=== PATIENT | female | born 1960 | race African-American/Black ===

== ENCOUNTER 2016-04-20 20:12 | Emergency (ER) | payer BC ==
[2016-04-20 20:31] VITALS: RESP 18; TEMP 98
[2016-04-20] MEDS ORDERED: SODIUM CHLORIDE 0.9% 500 ML IV STA (21:41)
[2016-04-20] MEDS ORDERED: ONDANSETRON 4 MG/2 ML VIAL IVP STA (21:41)
[2016-04-20] MEDS ORDERED: SODIUM CHLORIDE 0.9% 1,000 ML IV STA (21:41)
--- NOTE | 2016-04-20 21:48 | ED ---
General Adult HPI - General Source: patient, family, RN notes reviewed, old records reviewed Mode of arrival: ambulatory Limitations: no limitations <Jose J Escoto - Last Filed: 04/20/16 23:47> <Netta Francisco - Last Filed: 04/21/16 02:32> - General Chief complaint: Abdominal Pain Stated complaint: Female Time Seen by Provider: 04/20/16 21:23 - History of Present Illness Initial comments: Chief complaint and history of present illness this is a 55-year-old female was coming to the emergency room from the office. The patient was having right flank pain radiates down toward the right lower quadrant and groin area. She was her doctor's office or blood in the urine. Patient's never had a kidney stone before. She was mildly sweaty mildly nauseated no vomiting. Ongoing for 3 days (Jose J Escoto) - Related Data Home Medications Medication Instructions Recorded Confirmed Albuterol Sulfate [Proair Hfa] 1 - 2 puff INHALATION RT-Q6H PRN 08/21/14 Atorvastatin [Lipitor] 20 mg PO HS 08/21/14 04/20/16 Budesonide/Formoterol Fumarate 2 puff INHALATION RT-BID 08/21/14 04/20/16 [Symbicort 160-4.5 Mcg Inhaler] Esomeprazole Magnesium [NexIUM] 40 mg PO DAILY 08/21/14 04/20/16 Montelukast [Singulair] 10 mg PO HS 08/21/14 04/20/16 Nebivolol [Bystolic] 5 mg PO DAILY 08/21/14 04/20/16 Cetirizine HCl [Zyrtec] 10 mg PO HS 09/09/14 04/20/16 Hydrochlorothiazide [Hydrodiuril] 12.5 mg PO DAILY 09/09/14 04/20/16 Cyclobenzaprine [Flexeril] 10 mg PO TID PRN 04/20/16 04/20/16 Eszopiclone [Lunesta] 3 mg PO HS 04/20/16 04/20/16 PARoxetine [Paxil] 20 mg PO HS 04/20/16 04/20/16 Potassium Chloride [Klor-Con 10] 10 meq PO HS 04/20/16 04/20/16 Previous Rx's Medication Instructions Recorded Ibuprofen [Motrin] 800 mg PO Q6HR PRN #20 tab 05/16/14 HYDROcodone/APAP 5-325MG [[place] 1 tab PO Q4HR PRN #20 tab 04/21/16 5-325] Allergies Allergy/AdvReac Type Severity Reaction Status Date / Time DESTINY Inhibitors Allergy Rash/Hives Verified 04/20/16 20:31 hydromorphone HCl Allergy Anaphylaxis Verified 04/20/16 20:31 [From Dilaudid] latex Allergy Rash/Hives Verified 04/20/16 20:31 propoxyphene napsylate Allergy Swelling Verified 04/20/16 20:31 [From Darvocet-N] Review of Systems ROS Other: All systems not noted in ROS Statement are negative. <Jose J Escoto - Last Filed: 04/20/16 23:47> ROS Other: All systems not noted in ROS Statement are negative. <Netta Francisco - Last Filed: 04/21/16 02:32> ROS Statement: Those systems with pertinent positive or pertinent negative responses have been documented in the HPI. Review of systems. Patient denies any headache no chest pain no shortness of breath she has right flank pain that goes around towards the right lower quadrant area. Mild nausea. Patient denies any difficulty walking. All systems are reviewed. Past medical problems significant for asthma, diet-controlled diabetes, hyperlipidemia hypertension. The patient has a history of heart. Surgeries include fusion of L5 S4, cholecystectomy, one heart catheterization but no stent placed. The patient had glaucoma surgery both eyes. Family history diabetes hypertension and glaucoma. Patient has ALLERGY to DESTINY inhibitor as this causes angioneurotic edema. Also hydro-more phone ALLERGY, latex and propoxyphene. Patient denies smoking denies drinking (Jose J Escoto) Past Medical History Past Medical History: Diabetes Mellitus, Hyperlipidemia, Hypertension Additional Past Medical History / Comment(s): heart murmur, glaucoma History of Any Multi-Drug Resistant Organisms: None Reported Past Surgical History: Back Surgery, Cholecystectomy, Heart Catheterization Additional Past Surgical History / Comment(s): eye Past Anesthesia/Blood Transfusion Reactions: No Reported Reaction Past Psychological History: No Psychological Hx Reported Smoking Status: Never smoker Past Alcohol Use History: None Reported Past Drug Use History: None Reported <Jose J Escoto - Last Filed: 04/20/16 23:47> General Exam Limitations: no limitations <Jose J Escoto - Last Filed: 04/20/16 23:47> <Netta Francisco - Last Filed: 04/21/16 02:32> - General Exam Comments Initial Comments: General: The patient is awake and alert, in no distress, and does not appear acutely ill. Playing a discomfort to the right flank raiding down the right lower quadrant for 3 days. Vital signs show temperature 98.0 pulse 60 report rate 18 pulse ox 90% room air blood pressure 142/75. Elevated systolic noted. The patient is an discomfort. She does have a history of hypertension. Eye: Pupils are equal, round and reactive to light, extra-ocular movements are intact ; there is normal conjunctiva bilaterally. No signs of icterus. No complaint of visual acuity changes. Patient does have glaucoma uses eyedrops. Neck: The neck is supple, there is no tenderness Cardiovascular: There is a regular rate and rhythm. Faint murmur appreciated. Respiratory: Lungs are clear to auscultation, respirations are non-labored, breath sounds are equal. No wheezes, stridor, rales, or rhonchi. Gastrointestinal: Soft, non-distended, tender with deep palpation to the right lower quadrant. Discomfort starts in the right flank radiates around toward the right lower quadrant. No rebound or referred pain no guarding. There is no rebound or guarding present. No CVA tenderness. Bowel sounds are unremarkable. Back: Right flank discomfort for 3 days radiating to the right lower quadrant Musculoskeletal: Normal ROM, no tenderness, Neurological: No neuro deficit Skin: Skin is warm and dry and no rashes or lesions are noted. (Jose J Escoto) Course <Jevon,Jose J - Last Filed: 04/20/16 23:47> <Netta Francisco - Last Filed: 04/21/16 02:32> Vital Signs 04/20/16 04/20/16 20:28 23:31 Temperature 98 F Pulse Rate 60 64 Respiratory 18 18 Rate Blood Pressure 142/75 136/67 O2 Sat by Pulse 98 99 Oximetry She is reassessed at 2:15 AM, CBC, comprehensive metabolic panel, UA and CT abdomen are normal pain has resolved pretty much, she is comfortable going home on some Lowell's and she will follow-up with her family doctor to be gone home under Lowell 1 pill every 6 when necessary #15 (Netta Francisco) Medical Decision Making - Lab Data Result diagrams: 04/20/16 21:55 04/20/16 21:55 <Jose J Escoto - Last Filed: 04/20/16 23:47> - Lab Data Result diagrams: 04/20/16 21:55 04/20/16 21:55 <Netta Francisco - Last Filed: 04/21/16 02:32> - Medical Decision Making Medical decision making; patient's white count 8.7 hemoglobin 11 hematocrit of 37 urine clean no signs of infection or blood. Potassium is 4.5 with BUN 16 creatinine 0.6 and GFR greater than 60. Glucose 87. Plasma lactic acid less than 0.5. X-ray of the abdomen was done and reviewed by radiologist his impression is the bowel gas pattern is normal. There is no sign of intestinal obstruction or pneumoperitoneum. There are clips from cholecystectomy. Fecal pattern is normal. There is no sign of a mass. There is lower lumbar spine posterior fusion surgery. Impressions hemicolon nonacute abdomen. No change. As read by Dr. Gomez (Jose J Escoto) - Lab Data Lab Results 04/20/16 04/20/16 04/20/16 Range/Units 21:55 21:55 21:55 WBC 8.7 (3.8-10.6) k/uL RBC 4.46 (3.80-5.40) m/uL Hgb 11.4 (11.4-16.0) gm/dL Hct 37.4 (34.0-46.0) % MCV 83.9 (80.0-100.0) fL MCH 25.7 (25.0-35.0) pg MCHC 30.6 L (31.0-37.0) g/dL RDW 14.0 (11.5-15.5) % Plt Count 364 (150-450) k/uL Neutrophils % 55 % Lymphocytes % 36 % Monocytes % 5 % Eosinophils % 3 % Basophils % 0 % Neutrophils # 4.8 (1.3-7.7) k/uL Lymphocytes # 3.2 (1.0-4.8) k/uL Monocytes # 0.4 (0-1.0) k/uL Eosinophils # 0.2 (0-0.7) k/uL Basophils # 0.0 (0-0.2) k/uL Sodium 141 (137-145) mmol/L Potassium 4.5 (3.5-5.1) mmol/L Chloride 98 (98-107) mmol/L Carbon Dioxide 31 H (22-30) mmol/L Anion Gap 12 mmol/L BUN 16 (7-17) mg/dL Creatinine 0.68 (0.52-1.04) mg/dL Est GFR (MDRD) Af Amer >60 (>60 ml/min/1.73 sqM) Est GFR (MDRD) Non-Af >60 (>60 ml/min/1.73 sqM) Glucose 87 (74-99) mg/dL Plasma Lactic Acid Juan Jose (0.7-2.0) mmol/L Calcium 9.6 (8.4-10.2) mg/dL Total Bilirubin 0.5 (0.2-1.3) mg/dL AST 30 (14-36) U/L ALT 46 (9-52) U/L Alkaline Phosphatase 91 (38-126) U/L Total Protein 7.3 (6.3-8.2) g/dL Albumin 4.4 (3.5-5.0) g/dL Amylase 73 (30-110) U/L Lipase 47 (23-300) U/L Urine Color Yellow Urine Appearance Clear (Clear) Urine pH 7.0 (5.0-8.0) Ur Specific [place] 1.017 (1.001-1.035) Urine Protein Negative (Negative) Urine Glucose (UA) Negative (Negative) Urine Ketones Negative (Negative) Urine Blood Negative (Negative) Urine Nitrate Negative (Negative) Urine Bilirubin Negative (Negative) Urine Urobilinogen 2.0 (<2.0) mg/dL Ur Leukocyte Esterase Negative (Negative) 04/20/16 Range/Units 22:00 WBC (3.8-10.6) k/uL RBC (3.80-5.40) m/uL Hgb (11.4-16.0) gm/dL Hct (34.0-46.0) % MCV (80.0-100.0) fL MCH (25.0-35.0) pg MCHC (31.0-37.0) g/dL RDW (11.5-15.5) % Plt Count (150-450) k/uL Neutrophils % % Lymphocytes % % Monocytes % % Eosinophils % % Basophils % % Neutrophils # (1.3-7.7) k/uL Lymphocytes # (1.0-4.8) k/uL Monocytes # (0-1.0) k/uL Eosinophils # (0-0.7) k/uL Basophils # (0-0.2) k/uL Sodium (137-145) mmol/L Potassium (3.5-5.1) mmol/L Chloride (98-107) mmol/L Carbon Dioxide (22-30) mmol/L Anion Gap mmol/L BUN (7-17) mg/dL Creatinine (0.52-1.04) mg/dL Est GFR (MDRD) Af Amer (>60 ml/min/1.73 sqM) Est GFR (MDRD) Non-Af (>60 ml/min/1.73 sqM) Glucose (74-99) mg/dL Plasma Lactic Acid Juan Jose <0.5 L (0.7-2.0) mmol/L Calcium (8.4-10.2) mg/dL Total Bilirubin (0.2-1.3) mg/dL AST (14-36) U/L ALT (9-52) U/L Alkaline Phosphatase (38-126) U/L Total Protein (6.3-8.2) g/dL Albumin (3.5-5.0) g/dL Amylase (30-110) U/L Lipase (23-300) U/L Urine Color Urine Appearance (Clear) Urine pH (5.0-8.0) Ur Specific [place] (1.001-1.035) Urine Protein (Negative) Urine Glucose (UA) (Negative) Urine Ketones (Negative) Urine Blood (Negative) Urine Nitrate (Negative) Urine Bilirubin (Negative) Urine Urobilinogen (<2.0) mg/dL Ur Leukocyte Esterase (Negative) Disposition <Jose J Escoto - Last Filed: 04/20/16 23:47> <Netta Francisco - Last Filed: 04/21/16 02:32> Clinical Impression: Flank pain Disposition: HOME SELF-CARE Condition: Good Instructions: Abdominal Pain (ED) Prescriptions: HYDROcodone/APAP 5-325MG [[place] 5-325] 1 tab PO Q4HR PRN #20 tab PRN Reason: Pain
[2016-04-20 22:03] LABS: Basophils % (A) 0 %; CH 26.6; CHCM 31.9; Eosinophils # (A) 0.2 k/uL (0-0.7); Eosinophils % (A) 3 %; HCT 37.4 % (34.0-46.0); HDW 2.46; HGB 11.4 gm/dL (11.4-16.0); Luc # (Auto) 0.11; Luc % (Auto) 1; Lymphocytes # (A) 3.2 k/uL (1.0-4.8); Lymphocytes % (A) 36 %; MCH 25.7 pg (25.0-35.0); MCHC 30.6 g/dL (31.0-37.0); MCV 83.9 fL (80.0-100.0); Mean Platelet Volume 7.4; Monocytes # (A) 0.4 k/uL (0-1.0); Monocytes % (A) 5 %; Neutrophils # (A) 4.8 k/uL (1.3-7.7); Neutrophils % (A) 55 %; RBC 4.46 m/uL (3.80-5.40); WBC 8.7 k/uL (3.8-10.6); WBC (Perox) 9.03
[2016-04-20 22:04] LABS: Appearance,Urine Clear (Clear); Bilirubin,Urine Negative (Negative); Glucose,Urine (UA) Negative (Negative); Ketones,Urine Negative (Negative); Leukocyte Esterase,Urine Negative (Negative); Nitrite,Urine Negative (Negative); Protein,Urine Negative (Negative); Specific Gravity,Urine 1.017 (1.001-1.035); UA Billing (MACRO vs. MICRO) CHEM
--- NOTE | 2016-04-20 22:07 | XR ---
EXAMINATION TYPE: XR abdomen 2V DATE OF EXAM: 04/20/2016 10:02 PM COMPARISON: 07/21/2010 HISTORY: Right flank pain TECHNIQUE: 3 views FINDINGS: The bowel gas pattern is normal. There is no sign of intestinal obstruction or pneumoperito neum. There are clips from cholecystectomy. Fecal pattern is normal. There is no sign of a mass. Ther e is lower lumbar spine posterior fusion surgery. IMPRESSION: Nonacute abdomen. No change.
[2016-04-20 22:13] LABS: ALT 46 U/L (9-52); AST 30 U/L (14-36); Alkaline Phosphatase 91 U/L (38-126); Amylase 73 U/L (30-110); Anion Gap 12 mmol/L; Blood Urea Nitrogen 16 mg/dL (7-17); Calcium 9.6 mg/dL (8.4-10.2); Carbon Dioxide 31 mmol/L (22-30); Chloride 98 mmol/L (98-107); Glucose 87 mg/dL (74-99); Non-African American GFR(MDRD) >60 (>60 ml/min/1.73 sqM); Potassium 4.5 mmol/L (3.5-5.1); Sodium 141 mmol/L (137-145); Total Bilirubin 0.5 mg/dL (0.2-1.3); Total Protein 7.3 g/dL (6.3-8.2)
[2016-04-20] MEDS ORDERED: RX INFO: IV CONTRAST WAS GIVEN 1 EACH MISC MISCELLANE PRN (23:50)
[2016-04-20] MEDS ORDERED: IOHEXOL 350 MG/ML 25 ML BOTTLE (ORAL USE) PO PRN (23:50)
[2016-04-21] MEDS ORDERED: ACETAMINOPHEN IV (For NPO) 1,000 MG in EMPTY BAG 1 BAG IVPB STA (00:01)
--- NOTE | 2016-04-21 02:07 | CT ---
EXAMINATION TYPE: CT abdomen pelvis w con DATE OF EXAM: 04/21/2016 1:47 AM COMPARISON: NONE HISTORY: Rt flank pain that radiates to RLQ with hematuria. CT DLP: 644.70 mGycm Automated exposure control for dose reduction was used. TECHNIQUE: Helical acquisition of images was performed from the lung bases through the pelvis. CONTRAST: Performed with Oral Contrast and with IV Contrast, patient injected with 100 mL of Omnipaque 300. FINDINGS: There is mild subsegmental atelectasis at the lung bases. There is no pleural effusion. Heart size is normal. There is a small hiatal hernia. There is no pericardial effusion. Liver spleen pancreas appear normal. There are clips from cholecystectomy. There is no adrenal mass. Kidneys show satisfactory contrast opacification. There is no hydronephrosis. There is no retroperito hebert adenopathy. There is metal artifact from lower lumbar spine posterior fusion surgery. There is n o ascites. I see no intestinal wall thickening. There are no dilated loops. Bladder distends smoothly . There is no sign of a pelvic mass. Appendix is not seen. There is no sign of appendicitis. I see no bony destructive process. IMPRESSION: NO SIGN OF ACUTE ABDOMEN AND PELVIS. NO ADVERSE CHANGE COMPARED TO OLD EXAM. I DO NOT SEE A CAUSE FOR THE HEMATURIA.
[2016-04-21 02:51] VITALS: BP 128/76; PULSE 59
== END 2016-04-21 02:51 | disposition home or self-care (01) ==
LOC: EC 20:12
DX: R10.9 Unspecified abdominal pain (principal); I10 Essential (primary) hypertension; E78.5 Hyperlipidemia, unspecified; K21.9 Gastro-esophageal reflux disease without esophagitis; J98.11 Atelectasis; K44.9 Diaphragmatic hernia without obstruction or gangrene; H40.9 Unspecified glaucoma; Z79.899 Other long term (current) drug therapy; Z88.5 Allergy status to narcotic agent; Z88.8 Allergy status to other drugs, medicaments and biological substances; Z91.040 Latex allergy status
CPT/HCPCS: 99284; 96365; 96366 ×2; 96375; 96361 ×2; 36415; 80053; 82150; 83605; 83690; 85025; 81003; 87086; 74020; 74177; J2405; Q9967; J0131

== ENCOUNTER 2016-05-13 08:34 | Day surgery (SDC) | payer BC ==
[2016-05-07 11:12] VITALS: BMI 32.1
[~2016-05-13 08:34] MED LIST: LACTATED RINGERS 1,000 ML IV SCH; LIDOCAINE 1% 20 ML VIAL (10MG/ML) FOR IV START INTRADERMA PRN
[2016-05-13 09:03] VITALS: RESP 16; TEMP 97.3
[2016-05-13 09:32] LABS: Glucose,Whole Blood 101 mg/dL (75-99)
[2016-05-13] MEDS ORDERED: PROPOFOL 10 MG/ML 20 ML VIAL IV ONE (09:39)
--- NOTE | 2016-05-13 10:00 | P.PCN ---
Date of Procedure: 05/13/16 Procedure(s) Performed: Brief history: Patient is a pleasant 56-year-old white female, scheduled for an elective upper endoscopy as well as colonoscopy as a part of evaluation of abdominal pain, change in bowel habits for the last 3 days' duration. Pain is mostly in the right flank area radiating to the right lower quadrant area almost a daily basis and at times can be very severe. She went to the emergency room and had a CT of the abdomen and pelvis done and according to the patient was within normal limits. Because of the persistent symptoms she is scheduled for an upper endoscopy as well as colonoscopy today. Procedure performed: Esophagogastroduodenoscopy with biopsy Colonoscopy Preoperative diagnosis: Abdominal pain and change in bowel habits Anesthesia: MAC Procedure: After informed consent was obtained from the patient was brought into the endoscopy unit and IV conscious sedation was administered by anesthesia under continuous monitoring. Initially upper endoscopy was done. The Olympus GF 160 video endoscope was inserted inserted into the mouth and esophagus intubated without any difficulty and was gradually advanced into the stomach and duodenum and carefully examined. The bulb and second part of the duodenum appeared normal. The scope was then withdrawn into the stomach adequately insufflated with air and upon careful examination the antrum had mild gastritis and biopsies were done from this area. There were small polyps in the proximal body of the stomach and these were biopsied. The rest of the body, cardia and fundus appeared normal. The scope was then withdrawn into the esophagus. The GE junction was located at 40 cm to the incisors. It appeared regular with no erythema erosions or ulcerations. Rest of the esophagus appeared normal. Patient tolerated the procedure well. At this time the patient continued to remain sedation. Initial digital rectal examination was normal. Olympus CF 160 video colonoscope was then inserted into the rectum and gradually advanced to the cecum without any difficulty. Careful examination was performed as the scope was gradually being withdrawn. The prep was excellent. The cecum, ascending colon, transverse colon, descending colon, sigmoid colon and rectum appeared normal. Retroflexion was performed in the rectum and no lesions were noted. Patient tolerated the procedure well. Impression: 1. Upper endoscopy revealed small gastric polyps and mild antral gastritis. 2. Colonoscopy was essentially within normal limits with no evidence of colitis or colorectal neoplasia Recommendations: Findings of this examination were discussed with the patient as well as her family. She was advised to follow with the biopsy results. She'll be seen in the office in 2 weeks. She can have a repeat colonoscopy in 10 years
[2016-05-13 10:31] VITALS: BP 151/84; PULSE 60
== END 2016-05-13 10:59 | disposition home or self-care (01) ==
LOC: ORWHC2ENDO 08:34
PROVIDERS: ATTEND Internal Medicine Gastroenterology
DX: K29.50 Unspecified chronic gastritis without bleeding (principal); K31.7 Polyp of stomach and duodenum; I10 Essential (primary) hypertension; J45.909 Unspecified asthma, uncomplicated; K21.9 Gastro-esophageal reflux disease without esophagitis; Z79.899 Other long term (current) drug therapy; Z88.8 Allergy status to other drugs, medicaments and biological substances; Z91.040 Latex allergy status
CPT/HCPCS: 88305; 88342; 45378; 43239; J2704; 99153

== ENCOUNTER → 2016-06-29 | Outpatient (CLI) | payer BC | END | disposition home or self-care (01) | LOC: LABWHC1 17:03 | PROVIDERS: ATTEND Internal Medicine Critical Care Medicine | DX: T78.40XA Allergy, unspecified, initial encounter (principal); R05 Cough | CPT/HCPCS: 36415; 82785 ==

== ENCOUNTER → 2016-08-11 | Outpatient (CLI) | payer OTHER ==
--- NOTE | 2016-08-11 15:26 | XR ---
Right foot HISTORY: Trauma and pain 3 views of the right foot Comparison to right ankle same date Bone mineralization, joint spaces and alignment are maintained. There is soft tissue swelling. IMPRESSION: No fracture or dislocation of the right foot is evident, follow-up as indicated
--- NOTE | 2016-08-11 15:27 | XR ---
Right ankle HISTORY: Trauma and pain 3 views of the right ankle correlated to right foot same date There is soft tissue swelling especially laterally. Bone mineralization, joint spaces and alignment a re maintained IMPRESSION: No fracture or dislocation is evident, follow-up as indicated.
--- NOTE | 2016-08-11 15:28 | XR ---
Right leg HISTORY: Trauma and pain 2 views of the right leg correlated to right ankle same date There is soft tissue swelling. Bone mineralization, joint spaces and alignment are maintained. IMPRESSION: No fracture or dislocation is evident.
== END | disposition home or self-care (01) ==
LOC: RADXRMAIN 14:47
PROVIDERS: ATTEND Emergency Medicine
DX: S80.01XA Contusion of right knee, initial encounter (principal); S80.11XA Contusion of right lower leg, initial encounter; S93.401A Sprain of unspecified ligament of right ankle, initial encounter; S93.601A Unspecified sprain of right foot, initial encounter; W19.XXXA Unspecified fall, initial encounter

== ENCOUNTER → 2016-08-15 | Outpatient (CLI) | payer BC | END | disposition home or self-care (01) | LOC: LABWHC1 12:41 | PROVIDERS: ATTEND Internal Medicine | DX: E03.9 Hypothyroidism, unspecified (principal) | CPT/HCPCS: 36415; 84439; 84443 ==

== ENCOUNTER → 2016-08-28 | Outpatient (CLI) | payer OTHER ==
--- NOTE | 2016-08-28 10:16 | XR ---
EXAMINATION TYPE: XR ankle complete 3 views RT, XR foot complete 3 views RT DATE OF EXAM: 08/28/2016 9:26 AM COMPARISON: 08/11/2016 HISTORY: 56-year-old female for ankle pain after fall at work 1 month ago FINDINGS: Ankle: Ankle mortise appears congruent. Preservation of the distal tibiofibular overlap. Talar dome is intac t. Residual bimalleolar soft tissue swelling is noted. No acute fracture or dislocation. Subtalar atilio nt is aligned. Foot: No acute fracture, subluxation, or dislocation is identified. Mild degenerative change at the first M TP joint. IMPRESSION: Ankle and foot without acute osseous abnormality seen.
== END | disposition home or self-care (01) ==
LOC: RADXRMAIN 08:50
PROVIDERS: ATTEND Emergency Medicine
DX: S93.401D Sprain of unspecified ligament of right ankle, subsequent encounter (principal); S93.601D Unspecified sprain of right foot, subsequent encounter

== ENCOUNTER → 2016-08-28 | Outpatient (CLI) | payer BC ==
--- NOTE | 2016-08-28 09:33 | XR ---
EXAM TYPE: LUMBAR SPINE X RAY SERIES COMPARISON: NONE HISTORY: Pain TECHNIQUE: 4 views are submitted. FINDINGS: Alignment is anatomic. There is postsurgical change at L4-5. Minimal anterolisthesis of L3 relative t o L4. No compression deformities. IMPRESSION: 1. Postsurgical change
== END | disposition home or self-care (01) ==
LOC: RADXRMAIN 08:57
PROVIDERS: ATTEND Internal Medicine
DX: S39.92XA Unspecified injury of lower back, initial encounter (principal); Z98.890 Other specified postprocedural states
CPT/HCPCS: 72110

== ENCOUNTER → 2016-09-02 | Outpatient (CLI) | payer BC ==
[2016-09-02 18:01] LABS: Basophils % (A) 1 %; CH 26.2; CHCM 30.4; Eosinophils # (A) 0.2 k/uL (0-0.7); Eosinophils % (A) 2 %; HCT 33.9 % (34.0-46.0); HDW 2.45; Hypochromasia Moderate; Luc # (Auto) 0.16; Luc % (Auto) 2; Lymphocytes # (A) 3.3 k/uL (1.0-4.8); Lymphocytes % (A) 45 %; MCH 28.1 pg (25.0-35.0); MCHC 32.4 g/dL (31.0-37.0); MCV 86.9 fL (80.0-100.0); Mean Platelet Volume 6.3; Monocytes # (A) 0.4 k/uL (0-1.0); Monocytes % (A) 5 %; Neutrophils # (A) 3.4 k/uL (1.3-7.7); Neutrophils % (A) 45 %; RDW 14.7 % (11.5-15.5); WBC 7.4 k/uL (3.8-10.6)
== END ==
LOC: LABWHC1 17:28
PROVIDERS: ATTEND Internal Medicine Critical Care Medicine
DX: J45.50 Severe persistent asthma, uncomplicated (principal)
CPT/HCPCS: 36415; 82784; 82785; 85025; 87070; 87205

== ENCOUNTER → 2016-09-10 | Outpatient (CLI) | payer BC ==
--- NOTE | 2016-09-10 14:21 | MM ---
Reason for exam: clinical finding. Last mammogram was performed 1 year and 4 months ago. History: Family history of breast cancer in maternal aunt at age 50. Reductions of both breasts, November 2008. Took hormonal contraceptives for 12 years 8 months beginning at age 37. Indicated problem(s): palpable abnormality in the right breast. Physical Findings: Nurse Summary: A 0.5cm nodule in the right breast at 6 o'clock (nurse dw). MG Diagnostic Mammo w CAD JEANETH Bilateral CC and MLO view(s) were taken. ML view(s) were taken of the right breast. Prior study comparison: May 06, 2015, bilateral MG screening mammo w CAD. May 02, 2014, bilateral MG screening mammo w CAD. There are scattered fibroglandular densities. Benign calcifications. New nodular density at palpable site in the right breast, ultrasound recommended. These results were verbally communicated with the patient and result sheet given to the patient on 09/10/16. ASSESSMENT: Incomplete: need additional imaging evaluation, BI-RAD 0 RECOMMENDATION: Ultrasound of the right breast. Manage patient on a clinical basis.
--- NOTE | 2016-09-10 14:24 | USB ---
Reason for exam: additional evaluation requested from abnormal screening. History: Family history of breast cancer in maternal aunt at age 50. Reductions of both breasts, November 2008. Took hormonal contraceptives for 12 years 8 months beginning at age 37. US Breast Limited RT Right breast ultrasound demonstrates a 0.9 x 1.0 x 0.5cm oval, hypoechoic lesion at 6 o'clock for which a biopsy is recommended, and a 0.5 x 0.6 x 0.5cm oval lesion, questionable fat necrosis at 7 o'clock These results were verbally communicated with the patient and result sheet given to the patient on 09/10/16. ASSESSMENT: Suspicious, BI-RAD 4 RECOMMENDATION: Ultrasound core biopsy of the right breast. Called Dr. Mahmood with mammographic findings and has scheduled an appointment for the patient for 09/17/16 at 12 :[address] Cintron. Biopsy scheduled for 09/21/16 at 8:00. PRELIMINARY REPORT CALLED AND FAXED TO DR. CINTRON ON 09/10/16 AT 300/TMP.
== END | disposition home or self-care (01) ==
LOC: RADMAMWWP 06:50
PROVIDERS: ATTEND Internal Medicine
DX: R92.8 Other abnormal and inconclusive findings on diagnostic imaging of breast (principal); R92.2 Inconclusive mammogram; N63 Unspecified lump in breast; Z98.890 Other specified postprocedural states; Z80.3 Family history of malignant neoplasm of breast
CPT/HCPCS: 76642; G0204

== ENCOUNTER 2016-09-15 21:28 | Emergency (ER) | payer BC ==
[2016-09-15] MEDS ORDERED: SODIUM CHLORIDE 0.9% 1,000 ML IV STA (22:39)
[2016-09-15] MEDS ORDERED: FAMOTIDINE 20 MG/2 ML VIAL IV STA (22:39)
[2016-09-15] MEDS ORDERED: DICYCLOMINE 10 MG/ML 2 ML AMP IM STA (22:39)
--- NOTE | 2016-09-15 22:43 | ED ---
General Adult HPI - General Chief complaint: GI Bleed Stated complaint: bloody stool Time Seen by Provider: 09/15/16 22:32 Source: patient, RN notes reviewed Mode of arrival: ambulatory Limitations: no limitations - History of Present Illness Initial comments: 56 yo female presents to the ER with cc of bright red blood per stool. Patient states she had crampy and then had a sharp pain and have blood per rectum. patient states bloodsoaked toilet. Patient states she's having cramping now. Patient denies any nausea vomiting fever or chills with this. Patient denies any cough cold or runny nose with this. Patient states that she's never a feeling before. Patient states her last colonoscopy was about a year ago and states that there is nothing abnormal. Patient states she was concerned when she saw blood so she thought that she should be evaluated. Patient denies any recent fever, chills, shortness of breath, chest pain, back pain, nausea vomiting, numbness or tingling, dysuria or hematuria, constipation or diarrhea, headaches or visual changes, or any other current symptoms. - Related Data Home Medications Medication Instructions Recorded Confirmed Albuterol Sulfate [Proair Hfa] 1 - 2 puff INHALATION RT-Q6H PRN 08/21/14 Atorvastatin [Lipitor] 20 mg PO HS 08/21/14 09/15/16 Budesonide/Formoterol Fumarate 2 puff INHALATION RT-BID 08/21/14 09/15/16 [Symbicort 160-4.5 Mcg Inhaler] Esomeprazole Magnesium [NexIUM] 40 mg PO DAILY 08/21/14 09/15/16 Montelukast [Singulair] 10 mg PO HS 08/21/14 09/15/16 Nebivolol [Bystolic] 5 mg PO DAILY 08/21/14 09/15/16 Cetirizine HCl [Zyrtec] 10 mg PO HS 09/09/14 09/15/16 Hydrochlorothiazide [Hydrodiuril] 12.5 mg PO DAILY 09/09/14 09/15/16 Cyclobenzaprine [Flexeril] 10 mg PO TID PRN 04/20/16 09/15/16 Eszopiclone [Lunesta] 3 mg PO HS 04/20/16 09/15/16 PARoxetine [Paxil] 20 mg PO HS 04/20/16 09/15/16 Potassium Chloride [Klor-Con 10] 10 meq PO HS 04/20/16 09/15/16 Previous Rx's Medication Instructions Recorded Ibuprofen [Motrin] 800 mg PO Q6HR PRN #20 tab 05/16/14 HYDROcodone/APAP 5-325MG [[place] 1 tab PO Q4HR PRN #20 tab 04/21/16 5-325] Allergies Allergy/AdvReac Type Severity Reaction Status Date / Time DESTINY Inhibitors Allergy Rash/Hives Verified 09/15/16 22:47 hydromorphone HCl Allergy Anaphylaxis Verified 09/15/16 22:47 [From Dilaudid] latex Allergy Rash/Hives Verified 09/15/16 22:47 propoxyphene napsylate Allergy Swelling Verified 09/15/16 22:47 [From Darvocet-N] Review of Systems ROS Statement: Those systems with pertinent positive or pertinent negative responses have been documented in the HPI. ROS Other: All systems not noted in ROS Statement are negative. Past Medical History Past Medical History: Diabetes Mellitus, Eye Disorder, Hyperlipidemia, Hypertension Additional Past Medical History / Comment(s): DIET CONTROL DIABETES, heart murmur, glaucoma. RECENT EPISODES OF RT FLANK PAIN FOLLOWED BY NAUSEA AND DIARRHEA History of Any Multi-Drug Resistant Organisms: None Reported Past Surgical History: Back Surgery, Cholecystectomy, Heart Catheterization Additional Past Surgical History / Comment(s): eye. COLONOSCOPY Past Anesthesia/Blood Transfusion Reactions: No Reported Reaction Past Psychological History: No Psychological Hx Reported Smoking Status: Never smoker Past Alcohol Use History: None Reported Past Drug Use History: None Reported - Past Family History Father Family Medical History: Cancer Mother Family Medical History: No Reported History General Exam - General Exam Comments Initial Comments: General: The patient is awake and alert, in no distress, and does not appear acutely ill. Eye: Pupils are equal, round and reactive to light, extra-ocular movements are intact; there is normal conjunctiva bilaterally. No signs of icterus. Ears, nose, mouth and throat: There are moist mucous membranes and no oral lesions. Neck: The neck is supple, there is no tenderness. Cardiovascular: There is a regular rate and rhythm. No murmur, rub or gallop is appreciated. Respiratory: Lungs are clear to auscultation, respirations are non-labored, breath sounds are equal. No wheezes, stridor, rales, or rhonchi. Gastrointestinal: Soft, non-distended, non-tender abdomen without masses or organomegaly noted. There is no rebound or guarding present. No CVA tenderness. Bowel sounds are unremarkable. Back: There is no tenderness to palpation in the midline. There is no obvious deformity. No rashes noted. Musculoskeletal: Normal ROM, no tenderness, There is no pedal edema. There is no calf tenderness or swelling. Sensation intact. Pulses equal bilaterally 2+. Neurological: CN II-XII intact, There are no obvious motor or sensory deficits. Coordination appears grossly intact. Speech is normal. Skin: Skin is warm and dry and no rashes or lesions are noted. Psychiatric: Cooperative, appropriate mood & affect, normal judgment. Limitations: no limitations Course Vital Signs 09/15/16 09/15/16 09/16/16 21:38 : 00:07 Temperature 99.3 F 98.3 F Pulse Rate 68 62 60 Respiratory 148 H 16 16 Rate Blood Pressure 129/74 136/70 O2 Sat by Pulse 98 99 Oximetry Medical Decision Making - Medical Decision Making 56-year-old female presents with bright red blood per rectum. It is 10 lab work is reviewed. At this time patient's hemoglobin does appear to be stable. At 10.8 with stable vital signs. This time there has been no bloody bowel movements. So close negative. This and will give her follow-up to GI to further evaluate the bleeding. We did discuss return parameters all patient's questions. She stated that she understood and she is agreeable to the plan. She will be discharged.\ - Lab Data Result diagrams: 09/15/16 23:00 09/15/16 23:00 Lab Results 09/15/16 09/15/16 09/15/16 Range/Units 23:00 23:00 23:00 WBC 8.8 (3.8-10.6) k/uL RBC 4.06 (3.80-5.40) m/uL Hgb 10.8 L (11.4-16.0) gm/dL Hct 34.6 (34.0-46.0) % MCV 85.3 (80.0-100.0) fL MCH 26.7 (25.0-35.0) pg MCHC 31.3 (31.0-37.0) g/dL RDW 14.6 (11.5-15.5) % Plt Count 368 (150-450) k/uL Neutrophils % 52 % Lymphocytes % 36 % Monocytes % 5 % Eosinophils % 4 % Basophils % 1 % Neutrophils # 4.6 (1.3-7.7) k/uL Lymphocytes # 3.2 (1.0-4.8) k/uL Monocytes # 0.5 (0-1.0) k/uL Eosinophils # 0.3 (0-0.7) k/uL Basophils # 0.0 (0-0.2) k/uL Hypochromasia Slight PT (9.0-12.0) sec INR (<1.1) APTT (22.0-30.0) sec Sodium 145 (137-145) mmol/L Potassium 3.4 L (3.5-5.1) mmol/L Chloride 105 (98-107) mmol/L Carbon Dioxide 29 (22-30) mmol/L Anion Gap 11 mmol/L BUN 15 (7-17) mg/dL Creatinine 0.70 (0.52-1.04) mg/dL Est GFR (MDRD) Af Amer >60 (>60 ml/min/1.73 sqM) Est GFR (MDRD) Non-Af >60 (>60 ml/min/1.73 sqM) Glucose 91 (74-99) mg/dL Calcium 9.5 (8.4-10.2) mg/dL Total Bilirubin 0.3 (0.2-1.3) mg/dL AST 24 (14-36) U/L ALT 33 (9-52) U/L Alkaline Phosphatase 76 (38-126) U/L Total Protein 6.3 (6.3-8.2) g/dL Albumin 3.9 (3.5-5.0) g/dL Urine Color Urine Appearance (Clear) Urine pH (5.0-8.0) Ur Specific [place] (1.001-1.035) Urine Protein (Negative) Urine Glucose (UA) (Negative) Urine Ketones (Negative) Urine Blood (Negative) Urine Nitrite (Negative) Urine Bilirubin (Negative) Urine Urobilinogen (<2.0) mg/dL Ur Leukocyte Esterase (Negative) Urine RBC (0-5) /hpf Urine WBC (0-5) /hpf Ur Squamous Epith Cells (0-4) /hpf Urine Bacteria (None) /hpf Urine Mucus (None) /hpf Stool Occult Blood Negative (Negative) 09/15/16 09/15/16 Range/Units 23:00 23:12 WBC (3.8-10.6) k/uL RBC (3.80-5.40) m/uL Hgb (11.4-16.0) gm/dL Hct (34.0-46.0) % MCV (80.0-100.0) fL MCH (25.0-35.0) pg MCHC (31.0-37.0) g/dL RDW (11.5-15.5) % Plt Count (150-450) k/uL Neutrophils % % Lymphocytes % % Monocytes % % Eosinophils % % Basophils % % Neutrophils # (1.3-7.7) k/uL Lymphocytes # (1.0-4.8) k/uL Monocytes # (0-1.0) k/uL Eosinophils # (0-0.7) k/uL Basophils # (0-0.2) k/uL Hypochromasia PT 9.9 (9.0-12.0) sec INR 1.0 (<1.1) APTT 23.9 (22.0-30.0) sec Sodium (137-145) mmol/L Potassium (3.5-5.1) mmol/L Chloride (98-107) mmol/L Carbon Dioxide (22-30) mmol/L Anion Gap mmol/L BUN (7-17) mg/dL Creatinine (0.52-1.04) mg/dL Est GFR (MDRD) Af Amer (>60 ml/min/1.73 sqM) Est GFR (MDRD) Non-Af (>60 ml/min/1.73 sqM) Glucose (74-99) mg/dL Calcium (8.4-10.2) mg/dL Total Bilirubin (0.2-1.3) mg/dL AST (14-36) U/L ALT (9-52) U/L Alkaline Phosphatase (38-126) U/L Total Protein (6.3-8.2) g/dL Albumin (3.5-5.0) g/dL Urine Color Yellow Urine Appearance Cloudy H (Clear) Urine pH 6.0 (5.0-8.0) Ur Specific [place] 1.016 (1.001-1.035) Urine Protein Negative (Negative) Urine Glucose (UA) Negative (Negative) Urine Ketones Negative (Negative) Urine Blood Negative (Negative) Urine Nitrite Negative (Negative) Urine Bilirubin Negative (Negative) Urine Urobilinogen <2.0 (<2.0) mg/dL Ur Leukocyte Esterase Moderate H (Negative) Urine RBC 1 (0-5) /hpf Urine WBC 6 H (0-5) /hpf Ur Squamous Epith Cells 3 (0-4) /hpf Urine Bacteria Rare H (None) /hpf Urine Mucus Occasional H (None) /hpf Stool Occult Blood (Negative) Disposition Clinical Impression: GI bleed Disposition: HOME SELF-CARE Condition: Stable Instructions: Gastrointestinal Bleeding (ED) Additional Instructions: Please use medication as discussed. Please follow up with family doctor if symptoms have not improved over the next two days. Please return to the emergency room if your symptoms increase or worsen or for any other concerns. Referrals: Keila Mahmood MD [Primary Care Provider] - 1-2 days Andrew Taylor MD [STAFF PHYSICIAN] - 1-2 days Time of Disposition: 00:36
[2016-09-15 23:19] VITALS: RESP 16
[2016-09-15 23:24] LABS: Basophils % (A) 1 %; CH 26.5; CHCM 31.2; Eosinophils # (A) 0.3 k/uL (0-0.7); Eosinophils % (A) 4 %; HCT 34.6 % (34.0-46.0); HDW 2.54; HGB 10.8 gm/dL (11.4-16.0); Hypochromasia Slight; Luc # (Auto) 0.23; Luc % (Auto) 3; Lymphocytes # (A) 3.2 k/uL (1.0-4.8); Lymphocytes % (A) 36 %; MCH 26.7 pg (25.0-35.0); MCHC 31.3 g/dL (31.0-37.0); MCV 85.3 fL (80.0-100.0); Mean Platelet Volume 6.8; Monocytes # (A) 0.5 k/uL (0-1.0); Monocytes % (A) 5 %; Neutrophils # (A) 4.6 k/uL (1.3-7.7); Neutrophils % (A) 52 %; RBC 4.06 m/uL (3.80-5.40); RDW 14.6 % (11.5-15.5); WBC 8.8 k/uL (3.8-10.6); WBC (Perox) 9.71
[2016-09-15 23:30] LABS: Partial Thromboplastin Time 23.9 sec (22.0-30.0); Prothrombin Time 9.9 sec (9.0-12.0)
[2016-09-15 23:31] LABS: ALT 33 U/L (9-52); AST 24 U/L (14-36); Alkaline Phosphatase 76 U/L (38-126); Anion Gap 11 mmol/L; Blood Urea Nitrogen 15 mg/dL (7-17); Calcium 9.5 mg/dL (8.4-10.2); Carbon Dioxide 29 mmol/L (22-30); Chloride 105 mmol/L (98-107); Glucose 91 mg/dL (74-99); Non-African American GFR(MDRD) >60 (>60 ml/min/1.73 sqM); Potassium 3.4 mmol/L (3.5-5.1); Sodium 145 mmol/L (137-145); Total Bilirubin 0.3 mg/dL (0.2-1.3); Total Protein 6.3 g/dL (6.3-8.2)
[2016-09-16 00:08] VITALS: BP 136/70; PULSE 60; TEMP 98.3
[2016-09-16 00:11] LABS: Appearance,Urine Cloudy (Clear); Bacteria,Urine Rare /hpf; Bilirubin,Urine Negative (Negative); Glucose,Urine (UA) Negative (Negative); Ketones,Urine Negative (Negative); Leukocyte Esterase,Urine Moderate (Negative); Mucus,Urine Occasional /hpf; Nitrite,Urine Negative (Negative); Particle Count 8191; Protein,Urine Negative (Negative); RBC,Urine 1 /hpf (0-5); Specific Gravity,Urine 1.016 (1.001-1.035); Squamous Epithelial Cell,Urine 3 /hpf (0-4); UA Billing (MACRO vs. MICRO) MICRO; Urobilinogen,Urine <2.0 mg/dL (<2.0); WBC,Urine 6 /hpf (0-5)
--- NOTE | 2016-09-16 00:28 | XR ---
EXAM: XR Abdomen Complete, 2 or More Views CLINICAL HISTORY: Reason: Pain TECHNIQUE: Frontal view of the abdomen/pelvis with upright view of the abdomen. COMPARISON: CT Abdomen and Pelvis dated 07/21/10. FINDINGS: Intraperitoneal space: No free air. Gastrointestinal tract: Unremarkable. No dilation. Organs: Cholecystectomy clips seen. Bones/joints: Unremarkable. Other findings: Laminectomy and posterior fusion of L4/L5. IMPRESSION: No acute findings.
== END 2016-09-16 00:52 | disposition home or self-care (01) ==
LOC: EC 21:28
DX: K92.2 Gastrointestinal hemorrhage, unspecified (principal); E78.5 Hyperlipidemia, unspecified; I10 Essential (primary) hypertension; Z79.51 Long term (current) use of inhaled steroids; Z79.899 Other long term (current) drug therapy; Z91.040 Latex allergy status; Z88.5 Allergy status to narcotic agent; Z88.8 Allergy status to other drugs, medicaments and biological substances; Z90.49 Acquired absence of other specified parts of digestive tract
CPT/HCPCS: 36415; 86900; 86901; 80053; 85025; 85610; 85730; 86850; 82272; 81001; 74020; 99285; 96374; 96361; 96372; J0500

== ENCOUNTER → 2016-09-21 | Day surgery (SDC) | payer BC ==
[2016-09-21 07:44] VITALS: RESP 16; TEMP 98.2; BMI 31.9
[2016-09-21 08:54] VITALS: BP 114/79; PULSE 52
--- NOTE | 2016-09-21 09:06 | USB ---
Ultrasound-guided right breast core biopsy DATE OF EXAM: 09/21/2016 CLINICAL HISTORY: Abnormal right breast ultrasound 6:00 nodule The procedure was discussed with the patient. The risks, complications, benefits , and alternatives were discussed and any questions were answered. Informed consent was obtained. The patient was placed supine on the ultrasound table and prepped and draped in the usual sterile fashion. All elements of maximal barrier and sterile technique were utilized. Under ultrasound guidance, access into the 6:00 nodule was performed utilizing a 14- gauge core biopsy needle. 5 samples were obtained. Surgical clip placed post procedure. Postprocedural mammogram demonstrated the area of concern to correlate with the mammographic clip. The patient was stable throughout the procedure and remained stable upon discharge from Department of Radiology. IMPRESSION: Successful ultrasound-guided core biopsy right breast lesion. Pathology pending. Pathology Results: Benign BREAST, RIGHT, ULTRASOUND GUIDED CORE BIOPSY: FAT NECROSIS WITH FIBROSIS, FIBROPLASIA, ACUTE AND CHRONIC INFLAMMATION, HISTOCYTIC INFLAMMATION INCLUDING GRANULOMATOUS FEATURES, AND CALCIFICATIONS. PENDING SPECIAL STAINS. Recommendation Follow up ultrasound of the right breast in 6 months. AYLIN
--- NOTE | 2016-09-21 09:13 | MM ---
Reason for exam: additional evaluation requested from abnormal screening. Last mammogram was performed less than 1 month ago. History: Family history of breast cancer in maternal aunt at age 50. Reductions of both breasts, November 2008. Took hormonal contraceptives for 12 years 8 months beginning at age 37. MG Diagnostic Mammo RT Wo CAD CC and LM view(s) were taken of the right breast. Prior study comparison: September 10, 2016, bilateral MG diagnostic mammo w CAD JEANETH. May 06, 2015, bilateral MG screening mammo w CAD. ASSESSMENT: Post procedure mammogram for marker placement RECOMMENDATION: Ultrasound of the right breast in 6 months. PENDING PATHOLOGY RESULTS.
== END ==
LOC: RADUSWWP 07:09
PROVIDERS: ATTEND Surgery
DX: R92.8 Other abnormal and inconclusive findings on diagnostic imaging of breast (principal); N60.31 Fibrosclerosis of right breast; Z80.3 Family history of malignant neoplasm of breast; R92.1 Mammographic calcification found on diagnostic imaging of breast
CPT/HCPCS: 88305; 88312; 88342; 88341; 19083; G0206; A4648; J2001

== ENCOUNTER → 2016-10-05 | Outpatient (CLI) | payer BC | END | disposition home or self-care (01) | LOC: LABWHC1 13:56 | PROVIDERS: ATTEND Internal Medicine | DX: R94.6 Abnormal results of thyroid function studies (principal) | CPT/HCPCS: 36415; 84439; 84443 ==

== ENCOUNTER 2016-11-10 08:38 | Day surgery (SDC) | payer BC ==
[2016-11-04 16:13] VITALS: BMI 34.0
[~2016-11-10 08:38] MED LIST changes: +DEXAMETHASONE SOD PHOSPHATE 10 MG/ML 1 ML VIAL IV ONE; +HEPARIN SODIUM,PORCINE 5,000 UNIT/ML 1 ML VIAL SQ ONE; -LIDOCAINE 1% 20 ML VIAL (10MG/ML) FOR IV START INTRADERMA PRN; +MIDAZOLAM 2 MG/2 ML VIAL IV PRN; +ONDANSETRON 4 MG/2 ML VIAL IVP ONE; +SCOPOLAMINE 1.5MG/72HR PATCH TRANSDERM ONE; +ceFAZolin 2 GM in SODIUM CHLORIDE 0.9% 100 ML IVPB ONE; +fentaNYL (PF) 50 MCG/ML 2 ML AMP IV PRN
[2016-11-10] MEDS ORDERED: LIDOCAINE 1% 20 ML VIAL (10MG/ML) FOR IV START INTRADERMA ONE (09:25)
[2016-11-10] MEDS ORDERED: HEPARIN SODIUM,PORCINE 5,000 UNIT/ML 1 ML VIAL SQ ONE (09:31)
[2016-11-10 09:34] LABS: Glucose,Whole Blood 115 mg/dL (75-99)
[2016-11-10] MEDS ORDERED: MIDAZOLAM 2 MG/2 ML VIAL ONE (09:55)
[2016-11-10] MEDS ORDERED: SUCCINYLCHOLINE CHLORIDE 100 MG/5 ML SYR IV ONE (09:55)
[2016-11-10] MEDS ORDERED: LIDOCAINE 1% INJ 10MG/ML (20 ML MDV) ONE (09:55)
[2016-11-10] MEDS ORDERED: fentaNYL (PF) 50 MCG/ML 2 ML AMP ONE (09:55)
[2016-11-10] MEDS ORDERED: PROPOFOL 10 MG/ML 20 ML VIAL IV ONE (09:55)
--- NOTE | 2016-11-10 10:37 | P.OP ---
Date of Procedure: 11/10/16 Preoperative Diagnosis: Breast mass 2 right Postoperative Diagnosis: Same Procedure(s) Performed: Excision of right breast mass times sterile, 1. Bilateral breast 2. 6:00 infra-areolar area Implants: Anesthesia: IRENAA Surgeon: Shayna Cintron Estimated Blood Loss (ml): 5 IV fluids (ml): 500 Pathology: other (Breast mass 2) Condition: stable Disposition: PACU Indications for Procedure: Palpable breast masses, biopsies were benign however these are palpable and worrisome to the patient Operative Findings: Breast mass 2 to lateral and 6:00 inferior areolar Description of Procedure: Patient was taken to the operating room and following induction of general anesthesia the right breast was prepped and draped in a sterile fashion. The lesion in the right lateral breast was initially approached. An incision was made over the palpable abnormality and wide excision was performed. This is approximately 1 cm in size and appeared to be fatty necrotic tissue. After we were assured that hemostasis was attained a 4-0 Monocryl was used to close the skin. This was followed by a 4-0 nylon. The 6:00 inferior periareolar area was approached. Palpable abnormality was noted. Incision was made over this and this appeared to be a fatty necrotic calcified area. This was widely excised. Following this after we were assured that hemostatis was obtained 4-0 Monocryl was used to close the skin. Specimens were sent to pathology. Patient tolerated procedure in stable condition. All instrument and sponge counts were correct at the end of the case.
--- NOTE | 2016-11-10 10:42 | P.DS ---
Providers Attending physician: Shayna Cintron Primary care physician: Keila Mahmood Plan - Discharge Summary New Discharge Prescriptions: New Acetaminophen with Codeine [Tylenol w/codeine #3] 1 tab PO Q4H #20 tab No Action Ibuprofen [Motrin] 800 mg PO Q6HR PRN #20 tab PRN Reason: Pain Nebivolol [Bystolic] 10 mg PO DAILY Montelukast [Singulair] 10 mg PO HS Atorvastatin [Lipitor] 20 mg PO HS Esomeprazole Magnesium [NexIUM] 40 mg PO DAILY Budesonide/Formoterol Fumarate [Symbicort 160-4.5 Mcg Inhaler] 2 puff INHALATION BID Albuterol Sulfate [Proair Hfa] 1 - 2 puff INHALATION Q6H PRN PRN Reason: Shortness Of Breath Cetirizine HCl [Zyrtec] 10 mg PO HS Hydrochlorothiazide [Hydrodiuril] 12.5 mg PO DAILY PARoxetine [Paxil] 20 mg PO HS Cyclobenzaprine [Flexeril] 10 mg PO DIRECTED PRN PRN Reason: Pain Eszopiclone [Lunesta] 3 mg PO HS Potassium Chloride [Klor-Con 10] 10 meq PO HS ALPRAZolam [Xanax] 0.5 mg PO DAILY PRN PRN Reason: Anxiety Acetaminophen with Codeine [Tylenol w/codeine #3] 2 tab PO DAILY PRN PRN Reason: Pain Synthroid(Dose Unknown) 1 tab PO QAM Discharge Medication List Ibuprofen [Motrin] 800 mg PO Q6HR PRN #20 tab 05/16/14 [Rx] Albuterol Sulfate [Proair Hfa] 1 - 2 puff INHALATION Q6H PRN 08/21/14 [History] Atorvastatin [Lipitor] 20 mg PO HS 08/21/14 [History] Budesonide/Formoterol Fumarate [Symbicort 160-4.5 Mcg Inhaler] 2 puff INHALATION BID 08/21/14 [History] Esomeprazole Magnesium [NexIUM] 40 mg PO DAILY 08/21/14 [History] Montelukast [Singulair] 10 mg PO HS 08/21/14 [History] Nebivolol [Bystolic] 10 mg PO DAILY 08/21/14 [History] Cetirizine HCl [Zyrtec] 10 mg PO HS 09/09/14 [History] Hydrochlorothiazide [Hydrodiuril] 12.5 mg PO DAILY 09/09/14 [History] Cyclobenzaprine [Flexeril] 10 mg PO DIRECTED PRN 04/20/16 [History] Eszopiclone [Lunesta] 3 mg PO HS 04/20/16 [History] PARoxetine [Paxil] 20 mg PO HS 04/20/16 [History] Potassium Chloride [Klor-Con 10] 10 meq PO HS 04/20/16 [History] ALPRAZolam [Xanax] 0.5 mg PO DAILY PRN 09/21/16 [History] Acetaminophen with Codeine [Tylenol w/codeine #3] 2 tab PO DAILY PRN 11/04/16 [ History] Synthroid(Dose Unknown) 1 tab PO QAM 11/04/16 [History] Acetaminophen with Codeine [Tylenol w/codeine #3] 1 tab PO Q4H #20 tab 11/10/16 [Rx] Follow up Appointment(s)/Referral(s): Shayna Cintron MD [STAFF PHYSICIAN] - 1 Week Activity/Diet/Wound Care/Special Instructions: do not drive today or if taking narcotics Discharge Disposition: HOME SELF-CARE
[2016-11-10 10:50] VITALS: TEMP 98
[2016-11-10 10:51] LABS: Glucose,Whole Blood 126 mg/dL (75-99)
[2016-11-10] MEDS: MORPHINE SULFATE 4 MG/ML SYRINGE IV ONE ×3 (10:59→11:28)
[2016-11-10 12:15] VITALS: BP 124/63; PULSE 65; RESP 16
== END 2016-11-10 12:38 | disposition home or self-care (01) ==
LOC: OR 08:38
PROVIDERS: ATTEND Surgery
DX: N60.31 Fibrosclerosis of right breast (principal); N64.1 Fat necrosis of breast; N63 Unspecified lump in breast; J45.50 Severe persistent asthma, uncomplicated; E11.9 Type 2 diabetes mellitus without complications; E66.9 Obesity, unspecified; Z68.32 Body mass index [BMI] 32.0-32.9, adult; I10 Essential (primary) hypertension; M19.90 Unspecified osteoarthritis, unspecified site; H40.9 Unspecified glaucoma; F39 Unspecified mood [affective] disorder; K21.9 Gastro-esophageal reflux disease without esophagitis; E07.9 Disorder of thyroid, unspecified; Z79.1 Long term (current) use of non-steroidal anti-inflammatories (NSAID); Z79.51 Long term (current) use of inhaled steroids; Z79.891 Long term (current) use of opiate analgesic; Z79.899 Other long term (current) drug therapy; Z88.5 Allergy status to narcotic agent; Z88.8 Allergy status to other drugs, medicaments and biological substances; Z91.040 Latex allergy status
CPT/HCPCS: 88305; 19120; J2250; J2270; J1644; J1100; J0690; J2405; J2001; J3010; J0330; J2704; 88312

== ENCOUNTER → 2017-05-28 | Outpatient (CLI) | payer BC ==
--- NOTE | 2017-05-28 12:55 | US ---
EXAMINATION TYPE: US thyroid st tissue head/neck DATE OF EXAM: 05/28/2017 COMPARISON: NONE CLINICAL HISTORY: 57-year-old female E04.9 Goiter. Technique: Multiple sonographic images of the thyroid gland are obtained. FINDINGS: Right Lobe: 4.3 x 1.8 x 1.6 cm Overall Parenchyma: homogenous Left Lobe: 3.8 x 1.2 x 1.0 cm Overall Parenchyma: homogeneous Isthmus Thickness: 0.6 cm NODULES RIGHT: # of nodules measured on right: 1 1. 0.4 X 0.3 x 0.2 cm tiny hypoechoic nodule with some internal vascularity at the midpole. Prior size: no prior US LEFT: # of nodules measured on left: 1 1. 0.4 X 0.3 x 0.2 cm tiny hypoechoic nodule with some internal vascularity at the anterior midpole . ISTHMUS: # of nodules measured in the isthmus: 0 Bilateral neck scanned, no evidence of lymphadenopathy. IMPRESSION: A tiny 4 mm nodule on each side. Thyroid gland measurements as above are within normal limits.
== END | disposition home or self-care (01) ==
LOC: RADUSWWP 10:31
PROVIDERS: ATTEND Internal Medicine Endocrinology, Diabetes & Metabolism
DX: E04.2 Nontoxic multinodular goiter (principal)
CPT/HCPCS: 76536

== ENCOUNTER 2017-06-02 18:31 | Observation (INO) | payer BC ==
[2017-06-02] MEDS ORDERED: ASPIRIN 81 MG PO STA (18:50)
[2017-06-02] MEDS ORDERED: NITROGLYCERIN OINT 1 INCH/GM PACKET TOPICAL STA (18:50)
--- NOTE | 2017-06-02 18:54 | ED ---
General Adult HPI - General Chief complaint: Chest Pain Stated complaint: ABDOMINAL PAIN, FLANK PAIN Time Seen by Provider: 06/02/17 18:35 Source: patient, RN notes reviewed Mode of arrival: ambulatory Limitations: no limitations - History of Present Illness Initial comments: This a 57-year-old female who presents emergency Department with left-sided chest pain that radiates down her arm and into her back. Patient states it started this morning and his been ongoing all day getting progressively worse. Patient states he is also somewhat short of breath and states taking a deep breath increases the pain. Patient denies any palpitations. Patient denies any recent fever chills or cough. Patient denies any swelling to her legs patient denies any Pain. Patient states she supposed to see the differential repairer tomorrow. Patient denies any headache patient denies numbness weakness. Patient denies any lightheadedness dizziness or near-syncopal episode. Patient denies abdominal pain patient denies any vomiting or diarrhea but has had some nausea. - Related Data Home Medications Medication Instructions Recorded Confirmed Albuterol Sulfate [Proair Hfa] 1 - 2 puff INHALATION RT-Q6H PRN 08/21/14 Atorvastatin [Lipitor] 20 mg PO HS 08/21/14 06/02/17 Budesonide/Formoterol Fumarate 2 puff INHALATION RT-BID 08/21/14 06/02/17 [Symbicort 160-4.5 Mcg Inhaler] Esomeprazole Magnesium [NexIUM] 40 mg PO DAILY 08/21/14 06/02/17 Montelukast [Singulair] 10 mg PO HS 08/21/14 06/02/17 Hydrochlorothiazide [Hydrodiuril] 25 mg PO DAILY 09/09/14 06/02/17 Eszopiclone [Lunesta] 3 mg PO HS 04/20/16 06/02/17 PARoxetine [Paxil] 20 mg PO HS 04/20/16 06/02/17 Potassium Chloride [Klor-Con 10] 10 meq PO HS 04/20/16 06/02/17 ALPRAZolam [Xanax] 0.5 mg PO DAILY PRN 09/21/16 06/02/17 Nebivolol HCl [Bystolic] 10 mg PO DAILY 03/26/17 06/02/17 Phentermine HCl [Adipex-P] 37.5 mg PO QAM 03/26/17 06/02/17 Acetic Acid [Acetic Acid Otic 2 drop RIGHT EAR BID 06/02/17 06/02/17 Solution] Cetirizine HCl 10 mg PO DAILY 06/02/17 06/02/17 Cyclobenzaprine HCl 10 mg PO DAILY 06/02/17 06/02/17 Dialyvite Multi-Vit 5,000 1 tab PO DAILY 06/02/17 06/02/17 Dicyclomine [Bentyl] 10 mg PO BID PRN 06/02/17 06/02/17 Ferrous Sulfate [Feosol] 325 mg PO DAILY 06/02/17 06/02/17 Ibuprofen [Motrin] 800 mg PO TID PRN 06/02/17 06/02/17 Meclizine [Antivert] 12.5 mg PO DAILY PRN 06/02/17 06/02/17 Previous Rx's Medication Instructions Recorded Metoclopramide HCl [Reglan] 10 mg PO Q6HR PRN #15 tablet 03/26/17 Allergies Allergy/AdvReac Type Severity Reaction Status Date / Time DESTINY Inhibitors Allergy Rash/Hives Verified 06/02/17 18:57 hydromorphone HCl Allergy Anaphylaxis Verified 06/02/17 18:57 [From Dilaudid] latex Allergy Rash/Hives Verified 06/02/17 18:57 propoxyphene napsylate Allergy Swelling Verified 06/02/17 18:57 [From Darvocet-N] Review of Systems ROS Statement: Those systems with pertinent positive or pertinent negative responses have been documented in the HPI. ROS Other: All systems not noted in ROS Statement are negative. Past Medical History Past Medical History: Asthma, Diabetes Mellitus, Eye Disorder, GERD/Reflux, Hyperlipidemia, Hypertension, Respiratory Disorder, Skin Disorder, Thyroid Disorder Additional Past Medical History / Comment(s): DIET CONTROL DIABETES, heart murmur, glaucoma , varicose veins, IBS, hiatal hernia, eczema History of Any Multi-Drug Resistant Organisms: None Reported Past Surgical History: Back Surgery, Breast Surgery, Cholecystectomy, Heart Catheterization, Orthopedic Surgery Additional Past Surgical History / Comment(s): breast reduction, left knee arthroscopy, breast biopsy, anthony cataracts Past Anesthesia/Blood Transfusion Reactions: Motion Sickness Past Psychological History: Anxiety Smoking Status: Never smoker Past Alcohol Use History: None Reported Past Drug Use History: None Reported - Past Family History Father Family Medical History: Cancer, Deep Vein Thrombosis (DVT) Mother Family Medical History: No Reported History General Exam - General Exam Comments Initial Comments: GENERAL: Patient is well-developed and well-nourished. Patient is nontoxic and well- hydrated and is in mild distress. ENT: Neck is soft and supple. No significant lymphadenopathy is noted. Oropharynx is clear. Moist mucous membranes. Neck has full range of motion without eliciting any pain. EYES: The sclera were anicteric and conjunctiva were pink and moist. Extraocular movements were intact and pupils were equal round and reactive to light. Eyelids were unremarkable. PULMONARY: Unlabored respirations. Good breath sounds bilaterally. No audible rales rhonchi or wheezing was noted. CARDIOVASCULAR: There is a regular rate and rhythm without any murmurs gallops or rubs. ABDOMEN: Soft and nontender with normal bowel sounds. No palpable organomegaly was noted. There is no palpable pulsatile mass. SKIN: Skin is clear with no lesions or rashes and otherwise unremarkable. NEUROLOGIC: Patient is alert and oriented x3. Cranial nerves II through XII are grossly intact. Motor and sensory are also intact. Normal speech, volume and content. Symmetrical smile. MUSCULOSKELETAL: Normal extremities with adequate strength and full range of motion. LYMPHATICS: No significant lymphadenopathy is noted PSYCHIATRIC: Normal psychiatric evaluation. Normal interpersonal interactions appears functionally intact in deals appropriately with others. No signs of depression. No signs of anxiety. Limitations: no limitations Course Vital Signs 06/02/17 06/02/17 18:34 19:39 Temperature 98 F Pulse Rate 68 64 Respiratory 18 20 Rate Blood Pressure 147/72 121/66 O2 Sat by Pulse 100 98 Oximetry Medical Decision Making - Medical Decision Making EKG shows normal sinus rhythm at 74 bpm LA interval is 188 QRSs 84 QT interval 440 QTC is 488. Patient's EKG is compared to an old EKG and there are no new changes.patient's chest x-ray shows no acute abnormality. I spoke with Dr. Mcclain's nurse practitioner she accepted the patient admitted the patient wrote admitting orders consult cardiology I placed the patient on the floor and started the patient on heparin. I continue the heparin Nitropaste and aspirin on the floor. - Lab Data Result diagrams: 06/02/17 18:55 06/02/17 18:55 Lab Results 06/02/17 06/02/17 06/02/17 Range/Units 18:55 18:55 18:55 WBC 12.0 H (3.8-10.6) k/uL RBC 4.11 (3.80-5.40) m/uL Hgb 10.6 L (11.4-16.0) gm/dL Hct 34.4 (34.0-46.0) % MCV 83.8 (80.0-100.0) fL MCH 25.7 (25.0-35.0) pg MCHC 30.7 L (31.0-37.0) g/dL RDW 14.1 (11.5-15.5) % Plt Count 414 (150-450) k/uL Neutrophils % 52 % Lymphocytes % 39 % Monocytes % 5 % Eosinophils % 2 % Basophils % 0 % Neutrophils # 6.2 (1.3-7.7) k/uL Lymphocytes # 4.6 (1.0-4.8) k/uL Monocytes # 0.6 (0-1.0) k/uL Eosinophils # 0.3 (0-0.7) k/uL Basophils # 0.0 (0-0.2) k/uL Hypochromasia Slight PT (9.0-12.0) sec INR (<1.2) APTT (22.0-30.0) sec D-Dimer (<0.60) mg/L FEU Sodium 144 (137-145) mmol/L Potassium 3.5 (3.5-5.1) mmol/L Chloride 103 (98-107) mmol/L Carbon Dioxide 27 (22-30) mmol/L Anion Gap 14 mmol/L BUN 18 H (7-17) mg/dL Creatinine 0.77 (0.52-1.04) mg/dL Est GFR (MDRD) Af Amer >60 (>60 ml/min/1.73 sqM) Est GFR (MDRD) Non-Af >60 (>60 ml/min/1.73 sqM) Glucose 103 H (74-99) mg/dL Calcium 9.9 (8.4-10.2) mg/dL Magnesium 1.9 (1.6-2.3) mg/dL Total Bilirubin 0.2 (0.2-1.3) mg/dL AST 26 (14-36) U/L ALT 31 (9-52) U/L Alkaline Phosphatase 102 (38-126) U/L Total Creatine Kinase 211 H (30-135) U/L CK-MB (CK-2) 1.7 (0.0-2.4) ng/mL CK-MB (CK-2) Rel Index 0.8 Troponin I <0.012 (0.000-0.034) ng/mL Total Protein 6.9 (6.3-8.2) g/dL Albumin 4.2 (3.5-5.0) g/dL Amylase 87 (30-110) U/L Lipase 109 (23-300) U/L 06/02/17 Range/Units 18:55 WBC (3.8-10.6) k/uL RBC (3.80-5.40) m/uL Hgb (11.4-16.0) gm/dL Hct (34.0-46.0) % MCV (80.0-100.0) fL MCH (25.0-35.0) pg MCHC (31.0-37.0) g/dL RDW (11.5-15.5) % Plt Count (150-450) k/uL Neutrophils % % Lymphocytes % % Monocytes % % Eosinophils % % Basophils % % Neutrophils # (1.3-7.7) k/uL Lymphocytes # (1.0-4.8) k/uL Monocytes # (0-1.0) k/uL Eosinophils # (0-0.7) k/uL Basophils # (0-0.2) k/uL Hypochromasia PT 9.6 (9.0-12.0) sec INR 1.0 (<1.2) APTT 23.1 (22.0-30.0) sec D-Dimer 0.48 (<0.60) mg/L FEU Sodium (137-145) mmol/L Potassium (3.5-5.1) mmol/L Chloride (98-107) mmol/L Carbon Dioxide (22-30) mmol/L Anion Gap mmol/L BUN (7-17) mg/dL Creatinine (0.52-1.04) mg/dL Est GFR (MDRD) Af Amer (>60 ml/min/1.73 sqM) Est GFR (MDRD) Non-Af (>60 ml/min/1.73 sqM) Glucose (74-99) mg/dL Calcium (8.4-10.2) mg/dL Magnesium (1.6-2.3) mg/dL Total Bilirubin (0.2-1.3) mg/dL AST (14-36) U/L ALT (9-52) U/L Alkaline Phosphatase (38-126) U/L Total Creatine Kinase (30-135) U/L CK-MB (CK-2) (0.0-2.4) ng/mL CK-MB (CK-2) Rel Index Troponin I (0.000-0.034) ng/mL Total Protein (6.3-8.2) g/dL Albumin (3.5-5.0) g/dL Amylase (30-110) U/L Lipase (23-300) U/L Critical Care Time Critical Care Time: Yes Total Critical Care Time: 35 Disposition Clinical Impression: Unstable angina pectoris Disposition: ADMITTED IP TO THIS HOSP Referrals: Keila Mahmood MD [Primary Care Provider] - 1-2 days Time of Disposition: 20:06
[2017-06-02 19:08] LABS: Basophils % (A) 0 %; Eosinophils # (A) 0.3 k/uL (0-0.7); Eosinophils % (A) 2 %; HCT 34.4 % (34.0-46.0); HGB 10.6 gm/dL (11.4-16.0); Hypochromasia Slight; Lymphocytes # (A) 4.6 k/uL (1.0-4.8); Lymphocytes % (A) 39 %; MCH 25.7 pg (25.0-35.0); MCHC 30.7 g/dL (31.0-37.0); MCV 83.8 fL (80.0-100.0); Mean Platelet Volume 6.6; Monocytes # (A) 0.6 k/uL (0-1.0); Monocytes % (A) 5 %; Neutrophils # (A) 6.2 k/uL (1.3-7.7); Neutrophils % (A) 52 %; Platelet Count 414 k/uL (150-450); RBC 4.11 m/uL (3.80-5.40); RDW 14.1 % (11.5-15.5)
[2017-06-02 19:17] LABS: Partial Thromboplastin Time 23.1 sec (22.0-30.0); Prothrombin Time 9.6 sec (9.0-12.0)
[2017-06-02 19:18] LABS: ALT 31 U/L (9-52); AST 26 U/L (14-36); Albumin 4.2 g/dL (3.5-5.0); Alkaline Phosphatase 102 U/L (38-126); Amylase 87 U/L (30-110); Anion Gap 14 mmol/L; Blood Urea Nitrogen 18 mg/dL (7-17); Calcium 9.9 mg/dL (8.4-10.2); Carbon Dioxide 27 mmol/L (22-30); Chloride 103 mmol/L (98-107); Glucose 103 mg/dL (74-99); Lipase 109 U/L (23-300); Potassium 3.5 mmol/L (3.5-5.1); Sodium 144 mmol/L (137-145); Total Bilirubin 0.2 mg/dL (0.2-1.3); Total Protein 6.9 g/dL (6.3-8.2)
[2017-06-02 19:22] LABS: D-Dimer 0.48 mg/L FEU (<0.60)
[2017-06-02 19:23] LABS: Creatine Kinase 211 U/L (30-135)
--- NOTE | 2017-06-02 19:23 | XR ---
EXAMINATION TYPE: XR chest 2V DATE OF EXAM: 06/02/2017 COMPARISON: NONE HISTORY: Chest pain TECHNIQUE: Frontal and lateral views of the chest are obtained. FINDINGS: There is no focal air space opacity, pleural effusion, or pneumothorax seen. The cardiac silhouette size is within normal limits. The osseous structures are intact. IMPRESSION: No acute cardiopulmonary process.
[2017-06-02 19:36] LABS: Creatine Kinase MB 1.7 ng/mL (0.0-2.4); Troponin I <0.012 ng/mL (0.000-0.034)
[2017-06-02] MEDS ORDERED: NITROGLYCERIN SL TABS 0.4 MG TAB SUBLINGUAL PRN (20:07)
[2017-06-02] MEDS ORDERED: HEPARIN SODIUM,PORCINE 5,000 UNIT/ML 1 ML VIAL IV ONE (20:08)
[2017-06-02] MEDS ORDERED: HEPARIN SOD,PORK IN 0.45% NACL 25,000 UNIT in 0.45% NACL 1 500ML.BAG IV SCH (20:15)
[2017-06-02] MEDS ORDERED: KETOROLAC 30 MG/ML 1 ML VIAL IVP STA (20:29)
[2017-06-02 21:39] VITALS: RESP 18
[2017-06-02] MEDS ORDERED: DICYCLOMINE 10 MG CAP PO PRN (22:02)
[2017-06-02] MEDS ORDERED: ALPRAZolam 0.5 MG TAB PO PRN (22:02)
[2017-06-02] MEDS ORDERED: MORPHINE SULFATE 4 MG/ML SYRINGE IVP PRN (22:10)
[2017-06-02] MEDS ORDERED: MONTELUKAST 10 MG TAB PO SCH (22:15)
[2017-06-02] MEDS ORDERED: TEMAZEPAM 30 MG CAP PO SCH (22:15)
[2017-06-02] MEDS ORDERED: ATORVASTATIN 20 MG TAB PO SCH (22:15)
[2017-06-02] MEDS ORDERED: PARoxetine 20 MG TAB PO SCH (22:15)
[2017-06-02] MEDS ORDERED: POTASSIUM CHLORIDE ER 10 MEQ TAB.ER.PRT PO SCH (22:15)
[2017-06-02] MEDS: traMADol 50 MG TAB PO PRN (23:56)
[2017-06-03 00:09] VITALS: BMI 32.1
[2017-06-03] MEDS ORDERED: IBUPROFEN 800 MG TAB PO PRN (00:12)
[2017-06-03] MEDS ORDERED: MECLIZINE 12.5 MG TAB PO PRN (00:12)
[2017-06-03] MEDS ORDERED: METOCLOPRAMIDE 10 MG TAB PO PRN (00:12)
[2017-06-03] MEDS ORDERED: LEVOFLOXACIN 500MG-D5W PMX 500 MG in DEXTROSE/WATER 1 100ML.BAG IVPB SCH (01:00)
[2017-06-03] MEDS: ALBUTEROL NEBULIZED 2.5 MG/3 ML INHALATION SCH ×3 (02:38→15:59)
[2017-06-03 02:42] LABS: Creatine Kinase 169 U/L (30-135)
[2017-06-03 02:45] LABS: Cholesterol 128 mg/dL (<200); HDL Cholesterol 52 mg/dL (40-60); LDL Cholesterol,Calculated 45 mg/dL (0-99); Triglycerides 156 mg/dL (<150)
[2017-06-03 02:55] LABS: Creatine Kinase MB 1.4 ng/mL (0.0-2.4); Troponin I <0.012 ng/mL (0.000-0.034)
--- NOTE | 2017-06-03 03:22 | HP ---
HISTORY AND PHYSICAL CHIEF COMPLAINT: Chest pain. HISTORY OF PRESENT ILLNESS: This 57-year-old woman with a past medical history of multiple medical problems including asthma, history of diabetes, GERD, hypertension, hyperlipidemia, history of hypothyroidism and diet controlled diabetes, back pain, DJD being followed by in the outpatient setting is complaining of chest pain. The pain is mostly in the left side of the chest and also the back also radiating to the front. The pain is ongoing and getting worse. Patient came to [facility] and was admitted further evaluation and treatment. Deep-breathing is increasing the pain. There is no history of fever, rigors or chills. Patient did have a cough and other symptoms of flu- like syndrome recently. There is no history of any fever, rigors or chills. No history of headache, loss of consciousness or seizures. PAST MEDICAL HISTORY: History of asthma, diabetes, history of GERD, hypertension, hyperlipidemia, history of back surgery. MEDICATIONS: Prior to admission include home medications are: 1. Paxil 20 mg q.h.s. 2. Singular 10 mg q.h.s. 3. Reglan 20 mg q.6 p.r.n. 4. Antivert 12.5 mg daily p.r.n. 5. Bentyl 10 mg b.i.d. p.r.n. 6. Ascorbic acid 2 drops b.i.d. 7. Xanax 0.5 daily p.r.n. 8. Klor-Con 10 mEq p.o. q.h.s. 9. Motrin 800 mg t.i.d. p.r.n. 10.Lunesta 3 mg q.h.s. 11.Lipitor 80 mg. 12.ProAir HFA one to two puffs q.6h p.r.n. 13.Iron sulfate 320 mg p.o. daily. 14.Nexium 40 mg b.i.d. 15.Cetirizine 10 mg p.o. daily. 16.Adipex P 37.5 mg q.a.m. 17.HydroDIURIL 25 mg daily. 18.Multivitamin 1 p.o. daily. 19.Cyclobenzaprine 10 mg p.o. daily. 20.Bystolic 10 mg. 21.Symbicort 160/4.5 two puffs b.i.d. ALLERGIES: ARE DESTINY INHIBITORS, HYDROMORPHONE, LATEX AND DARVOCET N100. FAMILY HISTORY: Family history of cancer and DVT in the family. SOCIAL HISTORY: No history of smoking. No history of alcohol intake. REVIEW OF SYSTEMS: ENT: No diminished hearing or vision. CARDIOVASCULAR: As mentioned earlier. RESPIRATORY: As mentioned earlier. GI no nausea or vomiting. no dysuria. Nervous system: No numbness, weakness. Allergy/Immunology: No asthma or hayfever. Musculoskeletal: As mentioned earlier. Hematology/Oncology: No history of anemia. ENDOCRINE: History of diabetes. Constitutional: As mentioned earlier. Dermatology: Negative. Rheumatology: Negative. Psychiatric: As mentioned earlier. PHYSICAL EXAM: General: The patient is alert and oriented times three. Pulse 57, blood pressure 102/83, respiration 20, temp 98.2, pulse ox 98% on 2 L. HEENT: Conjunctivae normal. Oral mucosa moist. Neck is no jugular venous distention. No carotid bruit. No lymph node enlargement. Cardiovascular system: S1, S2 muffled. Respiratory: Breath sounds diminished in the bases. A few scattered rhonchi. No crackles. ABDOMEN: Soft, nontender. No mass palpable. Legs no edema, no swelling. NERVOUS SYSTEM: Higher functions as mentioned. Moves all four extremities. No focal deficits. Lymphatics: No lymph nodes palpable in the neck, axillae or groin. SKIN: No ulcer, rash or bleeding. JOINTS: No active deforming arthropathy. LAB DATA: WBC 12, hemoglobin 10.6. ASSESSMENT: 1. Left-sided chest pain possibly pleuritic pain. 2. History of recent flu-like syndrome with acute possible acute bronchitis. 3. History of asthma. 4. Diabetes type 2. 5. Gastroesophageal reflux disease. 6. Hypertension. 7. Hyperlipidemia. 8. Hypothyroidism. 9. History of diet controlled diabetes. 10.History of irritable bowel syndrome. 11.History of back surgery and degenerative joint disease. 12.History of anxiety. RECOMMENDATIONS AND DISCUSSION: In this 57-year-old woman who presented with multiple complex medical issues. We will monitor the patient closely. Continue the current medications, management and symptomatic treatment. Otherwise I recommend rule out myocardial infarction. Resume the home medications. I would also recommend a course of empiric antibiotics also. Otherwise resume the home medications. Symptomatic treatment will be provided. The prognosis is guarded because of multiple complex medical issues. A copy of dictation being forwarded to who is the primary care physician. We will repeat the labs in the morning as well. MMSWETA / TRINON: [id number] / AYLIN
[2017-06-03] MEDS: NEBIVOLOL 5 MG TAB PO SCH ×2 (07:03→14:14)
[2017-06-03] MEDS: CYCLOBENZAPRINE 10 MG TAB PO SCH ×2 (07:03→14:14)
[2017-06-03] MEDS: NITROGLYCERIN OINT 1 INCH/GM PACKET TOPICAL SCH ×2 (07:04→12:45)
[2017-06-03] MEDS: traMADol 50 MG TAB PO PRN (07:05)
[2017-06-03] MEDS ORDERED: PANTOPRAZOLE 40 MG TABLET PO SCH (07:30)
[2017-06-03 07:44] LABS: Creatine Kinase 154 U/L (30-135)
[2017-06-03 07:55] LABS: Creatine Kinase MB 1.3 ng/mL (0.0-2.4); Troponin I <0.012 ng/mL (0.000-0.034)
[2017-06-03] MEDS ORDERED: SYMBICORT 160-4.5 MCG INHALER INHALATION SCH (08:00)
[2017-06-03] MEDS ORDERED: LORATADINE 10 MG TAB PO SCH (09:00)
[2017-06-03] MEDS ORDERED: ASPIRIN 325 MG TAB PO SCH (09:00)
[2017-06-03] MEDS ORDERED: NON-FORMULARY DRUG (Phentermine Hcl [Adipex-P] 37.5 MG) PO SCH (09:00)
[2017-06-03] MEDS ORDERED: FERROUS SULFATE 325 MG TAB PO SCH (09:00)
[2017-06-03] MEDS ORDERED: HYDROCHLOROTHIAZIDE 25 MG TAB PO SCH (09:00)
[2017-06-03] MEDS ORDERED: FOLIC ACID-VIT B COMPLEX-VIT C 1 CAP PO SCH (09:00)
--- NOTE | 2017-06-03 10:29 | CONS ---
CONSULTATION HISTORY: Ms. Hummel is a 57-year-old female, who is seen for the cardiac evaluation. This patient's medical records are reviewed. This patient gives a history that she had a flu, probably about a month ago, and now she has been coughing and having some shortness of breath and started having pain for the last couple of days. The pain is in the left inframammary area, axillary area, as well as in the back. The pain increases with breathing and movement. Denies any substernal pain. Patient has a history of COPD, hyperlipidemia, and hypertension. She is being regularly followed by Dr. Spence. She had a cardiac catheterization done in 2006, which revealed normal coronary arteries. Her baseline EKG shows some diffuse T-wave inversions in the inferolateral leads. The patient also had a stress test done about 3 years ago, which was normal. HOME MEDICATIONS: 1. Albuterol. 2. Lipitor. 3. Singulair. 4. HydroDIURIL. 5. Lunesta. 6. Paxil. 7. Xanax. 8. Bystolic. 9. Adipex. 10.Bentyl. 11.Feosol. 12.Motrin. 13.Antivert. REVIEW OF SYSTEMS: Otherwise unremarkable. PAST MEDICAL HISTORY: Includes history of hyperlipidemia, hypertension, COPD, asthma, and thyroid disorder. History of back surgery, breast surgery, cholecystectomy, prior cardiac catheterization, and orthopedic surgery. PHYSICAL EXAMINATION: At present reveals a 57-year-old female who is fairly pale. Does not appear to be in any acute distress. The patient is afebrile at present. The patient's respirations are nonlabored. Heart rate is 60 per minute, blood pressure is 123/69 mmHg. Head/ENT examination is negative. Neck is supple. There is no increase in jugular venous pressure. Both the carotid pulses are felt. There is no bruit. Chest is symmetrical. Heart, the PMI is not felt. First and second heart sounds are normal. There is no evidence of any murmur. Lungs are clinically clear to auscultation and percussion. Abdomen is soft. Liver and spleen are not enlarged. Bowel sounds are heard. Extremities, peripheral pulsations are 2+. The patient's 2 sets of troponin's are normal. EKG shows diffuse T-wave inversions in the inferolateral leads, which is not significantly changed from before. FINAL IMPRESSION: Chest pain. The pain appears to be musculoskeletal chest wall pain and pleuritic pain. EKG is unchanged from before. Cardiac enzymes are normal. We will obtain a flu swab, if that is negative we will evaluate the patient with a stress echocardiographic study, echo and Doppler study will be done. YONY / TRINON: [id number] /
--- NOTE | 2017-06-03 12:34 | ECHOF ---
Referral Reason:chest pain MEASUREMENTS -------- HEIGHT: 157.5 cm WEIGHT: 77.1 kg BP: RVIDd: 2.5 cm (< 3.3) IVSd: 1.1 cm (0.6 - 1.1) LVIDd: 4.5 cm (3.9 - 5.3) LVPWd: 1.2 cm (0.6 - 1.1) IVSs: 1.5 cm LVIDs: 3.1 cm LVPWs: 1.2 cm LA Diam: 2.8 cm (2.7 - 3.8) LAESV Index (A-L): 31.28 ml/m Ao Diam: 2.8 cm (2.0 - 3.7) AV Cusp: 1.2 cm (1.5 - 2.6) LA Diam: 3.5 cm (2.7 - 3.8) MV EXCURSION: 19.740 mm (> 18.000) MV EF SLOPE: 65 mm/s (70 - 150) EPSS: 0.4 cm MV E Anthony: 0.76 m/s MV DecT: 262 ms MV A Anthony: 0.89 m/s MV E/A Ratio: 0.86 RAP: 5.00 mmHg RVSP: 27.20 mmHg FINDINGS -------- Sinus rhythm. This was a technically good study. The left ventricular size is normal. There is mild concentric left ventricular hypertrophy. Overa ll left ventricular systolic function is normal with, an EF between 55 - 60 %. The right ventricle is normal in size. LA is midly dilated 29-33ml/m2. The right atrial size is normal. The aortic valve is trileaflet, and appears structurally normal. No aortic stenosis or regurgitation. Mild mitral regurgitation is present. Mild tricuspid regurgitation present. There is no evidence of pulmonary hypertension. The right v entricular systolic pressure, as measured by Doppler, is 27.20mmHg. There is no pulmonic regurgitation present. The aortic root size is normal. There is no pericardial effusion. CONCLUSIONS -------- 1. The left ventricular size is normal. 2. There is mild concentric left ventricular hypertrophy. 3. Overall left ventricular systolic function is normal with, an EF between 55 - 60 %. 4. LA is midly dilated 29-33ml/m2. 5. The aortic valve is trileaflet, and appears structurally normal. No aortic stenosis or regurgitati on. 6. Mild mitral regurgitation is present. 7. Mild tricuspid regurgitation present. 8. There is no evidence of pulmonary hypertension. 9. The right ventricular systolic pressure, as measured by Doppler, is 27.20mmHg. 10. There is no pulmonic regurgitation present. 11. The aortic root size is normal. 12. There is no pericardial effusion. CONSULTANT RN: Mari Rosado RDCS
[2017-06-03 12:37] LABS: Glucose,Whole Blood 100 mg/dL (75-99)
--- NOTE | 2017-06-03 13:05 | ECHOS ---
STRESS ECHOCARDIOGRAM BASELINE HEART RATE: 61 BASELINE BLOOD PRESSURE: 167/96 MAXIMUM HEART RATE: 145 MAXIMUM BLOOD PRESSURE: 139/61 85% MPHR: 140 100% MPHR: 165 METS: 9.1 MAXIMUM STAGE REACHED: 3 TOTAL EXERCISE TIME: 8:00 CLINICAL INFORMATION: Patient was exercised for a total period of 8 minutes. A peak heart rate of 145 was achieved. Maximum blood pressure of 139/61 mmHg was noted. Resting EKG shows normal sinus rhythm with normal OK interval and QRS duration and nonspecific ST changes. During exercise, there are equivocal ST-segment changes noted not diagnostic of ischemia. The baseline echocardiographic images reveal normal left ventricular chamber size with normal left ventricular systolic function. In the immediate post exercise period, normal increase in wall thickness and contractility is noted. FINAL IMPRESSION: 1. This stress echocardiographic study is negative for stress-induced ischemia. 2. EKG portion of the stress test is not suggestive of ischemia, it currently is used to diagnosis kalemia. MMODL / IJN: [id number] /
[2017-06-03] MEDS ORDERED: MORPHINE ORAL SOLN 10 MG/5 ML CUP PO PRN (13:23)
[2017-06-03 15:21] VITALS: BP 128/70; TEMP 98.3
[2017-06-03 16:11] VITALS: PULSE 67
[2017-06-03 17:09] LABS: Glucose,Whole Blood 121 mg/dL (75-99)
--- NOTE | 2017-06-03 21:20 | DS ---
DISCHARGE SUMMARY FINAL DIAGNOSES: 1. Left-sided chest pain, possibly musculoskeletal. Negative stress test. Possible pleuritic pain. 2. History of recent flu-like syndrome with acute purulent tracheobronchitis. 3. History of asthma. 4. Diabetes mellitus type 2. 5. Gastroesophageal reflux disease. 6. History of hypertension. 7. History of hyperlipidemia. 8. History of hypothyroidism. 9. History of diet-controlled diabetes. 10.History of irritable bowel syndrome. 11.History of back surgery and degenerative joint disease. 12.History of anxiety. DISCHARGE DISPOSITION: The patient will be discharged in stable condition with guarded prognosis. HISTORY OF PRESENT ILLNESS: This 57-year-old woman with a past medical history of multiple medical problems was admitted with multiple problems including left-sided chest pain. Patient also had flu- like symptoms. Cardiology saw the patient. Myocardial infarction was ruled out. Stress test was negative for stress-induced ischemia. On exam, vital signs stable. Cardiovascular regular. Abdomen soft. Nervous system, no focal deficits. DISCHARGE INSTRUCTIONS: 1. Diet is cardiac. 2. Limited activity. 3. Followup with in 2 to 3 days. 4. Followup with the wood ski maker. MEDICATIONS: 1. otic solution p.r.n. 2. ProAir HFA 1 to 2 q.i.d. and p.r.n. 3. Xanax 0.5 daily. 4. Lipitor 20 mg at bedtime. 5. Symbicort 2 puffs b.i.d. 6. Cetirizine 10 mg p.o. daily. 7. Flexeril 10 mg p.o. daily. 8. Multivitamins 1 p.o. daily. 9. Bentyl 10 mg p.o. b.i.d. 10.Nexium 40 mg. 11.Lunesta 33 mg at bedtime. 12.Iron sulfate 325 mg p.o. daily. 13.HydroDIURIL 25 mg p.o. daily. 14.Motrin 800 mg p.o. t.i.d. 15.Levaquin 500 mg p.o. daily for 5 days. 16.Antivert 12.5 mg daily p.r.n. 17.Reglan 10 mg every 6 hours p.r.n. 18.Singular 10 mg at bedtime. 19.Bystolic 10 mg daily. 20.Paxil 20 mg p.o. daily. 21.Adipex-P 37.5 mg every a.m. 22.Klor-Con 10 mg p.o. at bedtime. 23.Medrol Dosepak. Once again, the patient is being discharged in stable condition with guarded prognosis. Check Accu-Cheks with meals and at bedtime at home. Total time taken: 35 minutes. YONY / FEDERICO: [id number] / MTDD
== END 2017-06-03 18:17 | disposition home or self-care (01) ==
LOC: EC 18:31 → 3OBS 20:06
PROVIDERS: ADMIT Hospitalist; ATTEND Hospitalist
DX: R07.89 Other chest pain (principal); R11.0 Nausea; J20.9 Acute bronchitis, unspecified; J45.909 Unspecified asthma, uncomplicated; E11.9 Type 2 diabetes mellitus without complications; K21.9 Gastro-esophageal reflux disease without esophagitis; I10 Essential (primary) hypertension; E78.5 Hyperlipidemia, unspecified; E03.9 Hypothyroidism, unspecified; K58.9 Irritable bowel syndrome, unspecified; F41.9 Anxiety disorder, unspecified; M19.90 Unspecified osteoarthritis, unspecified site; J44.9 Chronic obstructive pulmonary disease, unspecified; M54.9 Dorsalgia, unspecified; H40.9 Unspecified glaucoma; L30.9 Dermatitis, unspecified; I83.90 Asymptomatic varicose veins of unspecified lower extremity; K44.9 Diaphragmatic hernia without obstruction or gangrene; Z79.899 Other long term (current) drug therapy; Z80.9 Family history of malignant neoplasm, unspecified; Z83.2 Family history of diseases of the blood and blood-forming organs and certain disorders involving the immune mechanism; Z88.5 Allergy status to narcotic agent; Z88.8 Allergy status to other drugs, medicaments and biological substances; Z91.040 Latex allergy status; Z79.51 Long term (current) use of inhaled steroids
CPT/HCPCS: 99291; 96376 ×2; 96375 ×2; 96365 ×2; 96366 ×2; 96368; 36415; 94640 ×2; 93005; 93017; 93306; 93350; 85379; 80061; 80053; 82150; 82550 ×2; 82553 ×2; 83690; 83735; 84484 ×2; 85025; 85610; 85730 ×2; 87502; 71046; G0378 ×2; J1644 ×2; J1956; J1885

== ENCOUNTER → 2017-09-18 | Outpatient (CLI) | payer BC ==
[2017-09-18 13:57] LABS: ALT 49 U/L (9-52); AST 42 U/L (14-36); Anion Gap 13 mmol/L; Blood Urea Nitrogen 17 mg/dL (7-17); Carbon Dioxide 30 mmol/L (22-30); Chloride 102 mmol/L (98-107); Cholesterol 150 mg/dL (<200); HDL Cholesterol 52 mg/dL (40-60); LDL Cholesterol,Calculated 82 mg/dL (0-99); Potassium 3.7 mmol/L (3.5-5.1); Sodium 145 mmol/L (137-145); Triglycerides 79 mg/dL (<150)
== END | disposition home or self-care (01) ==
LOC: LABMAIN 12:07
PROVIDERS: ATTEND Internal Medicine Cardiovascular Disease
DX: E78.2 Mixed hyperlipidemia (principal)
CPT/HCPCS: 36415; 80051; 80061; 82565; 84450; 84460; 84520

== ENCOUNTER 2017-10-09 22:44 | Emergency (ER) | payer BC ==
[2017-10-09 23:50] VITALS: RESP 18
[2017-10-10] MEDS ORDERED: LIDOCAINE 1% INJ 10MG/ML (20 ML MDV) SQ ONE (00:34)
--- NOTE | 2017-10-10 00:38 | ED ---
Wound/Laceration HPI - General Chief Complaint: Wound/Laceration Stated Complaint: Finger laceration Time Seen by Provider: 10/10/17 00:05 Source: patient Mode of arrival: ambulatory Limitations: no limitations - History of Present Illness Initial Comments: 57-year-old female patient presents to the emergency department today for evaluation of laceration to the right index finger. Patient states around 10 AM this morning she grabbed a grocery bag had a knife and axillae sliced her finger. Patient states that the wound has continued bleeding throughout the day. Patient states it is very painful. States she did take ibuprofen without much relief of symptoms. Patient states her last tetanus vaccine was given approximate 4 years ago. She denies any numbness or tingling to the finger. Denies any difficulty with range of motion. Patient denies any headache, neck pain, back pain, chest pain, shortness of breath, dizziness, weakness, abdominal pain, nausea, vomiting, or difficulties with bowel movements or urination. - Related Data Home Medications Medication Instructions Recorded Confirmed Albuterol Sulfate [Proair Hfa] 1 - 2 puff INHALATION RT-Q6H PRN 08/21/14 Atorvastatin [Lipitor] 20 mg PO HS 08/21/14 06/02/17 Budesonide/Formoterol Fumarate 2 puff INHALATION RT-BID 08/21/14 06/02/17 [Symbicort 160-4.5 Mcg Inhaler] Esomeprazole Magnesium [NexIUM] 40 mg PO DAILY 08/21/14 06/02/17 Montelukast [Singulair] 10 mg PO HS 08/21/14 06/02/17 Hydrochlorothiazide [Hydrodiuril] 25 mg PO DAILY 09/09/14 06/02/17 Eszopiclone [Lunesta] 3 mg PO HS 04/20/16 06/02/17 PARoxetine [Paxil] 20 mg PO HS 04/20/16 06/02/17 Potassium Chloride [Klor-Con 10] 10 meq PO HS 04/20/16 06/02/17 ALPRAZolam [Xanax] 0.5 mg PO DAILY PRN 09/21/16 06/02/17 Nebivolol HCl [Bystolic] 10 mg PO DAILY 03/26/17 06/02/17 Phentermine HCl [Adipex-P] 37.5 mg PO QAM 03/26/17 06/02/17 Acetic Acid [Acetic Acid Otic 2 drop RIGHT EAR BID 06/02/17 06/02/17 Solution] Cetirizine HCl 10 mg PO DAILY 06/02/17 06/02/17 Cyclobenzaprine HCl 10 mg PO DAILY 06/02/17 06/02/17 Dialyvite Multi-Vit 5,000 1 tab PO DAILY 06/02/17 06/02/17 Dicyclomine [Bentyl] 10 mg PO BID PRN 06/02/17 06/02/17 Ferrous Sulfate [Iron (65 MG 325 mg PO DAILY 06/02/17 06/02/17 Elemental)] Ibuprofen [Motrin] 800 mg PO TID PRN 06/02/17 06/02/17 Meclizine [Antivert] 12.5 mg PO DAILY PRN 06/02/17 06/02/17 Previous Rx's Medication Instructions Recorded Metoclopramide HCl [Reglan] 10 mg PO Q6HR PRN #15 tablet 03/26/17 Levofloxacin [Levaquin] 500 mg PO DAILY 5 Days #5 tab 06/03/17 methylPREDNISolone Dose Pack 4 mg PO DIRECTED #21 package 06/03/17 [Medrol Dose Pack] Cephalexin [Keflex] 500 mg PO Q6H #20 cap 10/10/17 Allergies Allergy/AdvReac Type Severity Reaction Status Date / Time DESTINY Inhibitors Allergy Rash/Hives Verified 10/09/17 23:50 hydromorphone HCl Allergy Anaphylaxis Verified 10/09/17 23:50 [From Dilaudid] latex Allergy Rash/Hives Verified 10/09/17 23:50 propoxyphene napsylate Allergy Swelling Verified 10/09/17 23:50 [From Darvocet-N] Review of Systems ROS Statement: Those systems with pertinent positive or pertinent negative responses have been documented in the HPI. ROS Other: All systems not noted in ROS Statement are negative. Past Medical History Past Medical History: Asthma, Diabetes Mellitus, Eye Disorder, GERD/Reflux, Hyperlipidemia, Hypertension, Respiratory Disorder, Skin Disorder, Thyroid Disorder Additional Past Medical History / Comment(s): DIET CONTROL DIABETES, heart murmur, glaucoma , varicose veins, IBS, hiatal hernia, eczema History of Any Multi-Drug Resistant Organisms: None Reported Past Surgical History: Back Surgery, Breast Surgery, Cholecystectomy, Heart Catheterization, Orthopedic Surgery Additional Past Surgical History / Comment(s): breast reduction, left knee arthroscopy, breast biopsy, anthony cataracts Past Anesthesia/Blood Transfusion Reactions: Motion Sickness Past Psychological History: Anxiety Smoking Status: Never smoker Past Alcohol Use History: None Reported Past Drug Use History: None Reported - Past Family History Father Family Medical History: Cancer, Deep Vein Thrombosis (DVT) Mother Family Medical History: No Reported History General Exam Limitations: no limitations General appearance: alert, in no apparent distress, other (This is a well- developed, well-nourished adult female patient in no acute distress. Vital signs upon presentation are temperature 98.4F, pulse 62, respirations 18, blood pressure 136/85, pulse ox 99% on room air.) Eye exam: Present: normal appearance, PERRL, EOMI. Absent: scleral icterus, conjunctival injection, periorbital swelling Respiratory exam: Present: normal lung sounds bilaterally. Absent: respiratory distress, wheezes, rales, rhonchi, stridor Cardiovascular Exam: Present: regular rate, normal rhythm, normal heart sounds. Absent: systolic murmur, diastolic murmur, rubs, gallop, clicks Extremities exam: Present: full ROM, other (2cm laceration noted to the lateral aspect of the right distal index finger. Bleeding is controlled. Full range of motion against resistance is noted. Cap refill less than 3 seconds. Skin is warm and dry. Radial pulse is 2+ and equal bilaterally. ) Neurological exam: Present: alert, oriented X3, CN II-XII intact Psychiatric exam: Present: normal affect, normal mood Skin exam: Present: warm, dry, intact, normal color. Absent: rash Course Vital Signs 10/09/17 10/10/17 23:47 02:08 Temperature 98.4 F 98.1 F Pulse Rate 62 59 L Respiratory 18 18 Rate Blood Pressure 136/85 148/82 O2 Sat by Pulse 99 98 Oximetry Procedures - Laceration Laceration #1 Consent Obtained: verbal consent Time Out Performed: Yes Indication: laceration Site: hand (Right index finger) Description: linear Depth: simple, single layer Anesthetic Used: lidocaine 1% Anesthesia Technique: local infiltration Amount (mls): 2 Pre-repair: irrigated extensively Type of Sutures: nylon Size of Sutures: 5-0 Number of Sutures: 4 Technique: simple, interrupted Patient Tolerated Procedure: well, no complications Medical Decision Making - Medical Decision Making 57-year-old female patient presented to the emergency department today for evaluation of laceration to the lateral aspect of the right index finger. Physical examination did show a 2 cm laceration to the index finger. She did have good range of motion against resistance. Neurovascular status was intact. Laceration was repaired as documented. Last tetanus vaccine was 4 years ago. Patient sustained the injury around 10 this morning, we did soak and antibacterial soap and water solution for approximately 30-45 minutes. I did irrigate the wound. Patient will be started on Keflex. She is instructed to return in 7 days for suture removal. She is instructed to follow-up with her primary care physician for recheck in 1-2 days. Return parameters discussed in detail. She verbalizes understanding and agrees with this plan. Disposition Clinical Impression: Finger laceration Disposition: HOME SELF-CARE Condition: Good Instructions: Care For Your Stitches (ED), Finger Laceration (ED) Additional Instructions: Keep wound clean and dry. Gently cleanse twice daily with warm water and antibacterial soap. Monitor for signs or symptoms of infection including but not limited to redness, swelling, drainage of pus, fever, or chills. Complete antibiotic prescription in full. Return here in 7 days to have the stitches removed. Follow-up with your primary care physician for recheck in 1-2 days. Return here immediately for any new, worsening, or concerning symptoms. Prescriptions: Cephalexin [Keflex] 500 mg PO Q6H #20 cap Is patient prescribed a controlled substance at d/c from ED?: No Referrals: Keila Mahmood MD [Primary Care Provider] - 1-2 days Time of Disposition: 01:51
[2017-10-10 02:09] VITALS: BP 148/82; PULSE 59; TEMP 98.1
== END 2017-10-10 02:08 | disposition home or self-care (01) ==
LOC: EC 22:44 → SUPCPDRO 22:44 → EC 10-10 02:08
DX: S61.210A Laceration without foreign body of right index finger without damage to nail, initial encounter (principal); J45.909 Unspecified asthma, uncomplicated; K21.9 Gastro-esophageal reflux disease without esophagitis; E78.5 Hyperlipidemia, unspecified; I10 Essential (primary) hypertension; E07.9 Disorder of thyroid, unspecified; F41.9 Anxiety disorder, unspecified; Z90.49 Acquired absence of other specified parts of digestive tract; Z98.890 Other specified postprocedural states; Z79.51 Long term (current) use of inhaled steroids; Z79.899 Other long term (current) drug therapy; Z88.5 Allergy status to narcotic agent; Z88.8 Allergy status to other drugs, medicaments and biological substances; Z91.040 Latex allergy status; W26.0XXA Contact with knife, initial encounter
CPT/HCPCS: 99282; 12001; J2001

== ENCOUNTER 2017-11-10 14:37 | Emergency (ER) | payer BC ==
[2017-11-10] MEDS ORDERED: KETOROLAC 30 MG/ML 1 ML VIAL IVP STA (15:03)
[2017-11-10] MEDS ORDERED: SODIUM CHLORIDE 0.9% 1,000 ML IV STA (15:03)
[2017-11-10] MEDS ORDERED: NITROGLYCERIN SL TABS 0.4 MG TAB SUBLINGUAL STA (15:03)
[2017-11-10] MEDS ORDERED: ASPIRIN 81 MG PO STA (15:03)
--- NOTE | 2017-11-10 15:09 | ED ---
Chest Pain HPI - General Chief Complaint: Chest Pain Stated Complaint: chest pain Time Seen by Provider: 11/10/17 14:51 Source: patient, RN notes reviewed Mode of arrival: wheelchair Limitations: no limitations - History of Present Illness Initial Comments: This is a 57-year-old female who presents with complaints of chest pain is started yesterday morning. States is 10/10 sharp pain she points to left chest wall also has associated headaches no fevers chills nausea vomiting sweats she did have some coughing. No phlegm production. She does have a history of atrial flutter apparently and was sent over by her magneto repairer Dr. Spence. MD Complaint: chest pain - Related Data Home Medications Medication Instructions Recorded Confirmed Albuterol Sulfate [Proair Hfa] 2 puff INHALATION RT-Q6H PRN 08/21/14 11/10/17 Budesonide/Formoterol Fumarate 2 puff INHALATION RT-BID 08/21/14 11/10/17 [Symbicort 160-4.5 Mcg Inhaler] Esomeprazole Magnesium [NexIUM] 40 mg PO DAILY 08/21/14 11/10/17 Montelukast [Singulair] 10 mg PO HS 08/21/14 11/10/17 Hydrochlorothiazide [Hydrodiuril] 25 mg PO DAILY 09/09/14 11/10/17 Eszopiclone [Lunesta] 3 mg PO HS 04/20/16 11/10/17 Potassium Chloride [Klor-Con 10] 10 meq PO HS 04/20/16 11/10/17 ALPRAZolam [Xanax] 0.5 mg PO DAILY PRN 09/21/16 11/10/17 Dialyvite Multi-Vit 5,000 1 tab PO DAILY 06/02/17 11/10/17 Ibuprofen [Motrin] 800 mg PO TID PRN 06/02/17 11/10/17 Albuterol Nebulized [Ventolin 2.5 mg INHALATION RT-BID PRN 11/10/17 11/10/17 Nebulized] Atorvastatin [Lipitor] 10 mg PO DAILY 11/10/17 11/10/17 Citalopram Hydrobromide 20 mg PO DAILY 11/10/17 11/10/17 [Citalopram HBr] Fluticasone Nasal [place] [Flonase 1 spray EA NOSTRIL DAILY 11/10/17 11/10/17 Nasal [place]] metFORMIN HCL [Glucophage] 500 mg PO BID 11/10/17 11/10/17 Previous Rx's Medication Instructions Recorded Ketorolac [Toradol] 10 mg PO Q6HR #20 tab 11/10/17 Allergies Allergy/AdvReac Type Severity Reaction Status Date / Time DESTINY Inhibitors Allergy Rash/Hives Verified 11/10/17 15:29 hydromorphone HCl Allergy Anaphylaxis Verified 11/10/17 15:29 [From Dilaudid] latex Allergy Rash/Hives Verified 11/10/17 15:29 propoxyphene napsylate Allergy Swelling Verified 11/10/17 15:29 [From Darvocet-N] Review of Systems ROS Statement: Those systems with pertinent positive or pertinent negative responses have been documented in the HPI. ROS Other: All systems not noted in ROS Statement are negative. EKG Findings - EKG Results: EKG: interpreted by ERMD, sinus rhythm (Sinus rhythm with first-degree AV block rate was 65. Interval 224 QRS duration 84 QT since QTC 442/459 nonspecific T- wave configuration.) Past Medical History Past Medical History: Asthma, Diabetes Mellitus, Eye Disorder, GERD/Reflux, Hyperlipidemia, Hypertension, Respiratory Disorder, Skin Disorder, Thyroid Disorder Additional Past Medical History / Comment(s): DIET CONTROL DIABETES, heart murmur, glaucoma , varicose veins, IBS, hiatal hernia, eczema History of Any Multi-Drug Resistant Organisms: None Reported Past Surgical History: Back Surgery, Breast Surgery, Cholecystectomy, Heart Catheterization, Orthopedic Surgery Additional Past Surgical History / Comment(s): breast reduction, left knee arthroscopy, breast biopsy, anthony cataracts Past Anesthesia/Blood Transfusion Reactions: Motion Sickness Past Psychological History: Anxiety Smoking Status: Never smoker Past Alcohol Use History: None Reported Past Drug Use History: None Reported - Past Family History Father Family Medical History: Cancer, Deep Vein Thrombosis (DVT) Mother Family Medical History: No Reported History General Exam - General Exam Comments Initial Comments: This is a well-developed well-nourished awake alert oriented 3 female Limitations: no limitations General appearance: alert, anxious Head exam: Present: atraumatic, normocephalic, normal inspection Eye exam: Present: normal appearance, PERRL, EOMI. Absent: scleral icterus, conjunctival injection, periorbital swelling ENT exam: Present: normal exam, mucous membranes moist Neck exam: Present: normal inspection. Absent: tenderness, meningismus, lymphadenopathy Respiratory exam: Present: normal lung sounds bilaterally, chest wall tenderness (Reproducible tenderness palpation). Absent: respiratory distress, wheezes, rales, rhonchi, stridor Cardiovascular Exam: Present: regular rate, normal rhythm, normal heart sounds. Absent: systolic murmur, diastolic murmur, rubs, gallop, clicks GI/Abdominal exam: Present: soft, normal bowel sounds. Absent: distended, tenderness, guarding, rebound, rigid Extremities exam: Present: normal inspection, full ROM, normal capillary refill. Absent: tenderness, pedal edema, joint swelling, calf tenderness Back exam: Present: normal inspection Neurological exam: Present: alert, oriented X3, CN II-XII intact Psychiatric exam: Present: normal affect, normal mood Skin exam: Present: warm, dry, intact, normal color. Absent: rash Course Vital Signs 11/10/17 11/10/17 11/10/17 14:40 15:00 15:46 Temperature 98.7 F Pulse Rate 70 66 Respiratory 18 16 18 Rate Blood Pressure 134/85 125/72 O2 Sat by Pulse 99 99 Oximetry Chest Pain MDM - MDM Reevaluation patient reveals she feels much improved after IV Toradol. X-rays were reviewed no acute findings. The patient's presentation is consistent with musculoskeletal/costochondral pain. Be placed on appropriate anti-inflammatory medications. Disposition Clinical Impression: Costalchondritis, Chest wall syndrome Disposition: HOME SELF-CARE Condition: Good Instructions: Costochondritis (ED) Prescriptions: Ketorolac [Toradol] 10 mg PO Q6HR #20 tab Is patient prescribed a controlled substance at d/c from ED?: No Referrals: Keila Mahmood MD [Primary Care Provider] - 1-2 days
[2017-11-10 15:16] LABS: Basophils % (A) 0 %; Eosinophils # (A) 0.3 k/uL (0-0.7); Eosinophils % (A) 3 %; HCT 34.1 % (34.0-46.0); HGB 10.9 gm/dL (11.4-16.0); Lymphocytes # (A) 3.1 k/uL (1.0-4.8); Lymphocytes % (A) 32 %; MCH 25.9 pg (25.0-35.0); MCV 81.1 fL (80.0-100.0); Mean Platelet Volume 6.5; Monocytes # (A) 0.5 k/uL (0-1.0); Monocytes % (A) 5 %; Neutrophils # (A) 5.6 k/uL (1.3-7.7); Neutrophils % (A) 58 %; Platelet Count 429 k/uL (150-450); RBC 4.21 m/uL (3.80-5.40); RDW 14.4 % (11.5-15.5); WBC 9.7 k/uL (3.8-10.6)
[2017-11-10 15:26] LABS: ALT 35 U/L (9-52); AST 39 U/L (14-36); Albumin 4.3 g/dL (3.5-5.0); Alkaline Phosphatase 80 U/L (38-126); Anion Gap 10 mmol/L; Blood Urea Nitrogen 17 mg/dL (7-17); Calcium 9.6 mg/dL (8.4-10.2); Carbon Dioxide 26 mmol/L (22-30); Chloride 104 mmol/L (98-107); Glucose 91 mg/dL (74-99); Magnesium 1.7 mg/dL (1.6-2.3); Sodium 140 mmol/L (137-145); Total Bilirubin 0.6 mg/dL (0.2-1.3); Total Protein 6.9 g/dL (6.3-8.2)
[2017-11-10 15:29] LABS: D-Dimer 0.38 mg/L FEU (<0.60); Partial Thromboplastin Time 23.6 sec (22.0-30.0); Prothrombin Time 9.5 sec (9.0-12.0)
[2017-11-10 15:37] LABS: Creatine Kinase 273 U/L (30-135)
--- NOTE | 2017-11-10 15:39 | XR ---
EXAMINATION TYPE: XR chest 2V DATE OF EXAM: 11/10/2017 COMPARISON: Chest x-ray June 02, 2017. HISTORY: Chest pain. TECHNIQUE: Frontal and lateral views of the chest are obtained. FINDINGS: There is no new focal air space opacity, pleural effusion, or pneumothorax seen. Persisten t linear scarring in lung base on lateral view is redemonstrated. The cardiac silhouette size is stab le and upper limits of normal. The osseous structures are intact. Cholecystectomy clips are redemon strated on lateral view. IMPRESSION: No acute cardiopulmonary process. No significant change from prior.
[2017-11-10 15:49] LABS: Creatine Kinase MB 2.2 ng/mL (0.0-2.4); Troponin I <0.012 ng/mL (0.000-0.034)
[2017-11-10 16:50] VITALS: BP 137/78; RESP 16; TEMP 98.4
[2017-11-10 16:55] VITALS: PULSE 65
== END 2017-11-10 16:50 | disposition home or self-care (01) ==
LOC: EC 14:37
DX: M94.0 Chondrocostal junction syndrome [Tietze] (principal); I48.92 Unspecified atrial flutter; J45.909 Unspecified asthma, uncomplicated; E11.9 Type 2 diabetes mellitus without complications; K21.9 Gastro-esophageal reflux disease without esophagitis; E78.5 Hyperlipidemia, unspecified; I10 Essential (primary) hypertension; K58.9 Irritable bowel syndrome, unspecified; E07.9 Disorder of thyroid, unspecified; F41.9 Anxiety disorder, unspecified; Z79.51 Long term (current) use of inhaled steroids; Z79.84 Long term (current) use of oral hypoglycemic drugs; Z79.899 Other long term (current) drug therapy; Z88.5 Allergy status to narcotic agent; Z88.8 Allergy status to other drugs, medicaments and biological substances; Z91.040 Latex allergy status; Z95.818 Presence of other cardiac implants and grafts
CPT/HCPCS: 36415; 93005; 85379; 83880; 80053; 82550; 82553; 83735; 84484; 85025; 85610; 85730; 71046; 99285; 96374; 96361; J1885

== ENCOUNTER 2018-03-28 17:06 | Observation (INO) | payer BC ==
[2018-03-28] MEDS ORDERED: MAGNESIUM SULFATE-D5W PMX 2 GM in DEXTROSE/WATER 1 100ML.BAG IVPB STA (17:47)
[2018-03-28] MEDS ORDERED: methylPREDNISolone SOD SUCCI 125 MG/2 ML VIAL IV STA (17:47)
[2018-03-28] MEDS ORDERED: IPRATROPIUM-ALBUTEROL 3 ML NEB INHALATION STA ×2 (17:47→20:13)
[2018-03-28] MEDS ORDERED: SODIUM CHLORIDE 0.9% 1,000 ML IV STA (17:47)
[2018-03-28] MEDS ORDERED: LEVOFLOXACIN 750MG-D5W PMX 750 MG in DEXTROSE/WATER 1 150ML.BAG IVPB STA (17:47)
[2018-03-28] MEDS ORDERED: KETOROLAC 30 MG/ML 1 ML VIAL IVP STA (17:49)
--- NOTE | 2018-03-28 17:53 | ED ---
SOB HPI - General Chief Complaint: Upper Respiratory Infection Stated Complaint: SOB Time Seen by Provider: 03/28/18 17:41 Source: patient Mode of arrival: ambulatory Limitations: no limitations - History of Present Illness Initial Comments: This 57-year-old white female presents with a complaint of shortness of breath. She apparently has had this for approximately 3 weeks. She states that she has had a cough. She started having a clear production and initially but a yellowish production over the last 1 day. She has a history of asthma and this feels similar to her normal exacerbation. She did see pulmonology 2 weeks ago and they put her on some steroids and breathing treatments. She has not been taking the reading treatment very regularly as she states that she has been too busy. She has had some intermittent feverishness. She has not measured her temperature. She saw pulmonology again today and was sent to the hospital and told that she needs to be admitted. She has had some wheezing. She has had some mild diffuse chest pains with coughing. She denies any leg pain or swelling. No other complaints or modifying factors. - Related Data Home Medications Medication Instructions Recorded Confirmed Albuterol Sulfate [Proair Hfa] 2 puff INHALATION RT-Q6H PRN 08/21/14 03/28/18 Budesonide/Formoterol Fumarate 2 puff INHALATION RT-BID 08/21/14 03/28/18 [Symbicort 160-4.5 Mcg Inhaler] Esomeprazole Magnesium [NexIUM] 40 mg PO DAILY 08/21/14 03/28/18 Montelukast [Singulair] 10 mg PO HS 08/21/14 03/28/18 Hydrochlorothiazide [Hydrodiuril] 25 mg PO DAILY 09/09/14 03/28/18 Eszopiclone [Lunesta] 3 mg PO HS 04/20/16 03/28/18 Potassium Chloride [Klor-Con 10] 10 meq PO HS 04/20/16 03/28/18 ALPRAZolam [Xanax] 0.5 mg PO DAILY PRN 09/21/16 03/28/18 Dialyvite Multi-Vit 5,000 1 tab PO DAILY 06/02/17 03/28/18 Ibuprofen [Motrin] 800 mg PO TID PRN 06/02/17 03/28/18 Albuterol Nebulized [Ventolin 2.5 mg INHALATION RT-BID PRN 11/10/17 03/28/18 Nebulized] Atorvastatin [Lipitor] 10 mg PO DAILY 11/10/17 03/28/18 Citalopram Hydrobromide 20 mg PO DAILY 11/10/17 03/28/18 [Citalopram HBr] Fluticasone Nasal [place] [Flonase 1 spray EA NOSTRIL DAILY 11/10/17 03/28/18 Nasal [place]] metFORMIN HCL [Glucophage] 500 mg PO BID 11/10/17 03/28/18 Amoxic-Pot Clav 875-125Mg 1 tab PO BID 03/28/18 03/28/18 [Augmentin 875-125] Cetirizine HCl [Zyrtec] 10 mg PO DAILY 03/28/18 03/28/18 Cyclobenzaprine [Flexeril] 10 mg PO HS 03/28/18 03/28/18 Nebivolol HCl [Bystolic] 10 mg PO DAILY 03/28/18 03/28/18 Vitamin B Complex 1 cap PO DAILY 03/28/18 03/28/18 predniSONE See Taper PO DIRECTED 03/28/18 03/28/18 Allergies Allergy/AdvReac Type Severity Reaction Status Date / Time DESTINY Inhibitors Allergy Rash/Hives Verified 03/28/18 18:48 hydromorphone HCl Allergy Anaphylaxis Verified 03/28/18 18:48 [From Dilaudid] latex Allergy Rash/Hives Verified 03/28/18 18:48 propoxyphene napsylate Allergy Swelling Verified 03/28/18 18:48 [From Darvocet-N] Review of Systems ROS Statement: Those systems with pertinent positive or pertinent negative responses have been documented in the HPI. ROS Other: All systems not noted in ROS Statement are negative. Past Medical History Past Medical History: Asthma, Diabetes Mellitus, Eye Disorder, GERD/Reflux, Hyperlipidemia, Hypertension, Respiratory Disorder, Skin Disorder, Thyroid Disorder Additional Past Medical History / Comment(s): DIET CONTROL DIABETES, heart murmur, glaucoma , varicose veins, IBS, hiatal hernia, eczema History of Any Multi-Drug Resistant Organisms: None Reported Past Surgical History: Back Surgery, Breast Surgery, Cholecystectomy, Heart Catheterization, Orthopedic Surgery Additional Past Surgical History / Comment(s): breast reduction, left knee arthroscopy, breast biopsy, anthony cataracts Past Anesthesia/Blood Transfusion Reactions: Motion Sickness Past Psychological History: Anxiety Smoking Status: Never smoker Past Alcohol Use History: None Reported Past Drug Use History: None Reported - Past Family History Father Family Medical History: Cancer, Deep Vein Thrombosis (DVT) Mother Family Medical History: No Reported History General Exam - General Exam Comments Initial Comments: GENERAL: The patient is well nourished and well hydrated. VITAL SIGNS: Heart rate, blood pressure, respiratory rate reviewed as recorded in nurse's notes. EYES: Pupils are round and reactive. Extraocular movements are intact. No conjunctival / lid redness or swelling. ENT: No external evidence of injury, swelling, or ecchymosis. Airway is patent. Throat is clear. NECK: Nontender. No swelling or evidence of injury. No subcutaneous emphysema. Trachea is midline. No thyroid mass. HEART: Regular rate and rhythm. Good peripheral pulses. LUNGS/CHEST: Significant wheezing noted to bilateral chest. No ecchymosis, subcutaneous emphysema, or tenderness. ABDOMEN: Abdomen soft without tenderness. No palpable masses or organomegaly. No peritoneal signs. No abdominal wall swelling or ecchymosis. EXTREMITIES: No extremity tenderness. Normal muscle tone and function. No thoracolumbar tenderness. NEUROLOGIC: Sensation is grossly intact. Cranial nerve exam reveals face is symmetrical, tongue is midline, speech is clear. SKIN: No abrasions or ecchymosis is noted. No induration or masses noted. PSYCHIATRIC: Alert and oriented. Appropriate behavior and judgment. Limitations: no limitations Course Vital Signs 03/28/18 03/28/18 03/28/18 17:22 18:25 19:35 Temperature 98.1 F Pulse Rate 71 76 65 Respiratory 24 18 18 Rate Blood Pressure 94/67 104/60 O2 Sat by Pulse 100 100 Oximetry Medical Decision Making - Medical Decision Making The patient was seen and examined. All diagnostics are reviewed. An IV is started and she does receive Solu-Medrol 125 mg IV, magnesium 2 g IV, Toradol 30 mg IV, and a double DuoNeb breathing treatment. She is feeling improved on recheck but is still wheezing. Additional double DuoNeb breathing treatment is ordered. The chest x-ray does not show any acute processes. The laboratory does show smile elevation of the white blood cell count. The some likely does have an asthma exacerbation with bronchitis. 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 Case will be discussed with internal medicine shortly and she will be admitted to the general medical floor. - Lab Data Result diagrams: 03/28/18 17:51 03/28/18 17:51 Lab Results 03/28/18 03/28/18 03/28/18 Range/Units 17:51 17:51 17:51 WBC 12.3 H (3.8-10.6) k/uL RBC 4.26 (3.80-5.40) m/uL Hgb 10.9 L (11.4-16.0) gm/dL Hct 34.6 (34.0-46.0) % MCV 81.3 (80.0-100.0) fL MCH 25.7 (25.0-35.0) pg MCHC 31.6 (31.0-37.0) g/dL RDW 15.0 (11.5-15.5) % Plt Count 423 (150-450) k/uL Neutrophils % (Manual) 39 % Band Neutrophils % 8 % Lymphocytes % (Manual) 47 % Monocytes % (Manual) 5 % Eosinophils % (Manual) 1 % Neutrophils # (Manual) 5.70 (1.3-7.7) k/uL Lymphocytes # (Manual) 5.78 H (1.0-4.8) k/uL Monocytes # (Manual) 0.62 (0-1.0) k/uL Eosinophils # (Manual) 0.12 (0-0.7) k/uL Nucleated RBCs 0 (0-0) /100 WBC Manual Slide Review Performed RBC Morphology Normal PT (9.0-12.0) sec INR (<1.2) APTT (22.0-30.0) sec Sodium 140 (137-145) mmol/L Potassium 3.5 (3.5-5.1) mmol/L Chloride 105 (98-107) mmol/L Carbon Dioxide 25 (22-30) mmol/L Anion Gap 10 mmol/L BUN 26 H (7-17) mg/dL Creatinine 0.74 (0.52-1.04) mg/dL Est GFR (CKD-EPI)AfAm >90 (>60 ml/min/1.73 sqM) Est GFR (CKD-EPI)NonAf >90 (>60 ml/min/1.73 sqM) Glucose 81 (74-99) mg/dL Calcium 9.8 (8.4-10.2) mg/dL Phosphorus 1.9 L (2.5-4.5) mg/dL Magnesium 2.1 (1.6-2.3) mg/dL Total Bilirubin 0.3 (0.2-1.3) mg/dL AST 36 (14-36) U/L ALT 41 (9-52) U/L Alkaline Phosphatase 93 (38-126) U/L Total Creatine Kinase 338 H (30-135) U/L CK-MB (CK-2) 2.9 H (0.0-2.4) ng/mL CK-MB (CK-2) Rel Index 0.9 Troponin I <0.012 (0.000-0.034) ng/mL Total Protein 6.9 (6.3-8.2) g/dL Albumin 4.2 (3.5-5.0) g/dL 12//18 Range/Units 17:51 WBC (3.8-10.6) k/uL RBC (3.80-5.40) m/uL Hgb (11.4-16.0) gm/dL Hct (34.0-46.0) % MCV (80.0-100.0) fL MCH (25.0-35.0) pg MCHC (31.0-37.0) g/dL RDW (11.5-15.5) % Plt Count (150-450) k/uL Neutrophils % (Manual) % Band Neutrophils % % Lymphocytes % (Manual) % Monocytes % (Manual) % Eosinophils % (Manual) % Neutrophils # (Manual) (1.3-7.7) k/uL Lymphocytes # (Manual) (1.0-4.8) k/uL Monocytes # (Manual) (0-1.0) k/uL Eosinophils # (Manual) (0-0.7) k/uL Nucleated RBCs (0-0) /100 WBC Manual Slide Review RBC Morphology PT 9.7 (9.0-12.0) sec INR 0.9 (<1.2) APTT 18.4 L (22.0-30.0) sec Sodium (137-145) mmol/L Potassium (3.5-5.1) mmol/L Chloride (98-107) mmol/L Carbon Dioxide (22-30) mmol/L Anion Gap mmol/L BUN (7-17) mg/dL Creatinine (0.52-1.04) mg/dL Est GFR (CKD-EPI)AfAm (>60 ml/min/1.73 sqM) Est GFR (CKD-EPI)NonAf (>60 ml/min/1.73 sqM) Glucose (74-99) mg/dL Calcium (8.4-10.2) mg/dL Phosphorus (2.5-4.5) mg/dL Magnesium (1.6-2.3) mg/dL Total Bilirubin (0.2-1.3) mg/dL AST (14-36) U/L ALT (9-52) U/L Alkaline Phosphatase (38-126) U/L Total Creatine Kinase (30-135) U/L CK-MB (CK-2) (0.0-2.4) ng/mL CK-MB (CK-2) Rel Index Troponin I (0.000-0.034) ng/mL Total Protein (6.3-8.2) g/dL Albumin (3.5-5.0) g/dL Disposition Clinical Impression: Bronchospasm, Dyspnea, Failure of outpatient treatment, Status asthmaticus, Bronchitis, Leukocytosis Disposition: ADMITTED IP TO THIS [facility] Condition: Good Is patient prescribed a controlled substance at d/c from ED?: No Time of Disposition: 20:12 Decision Date: 03/28/18 Decision Time: 20:12
[2018-03-28 18:38] LABS: ALT 41 U/L (9-52); AST 36 U/L (14-36); Albumin 4.2 g/dL (3.5-5.0); Alkaline Phosphatase 93 U/L (38-126); Anion Gap 10 mmol/L; Blood Urea Nitrogen 26 mg/dL (7-17); Calcium 9.8 mg/dL (8.4-10.2); Carbon Dioxide 25 mmol/L (22-30); Chloride 105 mmol/L (98-107); Glucose 81 mg/dL (74-99); Magnesium 2.1 mg/dL (1.6-2.3); Phosphorus 1.9 mg/dL (2.5-4.5); Potassium 3.5 mmol/L (3.5-5.1); Sodium 140 mmol/L (137-145); Total Bilirubin 0.3 mg/dL (0.2-1.3); Total Protein 6.9 g/dL (6.3-8.2)
[2018-03-28 18:41] LABS: Creatine Kinase 338 U/L (30-135); HCT 34.6 % (34.0-46.0); HGB 10.9 gm/dL (11.4-16.0); MCH 25.7 pg (25.0-35.0); MCHC 31.6 g/dL (31.0-37.0); MCV 81.3 fL (80.0-100.0); Mean Platelet Volume 6.5; Platelet Count 423 k/uL (150-450); RBC 4.26 m/uL (3.80-5.40); WBC 12.3 k/uL (3.8-10.6)
--- NOTE | 2018-03-28 18:45 | XR ---
EXAMINATION TYPE: XR chest 2V DATE OF EXAM: 03/28/2018 COMPARISON: 03/17/2018 HISTORY: Short of breath TECHNIQUE: Frontal and lateral views of the chest are obtained. FINDINGS: Heart and mediastinum are normal. Lungs are clear of consolidation. Costophrenic angles ar e clear. There are chest leads. Bony thorax is intact. IMPRESSION: No active cardiopulmonary disease. Normal heart. No change.
[2018-03-28 18:53] LABS: Creatine Kinase MB 2.9 ng/mL (0.0-2.4); INR 0.9 (<1.2); Prothrombin Time 9.7 sec (9.0-12.0); Troponin I <0.012 ng/mL (0.000-0.034)
[2018-03-28 19:10] LABS: Band Neutrophils % 8 %; Eosinophils # (M) 0.12 k/uL (0-0.7); Lymphocytes # (M) 5.78 k/uL (1.0-4.8); Monocytes # (M) 0.62 k/uL (0-1.0); Neutrophils % (M) 39 %; Nucleated Red Blood Cells 0 /100 WBC (0-0); Total Cells Counted 100
[2018-03-28 19:40] LABS: Partial Thromboplastin Time 18.4 sec (22.0-30.0)
[2018-03-28 23:03] VITALS: BMI 31.9
[2018-03-29] MEDS: methylPREDNISolone SOD SUCCI 125 MG/2 ML VIAL IV SCH ×5 (00:06→22:59)
[2018-03-29] MEDS: ALPRAZolam 0.5 MG TAB PO PRN (03:12)
[2018-03-29] MEDS: ACETAMINOPHEN TAB 500 MG TAB PO PRN ×3 (05:13→18:14)
[2018-03-29 07:05] LABS: Glucose,Whole Blood 166 mg/dL (75-99)
[2018-03-29] MEDS: IPRATROPIUM-ALBUTEROL 3 ML NEB INHALATION PRN ×2 (07:09→11:12)
[2018-03-29] MEDS ORDERED: SYMBICORT 160-4.5 MCG INHALER INHALATION SCH (08:00)
[2018-03-29] MEDS ORDERED: BUDESONIDE 0.5 MG/2 ML NEBU INHALATION SCH (08:00)
[2018-03-29] MEDS ORDERED: NON-FORMULARY DRUG (Vitamin B Complex [Vitamin B Complex] 1 CAP) PO SCH (09:00)
[2018-03-29] MEDS: ENOXAPARIN 40 MG/0.4 ML SYRINGE SQ SCH (09:35)
[2018-03-29] MEDS: PANTOPRAZOLE 40 MG TABLET PO SCH (09:35)
[2018-03-29] MEDS: CITALOPRAM HYDROBROMIDE 20 MG TAB PO SCH (09:35)
[2018-03-29] MEDS: ATORVASTATIN 10 MG TAB PO SCH (09:35)
[2018-03-29] MEDS: NEBIVOLOL 5 MG TAB PO SCH (09:35)
[2018-03-29] MEDS: HYDROCHLOROTHIAZIDE 25 MG TAB PO SCH (09:35)
[2018-03-29] MEDS: metFORMIN 500 MG TAB PO SCH ×2 (09:35→20:27)
[2018-03-29] MEDS: LORATADINE 10 MG TAB PO SCH (09:35)
[2018-03-29] MEDS: FOLIC ACID-VIT B COMPLEX-VIT C 1 CAP PO SCH (09:35)
[2018-03-29] MEDS: FLUTICASONE 50MCG/SPRAY NASAL 16GM EA NOSTRIL SCH (10:03)
[2018-03-29 11:28] LABS: Glucose,Whole Blood 174 mg/dL (75-99)
[2018-03-29] MEDS: INSULIN ASPART 100 UNIT/ML 1 ML 10 ML VIAL SQ SCH ×3 (12:52→20:26)
[2018-03-29] MEDS: IBUPROFEN 800 MG TAB PO PRN (12:57)
--- NOTE | 2018-03-29 16:08 | HP ---
HISTORY AND PHYSICAL CHIEF COMPLAINT: Difficulty breathing. HISTORY OF PRESENT ILLNESS: This is another admission for this 57-year-old female. She came to the emergency room with an asthmatic episode and could not be treated in the ER and was admitted. At home she uses Symbicort inhaler as well as albuterol or ProAir p.r.n. She is coughing up yellowish sputum and her respirations are becoming more labored. She is also on Nexium, Singulair, HydroDIURIL, Lunesta, potassium, Xanax, vitamin D, atorvastatin, metformin, Augmentin, Zyrtec, Flexeril, Bystolic and prednisone with a taper. REVIEW OF SYSTEMS: She has had no headaches, chest pain, cough, hemoptysis, heart disease, angina, abdominal pain, vomiting, diarrhea, melena, hematochezia, jaundice, hepatitis, hematuria, frequency, urgency, renal failure, dysuria, etc. Past medical history, family history and personal and social histories are all otherwise unremarkable or noncontributory. She cannot take DESTINY inhibitors, morphine, and she is ALLERGIC TO LATEX. PHYSICAL EXAM: Blood pressure is 94/67, pulse 71, respirations 24 and temperature 98.1. GENERAL: She appeared to be well developed, well nourished, no acute distress. Skin color is normal color. Skin is warm and dry. Lymph nodes not enlarged. Head, ears, eyes, nose, mouth and throat were normal. Neck veins not distended. Chest demonstrates decreased breath sounds with wheezing on inspiration and expiration. There are scattered rales and rhonchi. Cardiac exam is normal. Abdomen is soft, nontender. Extremities normal. Neurologically intact. Laboratory studies reveal a white count of 12,300 with a hemoglobin of 10.9. Total CK was elevated at 338, CK-MB was 2.9 with a normal troponin. She is admitted to the hospital with the diagnoses of: 1. Status asthmaticus. 2. Hypertension. .. 3. Anxiety. 4. Hyperlipidemia. 5. Depression. PLAN: 1. Bed rest. 2. IV fluids. 3. IV and inhaled steroids. MMODL / IJN: [id number] /
--- NOTE | 2018-03-29 16:29 | CONS ---
CONSULTATION DATE OF SERVICE: 03/29/2018 This is a 57-year-old black female with a history of severe chronic bronchial asthma. The patient apparently was seen by me in the office a couple weeks ago. At that time, she was given Depo-Medrol, prednisone and some antibiotics. She apparently presented to the office yesterday to see Dr. Palmer, my partner. The patient apparently was having difficulty with her breathing. She was very short of breath. The office staff initially directed her straight to the emergency room, which she insisted on seeing Dr. Palmer who did see her and then ended up sending her to the emergency room anyway. She was seen by Dr. Mixon in the emergency room and she was admitted with a diagnosis of severe asthma exacerbation/status asthmaticus. Her complaints included shortness of breath, chest tightness, wheezing, cough and she did have temperature elevation. The patient also had some cough and phlegm production. There was some mention of temperature elevation as well. The patient is in the room now currently doing a bit better. She is very short of breath. We put her on a DuoNeb q.i.d. and p.r.n., Pulmicort 1 mg and formoterol twice a day and Solu-Medrol 60 mg q.6 hours. We also recommend an oral antibiotic. Her chest x-ray was clear of any infiltrates. PAST MEDICAL HISTORY: Includes chronic bronchial asthma which is quite severe, diabetes, gastroesophageal reflux disease, hyperlipidemia, hypertension and hypothyroidism. SURGICAL HISTORY: Includes back surgery, breast surgery, cholecystectomy, heart catheterization, and orthopedic procedures. She has had bilateral cataract procedures as well. SOCIAL HISTORY: Negative for tobacco, alcohol, or illicit drug use. FAMILY HISTORY: Positive for deep venous thrombosis and cancer. ALLERGIES: Include DESTINY INHIBITORS, DILAUDID, LATEX, AND DARVOCET. Her home medications are listed. From the pulmonary standpoint, she is on albuterol sulfate as an inhaler in the form of ProAir HFA, Symbicort 160/4.5, 2 puffs twice a day and Singulair 10 mg at bedtime. She also has a nebulizer machine at home with albuterol used in it. Finally, she was on prednisone with a taper which I had given her and Augmentin 875 twice a day. REVIEW OF SYSTEMS: CONSTITUTIONAL: Negative. Negative. HEENT: Negative. CARDIOVASCULAR: Negative. PULMONARY: Shortness of breath, chest tightness, wheezing, cough and some minimal phlegm production. GI/: Negative. RHEUMATOLOGIC/IMMUNOLOGIC: Negative. ENDOCRINOLOGIC and DERMATOLOGIC: Negative. PHYSICAL EXAMINATION: Current vital signs reviewed. Her temperature is 97.9, heart rate 66, respiratory rate 16, blood pressure 117/72, mean 87, and 2 L saturation 99%. Appears in no acute distress. HEENT examination is grossly unremarkable. Mucous membranes are moist. Neck is supple. Full range of motion. Neck veins are flat. Cardiovascular examination reveals regular rhythm and rate. She is not tachycardic. Heart rate 70, S1, S2 normal. Lungs reveal diffuse inspiratory and expiratory wheezes and rhonchi. There is prolongation on forced maneuver. Breath sounds are diminished throughout. Adventitious lung sounds are more prominent on forced maneuver. She coughs and wheezes on forced maneuver. Abdomen is soft. Bowel sounds are heard. Extremities are intact. No cyanosis, clubbing, or edema. Skin without rash. Neurologic examination is brief but nonfocal. Chest x-ray fails to reveal any infiltrates. There is evidence of hyperinflation and hyperlucent lung veras. LABS: Reviewed. White count 12.3, hemoglobin 10.9, hematocrit 34.6, platelet count 423,000. PT/INR normal. PTT normal. Sodium, potassium, chloride, CO2 all normal. BUN and creatinine were 26 and 0.74. Phosphorus 1.9. CK 338, CK-MB 2.9. The rest of the labs look okay. Medications are reviewed. The patient is currently on Pulmicort 1 mg mixed with formoterol twice a day. She is also getting DuoNeb q.i.d. and p.r.n. In addition, the patient is getting Solu-Medrol 60 mg q.6 hours. She is on Singulair 10 mg at bedtime. Finally, she is on Levaquin. ASSESSMENT: 1. Severe asthma exacerbation/status asthmaticus, likely complicated by purulent tracheobronchitis, without trae pneumonia. 2. Under assessment is history of diabetes mellitus. 3. History of cataracts. 4. History of gastroesophageal reflux disease. 5. History of hyperlipidemia. 6. History of hypertension. 7. Hypothyroidism by history. 8. History of eczema. 9. Irritable bowel syndrome. 10.History of hiatal hernia. PLAN: The patient's medications were reviewed and adjusted accordingly. She was placed on DuoNeb q.i.d. and p.r.n. In addition, the patient was given Pulmicort and formoterol twice a day. She is on Solu-Medrol 60 mg q.6 hours and Levaquin. She is also on her montelukast or Singulair 10 mg at bedtime. We will watch her closely to make sure she continues to improve. She was already pushing to be discharged, but it is much too soon. MMODL / IJN: [id number] /
[2018-03-29 17:06] LABS: Glucose,Whole Blood 122 mg/dL (75-99)
--- NOTE | 2018-03-29 17:29 | PN ---
PROGRESS NOTE CHIEF COMPLAINT: Status asthmaticus. HISTORY OF PRESENT ILLNESS: This lady is doing a little bit better. She still feels a little tight and wheezy. She has had no fever, chills, chest pain etc. PHYSICAL EXAM: Breath sounds are still diminished and she has scattered rales and rhonchi with wheezing on inspiration and expiration. Cardiac exam demonstrates tachycardia. The abdomen is soft, nontender. IMPRESSION: Status asthmaticus. PLAN: Continue with IV fluids, steroids and updrafts. MMODL / IJN: [id number] /
[2018-03-29] MEDS: BUDESONIDE 1 MG/2 ML NEBU INHALATION SCH (19:16)
[2018-03-29] MEDS: FORMOTEROL FUMARATE 20 MCG/2 ML NEBU INHALATION SCH (19:16)
[2018-03-29 19:17] LABS: Hemoglobin A1C 6.3 % (4.0-6.0)
[2018-03-29] MEDS ORDERED: LEVOFLOXACIN 750MG-D5W PMX 750 MG in DEXTROSE/WATER 1 150ML.BAG IVPB SCH (20:00)
[2018-03-29 20:21] LABS: Glucose,Whole Blood 197 mg/dL (75-99)
[2018-03-29] MEDS: POTASSIUM CHLORIDE ER 10 MEQ TAB.ER.PRT PO SCH (20:27)
[2018-03-29] MEDS: MONTELUKAST 10 MG TAB PO SCH (20:27)
[2018-03-29] MEDS: CYCLOBENZAPRINE 10 MG TAB PO SCH (20:27)
[2018-03-29] MEDS: TEMAZEPAM 30 MG CAP PO SCH (22:59)
[2018-03-30] MEDS: methylPREDNISolone SOD SUCCI 125 MG/2 ML VIAL IV SCH ×4 (05:35→23:33)
[2018-03-30] MEDS: IBUPROFEN 800 MG TAB PO PRN ×3 (05:39→20:23)
[2018-03-30 07:11] LABS: Glucose,Whole Blood 148 mg/dL (75-99)
[2018-03-30] MEDS: INSULIN ASPART 100 UNIT/ML 1 ML 10 ML VIAL SQ SCH ×4 (07:51→20:18)
[2018-03-30] MEDS: BUDESONIDE 1 MG/2 ML NEBU INHALATION SCH ×2 (08:29→20:21)
[2018-03-30] MEDS: IPRATROPIUM-ALBUTEROL 3 ML NEB INHALATION PRN ×3 (08:29→20:21)
[2018-03-30] MEDS: FORMOTEROL FUMARATE 20 MCG/2 ML NEBU INHALATION SCH ×2 (08:29→20:21)
[2018-03-30] MEDS: PANTOPRAZOLE 40 MG TABLET PO SCH (09:04)
[2018-03-30] MEDS: CITALOPRAM HYDROBROMIDE 20 MG TAB PO SCH (09:04)
[2018-03-30] MEDS: LORATADINE 10 MG TAB PO SCH (09:05)
[2018-03-30] MEDS: ENOXAPARIN 40 MG/0.4 ML SYRINGE SQ SCH (09:05)
[2018-03-30] MEDS: NEBIVOLOL 5 MG TAB PO SCH (09:05)
[2018-03-30] MEDS: ATORVASTATIN 10 MG TAB PO SCH (09:05)
[2018-03-30] MEDS: metFORMIN 500 MG TAB PO SCH ×2 (09:05→20:17)
[2018-03-30] MEDS: FOLIC ACID-VIT B COMPLEX-VIT C 1 CAP PO SCH (09:05)
[2018-03-30] MEDS: FLUTICASONE 50MCG/SPRAY NASAL 16GM EA NOSTRIL SCH (09:05)
[2018-03-30] MEDS: HYDROCHLOROTHIAZIDE 25 MG TAB PO SCH (09:05)
[2018-03-30] MEDS: ALPRAZolam 0.5 MG TAB PO PRN (09:10)
[2018-03-30 12:03] LABS: Glucose,Whole Blood 183 mg/dL (75-99)
--- NOTE | 2018-03-30 14:08 | PN ---
PROGRESS NOTE DATE OF SERVICE: 03/30/2018. this is a 57-year-old black female well known to our service. She has a history of severe chronic bronchial asthma and was in the office a couple days ago and saw my partner. She was sent to the ER and she was admitted for status asthmaticus and acute asthma exacerbation. I saw her in the office a couple weeks ago and gave her Depo- Medrol, prednisone and the antibiotics. Despite that, she did not improve. When she came in to the emergency room she was seen by Dr. Mixon and was having shortness of breath, chest tightness, wheezing and cough. He thought initially he might have to come to the ICU, but she turned around in the emergency room and was admitted to the general medical floor. Currently, she is doing better. She is on short-acting beta agonist, short-acting muscarinic antagonist, long-acting beta agonist and inhaled corticosteroids. In addition, she is on systemic corticosteroids and antibiotics. She is feeling better. Currently getting a breathing treatment. Current vital signs are reviewed, include a temperature of 98.6, heart rate 60, respiratory rate of 16, blood pressure 145/82, mean 103 and room air saturation is 100%. Appears mildly tachypneic and dyspneic. No use of accessory muscles. No audible wheezing. No nasal flaring. HEENT examination is grossly unremarkable. Mucous membranes are moist. Nasal O2 in place. Neck is supple. Full range of motion. No adenopathy or thyromegaly. Neck veins are flat. Cardiovascular examination reveals regular rhythm and rate. Heart rate 60. S1, S2 normal. Lungs reveal diffuse inspiratory and expiratory wheezes and rhonchi. There is prolongation on forced maneuver. The patient coughs and wheezes on forced maneuver. No crackles. Abdomen is soft, bowel sounds are heard. Extremities are intact. No cyanosis, clubbing, or edema. Skin without rash. Neurologic examination is brief but nonfocal. No new labs today to report. Microbiologic studies are negative. Chest x-ray from 03/28 was reviewed. MEDICATIONS ARE: Reviewed. She is on the appropriate medications as mentioned above. She is currently on Singulair, Solu-Medrol, Levaquin, DuoNeb, formoterol and Pulmicort. ASSESSMENT: 1. Acute hypoxemic respiratory failure secondary to severe asthma exacerbation with status asthmaticus, complicated by purulent tracheobronchitis, but without trae pneumonia. 2. History of diabetes mellitus. 3. History of cataracts. 4. History of gastroesophageal reflux disease. 5. Hyperlipidemia. 6. History of hypertension. 7. Hypothyroidism by history. 8. History of eczema. 9. Irritable bowel syndrome. 10.History of hiatal hernia. PLAN: The patient remains on appropriate medications. She remains on DuoNeb q.i.d. p.r.n., Pulmicort 1 mg mixed with formoterol twice a day. She is on systemic corticosteroids and some oral antibiotics. She is also on montelukast 10 mg at bedtime. I told her that she might be able to be discharged tomorrow. No additional recommendations are made. Prognosis is guarded. MMODL / IJN: [id number] /
--- NOTE | 2018-03-30 14:38 | XR ---
EXAMINATION TYPE: XR chest 2V DATE OF EXAM: 03/30/2018 COMPARISON: 03/17/2018 TECHNIQUE: PA and lateral views submitted. HISTORY: Shortness of breath FINDINGS: Surgical clips in the abdomen is noted. There is no overt failure or pneumothorax. Heart size is normal and stable. There is subsegmental changes at the left lung base. IMPRESSION: 1. Left basilar atelectasis favored over infiltrate correlate clinically.
[2018-03-30 17:05] LABS: Glucose,Whole Blood 145 mg/dL (75-99)
--- NOTE | 2018-03-30 17:27 | PN ---
PROGRESS NOTE CHIEF COMPLAINT: Status asthmaticus. HISTORY OF PRESENT ILLNESS: This lady is doing fairly well, but she has developed left-sided chest pain. There has been no history trauma. She has had no fever and chills, hemoptysis, sputum production, etc. PHYSICAL EXAM: She is still quite wheezy and congested with decreased breath sounds throughout. Cardiac exam is normal. IMPRESSION: 1. Status asthmaticus. 2. Left-sided chest pain. PLAN: 1. Continue current treatment. 2. Chest x-ray. MMODL / IJN: [id number] /
[2018-03-30] MEDS ORDERED: LEVOFLOXACIN 750 MG TAB PO SCH (20:00)
[2018-03-30] MEDS: CYCLOBENZAPRINE 10 MG TAB PO SCH (20:17)
[2018-03-30] MEDS: MONTELUKAST 10 MG TAB PO SCH (20:17)
[2018-03-30] MEDS: POTASSIUM CHLORIDE ER 10 MEQ TAB.ER.PRT PO SCH (20:18)
[2018-03-30 20:27] LABS: Glucose,Whole Blood 180 mg/dL (75-99)
[2018-03-30] MEDS: TEMAZEPAM 30 MG CAP PO SCH (23:37)
[2018-03-31] MEDS: IBUPROFEN 800 MG TAB PO PRN (04:10)
[2018-03-31] MEDS: methylPREDNISolone SOD SUCCI 125 MG/2 ML VIAL IV SCH ×2 (05:43→12:10)
[2018-03-31 06:51] LABS: Glucose,Whole Blood 160 mg/dL (75-99)
[2018-03-31] MEDS: ACETAMINOPHEN TAB 500 MG TAB PO PRN (07:20)
[2018-03-31] MEDS: INSULIN ASPART 100 UNIT/ML 1 ML 10 ML VIAL SQ SCH ×2 (07:27→12:37)
[2018-03-31 07:49] VITALS: BP 166/88; TEMP 98.4
[2018-03-31] MEDS: IPRATROPIUM-ALBUTEROL 3 ML NEB INHALATION PRN ×2 (08:44→12:11)
[2018-03-31] MEDS: BUDESONIDE 1 MG/2 ML NEBU INHALATION SCH (08:44)
[2018-03-31] MEDS: FORMOTEROL FUMARATE 20 MCG/2 ML NEBU INHALATION SCH (08:45)
[2018-03-31] MEDS: FLUTICASONE 50MCG/SPRAY NASAL 16GM EA NOSTRIL SCH (08:55)
[2018-03-31] MEDS: FOLIC ACID-VIT B COMPLEX-VIT C 1 CAP PO SCH (08:56)
[2018-03-31] MEDS: HYDROCHLOROTHIAZIDE 25 MG TAB PO SCH (08:56)
[2018-03-31] MEDS: PANTOPRAZOLE 40 MG TABLET PO SCH (08:56)
[2018-03-31] MEDS: NEBIVOLOL 5 MG TAB PO SCH (08:56)
[2018-03-31] MEDS: CITALOPRAM HYDROBROMIDE 20 MG TAB PO SCH (08:56)
[2018-03-31] MEDS: LORATADINE 10 MG TAB PO SCH (08:56)
[2018-03-31] MEDS: ENOXAPARIN 40 MG/0.4 ML SYRINGE SQ SCH (08:56)
[2018-03-31] MEDS: ATORVASTATIN 10 MG TAB PO SCH (08:56)
[2018-03-31] MEDS: metFORMIN 500 MG TAB PO SCH (09:00)
[2018-03-31] MEDS: ALPRAZolam 0.5 MG TAB PO PRN (09:00)
[2018-03-31 11:29] LABS: Glucose,Whole Blood 149 mg/dL (75-99)
[2018-03-31 12:15] VITALS: RESP 10
[2018-03-31 12:23] VITALS: PULSE 64
--- NOTE | 2018-03-31 14:04 | PN ---
PROGRESS NOTE DATE OF SERVICE: 03/31/2018. A very pleasant 57-year-old black female well known to us. She was admitted from the office with a diagnosis of acute hypoxemic respiratory failure secondary to severe asthma exacerbation/status asthmaticus. She also had purulent tracheobronchitis, but no trae pneumonia. She also suffers from diabetes, cataracts, GERD, hyperlipidemia, hypertension, hypothyroidism, eczema, irritable bowel syndrome and hiatal hernia. Currently, the patient is doing much better. She is feeling much better. Much less short of breath. I told her that she might be able to be discharged today. It will depend on her primary doctor, Dr. Christopher. I did tell her that she would have followup in the office. She will see our nurse practitioner, Dr. Maria Fernanda Forbes sometime early next week. She should be discharged home on prednisone and some antibiotics. I did warn her about doing too much which she got home because if she did, she would end up right back in the hospital. Current vital signs are reviewed. Temperature is 98.4, heart rate 65, respiratory rate 10, blood pressure 166/88 with the mean of 114, room air saturation 99%. Appears in no acute distress. HEENT examination is grossly unremarkable. Mucous membranes are moist. No oral lesions. Neck is supple. Full range of motion. No adenopathy or thyromegaly. Neck veins are flat. Cardiovascular examination reveals regular rhythm and rate. S1, S2 normal. No S3, S4, or murmur. Lungs reveal a few scattered mild rhonchi and expiratory wheezes. Most of the wheezes are terminal at the end of exhalation. No crackles. No rhonchi. Breath sounds equal bilaterally but diminished throughout. There is prolongation on forced maneuver. Abdomen is soft. Bowel sounds are heard. No masses or tenderness. Extremities are intact. No cyanosis, clubbing, or edema. Skin without rash. Neurologic examination is brief but nonfocal. Microbiologic studies are negative. There is no new laboratory data on this patient. Medications are reviewed. ASSESSMENT: 1. Acute hypoxemic respiratory failure secondary to severe asthma exacerbation with status asthmaticus, complicated by purulent tracheobronchitis. 2. No evidence of trae pneumonia. 3. History of diabetes mellitus. 4. History of cataracts. 5. History of gastroesophageal reflux disease. 6. Hyperlipidemia. 7. History of hypertension. 8. Hypothyroidism by history. 9. History of eczema. 10.Irritable bowel syndrome. 11.History of hiatal hernia. PLAN: It is certainly up to the primary service, but from my perspective, the patient could be discharged. She will follow up in the office next week with our nurse practitioner. She should be discharged home on some steroids and antibiotics. She should resume her normal home medications. Will follow up with her early next week. No additional recommendations are made. Other than that, she needs to take it easy when she is discharged. If she does too much, she will be right back here in the hospital. MMODL / IJN: [id number] /
--- NOTE | 2018-03-31 23:46 | DS ---
DISCHARGE SUMMARY CHIEF COMPLAINT: Status asthmaticus. HISTORY OF PRESENT ILLNESS AND PHYSICAL EXAM: The details of this lady's history and physical can be found in the initial workup. LABORATORY STUDIES: While she was in a hospital she had laboratory studies, details of which can be found in the laboratory section of her chart. COURSE IN HOSPITAL: After admission she was placed on bedrest and started on intravenous fluids and inhaled and IV steroids along with updrafts. She slowly began to improve and she was doing well enough to be discharged on the . She will go home on usual activity, diet and medication. She will be sent home on a Medrol Dosepak and will also get a new nebulizer. She will follow up in the office in a few days. FINAL DIAGNOSIS: Status asthmaticus. OPERATIONS: None. CONSULTATIONS: None. She is improved. MMCONCETTAL / TRINON: [id number] /
[2018-04-01] MEDS ORDERED: methylPREDNISolone 4 MG TAB TAPER PO SCH (09:00)
== END 2018-03-31 13:25 | disposition home or self-care (01) ==
LOC: EC 17:06 → 4SSUR 20:12
PROVIDERS: ADMIT Family Medicine; ATTEND Family Medicine
DX: J45.902 Unspecified asthma with status asthmaticus (principal); J96.01 Acute respiratory failure with hypoxia; I10 Essential (primary) hypertension; F41.9 Anxiety disorder, unspecified; E78.5 Hyperlipidemia, unspecified; F32.9 Major depressive disorder, single episode, unspecified; K58.9 Irritable bowel syndrome, unspecified; K44.9 Diaphragmatic hernia without obstruction or gangrene; E11.9 Type 2 diabetes mellitus without complications; H40.9 Unspecified glaucoma; I83.90 Asymptomatic varicose veins of unspecified lower extremity; L30.9 Dermatitis, unspecified; K21.9 Gastro-esophageal reflux disease without esophagitis; E03.9 Hypothyroidism, unspecified; Z79.51 Long term (current) use of inhaled steroids; Z79.84 Long term (current) use of oral hypoglycemic drugs; Z79.899 Other long term (current) drug therapy; Z88.5 Allergy status to narcotic agent; Z88.8 Allergy status to other drugs, medicaments and biological substances; Z91.040 Latex allergy status; Z90.49 Acquired absence of other specified parts of digestive tract; Z98.42 Cataract extraction status, left eye; Z98.41 Cataract extraction status, right eye; Z83.2 Family history of diseases of the blood and blood-forming organs and certain disorders involving the immune mechanism; Z80.9 Family history of malignant neoplasm, unspecified
CPT/HCPCS: 96376 ×3; 96366 ×2; 96372 ×3; 96361; 96365; 96367; 96375; 99284; 36415; 94640 ×8; 94760 ×3; 93005; 80053; 82550; 82553; 83735; 84100; 84484; 85025; 85610; 85730; 87040; 83036; 71046 ×2; G0378 ×4; J2930 ×4; J1650 ×3; J1885; J1956 ×2; J3475

== ENCOUNTER → 2018-05-04 | Outpatient (CLI) | payer BC ==
[2018-05-04 15:12] LABS: Basophils % (A) 0 %; Eosinophils # (A) 0.2 k/uL (0-0.7); Eosinophils % (A) 3 %; HCT 34.9 % (34.0-46.0); HGB 10.6 gm/dL (11.4-16.0); Hypochromasia Slight; Lymphocytes # (A) 3.2 k/uL (1.0-4.8); Lymphocytes % (A) 43 %; MCH 25.3 pg (25.0-35.0); MCHC 30.4 g/dL (31.0-37.0); MCV 83.1 fL (80.0-100.0); Mean Platelet Volume 6.2; Monocytes # (A) 0.4 k/uL (0-1.0); Monocytes % (A) 5 %; Neutrophils # (A) 3.5 k/uL (1.3-7.7); Neutrophils % (A) 47 %; Platelet Count 423 k/uL (150-450); RDW 15.3 % (11.5-15.5); WBC 7.5 k/uL (3.8-10.6)
[2018-05-04 18:13] LABS: Albumin 4.1 g/dL (3.80-4.90); Albumin/Globulin Ratio 2.56 (1.20-2.10); Anion Gap 8.8 mmol/L (4.00-12.00); Calcium 9.1 mg/dL (8.7-10.3); Carbon Dioxide 33.2 mmol/L (21.6-31.8); Globulin 1.6 g/dL (1.6-3.3); LDL Cholesterol,Calculated 82.8 mg/dL (0.0-131.0); Potassium 3.9 mmol/L (3.5-5.5); Total Bilirubin 0.6 mg/dL (0.2-1.2); Total Protein 5.7 g/dL (6.2-8.2); VLDL Calculation 11.2 mg/dL (5.00-40.00)
[2018-05-04 18:59] LABS: Vitamin D 25 Hydroxy 14.4 ng/mL (30.0-100.0)
== END | disposition home or self-care (01) ==
LOC: LABWHC1 13:24
PROVIDERS: ATTEND Internal Medicine
DX: Z00.00 Encounter for general adult medical examination without abnormal findings (principal); E11.9 Type 2 diabetes mellitus without complications; I10 Essential (primary) hypertension; K21.9 Gastro-esophageal reflux disease without esophagitis; E55.9 Vitamin D deficiency, unspecified
CPT/HCPCS: 36415; 80053; 80061; 82306; 82607; 84443; 85025

== ENCOUNTER → 2018-05-05 | Outpatient (CLI) | payer BC ==
--- NOTE | 2018-05-08 14:19 | MM ---
Reason for exam: screening (asymptomatic). Last mammogram was performed 1 year and 7 months ago. History: Patient is postmenopausal. Family history of breast cancer in maternal aunt at age 50. Benign US breast needle core RT of the right breast, September 21, 2016. Reductions of both breasts, November 2008. Took hormonal contraceptives for 12 years 8 months beginning at age 37. MG Screening Mammo w CAD Bilateral CC and MLO view(s) were taken. Prior study comparison: September 21, 2016, right breast MG diagnostic mammo RT wo CAD. September 10, 2016, bilateral MG diagnostic mammo w CAD JEANETH. There are scattered fibroglandular densities. No significant changes when compared with prior studies. ASSESSMENT: Benign, BI-RAD 2 RECOMMENDATION: Routine screening mammogram of both breasts in 1 year.
== END | disposition home or self-care (01) ==
LOC: RADMAMWWP 09:50
PROVIDERS: ATTEND Obstetrics & Gynecology
DX: Z12.31 Encounter for screening mammogram for malignant neoplasm of breast (principal)
CPT/HCPCS: 77067

== ENCOUNTER → 2018-09-10 | Outpatient (CLI) | payer BC ==
[2018-09-10 12:16] LABS: Basophils % (A) 1 %; Eosinophils # (A) 0.4 k/uL (0-0.7); Eosinophils % (A) 6 %; HCT 33.7 % (34.0-46.0); HGB 10.6 gm/dL (11.4-16.0); Hypochromasia Slight; Lymphocytes # (A) 2.1 k/uL (1.0-4.8); Lymphocytes % (A) 37 %; MCH 25.5 pg (25.0-35.0); MCHC 31.5 g/dL (31.0-37.0); MCV 81.1 fL (80.0-100.0); Mean Platelet Volume 6.9; Monocytes # (A) 0.3 k/uL (0-1.0); Monocytes % (A) 4 %; Neutrophils # (A) 2.8 k/uL (1.3-7.7); Neutrophils % (A) 50 %; Platelet Count 375 k/uL (150-450); RBC 4.15 m/uL (3.80-5.40); RDW 14.2 % (11.5-15.5); WBC 5.6 k/uL (3.8-10.6)
[2018-09-10 16:02] LABS: Iron Saturation 12.18 (12.00-45.00)
[2018-09-10 16:08] LABS: Albumin 4.3 g/dL (3.80-4.90); Albumin/Globulin Ratio 2.39 (1.60-3.17); Calcium 9.3 mg/dL (8.7-10.3); Globulin 1.8 g/dL (1.6-3.3); LDL Cholesterol,Calculated 62.2 mg/dL (0.0-131.0); Potassium 3.9 mmol/L (3.5-5.5); Total Bilirubin 0.4 mg/dL (0.3-1.2); Total Protein 6.1 g/dL (6.2-8.2); VLDL Calculation 13.8 mg/dL (5.00-40.00)
[2018-09-10 16:10] LABS: Vitamin D 25 Hydroxy 15.4 ng/mL (30.0-100.0)
== END | disposition home or self-care (01) ==
LOC: LABWHC1 11:43
PROVIDERS: ATTEND Internal Medicine
DX: Z00.00 Encounter for general adult medical examination without abnormal findings (principal); D64.9 Anemia, unspecified; E78.5 Hyperlipidemia, unspecified; E03.9 Hypothyroidism, unspecified; E04.2 Nontoxic multinodular goiter; E55.9 Vitamin D deficiency, unspecified; E11.9 Type 2 diabetes mellitus without complications
CPT/HCPCS: 36415; 80053; 80061; 82306; 82607; 82728; 83540; 83550; 83735; 84443; 85025

== ENCOUNTER 2018-10-09 22:06 | Observation (INO) | payer BC ==
[2018-10-09] MEDS ORDERED: SODIUM CHLORIDE 0.9% 1,000 ML IV STA ×2 (22:27)
[2018-10-09] MEDS ORDERED: ASPIRIN 81 MG PO STA (22:27)
--- NOTE | 2018-10-09 23:08 | ED ---
Chest Pain HPI - General Chief Complaint: Chest Pain Stated Complaint: Chest pain Time Seen by Provider: 10/09/18 22:27 Source: patient Mode of arrival: ambulatory Limitations: no limitations - History of Present Illness Initial Comments: Saba is a 58 yo -Tajik female who presents the emergency department today for evaluation of chest pain. Patient reports that yesterday evening she began feeling pain in the left side of her chest radiating to her left arm. She did not want to come to the emergency department she reports that she prayed about this and then slept through the night. Patient states that she continued to have chest pain this morning however she wanted to attend [employer] which was an all day service in [place]. Patient reports that pain persisted throughout the day, she came home and did a breathing treatment because she does have COPD which did not improve her pain. She attempted to lay down but was unable to do so she decided to come to the ER for further evaluation. She cannot identify any exacerbating or relieving factors for the pain. She describes it as a constant dull ache discomfort. Patient is very anxious because her mother had cardiac disease and at the age of 58 her 59. - Related Data Home Medications Medication Instructions Recorded Confirmed Albuterol Sulfate [Proair Hfa] 2 puff INHALATION RT-Q6H PRN 08/21/14 10/09/18 Budesonide/Formoterol Fumarate 2 puff INHALATION RT-BID 08/21/14 10/09/18 [Symbicort 160-4.5 Mcg Inhaler] Esomeprazole Magnesium [NexIUM] 40 mg PO DAILY 08/21/14 10/09/18 Montelukast [Singulair] 10 mg PO HS 08/21/14 10/09/18 Hydrochlorothiazide [Hydrodiuril] 25 mg PO DAILY 09/09/14 10/09/18 Eszopiclone [Lunesta] 3 mg PO HS 04/20/16 10/09/18 Potassium Chloride [Klor-Con 10] 10 meq PO HS 04/20/16 10/09/18 ALPRAZolam [Xanax] 0.5 mg PO DAILY PRN 09/21/16 10/09/18 Dialyvite Multi-Vit 5,000 1 tab PO DAILY 06/02/17 10/09/18 Ibuprofen [Motrin] 800 mg PO TID PRN 06/02/17 10/09/18 Albuterol Nebulized [Ventolin 2.5 mg INHALATION RT-BID PRN 11/10/17 10/09/18 Nebulized] Atorvastatin [Lipitor] 10 mg PO DAILY 11/10/17 10/09/18 Citalopram Hydrobromide 20 mg PO DAILY 11/10/17 10/09/18 [Citalopram HBr] Fluticasone Nasal [place] [Flonase 1 spray EA NOSTRIL DAILY PRN 11/10/17 10/09/18 Nasal [place]] metFORMIN HCL [Glucophage] 500 mg PO BID 11/10/17 10/09/18 Cetirizine HCl [Zyrtec] 10 mg PO DAILY 03/28/18 10/09/18 Cyclobenzaprine [Flexeril] 10 mg PO HS PRN 03/28/18 10/09/18 Nebivolol HCl [Bystolic] 10 mg PO DAILY 03/28/18 10/09/18 Previous Rx's Medication Instructions Recorded methylPREDNISolone Dose Pack 24 mg PO DAILY #1 pack 03/31/18 [Medrol Dose Pack] Allergies Allergy/AdvReac Type Severity Reaction Status Date / Time DESTINY Inhibitors Allergy Rash/Hives Verified 10/09/18 22:49 hydromorphone HCl Allergy Anaphylaxis Verified 10/09/18 22:49 [From Dilaudid] latex Allergy Rash/Hives Verified 10/09/18 22:49 propoxyphene napsylate Allergy Swelling Verified 10/09/18 22:49 [From Darvocet-N] Review of Systems ROS Statement: Those systems with pertinent positive or pertinent negative responses have been documented in the HPI. ROS Other: All systems not noted in ROS Statement are negative. EKG Findings - EKG Comments: EKG Findings:: EKG was obtained due to complaint of chest pain, EKG obtained at 2230, rate is 70, rhythm is sinus there is normal axis, [place] is prolonged to 4, curious is 84, QTC is prolonged at 468. There is diffuse ST depressions with inverted T waves in the 1 through V4. There are no acute ST elevations. This EKG is concerning for ischemia but no acute infarction. Past Medical History Past Medical History: Asthma, Diabetes Mellitus, Eye Disorder, GERD/Reflux, Hyperlipidemia, Hypertension, Respiratory Disorder, Skin Disorder, Thyroid Disorder Additional Past Medical History / Comment(s): DIET CONTROL DIABETES, heart murmur, glaucoma , varicose veins, IBS, hiatal hernia, eczema History of Any Multi-Drug Resistant Organisms: None Reported Past Surgical History: Back Surgery, Breast Surgery, Cholecystectomy, Heart Catheterization, Orthopedic Surgery Additional Past Surgical History / Comment(s): breast reduction, left knee arthroscopy, breast biopsy, anthony cataracts Past Anesthesia/Blood Transfusion Reactions: Motion Sickness Past Psychological History: Anxiety Smoking Status: Never smoker Past Alcohol Use History: None Reported Past Drug Use History: None Reported - Past Family History Father Family Medical History: Cancer, Deep Vein Thrombosis (DVT) Mother Family Medical History: No Reported History General Exam - General Exam Comments Initial Comments: Physical Exam GENERAL: Patient is well-developed and well-nourished. Patient is nontoxic and well- hydrated and is in no distress. HENT: Normocephalic, Atraumatic. EYES: PERRL, EOMI PULMONARY: Unlabored respirations. No audible rales rhonchi or wheezing was noted. CARDIOVASCULAR: There is a regular rate and rhythm without any murmurs gallops or rubs. ABDOMEN: Soft and nontender with normal bowel sounds. SKIN: Skin is clear with no lesions or rashes and otherwise unremarkable. : Deferred NEUROLOGIC: Patient is alert and oriented x3. Moving all extremities spontaneously MUSCULOSKELETAL: Normal extremities with adequate strength and full range of motion. No lower extremity swelling or edema. No calf tenderness. PSYCHIATRIC: Situational anxiety Limitations: no limitations Course Vital Signs 10/09/18 10/09/18 10/09/18 22:13 22:34 23:15 Temperature 99.0 F Pulse Rate 75 74 75 Respiratory 16 18 18 Rate Blood Pressure 136/89 125/95 151/85 O2 Sat by Pulse 100 100 100 Oximetry 10/10/18 10/10/18 00:12 02:19 Temperature 98.4 F 98.3 F Pulse Rate 65 56 L Respiratory 18 18 Rate Blood Pressure 137/76 136/68 O2 Sat by Pulse 100 100 Oximetry Chest Pain MDM - MDM The patient was seen and evaluated, history is obtained from the patient and re view of medical record This 58-year-old -Tajik female with a strong family history of cardiac disease, history of COPD, obese, hypertension hyperlipidemia and diabetes HEART score - 6 ASA ordered and given Heparin and nitro ordered Cardiac workup initiated Given the patient's high risk status and persistent chest pain heparin and nitro were ordered Patient care was discussed with Dr. chavez as well as Dr. Mcclain, EKG was reviewed by Dr. Mcclain. They agree with plan for admission for high risk chest pain and evaluation by cardiology. Disposition Clinical Impression: Chest pain, Abnormal EKG Disposition: ADMITTED IP TO THIS HOSP Condition: Stable Referrals: Keila Mahmood MD [Primary Care Provider] - 1-2 days
[2018-10-09 23:47] LABS: Basophils % (A) 1 %; Eosinophils # (A) 0.3 k/uL (0-0.7); Eosinophils % (A) 3 %; HCT 33.9 % (34.0-46.0); HGB 10.7 gm/dL (11.4-16.0); Lymphocytes # (A) 4.4 k/uL (1.0-4.8); Lymphocytes % (A) 46 %; MCH 25.2 pg (25.0-35.0); MCHC 31.6 g/dL (31.0-37.0); MCV 79.7 fL (80.0-100.0); Mean Platelet Volume 6.5; Monocytes # (A) 0.5 k/uL (0-1.0); Monocytes % (A) 5 %; Neutrophils % (A) 42 %; Platelet Count 383 k/uL (150-450); RBC 4.25 m/uL (3.80-5.40); RDW 14.8 % (11.5-15.5); WBC 9.6 k/uL (3.8-10.6)
[2018-10-09] MEDS ORDERED: ALBUTEROL NEBULIZED 2.5 MG/3 ML INHALATION PRN (23:49)
[2018-10-09] MEDS ORDERED: CYCLOBENZAPRINE 10 MG TAB PO PRN (23:49)
[2018-10-09] MEDS ORDERED: ALPRAZolam 0.5 MG TAB PO PRN (23:49)
[2018-10-10] LABS: D-Dimer 0.31 mg/L FEU (<0.60); INR 0.9 (<1.2); Partial Thromboplastin Time 22.1 sec (22.0-30.0); Prothrombin Time 9.5 sec (9.0-12.0)
[2018-10-10] MEDS ORDERED: HEPARIN SODIUM,PORCINE 5,000 UNIT/ML 1 ML VIAL IV PRN (00:01)
[2018-10-10] MEDS ORDERED: HEPARIN SODIUM,PORCINE 5,000 UNIT/ML 1 ML VIAL IV ONE (00:01)
[2018-10-10 00:08] LABS: ALT 29 U/L (9-52); AST 27 U/L (14-36); African American GFR (CKD) >90 (>60 ml/min/1.73 sqM); Albumin 4.3 g/dL (3.5-5.0); Alkaline Phosphatase 91 U/L (38-126); Anion Gap 11 mmol/L; Blood Urea Nitrogen 20 mg/dL (7-17); Calcium 9.7 mg/dL (8.4-10.2); Carbon Dioxide 25 mmol/L (22-30); Chloride 105 mmol/L (98-107); Glucose 89 mg/dL (74-99); Magnesium 1.8 mg/dL (1.6-2.3); Potassium 2.8 mmol/L (3.5-5.1); Sodium 141 mmol/L (137-145); Total Bilirubin 0.4 mg/dL (0.2-1.3); Total Protein 6.9 g/dL (6.3-8.2)
--- NOTE | 2018-10-10 00:11 | XR ---
EXAM: XR Chest, 2 Views CLINICAL HISTORY: Chest Pain TECHNIQUE: Frontal and lateral views of the chest. COMPARISON: 04/14/18 FINDINGS: Lungs: Unremarkable. No consolidation. Pleural space: Unremarkable. No pneumothorax. Heart: Unremarkable. No cardiomegaly. Mediastinum: Unremarkable. Bones/joints: Unremarkable. IMPRESSION: No acute findings or substantial change
[2018-10-10] MEDS ORDERED: HEPARIN SOD,PORK IN 0.45% NACL 25,000 UNIT in 0.45% NACL 1 250ML.BAG IV SCH (00:15)
--- NOTE | 2018-10-10 01:06 | HP ---
HISTORY AND PHYSICAL DATE OF SERVICE: 10/09/2018 CHIEF COMPLAINT: Chest pain. HISTORY OF PRESENT ILLNESS: This 58-year-old woman with a past medical history of multiple medical problems including asthma, diabetes, GERD, hypertension, hyperlipidemia, hypothyroidism, history of diet-controlled diabetes, irritable bowel syndrome, history of back pain, DJD being followed by Dr. Crocker as well as Dr. Spence in the outpatient setting is complaining of chest pains. The patient had chest pains initially on the left side of the heart, but subsequently patient had pressure type of pain. The pain was also radiating to the left arm. Subsequently, the pain turned into sharp in character which was deep inside and because of the patient also had difficulty in breathing and multiple other problems, the patient came to [place], and was admitted for further evaluation and treatment. The EKG showed ST changes and the patient admitted for further evaluation and treatment. The patient had a stress test in May last year per our records which showed no evidence of any stress induced ischemia. There is no history of fever, rigors or chills. No history of headache, loss of consciousness, seizures. PAST MEDICAL HISTORY: History of asthma, diabetes, GERD, hypertension, hyperlipidemia, history of diet- controlled diabetes, history of back surgery, DJD and anxiety. MEDICATIONS: Prior to admission: Home medications are are reviewed and include: 1. Klor-Con 10 mEq p.o. q.h.s. 2. Singular 10 mg q.h.s. 3. Motrin 800 mg p.o. t.i.d. p.r.n. 4. Flonase 1 spray daily p.r.n. 5. Lunesta 3 mg p.o. q.h.s. 6. Medrol Dosepak 25 mg p.o. daily. 7. Glucophage 500 mg p.o. b.i.d. 8. Bystolic 10 mg p.o. daily. 9. HydroDIURIL 25 mg. 10.Nexium 40 mg. 11.Multivitamins 1 p.o. daily. 12.Flexeril 10 mg q.h.s. p.r.n. 13.Celexa 20 mg p.o. daily. 14.Zyrtec 10 mg p.o. daily. 15.Symbicort 160/4.5 two puffs b.i.d. 16.Lipitor 10 mg p.o. daily. 17.ProAir HFA 2 puffs q.6h p.r.n. 18.Ventolin 2.5 b.i.d. p.r.n. 19.Xanax 0.5 daily p.r.n. ALLERGIES: DESTINY INHIBITORS, DILAUDID, LATEX, DARVOCET N-100. FAMILY HISTORY: History of cancer and DVT in the family. SOCIAL HISTORY: No history of smoking. No history of alcohol. REVIEW OF SYSTEMS: ENT: No diminished vision. No diminished hearing. CARDIOVASCULAR system as mentioned earlier. RESPIRATORY: As mentioned earlier. GI no nausea or vomiting. no dysuria or hematuria. Nervous system: No numbness or weakness. Allergy/Immunology: No asthma or hayfever. MUSCULOSKELETAL as mentioned earlier. HEMATOLOGY/ONCOLOGY: No history of anemia. ENDOCRINE: Diabetes. CONSTITUTIONAL: As mentioned earlier. DERMATOLOGY: Negative. RHEUMATOLOGY negative. PSYCHIATRY as mentioned earlier. PHYSICAL EXAMINATION: Patient is alert and oriented times three. Pulse 75, blood pressure 151/80, respiration 18, temperature 99 degrees, pulse ox 100 percent on 2 L. HEENT: Conjunctivae normal. Oral mucosa moist. NECK is no jugular venous distention. No carotid bruit. No lymph node enlargement. CARDIOVASCULAR: S1, S2 muffled. No S3, no S4. RESPIRATORY: Breath sounds diminished in the bases. No rhonchi. No crackles. ABDOMEN: Soft, nontender. No mass palpable. LEGS: No edema. No swelling. NERVOUS SYSTEM: Higher functions as mentioned earlier. Moves all four limbs. No focal motor or sensory deficits. Lymphatics: No lymph nodes palpable in the neck, axillae or groin. SKIN no ulcer, rash or bleeding. JOINTS no active deforming arthropathy. LABS: Pending at this time. EKG: Diffuse ST changes. ASSESSMENT: 1. Chest pain possible unstable angina. Rule out acute myocardial infarction. 2. Acute ST changes and diffuse changes in the EKG. 3. History of asthma. 4. Diabetes mellitus type 2. 5. Hypertension. 6. Hyperlipidemia. 7. History of degenerative joint disease. 8. History of cardiac catheterization. 9. History of back surgery. 10.History of anxiety. RECOMMENDATIONS AND DISCUSSION: In this 58-year-old woman who presented with multiple medical issues, I would recommend to continue the current medications, management and symptomatic treatment. Otherwise, continue with unstable angina protocol including heparin. Rule out myocardial infarction. Cardiology consultation. N.p.o. past midnight. The overall prognosis guarded. Further recommendations to follow. Patient also had previous cardiac catheterization by Cardiology. We will obtain the old charts and compare with the previous EKG. Guarded prognosis because of multiple complex medical issues. Further recommendations to follow. Copy of this forwarded to Dr. Crocker who is the primary physician. MMODL / IJN: [id number] /
[2018-10-10] MEDS ORDERED: ALBUTEROL NEBULIZED 2.5 MG/3 ML INHALATION ONE (02:00)
[2018-10-10] MEDS: NITROGLYCERIN OINT 1 INCH/GM PACKET TOPICAL SCH ×6 (02:30→23:31)
[2018-10-10 04:53] VITALS: BMI 31.5
[2018-10-10 06:27] LABS: Basophils # (A) 0.1 k/uL (0-0.2); Basophils % (A) 1 %; Eosinophils # (A) 0.4 k/uL (0-0.7); Eosinophils % (A) 5 %; HGB 9.6 gm/dL (11.4-16.0); Hypochromasia Moderate; Lymphocytes # (A) 3.9 k/uL (1.0-4.8); Lymphocytes % (A) 47 %; MCH 26.1 pg (25.0-35.0); MCHC 32.1 g/dL (31.0-37.0); MCV 81.4 fL (80.0-100.0); Monocytes # (A) 0.4 k/uL (0-1.0); Monocytes % (A) 5 %; Neutrophils # (A) 3.3 k/uL (1.3-7.7); Neutrophils % (A) 40 %; Platelet Count 350 k/uL (150-450); RBC 3.69 m/uL (3.80-5.40); RDW 14.5 % (11.5-15.5); WBC 8.3 k/uL (3.8-10.6)
[2018-10-10 06:31] LABS: Prothrombin Time 10.5 sec (9.0-12.0)
[2018-10-10 07:19] LABS: Glucose,Whole Blood 88 mg/dL (75-99)
[2018-10-10 07:24] LABS: African American GFR (CKD) >90 (>60 ml/min/1.73 sqM); Anion Gap 6 mmol/L; Blood Urea Nitrogen 16 mg/dL (7-17); Calcium 8.4 mg/dL (8.4-10.2); Carbon Dioxide 30 mmol/L (22-30); Chloride 107 mmol/L (98-107); Glucose 94 mg/dL (74-99); Sodium 143 mmol/L (137-145)
[2018-10-10] MEDS ORDERED: PANTOPRAZOLE 40 MG TABLET PO SCH (07:30)
[2018-10-10] MEDS: ALBUTEROL NEBULIZED 2.5 MG/3 ML INHALATION PRN (07:40)
[2018-10-10] MEDS: SYMBICORT 160-4.5 MCG INHALER INHALATION SCH ×2 (07:40→19:20)
[2018-10-10] MEDS ORDERED: Potassium Replacement Protocol 1 EACH MISC MISCELLANE PRN (08:39)
[2018-10-10] MEDS ORDERED: HYDROCHLOROTHIAZIDE 25 MG TAB PO SCH (09:00)
[2018-10-10] MEDS ORDERED: FLUTICASONE 50MCG/SPRAY NASAL 16GM EA NOSTRIL PRN (09:00)
[2018-10-10] MEDS: INSULIN ASPART (NovoLOG) 100 UNIT/ML VIAL SQ SCH ×4 (09:45→20:12)
[2018-10-10] MEDS: POTASSIUM CHLORIDE ER 20 MEQ TAB.ER PO SCH ×3 (09:48→14:44)
[2018-10-10] MEDS: ACETAMINOPHEN TAB 325 MG TAB PO PRN ×2 (09:54→20:18)
--- NOTE | 2018-10-10 10:41 | P.CRDCN ---
History of Present Illness History of present illness: This is a pleasant 58-year-old -[place] female past medical history significant for hypertension, dyslipidemia, diabetes mellitus, gastroesophageal reflux disease and hypothyroidism. She follows in the office with Dr. Spence. We have been asked to see her in consultation secondary to chest discomfort. She has undergone cardiac catheterization in the past in 2017 which revealed n ormal coronary arteries with no evidence of obstructive disease. She states she started having a heavy sensation in the left precordial region Wednesday evening at rest. There was some radiation to the left arm with some tingling in her hand. This was associated with shortness of breath, nausea and some epigastric discomfort. The symptoms are not related to activity or exertion. She went to sleep Wednesday night he woke up Wednesday morning with ongoing chest discomfort. She went to [employer] yesterday and continued to have heavy sensation in her chest all day with episodes of a sharp discomfort associated with deep inspiration or movement of her upper body. She continues to have ongoing chest discomfort at the time of my exam. She is seen and examined resting comfortably in no acute distress. EKG reveals sinus mechanism with T-wave inversions noted in the inferior, anterior leads. This is consistent with previous EKGs with no acute changes noted. Chest x-ray is negative for an acute cardiopulmonary process. Laboratory data reviewed, WBC 8.3, hemoglobin 9.6, platelets 350, d-dimer 0.31, sodium 143, potassium on admission 2. 8 repeat this morning 3.0, creatinine 0.6, magnesium 1.8, cardiac enzymes negative 2, proBNP 59. Current cardiac medications include atorvastatin 10 mg daily, hydrochlorothiazide 25 mg daily, by systolic 10 mg daily and potassium supplementation daily. She states she did not take her medication Wednesday or Wednesday. Most recent echocardiogram obtained May 2017 reveals preserved LV systolic function with ejection fraction 55-60%, mild MR and mild TR noted. Most recent stress test performed May 2017 was negative for stress-induced ischemia. At the time of my exam: CONSTITUTIONAL: Denies fever. Denies chills. EYES: Denies blurred vision. Denies vision changes. Denies eye pain. EARS, NOSE, MOUTH & THROAT: Denies headache. Denies sore throat. Denies ear pain. CARDIOVASCULAR: Complains of pleuritic chest pain. Denies shortness of breath. D enies orthopnea. Denies PND. Denies palpitations. RESPIRATORY: Denies cough. GASTROINTESTINAL: Denies abdominal pain. Denies diarrhea. Denies constipation. Denies nausea. Denies vomiting. MUSCULOSKELETAL: Denies myalgias. INTEGUMENTARY: Denies pruitis. Denies rash. NEUROLOGIC: Denies numbness. Denies tingling. Denies weakness. PSYCHIATRIC: Denies anxiety. Denies depression. ENDOCRINE: Denies fatigue. Denies weight change. Denies polydipsia. Denies polyurina. GENITOURINARY: Denies burning, hematuria or urgency with micturation. HEMATOLOGIC: Denies history of anemia. Denies bleeding. Blood pressure 110/62 heart rate 61 afebrile maintaining oxygen saturation on nasal cannula GENERAL: This is a 58-year-old for can [place] female in no apparent distress at the time of my examination. HEENT: Head is atraumatic, normocephalic. Pupils are equal, round. Sclerae anicteric. Conjunctivae are clear. Mucous membranes of the mouth are moist. Neck is supple. There is no jugular venous distention. No carotid bruit is heard. LUNGS: Clear to auscultation no wheezes, rales or rhonchi. No chest wall tenderness is noted on palpation or with deep breathing. HEART: Regular rate and rhythm without murmurs, rubs or gallops. S1 and S2 heard. ABDOMEN: Soft, nontender. Bowel sounds are heard. No organomegaly noted. EXTREMITIES: No evidence of peripheral edema and no calf tenderness noted. VASCULAR: Radial and dorsalis pedis pulses palpated, no evidence of clubbing. NEUROLOGIC: Patient is awake, alert and oriented x3. ASSESSMENT Chest pain, atypical for ischemia. Hypokalemia Hypertension Dyslipidemia Diabetes mellitus PLAN Replace potassium per protocol. Continue to obtain serial cardiac enzymes to rule out an acute event. Once an acute event is ruled out we can discontinue the heparin infusion. Once potassium is corrected we will proceed with a stress echocardiogram tomorrow. Obtain 2D echocardiogram and doppler study to assess cardiac structure and function. Further recommendations to follow based on clinical course. Thank you kindly for this consultation. Nurse Practitioner note has been reviewed, I agree with a documented findings and plan of care. Patient was seen and examined. Past Medical History Past Medical History: Asthma, Diabetes Mellitus, Eye Disorder, GERD/Reflux, Hyperlipidemia, Hypertension, Respiratory Disorder, Skin Disorder, Thyroid Disorder Additional Past Medical History / Comment(s): DIABETES, heart murmur, glaucoma , varicose veins, IBS, hiatal hernia, eczema History of Any Multi-Drug Resistant Organisms: None Reported Past Surgical History: Back Surgery, Breast Surgery, Cholecystectomy, Heart Catheterization, Orthopedic Surgery Additional Past Surgical History / Comment(s): breast reduction, left knee arthroscopy, breast biopsy, anthony cataracts, HEART CATH DONE "FEW YEARS AGO, SHOWED BLOCKAGE BUT NO INTERVENTION" Past Anesthesia/Blood Transfusion Reactions: Motion Sickness Past Psychological History: Anxiety Smoking Status: Never smoker Past Alcohol Use History: None Reported Past Drug Use History: None Reported - Past Family History Father Family Medical History: Cancer, Deep Vein Thrombosis (DVT) Mother Family Medical History: No Reported History Medications and Allergies Home Medications Medication Instructions Recorded Confirmed Type Albuterol Sulfate [Proair Hfa] 2 puff INHALATION RT-Q6H PRN 08/21/14 10/09/18 History Budesonide/Formoterol Fumarate 2 puff INHALATION RT-BID 08/21/14 10/09/18 History [Symbicort 160-4.5 Mcg Inhaler] Esomeprazole Magnesium [NexIUM] 40 mg PO DAILY 08/21/14 10/09/18 History Montelukast [Singulair] 10 mg PO HS 08/21/14 10/09/18 History Hydrochlorothiazide [Hydrodiuril] 25 mg PO DAILY 09/09/14 10/09/18 History Eszopiclone [Lunesta] 3 mg PO HS 04/20/16 10/09/18 History Potassium Chloride [Klor-Con 10] 10 meq PO HS 04/20/16 10/09/18 History ALPRAZolam [Xanax] 0.5 mg PO DAILY PRN 09/21/16 10/09/18 History Dialyvite Multi-Vit 5,000 1 tab PO DAILY 06/02/17 10/09/18 History Ibuprofen [Motrin] 800 mg PO TID PRN 06/02/17 10/09/18 History Albuterol Nebulized [Ventolin 2.5 mg INHALATION RT-BID PRN 11/10/17 10/09/18 History Nebulized] Atorvastatin [Lipitor] 10 mg PO DAILY 11/10/17 10/09/18 History Citalopram Hydrobromide 20 mg PO DAILY 11/10/17 10/09/18 History [Citalopram HBr] Fluticasone Nasal [place] [Flonase 1 spray EA NOSTRIL DAILY PRN 11/10/17 10/09/18 History Nasal [place]] metFORMIN HCL [Glucophage] 500 mg PO BID 11/10/17 10/09/18 History Cetirizine HCl [Zyrtec] 10 mg PO DAILY 03/28/18 10/09/18 History Cyclobenzaprine [Flexeril] 10 mg PO HS PRN 03/28/18 10/09/18 History Nebivolol HCl [Bystolic] 10 mg PO DAILY 03/28/18 10/09/18 History methylPREDNISolone Dose Pack 24 mg PO DAILY #1 pack 03/31/18 10/09/18 Rx [Medrol Dose Pack] Allergies Allergy/AdvReac Type Severity Reaction Status Date / Time DESTINY Inhibitors Allergy Rash/Hives Verified 10/09/18 22:49 hydromorphone HCl Allergy Anaphylaxis Verified 10/09/18 22:49 [From Dilaudid] latex Allergy Rash/Hives Verified 10/09/18 22:49 propoxyphene napsylate Allergy Swelling Verified 10/09/18 22:49 [From Darvocet-N] Physical Exam Vitals: Vital Signs Temp Pulse Resp BP Pulse Ox 10/10/18 07:50 75 10/10/18 07:44 74 10/10/18 03:13 54 L 18 125/77 100 10/10/18 02:19 98.3 F 56 L 18 136/68 100 10/10/18 00:12 98.4 F 65 18 137/76 100 10/09/18 23:15 75 18 151/85 100 10/09/18 22:34 74 18 125/95 100 10/09/18 22:13 99.0 F 75 16 136/89 100 Intake and Output 10/09/18 10/10/18 10/10/18 22:59 06:59 14:59 Other: Weight 75.75 kg Results 10/10/18 05:31 10/10/18 05:31 Cardiac Enzymes 10/09/18 10/09/18 10/10/18 Range/Units 23:16 23:16 05:31 AST 27 (14-36) U/L Troponin I <0.012 <0.012 (0.000-0.034) ng/mL Coagulation 10/09/18 10/10/18 Range/Units 23:16 05:31 PT 9.5 10.5 (9.0-12.0) sec APTT 22.1 (22.0-30.0) sec CBC 10/09/18 10/10/18 Range/Units 23:16 05:31 WBC 9.6 8.3 (3.8-10.6) k/uL RBC 4.25 3.69 L (3.80-5.40) m/uL Hgb 10.7 L 9.6 L (11.4-16.0) gm/dL Hct 33.9 L 30.0 L (34.0-46.0) % Plt Count 383 350 (150-450) k/uL Comprehensive Metabolic Panel 10/09/18 10/10/18 Range/Units 23:16 05:31 Sodium 141 143 (137-145) mmol/L Potassium 2.8 L 3.0 L (3.5-5.1) mmol/L Chloride 105 107 (98-107) mmol/L Carbon Dioxide 25 30 (22-30) mmol/L BUN 20 H 16 (7-17) mg/dL Creatinine 0.61 0.60 (0.52-1.04) mg/dL Glucose 89 94 (74-99) mg/dL Calcium 9.7 8.4 (8.4-10.2) mg/dL AST 27 (14-36) U/L ALT 29 (9-52) U/L Alkaline Phosphatase 91 (38-126) U/L Total Protein 6.9 (6.3-8.2) g/dL Albumin 4.3 (3.5-5.0) g/dL Current Medications Generic Name Dose Route Start Last Admin Trade Name Freq PRN Reason Stop Dose Admin Albuterol Sulfate 2.5 mg 10/09/18 23:49 10/10/18 07:40 Ventolin Nebulized INHALATION 2.5 mg RT-Q6H PRN Administration Shortness Of Breath Albuterol Sulfate 2.5 mg 10/09/18 23:49 Ventolin Nebulized INHALATION RT-BID PRN Shortness Of Breath Alprazolam 0.5 mg 10/09/18 23:49 Xanax PO DAILY PRN Anxiety Aspirin 325 mg 10/11/18 09:00 Aspirin PO DAILY [facility] Atorvastatin Calcium 10 mg 10/10/18 09:00 Lipitor PO DAILY [facility] Budesonide/Formoterol Fumarate 2 puff 10/10/18 08:00 10/10/18 07:40 Symbicort 160-4.5 Mcg Inhaler INHALATION 2 puff RT-BID [facility] Administration Citalopram Hydrobromide 20 mg 10/10/18 09:00 Celexa PO DAILY [facility] Cyclobenzaprine HCl 10 mg 10/09/18 23:49 Flexeril PO HS PRN Muscle Spasm Fluticasone Propionate 1 spray 10/10/18 09:00 Flonase Nasal [place] EA NOSTRIL DAILY PRN Nasal Congestion Heparin Sodium (Porcine) 0 unit 10/10/18 00:01 Heparin IV PER PROTOCOL PRN Low PTT Protocol Hydrochlorothiazide 25 mg 10/10/18 09:00 Hydrodiuril PO DAILY [facility] Heparin Sodium/Sodium Chloride 250 mls @ 9.09 mls/hr 10/10/18 00:15 10/10/18 02:27 25,000 unit/ Sodium Chloride IV 12 units/kg/hr .Q24H [facility] 9.09 mls/hr Administration Protocol 12 UNITS/KG/HR Insulin Aspart 0 unit 10/10/18 07:30 Novolog SQ ACHS [facility] Protocol Loratadine 10 mg 10/10/18 09:00 Claritin PO DAILY [facility] Metformin HCl 500 mg 10/10/18 09:00 Glucophage PO BID [facility] Methylprednisolone 24 mg 10/10/18 09:00 Medrol Dose Pack PO 10/16/18 08:59 DAILY [facility] Taper Miscellaneous Information 1 each 10/10/18 08:39 Potassium Per Protocol MISCELLANE DAILY PRN Per Protocol Protocol Montelukast Sodium 10 mg 10/10/18 21:00 Singulair PO HS [facility] Multivitamins 1 each 10/10/18 09:00 Theragran PO DAILY [facility] Nebivolol 10 mg 10/10/18 09:00 Bystolic PO DAILY [facility] Nitroglycerin 1 inch 10/10/18 00:15 10/10/18 02:30 Nitro-Bid Oint TOPICAL 1 inch Q6HR [facility] Administration Pantoprazole Sodium 40 mg 10/10/18 09:00 Protonix PO DAILY [facility] Pantoprazole Sodium 40 mg 10/10/18 07:30 Protonix PO AC-BRKFST [facility] Potassium Chloride 10 meq 10/10/18 21:00 K-Dur 10 PO HS [facility] Potassium Chloride 20 meq 10/10/18 09:00 K-Dur 20 PO 10/10/18 11:01 Q1HR [facility] Protocol Zolpidem Tartrate 5 mg 10/10/18 21:00 Ambien PO HS [facility] Intake and Output 10/09/18 10/10/18 10/10/18 22:59 06:59 14:59 Other: Weight 75.75 kg 10/10/18 05:31 10/10/18 05:31
[2018-10-10] MEDS: methylPREDNISolone 4 MG TAB TAPER PO SCH (12:20)
[2018-10-10] MEDS: NEBIVOLOL 5 MG TAB PO SCH (12:21)
[2018-10-10 12:22] LABS: Glucose,Whole Blood 98 mg/dL (75-99)
[2018-10-10] MEDS: MULTIVITAMINS, THERA 1 EACH TAB PO SCH (12:22)
[2018-10-10] MEDS: CITALOPRAM HYDROBROMIDE 20 MG TAB PO SCH (12:22)
[2018-10-10] MEDS: metFORMIN 500 MG TAB PO SCH ×2 (12:22→20:12)
[2018-10-10] MEDS: LORATADINE 10 MG TAB PO SCH (12:22)
[2018-10-10] MEDS: PANTOPRAZOLE 40 MG TABLET PO SCH (12:22)
[2018-10-10] MEDS: ATORVASTATIN 10 MG TAB PO SCH (12:24)
--- NOTE | 2018-10-10 13:47 | ECHOF ---
Referral Reason:cp MEASUREMENTS -------- HEIGHT: 154.9 cm WEIGHT: 75.7 kg BP: RVIDd: 3.1 cm (< 3.3) IVSd: 1.3 cm (0.6 - 1.1) LVIDd: 4.2 cm (3.9 - 5.3) LVPWd: 1.0 cm (0.6 - 1.1) IVSs: 1.8 cm LVIDs: 2.4 cm LVPWs: 2.1 cm LAESV Index (A-L): 20.66 ml/m Ao Diam: 2.6 cm (2.0 - 3.7) AV Cusp: 2.0 cm (1.5 - 2.6) LA Diam: 3.5 cm (2.7 - 3.8) MV EXCURSION: 14.577 mm (> 18.000) MV EF SLOPE: 60 mm/s (70 - 150) EPSS: 1.0 cm MV E Anthony: 1.00 m/s MV DecT: 342 ms MV A Anthony: 0.84 m/s MV E/A Ratio: 1.19 RAP: 15.00 mmHg RVSP: 34.56 mmHg FINDINGS -------- Sinus rhythm. This was a technically good study. The left ventricular size is normal. There is mild concentric left ventricular hypertrophy. Overa ll left ventricular systolic function is normal with, an EF between 55 - 60 %. The diastolic fillin g pattern is normal for the age of the patient 11.77. The right ventricle is normal in size. The left atrial size is normal. Normal LA size by volume 22+/-6 ml/m2. The right atrial size is normal. Interatrial and interventricular septum intact. The aortic valve is trileaflet and appears structurally normal. The mitral valve is normal. The mitral valve leaflets are mildly thickened. [id number] mitr al regurgitation is present. Mild tricuspid regurgitation present. Right ventricular systolic pressure is normal at < 35 mmHg. Trace/mild (physiologic) pulmonic regurgitation. The aortic root size is normal. The inferior vena cava is mildly dilated but collapses. All pulmonary veins appear normal. There is no pericardial effusion. CONCLUSIONS -------- 1. Sinus rhythm. 2. This was a technically good study. 3. The left ventricular size is normal. 4. There is mild concentric left ventricular hypertrophy. 5. Overall left ventricular systolic function is normal with, an EF between 55 - 60 %. 6. The diastolic filling pattern is normal for the age of the patient 11.77 7. The right ventricle is normal in size. 8. The left atrial size is normal. 9. Normal LA size by volume 22+/-6 ml/m2. 10. The right atrial size is normal. 11. Interatrial and interventricular septum intact. 12. The aortic valve is trileaflet and appears structurally normal. 13. The mitral valve is normal. 14. The mitral valve leaflets are mildly thickened. 15. [id number] mitral regurgitation is present. 16. Mild tricuspid regurgitation present. 17. Right ventricular systolic pressure is normal at < 35 mmHg. 18. Trace/mild (physiologic) pulmonic regurgitation. 19. The aortic root size is normal. 20. The inferior vena cava is mildly dilated but does collapse. 21. All pulmonary veins appear normal. 22. There is no pericardial effusion. LIGHTING ENGINEERING TECHNICIAN: Celeste Velarde RDCS
[2018-10-10 15:56] VITALS: RESP 18
[2018-10-10 16:54] LABS: Glucose,Whole Blood 103 mg/dL (75-99)
[2018-10-10 20:08] LABS: Glucose,Whole Blood 162 mg/dL (75-99)
[2018-10-10] MEDS ORDERED: MONTELUKAST 10 MG TAB PO SCH (21:00)
[2018-10-10] MEDS ORDERED: POTASSIUM CHLORIDE ER 10 MEQ TAB.ER.PRT PO SCH (21:00)
[2018-10-10] MEDS ORDERED: ZOLPIDEM 5 MG TAB PO SCH (21:00)
--- NOTE | 2018-10-10 23:57 | PN ---
PROGRESS NOTE DATE OF SERVICE: 10/10/2018. This 58-year-old woman was admitted with chest pain is being closely monitored. Myocardial infarction was ruled out. Cardiology recommending a cardiac catheterization. Potassium is 3 at this time. No chest pain. No palpitations. No fever. Magnesium is normal. EXAM: Alert and oriented x3. Pulse is 56, blood pressure 133/77, respiration 18, temperature 98.2 pulse ox 97% on room air. HEENT: Conjunctivae normal. NECK: No jugular venous distention. CARDIOVASCULAR: S1, S2 muffled. RESPIRATORY: Breath sounds diminished in the bases. No rhonchi. No crackles. ABDOMEN is soft, nontender. LEGS are no edema, no swelling. CENTRAL NERVOUS SYSTEM: No focal deficits. LABS: WBC 8.3, hemoglobin 9.6. Potassium 3. ASSESSMENT: 1. Chest pain possible unstable angina. 2. ST changes in the EKG. 3. Hypokalemia. 4. Anemia, normocytic undetermined etiology. 5. History of asthma. 6. Diabetes mellitus type 2. 7. Hypertension. 8. Hyperlipidemia. 9. History of degenerative joint disease. 10.History of cardiac catheterization. 11.History of back surgery. 12.History of anxiety. RECOMMENDATIONS AND DISCUSSION: Recommend to continue current medications, continue with monitoring, management and symptomatic treatments. Otherwise, at this time, supplement potassium. Closely monitor. Possible stress test per Cardiology. Guarded prognosis. Further recommendations to follow. MMSWETA / FEDERICO: [id number] /
[2018-10-11 06:47] LABS: Glucose,Whole Blood 103 mg/dL (75-99)
[2018-10-11 07:47] VITALS: TEMP 98.2
[2018-10-11 08:02] LABS: Basophils % (A) 0 %; Eosinophils # (A) 0.1 k/uL (0-0.7); Eosinophils % (A) 1 %; HGB 9.9 gm/dL (11.4-16.0); Lymphocytes # (A) 3.1 k/uL (1.0-4.8); Lymphocytes % (A) 30 %; MCH 25.2 pg (25.0-35.0); MCHC 31.1 g/dL (31.0-37.0); MCV 81.1 fL (80.0-100.0); Mean Platelet Volume 6.6; Monocytes # (A) 0.7 k/uL (0-1.0); Monocytes % (A) 6 %; Neutrophils # (A) 6.4 k/uL (1.3-7.7); Neutrophils % (A) 61 %; Platelet Count 387 k/uL (150-450); RBC 3.94 m/uL (3.80-5.40); RDW 14.8 % (11.5-15.5); WBC 10.4 k/uL (3.8-10.6)
[2018-10-11] MEDS: SYMBICORT 160-4.5 MCG INHALER INHALATION SCH (08:11)
[2018-10-11 08:30] LABS: African American GFR (CKD) >90 (>60 ml/min/1.73 sqM); Anion Gap 5 mmol/L; Blood Urea Nitrogen 12 mg/dL (7-17); Calcium 9.1 mg/dL (8.4-10.2); Carbon Dioxide 30 mmol/L (22-30); Chloride 107 mmol/L (98-107); Cholesterol 135 mg/dL (<200); Glucose 93 mg/dL (74-99); HDL Cholesterol 59 mg/dL (40-60); LDL Cholesterol,Calculated 65 mg/dL (0-99); Potassium 3.3 mmol/L (3.5-5.1); Sodium 142 mmol/L (137-145); Triglycerides 55 mg/dL (<150)
[2018-10-11] MEDS ORDERED: ASPIRIN 325 MG TAB PO SCH (09:00)
[2018-10-11] MEDS: INSULIN ASPART (NovoLOG) 100 UNIT/ML VIAL SQ SCH ×2 (09:09→12:13)
[2018-10-11] MEDS ORDERED: POTASSIUM CHLORIDE ER 20 MEQ TAB.ER PO STA (09:53)
[2018-10-11] MEDS: LORATADINE 10 MG TAB PO SCH (09:58)
[2018-10-11] MEDS: MULTIVITAMINS, THERA 1 EACH TAB PO SCH (09:58)
[2018-10-11] MEDS: metFORMIN 500 MG TAB PO SCH (09:58)
[2018-10-11] MEDS: ATORVASTATIN 10 MG TAB PO SCH (09:58)
[2018-10-11] MEDS: NEBIVOLOL 5 MG TAB PO SCH (09:58)
[2018-10-11] MEDS: PANTOPRAZOLE 40 MG TABLET PO SCH (09:58)
[2018-10-11] MEDS: CITALOPRAM HYDROBROMIDE 20 MG TAB PO SCH (09:58)
[2018-10-11] MEDS: methylPREDNISolone 4 MG TAB TAPER PO SCH (09:58)
--- NOTE | 2018-10-11 10:00 | P.PN ---
Subjective This is a pleasant 58-year-old [place] female past medical history significant for hypertension, dyslipidemia, diabetes mellitus, gastroesophageal reflux disease and hypothyroidism. She follows in the office with Dr. Spence. We have been asked to see her in consultation secondary to chest discomfort. She has undergone cardiac catheterization in the past in 2017 which revealed normal coronary arteries with no evidence of obstructive disease. She states she started having a heavy sensation in the left precordial region Wednesday even ing at rest. There was some radiation to the left arm with some tingling in her hand. This was associated with shortness of breath, nausea and some epigastric discomfort. The symptoms are not related to activity or exertion. She went to sleep Wednesday night he woke up Wednesday morning with ongoing chest discomfort. She went to muslim yesterday and continued to have heavy sensation in her chest all day with episodes of a sharp discomfort associated with deep inspiration or movement of her upper body. She continues to have ongoing chest discomfort at the time of my exam. She is seen and examined resting comfortably in no acute distress. 10/11/2018 Echocardiogram obtained reveals preserved LV systolic function with EF 55-60%, mild-moderate MR and mild TR. Repeat laboratory data reviewed, WBC 10.4, hemoglobin 9.9 387, sodium 142, potassium 3.3, creatinine 0.61, LDL 65. Blood pressure 121/70 with a heart rate of 54. Currently maintained on aspirin 325 mg daily, atorvastatin 10 mg daily, Bystolic 10 mg daily. She states she did have an episode of chest heaviness last night while laying in bed. No radiation to the arms, back, neck or jaw. No associated shortness of breath, dizziness, nausea, vomiting, palpitations or diaphoresis. GENERAL: This is a 58-year-old for can [place] female in no apparent distress at the time of my examination. HEENT: Head is atraumatic, normocephalic. Pupils are equal, round. Sclerae anicteric. Conjunctivae are clear. Mucous membranes of the mouth are moist. Neck is supple. There is no jugular venous distention. No carotid bruit is heard. LUNGS: Clear to auscultation no wheezes, rales or rhonchi. No chest wall tenderness is noted on palpation or with deep breathing. HEART: Regular rate and rhythm without murmurs, rubs or gallops. S1 and S2 heard. EXTREMITIES: No evidence of peripheral edema and no calf tenderness noted. ASSESSMENT Chest pain, atypical for ischemia. Hypokalemia Hypertension Dyslipidemia Diabetes mellitus PLAN Discontinue hydrochlorothiazide. Given potassium 20 MEQ x1 now. Proceed with stress test as previously ordered. If stress test is normal she is stable for discharge from a cardiac perspective. Follow up with Dr. Spence upon discharge. Nurse Practitioner note has been reviewed, I agree with a documented findings and plan of care. Patient was seen and examined. Objective - Vital Signs Vital signs: Vital Signs Temp 98.2 F 10/11/18 07:10 Pulse 56 L 10/11/18 08:24 Resp 18 10/11/18 08:00 BP 121/70 10/11/18 07:10 Pulse Ox 99 10/11/18 07:10 Intake & Output 10/10/18 10/11/18 10/11/18 18:59 06:59 18:59 Intake Total 400 Balance 400 Weight 75.75 kg 75.75 kg Intake: Oral 400 Other: Voiding Method Toilet # Voids 1 2 2 - Labs CBC & Chem 7: 10/11/18 07:25 10/11/18 07:25 Labs: Abnormal Lab Results - Last 24 Hours (Table) 10/10/18 10/10/18 10/10/18 Range/Units 09:24 16:41 20:06 Hgb (11.4-16.0) gm/dL Hct (34.0-46.0) % APTT 99.4 H (22.0-30.0) sec Potassium (3.5-5.1) mmol/L POC Glucose (mg/dL) 103 H 162 H (75-99) mg/dL 10/11/18 10/11/18 10/11/18 Range/Units 06:45 07:25 07:25 Hgb 9.9 L (11.4-16.0) gm/dL Hct 32.0 L (34.0-46.0) % APTT (22.0-30.0) sec Potassium 3.3 L (3.5-5.1) mmol/L POC Glucose (mg/dL) 103 H (75-99) mg/dL
[2018-10-11] MEDS: ALBUTEROL NEBULIZED 2.5 MG/3 ML INHALATION PRN (11:38)
[2018-10-11 11:53] LABS: Glucose,Whole Blood 88 mg/dL (75-99)
[2018-10-11 12:05] VITALS: BP 137/85; PULSE 66
--- NOTE | 2018-10-11 14:15 | ECHOS ---
STRESS ECHOCARDIOGRAM INDICATIONS: Chest pain, difficulty in breathing BASELINE HEART RATE: 80 BASELINE BLOOD PRESSURE: 126/51 MAXIMUM HEART RATE: 146 MAXIMUM BLOOD PRESSURE: 147/53 85% MPHR: 139 100% MPHR: 164 METS: 8.5 MAXIMUM STAGE REACHED: III TOTAL EXERCISE TIME: 7:00 CLINICAL INFORMATION: The patient was exercised for a total period of 7 minutes, peak heart rate of 146 was achieved. Maximum blood pressure of 147/53 mmHg was noted. Resting EKG shows normal sinus rhythm with nonspecific ST-T changes. T-wave inversions were noted during exercise. No ST-segment depression suggestive of ischemia was noted. The baseline echocardiographic images reveals normal left ventricular chamber size with normal left ventricular systolic function in the immediate postexercise period. Normal increase in the wall thickness and contractility is noted. FINAL IMPRESSION: 1. This stress echocardiographic study is negative for stress-induced ischemia. 2. EKG portion of the stress test is not suggestive of ischemia. 3. No dysrhythmias are noted. MMODL / IJN: [id number] /
--- NOTE | 2018-10-12 06:38 | DS ---
DISCHARGE SUMMARY DATE OF SERVICE: 10/11/2018 FINAL DIAGNOSES: 1. Chest pain possible musculoskeletal with negative stress echo. 2. Diffuse ST-T change on the EKG. 3. Hypokalemia, improved. 4. Anemia, normocytic undetermined etiology. 5. History of asthma. 6. Diabetes mellitus type 2. 7. Hypertension. 8. Hyperlipidemia. 9. History of degenerative joint disease. 10.History of cardiac catheterization. 11.History of back surgery. 12.History of anxiety. DISCHARGE DISPOSITION: The patient will be discharged in stable condition with guarded prognosis. HISTORY OF PRESENT ILLNESS: This 58-year-old woman with a past medical history of multiple medical problems admitted with chest pain, myocardial infarction ruled out. EKG showed some ST-T changes. Cardiology performed a stress echo which was normal. On exam, vitals are stable. CARDIOVASCULAR: S1, S2 normal. ABDOMEN: Soft. NERVOUS SYSTEM: No focal deficits. DISCHARGE ADVICE: 1. Diet is cardiac. 2. Activity limited until followup. 3. Follow up with Dr. Mahmood in 1 to 2 days. 4. Follow up with Dr. Macho Spence as recommended. MEDICATIONS ARE FOLLOWS: 1. Bystolic 10 mg p.o. daily. 2. Celexa 20 mg daily. 3. Flexeril 10 mg p.o. q.h.s. p.r.n. 4. Flonase. 5. Glucophage 500 mg p.o. b.i.d. 6. HydroDIURIL 25 mg p.o. daily. 7. Klor-Con 10 mEq p.o. q.h.s. 8. Lipitor 10 mg p.o. daily. 9. Lunesta 3 mg q.h.s. 10.Motrin p.r.n. 11.Nexium 40 mg p.o. daily. 12.ProAir 2 puffs q.6 p.r.n. 13.Singulair 10 mg q.h.s. 14.Symbicort 160/4.5 two puffs b.i.d. 15.Ventolin nebulizer q.i.d. 16.Xanax 0.5 daily p.r.n. 17.Cetirizine 10 mg daily. 18.Medrol Dosepak as advised. Once again, the patient will be discharged in stable condition with guarded prognosis. MMODL / IJN: [id number] /
== END 2018-10-11 13:14 | disposition home or self-care (01) ==
LOC: EC 22:06 → 1SOBS 10-10 00:05
PROVIDERS: ADMIT Internal Medicine; ATTEND Internal Medicine
DX: R07.89 Other chest pain (principal); E87.6 Hypokalemia; R94.31 Abnormal electrocardiogram [ECG] [EKG]; D64.9 Anemia, unspecified; K21.9 Gastro-esophageal reflux disease without esophagitis; I10 Essential (primary) hypertension; E78.5 Hyperlipidemia, unspecified; E11.9 Type 2 diabetes mellitus without complications; J44.9 Chronic obstructive pulmonary disease, unspecified; K58.9 Irritable bowel syndrome, unspecified; H40.9 Unspecified glaucoma; L30.9 Dermatitis, unspecified; K44.9 Diaphragmatic hernia without obstruction or gangrene; I83.90 Asymptomatic varicose veins of unspecified lower extremity; F41.8 Other specified anxiety disorders; E03.9 Hypothyroidism, unspecified; M54.9 Dorsalgia, unspecified; M19.90 Unspecified osteoarthritis, unspecified site; F41.9 Anxiety disorder, unspecified; R20.2 Paresthesia of skin; R11.0 Nausea; E66.9 Obesity, unspecified; Z68.31 Body mass index [BMI] 31.0-31.9, adult; R10.13 Epigastric pain; Z79.51 Long term (current) use of inhaled steroids; Z79.84 Long term (current) use of oral hypoglycemic drugs; Z79.899 Other long term (current) drug therapy; Z88.5 Allergy status to narcotic agent; Z91.040 Latex allergy status; Z88.8 Allergy status to other drugs, medicaments and biological substances; Z98.42 Cataract extraction status, left eye; Z90.49 Acquired absence of other specified parts of digestive tract; Z98.41 Cataract extraction status, right eye; Z82.49 Family history of ischemic heart disease and other diseases of the circulatory system; Z80.9 Family history of malignant neoplasm, unspecified
CPT/HCPCS: 96376; 96361; 96365; 99285; 36415; 94640 ×4; 93005; 93306; 93351; 85379; 83880; 80061; 80053; 80048 ×2; 83735; 84484 ×2; 85025 ×3; 85610 ×2; 85730 ×2; 71046; G0378 ×2; J1644 ×2; J7509 ×2

== ENCOUNTER → 2018-10-14 | Outpatient (CLI) | payer BC ==
--- NOTE | 2018-10-14 15:48 | US ---
EXAMINATION TYPE: US thyroid st tissue head/neck DATE OF EXAM: 10/14/2018 COMPARISON: 05/28/2017 CLINICAL HISTORY: 58-year-old female E04.2 Nontoxic multinodular goiter. Thyroid nodules TECHNIQUE: Multiple sonographic images of the thyroid gland are obtained. FINDINGS: GLAND SIZE: Right Lobe: 4.9 x 1.6 x 1.6 cm Overall Parenchyma: homogenous Left Lobe: 3.9 x 0.9 x 1.4 cm Overall Parenchyma: homogeneous Isthmus Thickness: 0.5 cm NODULES RIGHT: # of nodules measured on right: 1 1. .4 X .3 x .5 cm hypoechoic solid nodule at the mid pole with well-defined margins. This nodule is wider than tall and shows intranodular vascularity. Prior size: .4 x .3 x .2 cm LEFT: # of nodules measured on left: 1 1. 4 X 3 x 4 cm hypoechoic solid nodule at the mid/lower pole with well-defined margins; . This no dule is wider than tall and shows intranodular vascularity. Prior size: .4 x .3 x .2 cm ISTHMUS: # of nodules measured in the isthmus: 0 Bilateral neck scanned, no evidence of lymphadenopathy. IMPRESSION: A tiny 4 to 5 mm nodule on either side is relatively unchanged from 05/28/2017.
== END ==
LOC: RADUSWWP 15:08
PROVIDERS: ATTEND Internal Medicine
DX: E04.2 Nontoxic multinodular goiter (principal)
CPT/HCPCS: 76536

== ENCOUNTER → 2018-10-20 | Outpatient (CLI) | payer BC ==
--- NOTE | 2018-10-20 18:06 | CT ---
EXAMINATION TYPE: CT abdomen pelvis w con DATE OF EXAM: 10/20/2018 COMPARISON: 04/21/2016 INDICATION: Lower abdominal pain. DLP: 856 mGycm, Automated exposure control for dose reduction was used. CONTRAST: 100ml mL of Isovue 300. Study performed with Oral Contrast TECHNIQUE: Axial images were obtained from above the diaphragm to the pubic rami in the axial plane a t 5 mm thick sections. Reconstructed images are reviewed on the computer in the coronal plane. FINDINGS: Limited CT sections are obtained the lung bases. The lung bases are clear. CT ABDOMEN: Liver: Normal Spleen: Normal Pancreas: Normal Adrenal glands: The adrenal glands are normal. Gallbladder: Normal Kidneys: No masses are evident. No hydronephrosis is present. No cysts are present. Delayed images were obtained through the kidneys, which remain unremarkable. Aorta: Vascular calcification is within the aorta. Inferior vena cava: Normal. CT PELVIS: Loops of bowel within the abdomen and pelvis are normal. No significant diverticula are evident. No inflammatory changes suggest acute diverticulitis are evident. Appendix: Normal as visualized. Urinary bladder: Normal. Genitourinary structures: Uterus is unremarkable. Adnexal regions are clear. Osseous structures: No suspicious lytic or sclerotic lesions. Post surgical changes are through the l umbar spine. IMPRESSIONS: 1. Unremarkable CT abdomen pelvis. 2. No suspicious changes of acute diverticulitis.
== END | disposition home or self-care (01) ==
LOC: RADCTMAIN 13:56
PROVIDERS: ATTEND Internal Medicine
DX: K57.00 Diverticulitis of small intestine with perforation and abscess without bleeding (principal)
CPT/HCPCS: 82565; 84520; 74177; 36415; Q9967

== ENCOUNTER 2019-01-14 09:52 | Emergency (ER) | payer BC ==
[2019-01-14 10:03] VITALS: PULSE 60; TEMP 98.2
[2019-01-14] MEDS ORDERED: KETOROLAC 30 MG/ML 1 ML VIAL IVP STA (10:18)
[2019-01-14] MEDS ORDERED: SODIUM CHLORIDE 0.9% 1,000 ML IV STA (10:18)
[2019-01-14] MEDS ORDERED: PANTOPRAZOLE 40 MG/10 ML VIAL IVP STA (10:25)
--- NOTE | 2019-01-14 10:25 | ED ---
General Adult HPI - General Source: patient Mode of arrival: ambulatory Limitations: no limitations <Mally Patrick - Last Filed: 01/14/19 12:48> <Veena Mccracken - Last Filed: 01/17/19 22:46> - General Chief complaint: Abdominal Pain Stated complaint: low back pain Time Seen by Provider: 01/14/19 10:07 - History of Present Illness Initial comments: Patient is a 58-year-old female with past medical history of diabetes, hypertension, GERD, asthma, presenting to the emergency Department with complaints of low back and lower abdominal pain 3 days. Patient went to her PCP on Wednesday and was diagnosed with a UTI and was started on Augmentin. Patient states her lower abdominal and low back pain started the following day and has been intermittent in nature. Patient's describes the pain as sharp, crampy, bilateral. Patient is still complaining of mild burning with urination and suprapubic fullness and pressure. Patient admits to prior nausea but denies nausea today. Patient denies vomiting, fever, chills, diarrhea. Patient also has a history of GERD and states she has been having increase in the burning sensation in her throat the past 3 days as well. Patient denies any chest pain, shortness of breath. Patient admits to history of minor lumbar surgery approximately 6 years ago. Patient has no other complaints at this time. Upon arrival to ER, vital signs are stable, afebrile. (Mally Patrick) - Related Data Home Medications Medication Instructions Recorded Confirmed Albuterol Sulfate [Proair Hfa] 2 puff INHALATION RT-Q6H PRN 08/21/14 01/14/19 Budesonide/Formoterol Fumarate 2 puff INHALATION RT-BID 08/21/14 01/14/19 [Symbicort 160-4.5 Mcg Inhaler] Esomeprazole Magnesium [NexIUM] 40 mg PO DAILY 08/21/14 01/14/19 Montelukast [Singulair] 10 mg PO HS 08/21/14 01/14/19 Hydrochlorothiazide [Hydrodiuril] 25 mg PO DAILY 09/09/14 01/14/19 Eszopiclone [Lunesta] 3 mg PO HS 04/20/16 01/14/19 Potassium Chloride [Klor-Con 10] 10 meq PO HS 04/20/16 01/14/19 ALPRAZolam [Xanax] 0.5 mg PO DAILY PRN 09/21/16 01/14/19 Ibuprofen [Motrin] 800 mg PO TID PRN 06/02/17 01/14/19 Albuterol Nebulized [Ventolin 2.5 mg INHALATION RT-BID PRN 11/10/17 01/14/19 Nebulized] Atorvastatin [Lipitor] 10 mg PO DAILY 11/10/17 01/14/19 Citalopram Hydrobromide 20 mg PO DAILY 11/10/17 01/14/19 [Citalopram HBr] Fluticasone Nasal [place] [Flonase 1 spray EA NOSTRIL DAILY PRN 11/10/17 01/14/19 Nasal [place]] metFORMIN HCL [Glucophage] 500 mg PO BID 11/10/17 01/14/19 Cetirizine HCl [Zyrtec] 10 mg PO DAILY 03/28/18 01/14/19 Nebivolol HCl [Bystolic] 10 mg PO DAILY 03/28/18 01/14/19 Amoxicillin/Potassium Clav 1 tab PO Q12HR 01/14/19 01/14/19 [Augmentin 875-125 Tablet] Allergies Allergy/AdvReac Type Severity Reaction Status Date / Time DESTINY Inhibitors Allergy Rash/Hives Verified 01/14/19 10:11 hydromorphone HCl Allergy Anaphylaxis Verified 01/14/19 10:11 [From Dilaudid] latex Allergy Rash/Hives Verified 01/14/19 10:11 propoxyphene napsylate Allergy Swelling Verified 01/14/19 10:11 [From Darvocet-N] Review of Systems ROS Other: All systems not noted in ROS Statement are negative. <Mally Patrick - Last Filed: 01/14/19 12:48> ROS Other: All systems not noted in ROS Statement are negative. <Veena Mccracken - Last Filed: 01/17/19 22:46> ROS Statement: Those systems with pertinent positive or pertinent negative responses have been documented in the HPI. Past Medical History Past Medical History: Asthma, Diabetes Mellitus, Eye Disorder, GERD/Reflux, Hyperlipidemia, Hypertension, Respiratory Disorder, Skin Disorder, Thyroid Disorder Additional Past Medical History / Comment(s): DIABETES, heart murmur, glaucoma , varicose veins, IBS, hiatal hernia, eczema History of Any Multi-Drug Resistant Organisms: None Reported Past Surgical History: Back Surgery, Breast Surgery, Cholecystectomy, Heart Ca theterization, Orthopedic Surgery Additional Past Surgical History / Comment(s): breast reduction, left knee arthroscopy, breast biopsy, anthony cataracts, HEART CATH DONE "FEW YEARS AGO, SHOWED BLOCKAGE BUT NO INTERVENTION" Past Anesthesia/Blood Transfusion Reactions: Motion Sickness Past Psychological History: Anxiety Smoking Status: Never smoker Past Alcohol Use History: None Reported Past Drug Use History: None Reported - Past Family History Father Family Medical History: Cancer, Deep Vein Thrombosis (DVT) Mother Family Medical History: No Reported History <Mally Patrick - Last Filed: 01/14/19 12:48> General Exam Limitations: no limitations <Mally Patrick - Last Filed: 01/14/19 12:48> - General Exam Comments Initial Comments: GENERAL: Well-appearing, well-nourished and in no acute distress. HEAD: Atraumatic, normocephalic. EYES: Pupils equal round and reactive to light, extraocular movements intact, sclera anicteric, conjunctiva are normal. ENT: TMs normal, nares patent, oropharynx clear without exudates. Moist mucous membranes. NECK: Normal range of motion, supple without lymphadenopathy or JVD. LUNGS: Breath sounds clear to auscultation bilaterally and equal. No wheezes rales or rhonchi. HEART: Regular rate and rhythm without murmurs, rubs or gallops. ABDOMEN: Mild tenderness to palpation in the suprapubic area. Soft, normoactive bowel sounds. No guarding, no rebound. No masses appreciated. Mild tenderness with palpation of bilateral CVA area. Full truncal range of motion. : Deferred EXTREMITIES: Normal range of motion, no pitting or edema. No clubbing or cyanosis. NEUROLOGICAL: Cranial nerves II through XII grossly intact. Normal speech, normal gait. PSYCH: Normal mood, normal affect. SKIN: Warm, Dry, normal turgor, no rashes or lesions noted. (Mally Patrick) Course Vital Signs 01/14/19 01/14/19 10:01 13:02 Temperature 98.2 F Pulse Rate 60 60 Respiratory 18 16 Rate Blood Pressure 119/76 131/72 O2 Sat by Pulse 99 100 Oximetry Medical Decision Making - Lab Data Result diagrams: 01/14/19 10:40 01/14/19 10:40 <Mally Patrick - Last Filed: 01/14/19 12:48> - Lab Data Result diagrams: 01/14/19 10:40 01/14/19 10:40 <Veena Mccracken - Last Filed: 01/17/19 22:46> - Medical Decision Making Patient is a 58-year-old female presenting with lower abdominal and low back pain 3 days. Patient is currently being treated for UTI with Augmentin from her PCP. Patient's vital signs are stable upon arrival, afebrile. Patient is also complaining of an increase in burning of her throat secondary to history of GERD. Patient denies chest pain, shortness of breath. On exam patient has mild suprapubic tenderness, no pain with palpation of the low back. Rest of exam is normal. CBC, CMP are within normal limits. UA within normal limits. Patient given Toradol, fluids, Protonix. Patient reports improvement in symptoms. Patient's KUB shows no acute abnormalities. The patient is stable for discharge and she is in agreement with this plan of care. Patient will continue with Augmentin for UTI and will take with food. Patient will also continue with Motrin as needed for low back and lower abdominal pain. Strict return parameters were discussed with the patient she verbalized understanding of these. Patient will follow up with PCP next week. Case discussed with Dr. Mccracken. (Mally Patrick) I was available for consultation in the emergency department. The history and physical exam were done by the midlevel provider. I was consulted for this patients care. I reviewed the case with the midlevel provider and based on their presentation of the patient, I agree with the assessment, medical decision making and plan of care as documented. Chart was dictated using [employer] dictation software. Attempts were made to correct any dictation errors however some typographical errors may persist. (Veena Mccracken) - Lab Data Lab Results 01/14/19 01/14/19 01/14/19 Range/Units 10:40 10:40 10:40 WBC 6.1 (3.8-10.6) k/uL RBC 4.17 (3.80-5.40) m/uL Hgb 11.0 L (11.4-16.0) gm/dL Hct 34.5 (34.0-46.0) % MCV 82.8 (80.0-100.0) fL MCH 26.5 (25.0-35.0) pg MCHC 32.0 (31.0-37.0) g/dL RDW 14.2 (11.5-15.5) % Plt Count 409 (150-450) k/uL Neutrophils % 54 % Lymphocytes % 33 % Monocytes % 6 % Eosinophils % 5 % Basophils % 1 % Neutrophils # 3.3 (1.3-7.7) k/uL Lymphocytes # 2.0 (1.0-4.8) k/uL Monocytes # 0.4 (0-1.0) k/uL Eosinophils # 0.3 (0-0.7) k/uL Basophils # 0.0 (0-0.2) k/uL Sodium 142 (137-145) mmol/L Potassium 4.0 (3.5-5.1) mmol/L Chloride 104 (98-107) mmol/L Carbon Dioxide 32 H (22-30) mmol/L Anion Gap 6 mmol/L BUN 20 H (7-17) mg/dL Creatinine 0.60 (0.52-1.04) mg/dL Est GFR (CKD-EPI)AfAm >90 (>60 ml/min/1.73 sqM) Est GFR (CKD-EPI)NonAf >90 (>60 ml/min/1.73 sqM) Glucose 88 (74-99) mg/dL Calcium 9.9 (8.4-10.2) mg/dL Total Bilirubin 0.4 (0.2-1.3) mg/dL AST 24 (14-36) U/L ALT 29 (9-52) U/L Alkaline Phosphatase 72 (38-126) U/L Total Protein 6.8 (6.3-8.2) g/dL Albumin 4.0 (3.5-5.0) g/dL Urine Color Yellow Urine Appearance Clear (Clear) Urine pH 6.5 (5.0-8.0) Ur Specific [place] 1.025 (1.001-1.035) Urine Protein Trace H (Negative) Urine Glucose (UA) Negative (Negative) Urine Ketones Negative (Negative) Urine Blood Negative (Negative) Urine Nitrite Negative (Negative) Urine Bilirubin Negative (Negative) Urine Urobilinogen 2.0 (<2.0) mg/dL Ur Leukocyte Esterase Moderate H (Negative) Urine RBC 2 (0-5) /hpf Urine WBC 1 (0-5) /hpf Ur Squamous Epith Cells 1 (0-4) /hpf Urine Mucus Occasional H (None) /hpf Disposition Is patient prescribed a controlled substance at d/c from ED?: No <Mally Patrick - Last Filed: 01/14/19 12:48> <Veena Mccracken - Last Filed: 01/17/19 22:46> Clinical Impression: Abdominal pain, Low back pain, UTI (urinary tract infection) Disposition: HOME SELF-CARE Condition: Stable Instructions (If sedation given, give patient instructions): Urinary Tract Infection in Women (ED), Abdominal Pain (ED) Additional Instructions: Please return to the Emergency Department if symptoms worsen or any other concerns. Follow-up with PCP next week. Continue with antibiotics, take with food. Take Motrin for pain relief. Referrals: Keila Mahmood MD [Primary Care Provider] - 1-2 days
[2019-01-14 10:57] LABS: Appearance,Urine Clear (Clear); Bilirubin,Urine Negative (Negative); Blood,Urine Negative (Negative); Color,Urine Yellow; Glucose,Urine (UA) Negative (Negative); Ketones,Urine Negative (Negative); Leukocyte Esterase,Urine Moderate (Negative); Mucus,Urine Occasional /hpf; Nitrite,Urine Negative (Negative); PH, Urine 6.5 (5.0-8.0); Protein,Urine Trace (Negative); RBC,Urine 2 /hpf (0-5); Specific Gravity,Urine 1.025 (1.001-1.035); Squamous Epithelial Cell,Urine 1 /hpf (0-4)
[2019-01-14 10:59] LABS: Basophils % (A) 1 %; Eosinophils # (A) 0.3 k/uL (0-0.7); Eosinophils % (A) 5 %; HCT 34.5 % (34.0-46.0); Lymphocytes % (A) 33 %; MCH 26.5 pg (25.0-35.0); MCV 82.8 fL (80.0-100.0); Mean Platelet Volume 5.8; Monocytes # (A) 0.4 k/uL (0-1.0); Monocytes % (A) 6 %; Neutrophils # (A) 3.3 k/uL (1.3-7.7); Neutrophils % (A) 54 %; Platelet Count 409 k/uL (150-450); RBC 4.17 m/uL (3.80-5.40); RDW 14.2 % (11.5-15.5); WBC 6.1 k/uL (3.8-10.6)
[2019-01-14 11:04] LABS: ALT 29 U/L (9-52); AST 24 U/L (14-36); African American GFR (CKD) >90 (>60 ml/min/1.73 sqM); Alkaline Phosphatase 72 U/L (38-126); Anion Gap 6 mmol/L; Blood Urea Nitrogen 20 mg/dL (7-17); Calcium 9.9 mg/dL (8.4-10.2); Carbon Dioxide 32 mmol/L (22-30); Chloride 104 mmol/L (98-107); Glucose 88 mg/dL (74-99); Sodium 142 mmol/L (137-145); Total Bilirubin 0.4 mg/dL (0.2-1.3); Total Protein 6.8 g/dL (6.3-8.2)
--- NOTE | 2019-01-14 12:18 | XR ---
EXAMINATION TYPE: XR KUB , 2 VIEWS DATE OF EXAM ORDERED: 01/14/2019 HISTORY: Lower abdominal pain. COMPARISON: Previous study dated 07/21/2010. FINDINGS: There is been a previous interpedicular fusion at L4-5. The gallbladder is been removed. The lung bases are clear. Within the abdomen, there is nondistended air-filled loops of large and small bowel throughout the ab domen. No free air is seen. No obstruction is seen. There is a phlebolith in the left hemipelvis. IMPRESSION: 1. NONSPECIFIC ABDOMINAL PICTURE. 2. I COULD NOT EXCLUDE AN EARLY ILEUS. 3. POSTSURGICAL CHANGE.
[2019-01-14 13:03] VITALS: BP 131/72; RESP 16
== END 2019-01-14 13:16 | disposition home or self-care (01) ==
LOC: EC 09:52
DX: N39.0 Urinary tract infection, site not specified (principal); J45.909 Unspecified asthma, uncomplicated; E11.9 Type 2 diabetes mellitus without complications; K21.9 Gastro-esophageal reflux disease without esophagitis; I10 Essential (primary) hypertension; E78.5 Hyperlipidemia, unspecified; F41.9 Anxiety disorder, unspecified; Z79.51 Long term (current) use of inhaled steroids; Z79.84 Long term (current) use of oral hypoglycemic drugs; Z79.899 Other long term (current) drug therapy; Z88.5 Allergy status to narcotic agent; Z91.040 Latex allergy status; Z88.8 Allergy status to other drugs, medicaments and biological substances; Z90.49 Acquired absence of other specified parts of digestive tract; Z98.890 Other specified postprocedural states
CPT/HCPCS: 99284 ×2; 96374 ×2; 96375 ×2; 96361 ×2; 36415; 80053; 85025; 81001; 74018; J1885; C9113

== ENCOUNTER → 2019-04-26 | Outpatient (CLI) | payer BC ==
--- NOTE | 2019-04-26 11:14 | US ---
EXAMINATION TYPE: US abdomen complete DATE OF EXAM: 04/26/2019 COMPARISON: NONE CLINICAL HISTORY: R10.9 Unspecified abdominal pain, R11.0 Nausea. Epigastric pain, left flank pain, n ausea for 1 month, cholecystectomy EXAM MEASUREMENTS: Liver Length: 14.0 cm Gallbladder Wall: Surgically absent CBD: 0.5 cm Spleen: 7.2 cm Right Kidney: 10.7 x 3.7 x 5.7 cm Left Kidney: 10.6 x 4.6 x 4.5 cm Pancreas: appears wnl Liver: appears wnl Gallbladder: Surgically absent Evidence for sonographic Cano's sign: no CBD: appears wnl Spleen: wnl Right Kidney: no evidence of hydronephrosis or mass Left Kidney: no evidence of hydronephrosis or mass Upper IVC: wnl Abd Aorta: wnl IMPRESSION: 1. Normal abdomen ultrasound
== END ==
LOC: RADUSWWP 09:35
PROVIDERS: ATTEND Internal Medicine
DX: R11.0 Nausea (principal); R10.9 Unspecified abdominal pain
CPT/HCPCS: 76700

== ENCOUNTER 2019-07-22 11:04 | Emergency (ER) | payer BC ==
[2019-07-22 11:10] VITALS: RESP 18
[2019-07-22] MEDS ORDERED: ASPIRIN 81 MG PO STA (11:13)
[2019-07-22] MEDS ORDERED: MORPHINE SULFATE 4 MG/ML SYRINGE IV STA (11:35)
[2019-07-22] MEDS ORDERED: SODIUM CHLORIDE 0.9% 500 ML 500 ML IV STA (11:35)
--- NOTE | 2019-07-22 11:37 | ED ---
General Adult HPI - General Chief complaint: Abdominal Pain Stated complaint: fever,sob,diarrhea Time Seen by Provider: 07/22/19 11:12 Source: patient Mode of arrival: wheelchair Limitations: no limitations - History of Present Illness Initial comments: Dictation was produced using [employer] dictation software. please excuse any grammatical, word or spelling errors. This patient was cared for during a federal and state declared state of emergency secondary to Covid 19 Chief Complaint: 59-year-old female presents with right lower quadrant abdominal pain. History of Present Illness: Patient is a 59-year-old female she presents with r ight lower quadrant abdominal pain. Patient has had the symptoms for approximately 2 weeks. She states that her pain is in the right hip right inguinal and right lower quadrant abdominal area. She states it's worse when she moves. States pain radiates to her back. She states severe. Denies any nausea or vomiting however she has been having poor appetite. No diarrhea. She does complain of urinary urgency however denies any dysuria. Denies any constitutional symptoms. The ROS documented in this emergency department record has been reviewed and confirmed by me. Those systems with pertinent positive or negative responses have been documented in the HPI. All other systems are other negative and/or noncontributory. PHYSICAL EXAM: General Impression: Alert and oriented x3, not in acute distress HEENT: Normocephalic atraumatic, extra-ocular movements intact, pupils equal and reactive to light bilaterally, mucous membranes moist. Cardiovascular: Heart regular rate and rhythm Chest: Able to complete full sentences, no retractions, no tachypnea Abdomen: Bowel sounds present, abdomen soft, non-tender, non-distended, no organomegaly Musculoskeletal: Pulses present and equal in all extremities, no peripheral edema, pain with flexion of the right hip, tenderness to palpation over the right ASIS, tenderness at McBurney's point Motor: no focal deficits noted Neurological: CN II-XII grossly intact, no focal motor or sensory deficits noted Skin: Intact with no visualized rashes Psych: Normal affect and mood ED course: 59 old female presents with right lower quadrant abdominal pain signs upon arrival shows temperature 99.3, rest of vital signs within acceptable limits. Laboratory evaluation obtained. CBC, metabolic panel is unremarkable. Urinalysis is negative. Computed tomography scan of the abdomen and pelvis does not identify acute appendicitis. There is perhaps may be some indirect evidence of possible colitis. X-ray of the chest shows no acute process. Head CT is negative. Patient reevaluated at bedside. She is resting comfortably. She is using her phone. She is smiling and behaving appropriately. Findings were discussed with patient patient will be discharged. She is told to follow-up with her primary care physician. She is told that she may benefit from evaluation by pain specialist. Patient agreeable with disposition. - Related Data Home Medications Medication Instructions Recorded Confirmed Albuterol Sulfate [Proair Hfa] 2 puff INHALATION RT-Q4H PRN 08/21/14 07/22/19 Budesonide/Formoterol Fumarate 2 puff INHALATION RT-BID 08/21/14 07/22/19 [Symbicort 160-4.5 Mcg Inhaler] Esomeprazole Magnesium [NexIUM] 40 mg PO DAILY 08/21/14 07/22/19 Montelukast [Singulair] 10 mg PO HS 08/21/14 07/22/19 Hydrochlorothiazide [Hydrodiuril] 25 mg PO DAILY 09/09/14 07/22/19 Eszopiclone [Lunesta] 3 mg PO HS 04/20/16 07/22/19 Albuterol Nebulized [Ventolin 2.5 mg INHALATION RT-QID PRN 11/10/17 07/22/19 Nebulized] Atorvastatin [Lipitor] 10 mg PO HS 11/10/17 07/22/19 Citalopram Hydrobromide 20 mg PO DAILY 11/10/17 07/22/19 [Citalopram HBr] Fluticasone Nasal [place] [Flonase 1 spray EA NOSTRIL DAILY PRN 11/10/17 07/22/19 Nasal [place]] metFORMIN HCL [Glucophage] 500 mg PO DAILY 11/10/17 07/22/19 Cetirizine HCl [Zyrtec] 10 mg PO HS 03/28/18 07/22/19 Nebivolol HCl [Bystolic] 10 mg PO DAILY 03/28/18 07/22/19 Gabapentin [Neurontin] 300 mg PO HS 05/15/19 07/22/19 Acetaminophen-Codeine 300-30mg 1 - 2 tab PO Q4-6H PRN 07/22/19 07/22/19 [Tylenol w/codeine #3] Ibuprofen [Motrin] 800 mg PO Q6H PRN 07/22/19 07/22/19 Multivitamins, Thera [Multivitamin 1 tab PO DAILY 07/22/19 07/22/19 (formulary)] Potassium Chloride ER [K-Dur 10] 10 meq PO HS 07/22/19 07/22/19 predniSONE See Taper PO DAILY 07/22/19 07/22/19 traMADol HCL 50 mg PO Q6HR PRN 07/22/19 07/22/19 Allergies Allergy/AdvReac Type Severity Reaction Status Date / Time DESTINY Inhibitors Allergy Rash/Hives Verified 07/22/19 12:24 hydromorphone HCl Allergy Anaphylaxis Verified 07/22/19 12:24 [From Dilaudid] latex Allergy Rash/Hives Verified 07/22/19 12:24 propoxyphene napsylate Allergy Swelling Verified 07/22/19 12:24 [From Darvocet-N] Review of Systems ROS Statement: Those systems with pertinent positive or pertinent negative responses have been documented in the HPI. ROS Other: All systems not noted in ROS Statement are negative. Past Medical History Past Medical History: Asthma, Coronary Artery Disease (CAD), Diabetes Mellitus, Eye Disorder, GERD/Reflux, Hyperlipidemia, Hypertension, Pneumonia, Respiratory Disorder, Rheumatoid Arthritis (RA), Skin Disorder, Thyroid Disorder Additional Past Medical History / Comment(s): NIDDM type II, bronchitis, murmur, bilateral eye glaucoma, hiatal hernia, IBS, eczema, hypothyroid, migraines, bilateral carpal tunnel syndrome, lumbar back pain which has lessened since back surgery, insomnia, normocytic anemia, UTIs, seasonal allergies/sinus problems History of Any Multi-Drug Resistant Organisms: None Reported Date of last positivie culture/infection: 2014 Past Surgical History: Back Surgery, Breast Surgery, Cholecystectomy, Heart Catheterization, Hysterectomy, Orthopedic Surgery Additional Past Surgical History / Comment(s): Bilateral breast reduction, R breast bx-benign, L knee arthroscopy, lumbar back surgery, bilateral cataract removals, colonoscopy/benign polypectomy, vocal cord poylpectomies, D&C Past Anesthesia/Blood Transfusion Reactions: Motion Sickness Past Psychological History: Anxiety Smoking Status: Never smoker Past Alcohol Use History: None Reported Past Drug Use History: None Reported - Past Family History Father Family Medical History: Cancer, Hypertension Additional Family Medical History / Comment(s): Prostate cancer Mother Family Medical History: Eye Disorder, Hypertension, Vascular Disorder Additional Family Medical History / Comment(s): Mother had glaucoma. She of a brain aneurysm rupture at the age of 57yrs. General Exam Limitations: no limitations Course Vital Signs 07/22/19 11:07 Temperature 99.3 F Pulse Rate 80 Respiratory 18 Rate Blood Pressure 101/73 O2 Sat by Pulse 99 Oximetry Medical Decision Making - Lab Data Result diagrams: 07/22/19 11:32 07/22/19 11:32 Lab Results 07/22/19 07/22/19 07/22/19 Range/Units 11:32 11:32 12:40 WBC 7.8 (3.8-10.6) k/uL RBC 4.21 (3.80-5.40) m/uL Hgb 11.0 L (11.4-16.0) gm/dL Hct 34.3 (34.0-46.0) % MCV 81.5 (80.0-100.0) fL MCH 26.1 (25.0-35.0) pg MCHC 32.0 (31.0-37.0) g/dL RDW 13.4 (11.5-15.5) % Plt Count 430 (150-450) k/uL Neutrophils % 59 % Lymphocytes % 31 % Monocytes % 5 % Eosinophils % 2 % Basophils % 0 % Neutrophils # 4.6 (1.3-7.7) k/uL Lymphocytes # 2.4 (1.0-4.8) k/uL Monocytes # 0.4 (0-1.0) k/uL Eosinophils # 0.2 (0-0.7) k/uL Basophils # 0.0 (0-0.2) k/uL Sodium 139 (137-145) mmol/L Potassium 4.1 (3.5-5.1) mmol/L Chloride 103 (98-107) mmol/L Carbon Dioxide 31 H (22-30) mmol/L Anion Gap 5 mmol/L BUN 16 (7-17) mg/dL Creatinine 0.75 (0.52-1.04) mg/dL Est GFR (CKD-EPI)AfAm >90 (>60 ml/min/1.73 sqM) Est GFR (CKD-EPI)NonAf 89 (>60 ml/min/1.73 sqM) Glucose 97 (74-99) mg/dL Calcium 9.6 (8.4-10.2) mg/dL Total Bilirubin 0.5 (0.2-1.3) mg/dL AST 20 (14-36) U/L ALT 15 (4-34) U/L Alkaline Phosphatase 84 (38-126) U/L Total Protein 6.7 (6.3-8.2) g/dL Albumin 3.9 (3.5-5.0) g/dL Lipase 43 (23-300) U/L Urine Color Light Yellow Urine Appearance Clear (Clear) Urine pH 8.0 (5.0-8.0) Ur Specific [place] 1.020 (1.001-1.035) Urine Protein Negative (Negative) Urine Glucose (UA) Negative (Negative) Urine Ketones Negative (Negative) Urine Blood Negative (Negative) Urine Nitrite Negative (Negative) Urine Bilirubin Negative (Negative) Urine Urobilinogen <2.0 (<2.0) mg/dL Ur Leukocyte Esterase Moderate H (Negative) Urine RBC <1 (0-5) /hpf Urine WBC 4 (0-5) /hpf Ur Squamous Epith Cells <1 (0-4) /hpf Urine Mucus Rare H (None) /hpf Disposition Clinical Impression: Hip pain, right Disposition: HOME SELF-CARE Condition: Good Is patient prescribed a controlled substance at d/c from ED?: No Referrals: Keila Mahmood MD [Primary Care Provider] - 1-2 days Time of Disposition: 13:13
[2019-07-22 11:46] LABS: Basophils % (A) 0 %; Eosinophils # (A) 0.2 k/uL (0-0.7); Eosinophils % (A) 2 %; HCT 34.3 % (34.0-46.0); Lymphocytes # (A) 2.4 k/uL (1.0-4.8); Lymphocytes % (A) 31 %; MCH 26.1 pg (25.0-35.0); MCV 81.5 fL (80.0-100.0); Mean Platelet Volume 6.9; Monocytes # (A) 0.4 k/uL (0-1.0); Monocytes % (A) 5 %; Neutrophils # (A) 4.6 k/uL (1.3-7.7); Neutrophils % (A) 59 %; Platelet Count 430 k/uL (150-450); RBC 4.21 m/uL (3.80-5.40); RDW 13.4 % (11.5-15.5); WBC 7.8 k/uL (3.8-10.6)
[2019-07-22 11:55] LABS: ALT 15 U/L (4-34); AST 20 U/L (14-36); African American GFR (CKD) >90 (>60 ml/min/1.73 sqM); Albumin 3.9 g/dL (3.5-5.0); Alkaline Phosphatase 84 U/L (38-126); Anion Gap 5 mmol/L; Blood Urea Nitrogen 16 mg/dL (7-17); Calcium 9.6 mg/dL (8.4-10.2); Carbon Dioxide 31 mmol/L (22-30); Chloride 103 mmol/L (98-107); Glucose 97 mg/dL (74-99); Non-African American GFR(CKD) 89 (>60 ml/min/1.73 sqM); Potassium 4.1 mmol/L (3.5-5.1); Sodium 139 mmol/L (137-145); Total Bilirubin 0.5 mg/dL (0.2-1.3); Total Protein 6.7 g/dL (6.3-8.2)
--- NOTE | 2019-07-22 12:04 | XR ---
EXAMINATION TYPE: XR chest 1V portable DATE OF EXAM: 07/22/2019 HISTORY: dyspnea. REFERENCE: Previous study dated 05/15/2019. FINDINGS: The lungs are clear. Pleural space are clear. The heart is not enlarged. IMPRESSION: NO ACTIVE INTRATHORACIC DISEASE.
--- NOTE | 2019-07-22 12:56 | CT ---
EXAMINATION TYPE: CT hip RT w con DATE OF EXAM: 07/22/2019 COMPARISON: None. HISTORY: Rt hip pain CT DLP: 539.3 mGycm Automated exposure control for dose reduction was used. CONTRAST: Performed with IV Contrast, patient injected with 100 mL of Isovue 300. FINDINGS: Soft tissues are unremarkable. No fracture, dislocation or other acute osseous lesion is se en. IMPRESSION: NO ACUTE OSSEOUS LESION.
--- NOTE | 2019-07-22 13:06 | CT ---
EXAMINATION TYPE: CT abdomen pelvis w con DATE OF EXAM: 07/22/2019 REFERENCE: Previous study dated 10/20/2018. HISTORY: rlq abdominal pain HISTORY: RLQ pain CT DLP: 845.5 mGy Automated exposure control for dose reduction was used. TECHNIQUE: Helical acquisition through the abdomen and pelvis was obtained following the oral ingesti on of without Oral Contrast and following intravenous administration of 100 mL of Isovue 300. The joseluis a was reformatted in axial, coronal and sagittal projections. FINDINGS: Visualized portions of the lungs are clear. There is no pleural or pericardial fluid. The heart is mildly enlarged. Within the abdomen, the gallbladder is been removed. There is mild central biliary dilatation. The sp heather is unremarkable. Both adrenal glands are normal. The pancreatic duct is mildly prominent measuring 3.6. The pancreas itself appears unremarkable. There is no significant retroperitoneal, iliac or inguinal adenopathy. The bladder is normal. The uterus and ovaries appear unremarkable. There is no significant diverticular change and there is no radiographic evidence of diverticulitis. There is collapse of much of the left side of the colon which makes assessment of the bowel wall diff icult. The appendix is not visualized with certainty. There is no pericecal inflammatory change. Small bowel loops are of normal caliber. There is no free air and no free fluid. There has been a previous interpedicular fusion with spacing material placement performed at L4-5. IMPRESSION: 1. MILD CARDIOMEGALY. 2. CENTRAL BILIARY DILATATION, NOT UNUSUAL AFTER GALLBLADDER SURGERY. THE PANCREATIC DUCT IS MINIMALL Y PROMINENT. 3. COLLAPSE OF MUCH OF THE LEFT SIDE OF THE COLON MAKES IT DIFFICULT TO ASSESS COLONIC WALL THICKNESS . PLEASE CORRELATE TO EXCLUDE COLITIS. 4. POSTSURGICAL CHANGE IN THE LUMBAR SPINE.
[2019-07-22 13:07] LABS: Appearance,Urine Clear (Clear); Bilirubin,Urine Negative (Negative); Blood,Urine Negative (Negative); Color,Urine Light Yellow; Glucose,Urine (UA) Negative (Negative); Ketones,Urine Negative (Negative); Leukocyte Esterase,Urine Moderate (Negative); Mucus,Urine Rare /hpf; Nitrite,Urine Negative (Negative); Protein,Urine Negative (Negative); RBC,Urine <1 /hpf (0-5); Squamous Epithelial Cell,Urine <1 /hpf (0-4); Urobilinogen,Urine <2.0 mg/dL (<2.0); WBC,Urine 4 /hpf (0-5)
[2019-07-22 13:29] VITALS: BP 106/72; PULSE 74; TEMP 98.9
== END 2019-07-22 13:33 | disposition home or self-care (01) ==
LOC: EC 11:04
DX: M25.551 Pain in right hip (principal); R10.31 Right lower quadrant pain; R63.0 Anorexia; R39.15 Urgency of urination; J45.909 Unspecified asthma, uncomplicated; E11.9 Type 2 diabetes mellitus without complications; I10 Essential (primary) hypertension; E78.5 Hyperlipidemia, unspecified; F41.9 Anxiety disorder, unspecified; K21.9 Gastro-esophageal reflux disease without esophagitis; Z79.899 Other long term (current) drug therapy; Z79.84 Long term (current) use of oral hypoglycemic drugs; Z79.51 Long term (current) use of inhaled steroids; Z88.5 Allergy status to narcotic agent; Z91.040 Latex allergy status; Z88.8 Allergy status to other drugs, medicaments and biological substances
CPT/HCPCS: 36415; 80053; 83690; 85025; 81001; 71045; 74177; 73701; 99284; 96374; 96361; J2270; Q9967

== ENCOUNTER 2019-07-23 01:33 | Inpatient (IN) | payer BC ==
[2019-07-23] MEDS ORDERED: MORPHINE SULFATE 4 MG/ML SYRINGE IV STA (02:13)
[2019-07-23] MEDS ORDERED: VANCOMYCIN IV PER PHARMACY 1 EACH MISC MISCELLANE PRN (02:16)
[2019-07-23 02:17] LABS: Basophils % (A) 0 %; Eosinophils # (A) 0.1 k/uL (0-0.7); Eosinophils % (A) 0 %; HCT 35.1 % (34.0-46.0); Lymphocytes # (A) 3.3 k/uL (1.0-4.8); Lymphocytes % (A) 25 %; MCH 25.5 pg (25.0-35.0); MCHC 31.3 g/dL (31.0-37.0); MCV 81.3 fL (80.0-100.0); Mean Platelet Volume 7.1; Monocytes # (A) 0.7 k/uL (0-1.0); Monocytes % (A) 6 %; Neutrophils # (A) 8.8 k/uL (1.3-7.7); Neutrophils % (A) 67 %; Platelet Count 421 k/uL (150-450); RBC 4.32 m/uL (3.80-5.40); RDW 13.7 % (11.5-15.5); WBC 13.1 k/uL (3.8-10.6)
[2019-07-23] MEDS ORDERED: VANCOMYCIN 1,500 MG in SODIUM CHLORIDE 0.9% 250 ML IVPB STA (02:19)
[2019-07-23 02:25] LABS: ALT 15 U/L (4-34); AST 20 U/L (14-36); African American GFR (CKD) >90 (>60 ml/min/1.73 sqM); Albumin 4.1 g/dL (3.5-5.0); Alkaline Phosphatase 94 U/L (38-126); Anion Gap 8 mmol/L; Blood Urea Nitrogen 16 mg/dL (7-17); Calcium 9.8 mg/dL (8.4-10.2); Carbon Dioxide 28 mmol/L (22-30); Chloride 100 mmol/L (98-107); Glucose 106 mg/dL (74-99); Non-African American GFR(CKD) 89 (>60 ml/min/1.73 sqM); Potassium 3.8 mmol/L (3.5-5.1); Sodium 136 mmol/L (137-145); Total Bilirubin 0.5 mg/dL (0.2-1.3); Total Protein 7.1 g/dL (6.3-8.2)
[2019-07-23] MEDS ORDERED: ACETAMINOPHEN TAB 325 MG TAB PO STA (02:27)
--- NOTE | 2019-07-23 02:29 | ED ---
General Adult HPI - General Source: patient, EMS, RN notes reviewed, old records reviewed Mode of arrival: EMS Limitations: no limitations <Sam Monson - Last Filed: 07/23/19 02:31> <Manav Lockwood - Last Filed: 07/23/19 03:09> - General Chief complaint: Abdominal Pain Stated complaint: abd pain Time Seen by Provider: 07/23/19 01:38 - History of Present Illness Initial comments: 59-year-old male patient with past history suffered for asthma, coronary artery disease, type 2 diabetes, hypertension hyperlipidemia presented with chief complaint of right hip pain. Patient reports that for the last 2 weeks she has been having pain in her right hip radiating to her right anterior lower quadrant region down her right anterior leg. Reports that it has been getting progressively worse. She has been monitoring her body temperature multiple times per day reports that it is between 98 and 99F. Reports that today her temperature did reach 100.1F. Patient states that she has not had any cough, chest pain shortness of breath. Denies any other complaints. Patient was evaluated in this emergency department earlier today where she had extensive evaluations including chest x-ray which displayed no acute process. CT right hip with contrast which displayed no acute osseous lesion. CT and pelvis which displayed mild cardiomegaly, central biliary ductal dilation. Status post cholecystectomy. Post surgical changes in lumbar spine. Systemic: Pt denies fatigue, fever/chills, rash. Pt denies weakness, night sweats, weight loss. Neuro: Pt denies headache, visual disturbances, syncope or pre-syncope. HEENT: Pt denies ocular discharge or irritation, otalgia, rhinorrhea, pharyngitis or notable lymphadenopathy. Cardiopulmonary: Pt denies chest pain, SOB, heart palpitations, dyspnea on exertion. Abdominal/GI: Pt denies abdominal pain, n/v/d. : Pt denies dysuria, burning w/ urination, frequency/urgency. Denies new onset urinary or bowel incontinence. Neuro: Pt denies new onset weakness, paresthesias. (Sam Monson) - Related Data Home Medications Medication Instructions Recorded Confirmed Albuterol Sulfate [Proair Hfa] 2 puff INHALATION RT-Q4H PRN 08/21/14 07/22/19 Budesonide/Formoterol Fumarate 2 puff INHALATION RT-BID 08/21/14 07/22/19 [Symbicort 160-4.5 Mcg Inhaler] Esomeprazole Magnesium [NexIUM] 40 mg PO DAILY 08/21/14 07/22/19 Montelukast [Singulair] 10 mg PO HS 08/21/14 07/22/19 Hydrochlorothiazide [Hydrodiuril] 25 mg PO DAILY 09/09/14 07/22/19 Eszopiclone [Lunesta] 3 mg PO HS 04/20/16 07/22/19 Albuterol Nebulized [Ventolin 2.5 mg INHALATION RT-QID PRN 11/10/17 07/22/19 Nebulized] Atorvastatin [Lipitor] 10 mg PO HS 11/10/17 07/22/19 Citalopram Hydrobromide 20 mg PO DAILY 11/10/17 07/22/19 [Citalopram HBr] Fluticasone Nasal [place] [Flonase 1 spray EA NOSTRIL DAILY PRN 11/10/17 07/22/19 Nasal [place]] metFORMIN HCL [Glucophage] 500 mg PO DAILY 11/10/17 07/22/19 Cetirizine HCl [Zyrtec] 10 mg PO HS 03/28/18 07/22/19 Nebivolol HCl [Bystolic] 10 mg PO DAILY 03/28/18 07/22/19 Gabapentin [Neurontin] 300 mg PO HS 05/15/19 07/22/19 Acetaminophen-Codeine 300-30mg 1 - 2 tab PO Q4-6H PRN 07/22/19 07/22/19 [Tylenol w/codeine #3] Ibuprofen [Motrin] 800 mg PO Q6H PRN 07/22/19 07/22/19 Multivitamins, Thera [Multivitamin 1 tab PO DAILY 07/22/19 07/22/19 (formulary)] Potassium Chloride ER [K-Dur 10] 10 meq PO HS 07/22/19 07/22/19 predniSONE See Taper PO DAILY 07/22/19 07/22/19 traMADol HCL 50 mg PO Q6HR PRN 07/22/19 07/22/19 Allergies Allergy/AdvReac Type Severity Reaction Status Date / Time DESTINY Inhibitors Allergy Rash/Hives Verified 07/22/19 12:24 hydromorphone HCl Allergy Anaphylaxis Verified 07/22/19 12:24 [From Dilaudid] latex Allergy Rash/Hives Verified 07/22/19 12:24 propoxyphene napsylate Allergy Swelling Verified 07/22/19 12:24 [From Darvocet-N] Review of Systems ROS Other: All systems not noted in ROS Statement are negative. <Sam Monson - Last Filed: 07/23/19 02:31> ROS Other: All systems not noted in ROS Statement are negative. <Manav Lockwood - Last Filed: 07/23/19 03:09> ROS Statement: Those systems with pertinent positive or pertinent negative responses have been documented in the HPI. Past Medical History Past Medical History: Asthma, Coronary Artery Disease (CAD), Diabetes Mellitus, Eye Disorder, GERD/Reflux, Hyperlipidemia, Hypertension, Pneumonia, Respiratory Disorder, Rheumatoid Arthritis (RA), Skin Disorder, Thyroid Disorder Additional Past Medical History / Comment(s): NIDDM type II, bronchitis, murmur, bilateral eye glaucoma, hiatal hernia, IBS, eczema, hypothyroid, migraines, bilateral carpal tunnel syndrome, lumbar back pain which has lessened since back surgery, insomnia, normocytic anemia, UTIs, seasonal allergies/sinus problems History of Any Multi-Drug Resistant Organisms: None Reported Date of last positivie culture/infection: 2014 Past Surgical History: Back Surgery, Breast Surgery, Cholecystectomy, Heart Catheterization, Hysterectomy, Orthopedic Surgery Additional Past Surgical History / Comment(s): Bilateral breast reduction, R breast bx-benign, L knee arthroscopy, lumbar back surgery, bilateral cataract removals, colonoscopy/benign polypectomy, vocal cord poylpectomies, D&C Past Anesthesia/Blood Transfusion Reactions: Motion Sickness Past Psychological History: Anxiety Smoking Status: Never smoker Past Alcohol Use History: None Reported Past Drug Use History: None Reported - Past Family History Father Family Medical History: Cancer, Hypertension Additional Family Medical History / Comment(s): Prostate cancer Mother Family Medical History: Eye Disorder, Hypertension, Vascular Disorder Additional Family Medical History / Comment(s): Mother had glaucoma. She of a brain aneurysm rupture at the age of 57yrs. <Sam Monson - Last Filed: 07/23/19 02:31> General Exam Limitations: no limitations <Sam Monson - Last Filed: 07/23/19 02:31> - General Exam Comments Initial Comments: Constitutional: NAD, AOX3, Pt has pleasant affect. HEENT: NC/AT, trachea midline, neck supple, no lymphadenopathy. Posterior pharynx non erythematous, without exudates. External ears appear normal, without discharge. Mucous membranes moist. Eyes PERRLA, EOM intact. There is no scleral icterus. No pallor noted. Cardiopulmonary: RRR, no murmurs, rubs or gallops, no JVD noted. Lungs CTAB in anterior and posterior veras. No peripheral edema. Abdominal exam: Abdomen soft and non-distended. Abdomen mild tenderness to palpation right lower quadrant region. Bowel sounds active in LLQ. No hepato splenomegaly. No ecchymosis Neuro: CN II-XII grossly intact. No nuchal rigidity. No raccon eyes, no rodgers sign, no hemotympanum. No cervical spinal tenderness. MSK: Right posterior hip region tender to palpation. Right anterior hip region tender to palpation. No skin changes. No fluctuance or abscesses noted. Active range of motion of right lower extremity is significantly limited due to discomfort. Passive range of motion also limited due to discomfort. No posterior calf tenderness bilaterally, homans sign negative bilaterally. Posterior tibialis and radial pulse +2 bilaterally. Sensation intact in upper and lower extremities. Full active ROM in upper and lower extremities, 5/5 stre gnth. (Sam Monson) Course Vital Signs 07/23/19 07/23/19 01:37 02:46 Temperature 100.2 F H Pulse Rate 87 70 Respiratory 18 18 Rate Blood Pressure 130/80 122/70 O2 Sat by Pulse 100 100 Oximetry Medical Decision Making - Lab Data Result diagrams: 07/23/19 01:56 07/23/19 01:56 <Sam Monson - Last Filed: 07/23/19 02:31> - Lab Data Result diagrams: 07/23/19 01:56 07/23/19 01:56 <Manav Lockwood - Last Filed: 07/23/19 03:09> - Medical Decision Making 59-year-old male patient with past history suffered for asthma, coronary artery disease, type 2 diabetes, hypertension hyperlipidemia presented with chief complaint of right hip pain. Patient reports that for the last 2 weeks she has been having pain in her right hip radiating to her right anterior lower quadrant region down her right anterior leg. Reports that it has been getting progressively worse. She has been monitoring her body temperature multiple times per day reports that it is between 98 and 99F. Reports that today her temperature did reach 100.1F. Patient states that she has not had any cough, chest pain shortness of breath. Denies any other complaints. Patient was evaluated in this emergency department earlier today where she had extensive evaluations including chest x-ray which displayed no acute process. CT right hip with contrast which displayed no acute osseous lesion. CT and pelvis which displayed mild cardiomegaly, central biliary ductal dilation. Status post cholecystectomy. Post surgical changes in lumbar spine. Patient will signs displayed temperature of 100.2. Patient administered antipyretic. Physical exam displayed: Right posterior hip region tender to palpation. Right anterior hip region tender to palpation. No skin changes. No fluctuance or abscesses noted. Active range of motion of right lower extremity is significantly limited due to discomfort. Passive range of motion also limited due to discomfort. Left investigations are obtained this did display leukocytosis of 13.1 with left shift, with blood cell count of 7.8 earlier today approximately 12 hours ago. CRP is elevated at 30. Patient initiated on vancomycin and Rocephin for concern for possible septic bursitis. Will be admitted for orthopedic evaluation. Case discussed with Dr. Lockwood. (Sam Monson) - Lab Data Lab Results 07/23/19 07/23/19 07/23/19 Range/Units 01:56 01:56 01:56 WBC 13.1 H (3.8-10.6) k/uL RBC 4.32 (3.80-5.40) m/uL Hgb 11.0 L (11.4-16.0) gm/dL Hct 35.1 (34.0-46.0) % MCV 81.3 (80.0-100.0) fL MCH 25.5 (25.0-35.0) pg MCHC 31.3 (31.0-37.0) g/dL RDW 13.7 (11.5-15.5) % Plt Count 421 (150-450) k/uL Neutrophils % 67 % Lymphocytes % 25 % Monocytes % 6 % Eosinophils % 0 % Basophils % 0 % Neutrophils # 8.8 H (1.3-7.7) k/uL Lymphocytes # 3.3 (1.0-4.8) k/uL Monocytes # 0.7 (0-1.0) k/uL Eosinophils # 0.1 (0-0.7) k/uL Basophils # 0.0 (0-0.2) k/uL Sodium 136 L (137-145) mmol/L Potassium 3.8 (3.5-5.1) mmol/L Chloride 100 (98-107) mmol/L Carbon Dioxide 28 (22-30) mmol/L Anion Gap 8 mmol/L BUN 16 (7-17) mg/dL Creatinine 0.75 (0.52-1.04) mg/dL Est GFR (CKD-EPI)AfAm >90 (>60 ml/min/1.73 sqM) Est GFR (CKD-EPI)NonAf 89 (>60 ml/min/1.73 sqM) Glucose 106 H (74-99) mg/dL Plasma Lactic Acid Juan Jose 2.6 H* (0.7-2.0) mmol/L Calcium 9.8 (8.4-10.2) mg/dL Total Bilirubin 0.5 (0.2-1.3) mg/dL AST 20 (14-36) U/L ALT 15 (4-34) U/L Alkaline Phosphatase 94 (38-126) U/L C-Reactive Protein 30.0 H (<10.0) mg/L Total Protein 7.1 (6.3-8.2) g/dL Albumin 4.1 (3.5-5.0) g/dL Disposition Is patient prescribed a controlled substance at d/c from ED?: No <Sam Monson - Last Filed: 07/23/19 02:31> Is patient prescribed a controlled substance at d/c from ED?: No <Manav Lockwood - Last Filed: 07/23/19 03:09> Clinical Impression: Septic bursitis, Right hip pain, Fever, Intractable pain Narrative: r/o Septis R Hip Joint (Manav Lockwood) Disposition: ADMITTED IP TO THIS [facility] Condition: Serious Referrals: Keila Mahmood MD [Primary Care Provider] - 1-2 days
[2019-07-23] MEDS ORDERED: NALOXONE 0.4 MG/ML 1 ML VIAL IV PRN (02:34)
[2019-07-23] MEDS ORDERED: SODIUM CHLORIDE 0.9% 1,000 ML IV ONE (02:40)
[2019-07-23] MEDS: MORPHINE SULFATE 4 MG/ML SYRINGE IV PRN ×5 (03:15→20:04)
[2019-07-23] MEDS: SODIUM CHLORIDE 0.9% 1,000 ML IV SCH ×2 (03:16→15:28)
--- NOTE | 2019-07-23 03:44 | US ---
EXAMINATION TYPE: US venous doppler duplex LE RT DATE OF EXAM: 07/23/2019 3:39 AM COMPARISON: NONE CLINICAL HISTORY: leg pain. Right leg pain x 1 week SIDE PERFORMED: Right TECHNIQUE: The lower extremity deep venous system is examined utilizing real time linear array sonog wu with graded compression, doppler sonography and color-flow sonography. VESSELS IMAGED: External Iliac Vein (EIV) Common Femoral Vein Deep Femoral Vein Greater Saphenous Vein * Femoral Vein Popliteal Vein Small Saphenous Vein * Proximal Calf Veins (* superficial vessels) Right Leg: Appears negative for DVT IMPRESSION: No sign of deep vein thrombosis in the right leg.
[2019-07-23 07:12] LABS: Glucose,Whole Blood 107 mg/dL (75-99)
[2019-07-23] MEDS: ACETAMINOPHEN TAB 325 MG TAB PO PRN (08:30)
[2019-07-23 09:29] VITALS: BMI 29.2
[2019-07-23] MEDS ORDERED: DIAZEPAM 2 MG TAB PO PRN (11:14)
[2019-07-23] MEDS ORDERED: CYCLOBENZAPRINE 10 MG TAB PO PRN (11:14)
[2019-07-23 11:30] LABS: Glucose,Whole Blood 92 mg/dL (75-99)
[2019-07-23] MEDS: GABAPENTIN 300 MG CAP PO SCH ×3 (11:40→20:21)
--- NOTE | 2019-07-23 13:25 | P.CNOR ---
History of Present Illness - [facility] Consult date: 07/23/19 Consult reason: low back pain History of present illness: Patient is a pleasant 59 yo female seen at bedside this am in consultation for low back, right hip and leg pain. She was admitted through the ED last evening for worsening pain and diagnosis of septic bursitis. She states the pain developed about two weeks ago without injury or trauma. She has pain that radiates from her low back and down her right hip/thigh to her knee. She has had intermittent numbness into the right big toe. She states she had back surgery about ten years ago in [place] which was uncomplicated. She has no left lower extremity symptoms, bowel or bladder loss, saddle anesthesia or other. Review of Systems All systems: negative Constitutional: Denies chills, Denies fever Eyes: denies blurred vision, denies pain Ears, nose, mouth and throat: Denies headache, Denies sore throat Cardiovascular: Denies chest pain, Denies shortness of breath Respiratory: Denies cough Gastrointestinal: Denies abdominal pain, Denies diarrhea, Denies nausea, Denies vomiting Genitourinary: Denies dysuria, Denies hematuria Musculoskeletal: Denies myalgias Integumentary: Denies pruritus, Denies rash Neurological: Denies numbness, Denies weakness Psychiatric: Denies anxiety, Denies depression Endocrine: Denies fatigue, Denies weight change Past Medical History Past Medical History: Asthma, Coronary Artery Disease (CAD), Diabetes Mellitus, Eye Disorder, GERD/Reflux, Hyperlipidemia, Hypertension, Pneumonia, Respiratory Disorder, Rheumatoid Arthritis (RA), Skin Disorder, Thyroid Disorder Additional Past Medical History / Comment(s): NIDDM type II, bronchitis, murmur, bilateral eye glaucoma, hiatal hernia, IBS, eczema, hypothyroid, migraines, bilateral carpal tunnel syndrome, lumbar back pain which has lessened since back surgery, insomnia, normocytic anemia, UTIs, seasonal allergies/sinus problems History of Any Multi-Drug Resistant Organisms: None Reported Year Discovered:: 2014 Past Surgical History: Back Surgery, Breast Surgery, Cholecystectomy, Heart Catheterization, Hysterectomy, Orthopedic Surgery Additional Past Surgical History / Comment(s): Bilateral breast reduction, R breast bx-benign, L knee arthroscopy, lumbar back surgery, bilateral cataract removals, colonoscopy/benign polypectomy, vocal cord poylpectomies, D&C Past Anesthesia/Blood Transfusion Reactions: Motion Sickness Past Psychological History: Anxiety Additional Psychological History / Comment(s): Pt has sisters residing with her. She is independent. She has a nebulizer. Smoking Status: Never smoker Past Alcohol Use History: None Reported Past Drug Use History: None Reported - Past Family History Father Family Medical History: Cancer, Hypertension Additional Family Medical History / Comment(s): Prostate cancer Mother Family Medical History: Eye Disorder, Hypertension, Vascular Disorder Additional Family Medical History / Comment(s): Mother had glaucoma. She of a brain aneurysm rupture at the age of 57yrs. Medications and Allergies Home Medications Medication Instructions Recorded Confirmed Type Albuterol Sulfate [Proair Hfa] 2 puff INHALATION RT-Q4H PRN 08/21/14 07/23/19 History Budesonide/Formoterol Fumarate 2 puff INHALATION RT-BID 08/21/14 07/23/19 History [Symbicort 160-4.5 Mcg Inhaler] Esomeprazole Magnesium [NexIUM] 40 mg PO DAILY 08/21/14 07/23/19 History Montelukast [Singulair] 10 mg PO HS 08/21/14 07/23/19 History Hydrochlorothiazide [Hydrodiuril] 25 mg PO DAILY 09/09/14 07/23/19 History Eszopiclone [Lunesta] 3 mg PO HS 04/20/16 07/23/19 History Albuterol Nebulized [Ventolin 2.5 mg INHALATION RT-QID PRN 11/10/17 07/23/19 History Nebulized] Atorvastatin [Lipitor] 10 mg PO HS 11/10/17 07/23/19 History Citalopram Hydrobromide 20 mg PO DAILY 11/10/17 07/23/19 History [Citalopram HBr] Fluticasone Nasal [place] [Flonase 1 spray EA NOSTRIL DAILY PRN 11/10/17 07/23/19 History Nasal [place]] metFORMIN HCL [Glucophage] 500 mg PO DAILY 11/10/17 07/23/19 History Cetirizine HCl [Zyrtec] 10 mg PO HS 03/28/18 07/23/19 History Nebivolol HCl [Bystolic] 10 mg PO DAILY 03/28/18 07/23/19 History Gabapentin [Neurontin] 300 mg PO HS 05/15/19 07/23/19 History Acetaminophen-Codeine 300-30mg 1 - 2 tab PO Q4-6H PRN 07/22/19 07/23/19 History [Tylenol w/codeine #3] Ibuprofen [Motrin] 800 mg PO Q6H PRN 07/22/19 07/23/19 History Multivitamins, Thera [Multivitamin 1 tab PO DAILY 07/22/19 07/23/19 History (formulary)] Potassium Chloride ER [K-Dur 10] 10 meq PO HS 07/22/19 07/23/19 History traMADol HCL 50 mg PO Q6HR PRN 07/22/19 07/23/19 History Allergies Allergy/AdvReac Type Severity Reaction Status Date / Time DESTINY Inhibitors Allergy Rash/Hives Verified 07/23/19 08:18 hydromorphone HCl Allergy Anaphylaxis Verified 07/23/19 08:18 [From Dilaudid] latex Allergy Rash/Hives Verified 07/23/19 08:18 propoxyphene napsylate Allergy Swelling Verified 07/23/19 08:18 [From Darvocet-N] Physical Examination Lumbar sine inspection shows well healed surgical wound. No step off or fluid collection. Paraspinal spasm present Lower extremities show now wounds or erythema. The right hip is not hot to touch and is not point tender at the greater trochanter. She has low back pain with straight leg raising bilaterally. Strength appears to be intact at hip flexors but limited due to pain. She has no groin pain with HIP ROM. Quads, hamstrings, AT, EHL and GS are 5/5 bilaterally. KJ and AJ reflexes 1+ bilaterally. Sensation intact to light touch at L2-S1 bilaterally. Calves are SNT. 2+ DP pulses present. No clonus. Downgoing Babinski Results CT of the abdomen and pelvis is reviewed for visualization of the Lumbar spine where it shows hardware/screws at L4-5. There is no evidence of loosening or failure. No clear evidence of neural compromise at this level. There is possible soft tissue/disc bulge or protrusion at level above. - Labs Labs: Abnormal Lab Results - Last 24 Hours (Table) 07/23/19 07/23/19 07/23/19 Range/Units 01:56 01:56 01:56 WBC 13.1 H (3.8-10.6) k/uL Hgb 11.0 L (11.4-16.0) gm/dL Neutrophils # 8.8 H (1.3-7.7) k/uL ESR (0-20) mm/hr Sodium 136 L (137-145) mmol/L Glucose 106 H (74-99) mg/dL POC Glucose (mg/dL) (75-99) mg/dL Plasma Lactic Acid Juan Jose 2.6 H* (0.7-2.0) mmol/L C-Reactive Protein 30.0 H (<10.0) mg/L 07/23/19 07/23/19 07/23/19 Range/Units 05:58 07:10 11:20 WBC (3.8-10.6) k/uL Hgb (11.4-16.0) gm/dL Neutrophils # (1.3-7.7) k/uL ESR 46 H (0-20) mm/hr Sodium (137-145) mmol/L Glucose (74-99) mg/dL POC Glucose (mg/dL) 107 H (75-99) mg/dL Plasma Lactic Acid Juan Jose <0.5 L (0.7-2.0) mmol/L C-Reactive Protein (<10.0) mg/L H & H 07/23/19 Range/Units 01:56 Hgb 11.0 L (11.4-16.0) gm/dL Hct 35.1 (34.0-46.0) % Result Diagrams: 07/23/19 01:56 07/23/19 01:56 Assessment and Plan (1) Lumbago Current Visit: Yes Status: Acute Priority: Medium Code(s): M54.5 - LOW BACK PAIN SNOMED Code(s): 824588950 (2) Status post lumbar spinal fusion Current Visit: Yes Status: Acute Priority: Medium Code(s): Z98.1 - ARTHRODESIS STATUS SNOMED Code(s): 40399990575438 (3) Hip pain, right Current Visit: Yes Status: Acute Priority: Medium Code(s): M25.551 - PAIN IN RIGHT HIP SNOMED Code(s): 07500918 (4) Lumbar radiculopathy Narrative/Plan: Given the patient's history of lumbar fusion and complaints of low back pain and radicular symptoms we will order further lumbar spine imaging. She also does not appear to have tenderness at the hip or bursitis. Xrays and MRI will be ordered. The MRI may be skewed due to the hardware and may need imaging via myelogram if so. Will add muscle relaxant, corticosteroids and gabapentin in hopes of makeing her more comfortable. Also advised to continue to mobilize if possible. Will continue to follow. Current Visit: Yes Status: Acute Priority: Medium Code(s): M54.16 - RADICULOPATHY, LUMBAR REGION SNOMED Code(s): 998602381 Time with Patient: Less than 30
--- NOTE | 2019-07-23 14:39 | XR ---
EXAMINATION TYPE: XR lumbar spine with bend/flex DATE OF EXAM: 07/23/2019 CLINICAL HISTORY: pain COMPARISON: 08/28/2016 TECHNIQUE: Lateral neutral, flexion and extension views are obtained of the lumbar spine. Single AP v iews also noted. FINDINGS: Post Operative changes are noted at L4-5 level of fusion with pedicular screws in place. Th ere is a grade 1 anterolisthesis of L3 on L4 of 2 mm which is stable at flexion, extension and neutra l. Alignment is otherwise unremarkable. Degenerative changes at L2-3 and L3-4. Fractures seen. IMPRESSION: Grade 1 anterolisthesis L3 on L4 as discussed above.
[2019-07-23] MEDS: HYDROcodone/APAP 5-325MG 1 EACH TAB PO PRN (14:43)
[2019-07-23] MEDS: VANCOMYCIN 1,250 MG in SODIUM CHLORIDE 0.9% 250 ML IVPB SCH (16:05)
[2019-07-23] MEDS ORDERED: IBUPROFEN 800 MG TAB PO PRN (16:32)
[2019-07-23] MEDS ORDERED: FLUTICASONE 50MCG/SPRAY NASAL 16GM EA NOSTRIL PRN (16:32)
[2019-07-23] MEDS ORDERED: traMADol 50 MG TAB PO PRN (16:32)
[2019-07-23] MEDS ORDERED: ALBUTEROL NEBULIZED 2.5 MG/3 ML INHALATION PRN ×2 (16:32)
[2019-07-23] MEDS ORDERED: Acetaminophen-Codeine 300-30mg TAB PO PRN (16:32)
[2019-07-23 16:58] LABS: Glucose,Whole Blood 94 mg/dL (75-99)
[2019-07-23] MEDS: PANTOPRAZOLE 40 MG TABLET PO SCH (17:20)
[2019-07-23] MEDS: CITALOPRAM HYDROBROMIDE 20 MG TAB PO SCH (17:20)
[2019-07-23] MEDS: NEBIVOLOL 5 MG TAB PO SCH (17:20)
[2019-07-23] MEDS ORDERED: VANCOMYCIN 1,250 MG in SODIUM CHLORIDE 0.9% 250 ML IVPB SCH (19:00)
[2019-07-23] MEDS: POTASSIUM CHLORIDE ER 10 MEQ TAB.ER.PRT PO SCH (20:20)
[2019-07-23] MEDS: ATORVASTATIN 10 MG TAB PO SCH (20:20)
[2019-07-23] MEDS: MONTELUKAST 10 MG TAB PO SCH (20:20)
[2019-07-23] MEDS: TEMAZEPAM 30 MG CAP PO SCH (20:20)
[2019-07-23] MEDS: LORATADINE 10 MG TAB PO SCH (20:20)
[2019-07-23 20:40] LABS: Glucose,Whole Blood 88 mg/dL (75-99)
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
[2019-07-23] MEDS: SYMBICORT 160-4.5 MCG INHALER INHALATION SCH (20:53)
[2019-07-24] MEDS: SODIUM CHLORIDE 0.9% 1,000 ML IV SCH ×3 (01:00→19:05)
[2019-07-24 01:14] LABS: Appearance,Urine Clear (Clear); Bacteria,Urine Rare /hpf; Bilirubin,Urine Negative (Negative); Blood,Urine Negative (Negative); Color,Urine Light Yellow; Glucose,Urine (UA) Negative (Negative); Hyaline Casts,Urine 1 /lpf (0-2); Ketones,Urine Negative (Negative); Leukocyte Esterase,Urine Moderate (Negative); Mucus,Urine Few /hpf; Nitrite,Urine Negative (Negative); PH, Urine 6.5 (5.0-8.0); Protein,Urine Negative (Negative); RBC,Urine 1 /hpf (0-5); Specific Gravity,Urine 1.008 (1.001-1.035); Squamous Epithelial Cell,Urine 1 /hpf (0-4); Urobilinogen,Urine <2.0 mg/dL (<2.0); WBC,Urine 12 /hpf (0-5)
[2019-07-24] MEDS: MORPHINE SULFATE 4 MG/ML SYRINGE IV PRN ×5 (02:52→21:18)
[2019-07-24] MEDS: ACETAMINOPHEN TAB 325 MG TAB PO PRN (04:28)
[2019-07-24] MEDS: VANCOMYCIN 1,250 MG in SODIUM CHLORIDE 0.9% 250 ML IVPB SCH ×2 (04:29→16:32)
--- NOTE | 2019-07-24 06:52 | CONS ---
CONSULTATION DATE OF SERVICE: 07/23/2019 REASON FOR FOLLOWUP: Fever and a question of discitis. HISTORY OF PRESENT ILLNESS: The patient is a 59-year-old female who presented to the ER with chief complaints of low back pain that apparently has been getting worse for the last 2 weeks. The patient denies having any history of any trauma. She did have a previous history of lumbar disc herniation that required discectomy. Patient describes her pain to the low back to be sharp, worse with any activity with some radiation to the right leg. Denies having any bowel trouble or bladder problem. The patient denies any nausea, no vomiting. No chest pain, shortness of breath or cough. With these symptoms, the patient presented to hospital. On arrival to the ER, the patient did have a low- grade fever of 100.2. The patient is afebrile since then. The patient when presented to hospital, was not hypoxic, did not require any supplemental oxygen. The patient did have elevated white count 13.1. No lymphopenia. Sed rate and CRP are elevated. Hong PCR was negative. The patient did have CT of the lumbosacral spine, which did show some degenerative changes but no other abnormality. The patient received a dose of Rocephin and has been started on vancomycin. Infectious Disease was consulted for further recommendations of antibiotic therapy and concern for possible discitis. REVIEW OF SYSTEMS: Positive points have been mentioned in HPI. Rest of systems are negative. PAST MEDICAL HISTORY: Past medical history is significant for chronic back pain , history of coronary artery disease, diabetes mellitus, hypertension, hyperlipidemia, pneumonia, rheumatoid arthritis. PAST SURGICAL HISTORY: Back surgery, cholecystectomy, heart catheterization, hysterectomy, bilateral breast reduction, bilateral cataract removal, polypectomy. SOCIAL HISTORY: No history of smoking, drinking or drug use. FAMILY HISTORY: Father with history of prostate cancer. Mother with history of brain aneurysm. ALLERGIES: Allergies to DESTINY INHIBITOR, , LATEX. MEDICATIONS: Medications include the patient is currently on Tylenol, [place], Lipitor, Symbicort, Celexa, Flexeril, Claritin, Medrol Dosepak, Singulair, Narcan, Protonix and vancomycin pharmacy to dose. PHYSICAL EXAMINATION: On examination, blood pressure 114/72 with a pulse of 64, temperature 98.9. She is 100% on room air. General description is a middle-aged female up in the bed in no distress. No tachypnea or accessory muscle of respiration use. HEENT: Examination shows slight pallor. No scleral icterus. Oral mucous membrane is dry. NECK: Trachea central. No thyromegaly. LUNGS: Unlabored breathing, clear to auscultation. No wheeze or crackles. HEART: S1, S2. Regular rate and rhythm. ABDOMEN: Soft, no tenderness. No guarding or rigidity. EXTREMITIES: No edema of feet. SKIN EXAMINATION: No rash or mass palpable. EXAMINATION OF THE MUSCULOSKELETAL SYSTEM: She did have lumbar spine tenderness on palpation. NEUROLOGICALLY: The patient is awake, alert, oriented x3. Mood and affect normal. LABS: Hemoglobin 11, white count 13.1. Sed rate of 46, CRP of 30. DIAGNOSTIC IMPRESSION AND PLAN: Patient admitted to the hospital with intractable low back pain in this patient who did have a low-grade fever with concern for possible discitis as no other obvious clinical focus for this fever and the patient did not have any other symptoms to suggest infection at this part of the body. PLAN: 1. We will switch the MRI with contrast to increase sensitivities for discitis of the lumbosacral spine. 2. Blood cultures have been obtained, which will be followed. 3. Continue with empiric vancomycin while waiting for the culture to finalize. 4. We will follow on clinical condition and culture to further adjust medication if needed. Thank you for this consultation. Will follow this patient along with you. MMODL / IJN: [id number] /
[2019-07-24 07:16] LABS: Glucose,Whole Blood 93 mg/dL (75-99)
[2019-07-24] MEDS: SYMBICORT 160-4.5 MCG INHALER INHALATION SCH ×2 (07:38→19:32)
[2019-07-24 07:54] LABS: Basophils % (A) 0 %; Eosinophils # (A) 0.1 k/uL (0-0.7); Eosinophils % (A) 2 %; HCT 29.5 % (34.0-46.0); Hypochromasia Slight; Lymphocytes % (A) 27 %; MCH 25.9 pg (25.0-35.0); MCHC 30.9 g/dL (31.0-37.0); MCV 83.8 fL (80.0-100.0); Mean Platelet Volume 6.8; Monocytes # (A) 0.6 k/uL (0-1.0); Monocytes % (A) 8 %; Neutrophils # (A) 4.5 k/uL (1.3-7.7); Neutrophils % (A) 62 %; Platelet Count 392 k/uL (150-450); RBC 3.52 m/uL (3.80-5.40); RDW 13.4 % (11.5-15.5); WBC 7.3 k/uL (3.8-10.6)
[2019-07-24 08:01] LABS: African American GFR (CKD) >90 (>60 ml/min/1.73 sqM); Anion Gap 6 mmol/L; Blood Urea Nitrogen 8 mg/dL (7-17); Calcium 8.5 mg/dL (8.4-10.2); Carbon Dioxide 27 mmol/L (22-30); Chloride 104 mmol/L (98-107); Glucose 89 mg/dL (74-99); Non-African American GFR(CKD) >90 (>60 ml/min/1.73 sqM); Potassium 3.7 mmol/L (3.5-5.1); Sodium 137 mmol/L (137-145)
[2019-07-24 08:02] LABS: HGB 9.1 gm/dL (11.4-16.0)
[2019-07-24] MEDS: GABAPENTIN 300 MG CAP PO SCH ×3 (08:34→21:18)
[2019-07-24] MEDS: HYDROCHLOROTHIAZIDE 25 MG TAB PO SCH (08:36)
[2019-07-24] MEDS: MULTIVITAMINS, THERA 1 EACH TAB PO SCH (08:36)
[2019-07-24] MEDS: metFORMIN 500 MG TAB PO SCH (08:36)
[2019-07-24] MEDS: CITALOPRAM HYDROBROMIDE 20 MG TAB PO SCH (08:36)
[2019-07-24] MEDS: PANTOPRAZOLE 40 MG TABLET PO SCH (08:36)
[2019-07-24] MEDS: NEBIVOLOL 5 MG TAB PO SCH (08:37)
[2019-07-24] MEDS: methylPREDNISolone 4 MG TAB TAPER PO SCH (08:37)
[2019-07-24] MEDS ORDERED: BISACODYL 5 MG TABLET.DR PO PRN (10:47)
[2019-07-24 11:40] LABS: Glucose,Whole Blood 121 mg/dL (75-99)
[2019-07-24] MEDS: POLYETHYLENE GLYCOL 3350 17 GM POWD.PACK PO SCH (12:00)
--- NOTE | 2019-07-24 15:48 | MR ---
EXAMINATION TYPE: MR lumbar spine wo/w con DATE OF EXAM: 07/24/2019 COMPARISON: None HISTORY: LBP, possible discitis CONTRAST: 7 mL intravenous Gadavist. TECHNIQUE: Multiplanar, multisequence images of the lumbar spine were acquired. FINDINGS: There is a fusion of L4-L5. Postsurgical changes are present posteriorly. L5-S1: No significant disc bulge or disc herniation. No spinal canal stenosis. No foraminal stenosi s. L4-L5: Pedicle screws are present L4 and L5. No residual disc material is evident. Disc spacer is pre sent. No spinal canal stenosis or neural foraminal stenosis is present. No epidural space impression is evident. L3-L4: At the L3-4 level and left paracentral region postcontrast axial T1-weighted imaging there is a small rounded area which may has some mild left paracentral thecal sac compression. This has a john lar appearance on the axial T1 precontrast imaging findings are suggestive for very tiny disc herniat ion. No suspicious enhancement to suggest epidural infection is not identified. L2-L3: Minimal disc bulge is anterior thecal sac contact. Facet hypertrophy and ligamentum flavum lax ity has posterior lateral thecal sac compression. No spinal canal stenosis or neural foraminal stenos is is present L1-L2: Minimal disc bulging is anterior thecal sac contact. No spinal canal stenosis or neural forami nal stenosis is present. T12-L1: No significant disc bulge or disc herniation. No spinal canal stenosis. No foraminal stenos is. . No abnormal enhancement. No enhancement within the epidural space or within the disc space is identif ied. IMPRESSION: 1. Suspicious changes to suggest discitis are not identified. 2. Very tiny sequestered disc may be posterior to the L3-4 disc level left paracentral region. Some s sole canal narrowing is to this level due to the facet hypertrophy with posterior lateral thecal sac compression.
[2019-07-24 16:48] LABS: Glucose,Whole Blood 171 mg/dL (75-99)
--- NOTE | 2019-07-24 16:53 | P.PN ---
Subjective Progress Note Date: 07/24/19 Principal diagnosis: Low back pain, lumbar radiculopathy, status post L4 5 transforaminal lumbar interbody fusion Patient is a pleasant 59-year-old female seen at bedside this afternoon. We're consulted initially for right hip pain and bursitis. However after examining the patient regarding more that this is likely more lumbar spine problem. She continues to have low back pain. She has intermittent radiating pain down her right thigh and sometimes her left. She has no constant numbness or tingling. She was started on oral corticosteroids as well as muscle relaxant. An MRI with and without contrast was ordered of the lumbar spine. She has no new complaints today. She feel she may be improved some. She has no saddle anesthesia, loss of bowel or bladder control or other complaints. Objective - Vital Signs Vital signs: Vital Signs Temp 98.2 F 07/24/19 14:54 Pulse 77 07/24/19 14:54 Resp 16 07/24/19 14:54 BP 124/76 07/24/19 14:54 Pulse Ox 99 07/24/19 14:54 Intake & Output 07/23/19 07/24/19 07/24/19 18:59 06:59 18:59 Intake Total 540 300 710 Balance 540 300 710 Weight 70.307 kg Intake: Oral 540 300 710 Other: Voiding Method Bedside Commode # Voids 4 2 3 - Exam Inspection of the lumbar spine shows well-healed midline surgical wound. There is paraspinal spasming. She is mildly tender in the sacroiliac joints. There is no deformity or wounds. There is no fluid collection. Lower extremity she has low back pain with bilateral straight leg raising. Motor appears to be intact grossly but limited due to pain. L2 through S1 dermatomes are intact. Reflexes are minimal equal bilaterally. No hyperreflexia or clonus. 1+ dorsalis pedis pulses present and less than 2 second capillary refill present. Calves are soft nontender. Both hips are soft nontender at the trochanteric bursa. - Constitutional General appearance: Present: no acute distress - Labs CBC & Chem 7: 07/24/19 06:24 07/24/19 06:24 Labs: Abnormal Lab Results - Last 24 Hours (Table) 07/23/19 07/24/19 07/24/19 Range/Units 19:20 06:24 11:38 RBC 3.52 L (3.80-5.40) m/uL Hgb 9.1 L D (11.4-16.0) gm/dL Hct 29.5 L (34.0-46.0) % MCHC 30.9 L (31.0-37.0) g/dL POC Glucose (mg/dL) 121 H (75-99) mg/dL Ur Leukocyte Esterase Moderate H (Negative) Urine WBC 12 H (0-5) /hpf Urine Bacteria Rare H (None) /hpf Urine Mucus Few H (None) /hpf Microbiology - Last 24 Hours (Table) 07/23/19 02:34 Blood Culture - Preliminary Blood No Growth after 24 hours - Imaging and Cardiology MR I of the lumbar spine shows hardware in fusion L4 5 with no complications. L3-4 shows a minimal anteriorlisthesis with moderate canal stenosis and left- sided disc/cyst. There is no significant right-sided impingement seen and no otherwise canal stenosis. Assessment and Plan (1) Lumbago Narrative/Plan: Patient will continue on oral corticosteroids as well as muscle relaxant and gabapentin. Physical therapy has also been ordered for lumbar spine neutral spine stabilization, hamstring flexibility and focusing on core strengthening. Pain medicine per primary team. Patient has also been discussed with Dr. Miranda who will see tomorrow for further review and recommendations. Current Visit: Yes Status: Acute Priority: Medium Code(s): M54.5 - LOW BACK PAIN SNOMED Code(s): 259934867 (2) Status post lumbar spinal fusion Current Visit: Yes Status: Acute Priority: Medium Code(s): Z98.1 - AR THRODESIS STATUS SNOMED Code(s): 92431702519864 (3) Hip pain, right Current Visit: Yes Status: Acute Priority: Medium Code(s): M25.551 - PAIN IN RIGHT HIP SNOMED Code(s): 02422088 (4) Lumbar radiculopathy Current Visit: Yes Status: Acute Priority: Medium Code(s): M54.16 - RADICULOPATHY, LUMBAR REGION SNOMED Code(s): 052643933
[2019-07-24 20:12] LABS: Glucose,Whole Blood 163 mg/dL (75-99)
[2019-07-24] MEDS: TEMAZEPAM 30 MG CAP PO SCH (21:17)
[2019-07-24] MEDS: POTASSIUM CHLORIDE ER 10 MEQ TAB.ER.PRT PO SCH (21:17)
[2019-07-24] MEDS: ATORVASTATIN 10 MG TAB PO SCH (21:17)
[2019-07-24] MEDS: MONTELUKAST 10 MG TAB PO SCH (21:17)
[2019-07-24] MEDS: LORATADINE 10 MG TAB PO SCH (21:17)
--- NOTE | 2019-07-24 22:04 | PN ---
PROGRESS NOTE DATE OF SERVICE: 07/24/2019 This 59-year-old woman who was admitted with a history of back pain had suspected radiculopathy or even epidural abscess. Lumbar MRI is pending at this time. ESR and CRP are slightly elevated. The patient also had history of fever, so patient was started on broad-spectrum IV antibiotics. Orthopedics and Infectious Disease are following the patient closely. Past medical history reviewed. REVIEW OF SYSTEMS: CARDIOVASCULAR SYSTEM: No angina or palpitations. GI: As mentioned earlier. : No dysuria, retention NERVOUS SYSTEM: No numbness, weakness. CURRENT MEDICATIONS: Reviewed and include: 1. Tylenol 650 q.6 p.r.n. 2. Tylenol No.3. 3. [place]. 4. Lipitor. 5. Symbicort 160/4.5 two puffs b.i.d. 6. Celexa. 7. Valium. 8. Flonase. 9. Neurontin. 10.Medrol Dosepak. 11.Morphine sulfate. 12.Narcan. 13.Vancomycin. PHYSICAL EXAMINATION: Patient is alert and oriented x3. Pulse is 77, blood pressure 124/76, respirations 16, temperature 98.2, pulse ox 99% on room air. T-max 100.1. HEENT: Conjunctivae normal. NECK: No jugular venous distention. CARDIOVASCULAR SYSTEM: S1, S2 muffled. RESPIRATORY SYSTEM: Breath sounds diminished at the bases. A few scattered rhonchi. No crackles. ABDOMEN: Soft, nontender. LEGS: No edema. No swelling. NERVOUS SYSTEM: No focal deficit. EXAMINATION OF THE BACK: Minimal tenderness. SLR is painful. LAB INVESTIGATIONS: WBC 7.3, hemoglobin is 9.1. Glucose 121. ASSESSMENT: 1. Acute back pain, radiculopathy, fever; rule out epidural abscess. 2. Severe gait dysfunction. 3. Failure of outpatient treatment. 4. Possible severe degenerative joint disease. 5. Gait dysfunction. 6. Hyponatremia. 7. Increased white blood count. 8. Anemia of chronic disease, normocytic. 9. History of asthma, chronic, intermittent. 10.History of coronary artery disease. 11.Diabetes mellitus, type 2. 12.Gastroesophageal reflux disease. 13.Hypertension. 14.Hyperlipidemia. 15.History of pneumonia. 16.History of rheumatoid arthritis. 17.Hypothyroidism. 18.History of bilateral glaucoma. 19.Irritable bowel syndrome. 20.Bilateral carpal tunnel syndrome. 21.History of degenerative joint disease and back surgery, as mentioned earlier. 22.History of bilateral breast reduction. 23.Anxiety. 24.FULL CODE. RECOMMENDATIONS AND DISCUSSION: I recommend to continue current medications, continue with symptomatic treatment. Continue with antibiotics. Cultures are pending at this time. Otherwise, I would also recommend lumbar MRI with contrast as recommended by Infectious Disease. Closely monitor. Closely follow with Infectious Disease. I would increase the morphine to every two hours on a p.r.n. basis because the patient is still having significant pain issues at this time. The patient cannot take any Dilaudid apparently. Otherwise, closely monitor. See orders for further details. Further recommendations to follow. MMODL / IJN: [id number] /
--- NOTE | 2019-07-24 22:45 | PN ---
PROGRESS NOTE DATE OF SERVICE: 07/24/2019 REASON FOR FOLLOWUP: Fever with a question of diskitis. INTERVAL HISTORY: The patient was seen on rounds this morning. The patient was feeling slightly better. Pain is currently controlled with pain medication. Denies having any chest pain, shortness of breath or cough. No nausea, vomiting or diarrhea. PHYSICAL EXAMINATION: Blood pressure 124/76, pulse of 77, temperature 98.2. She is 99% on room air. General description is a middle-aged female lying in bed in no distress. RESPIRATORY SYSTEM: Unlabored breathing. Clear to auscultation anteriorly. HEART: S1, S2. Regular rate and rhythm. ABDOMEN: Soft. No tenderness. LABS: Hemoglobin 9.1, white count 7.3, BUN of 8, creatinine 0.63. DIAGNOSTIC IMPRESSION AND PLAN: Patient with intractable low back pain with low-grade fever and initial concern for possible diskitis; however, the patient did have MRI of the lumbosacral spine with contrast with no features of diskitis. The patient's fever resolved. Normal white count. Blood culture negative. Will review the case with spinal surgeon after he reviews the patient tomorrow. vancomycin will be discontinued and the patient monitored closely off antibiotic therapy. MMODL / IJN: [id number] /
[2019-07-25] MEDS: MORPHINE SULFATE 4 MG/ML SYRINGE IV PRN ×2 (00:13→04:44)
[2019-07-25] MEDS ORDERED: VANCOMYCIN TROUGH DUE 1 EACH MISC MISCELLANE ONE (03:00)
[2019-07-25] MEDS: VANCOMYCIN 1,250 MG in SODIUM CHLORIDE 0.9% 250 ML IVPB SCH (04:37)
[2019-07-25] MEDS: SODIUM CHLORIDE 0.9% 1,000 ML IV SCH ×3 (05:05→23:22)
[2019-07-25 07:22] LABS: Glucose,Whole Blood 100 mg/dL (75-99)
[2019-07-25] MEDS: SYMBICORT 160-4.5 MCG INHALER INHALATION SCH ×2 (07:44→19:53)
[2019-07-25] MEDS: GABAPENTIN 300 MG CAP PO SCH ×2 (08:28→20:52)
[2019-07-25] MEDS: metFORMIN 500 MG TAB PO SCH (08:28)
[2019-07-25] MEDS: MULTIVITAMINS, THERA 1 EACH TAB PO SCH (08:28)
[2019-07-25] MEDS: CITALOPRAM HYDROBROMIDE 20 MG TAB PO SCH (08:28)
[2019-07-25] MEDS: HYDROCHLOROTHIAZIDE 25 MG TAB PO SCH (08:28)
[2019-07-25] MEDS: PANTOPRAZOLE 40 MG TABLET PO SCH (08:28)
[2019-07-25] MEDS: NEBIVOLOL 5 MG TAB PO SCH (08:29)
[2019-07-25] MEDS: methylPREDNISolone 4 MG TAB TAPER PO SCH (08:29)
[2019-07-25] MEDS: POLYETHYLENE GLYCOL 3350 17 GM POWD.PACK PO SCH (08:30)
[2019-07-25] MEDS: HYDROcodone/APAP 5-325MG 1 EACH TAB PO PRN ×3 (08:54→23:51)
--- NOTE | 2019-07-25 10:47 | P.PN ---
Progress Note - Text Progress Note Date: 07/25/19 The patient is seen and examined today at bedside. She is able to get up and walk though she does so with some stiffness at her back in protecting her back due to some pain. She says her legs are doing well. She's not having weakness in her legs. She says the pain stems from the middle of her lower back up to her midback and around toward her bilateral hips. She had been having some burning when she was urinating. She denies new changes. She feels that she is making some progress with the steroid medication. On exam she is alert and oriented. She is afebrile. Her extremities have good active and passive range of motion. She is able to stand up and walk. She is able to have good strength with dorsi flexion plantarflexion EHL. There is no pain with internal or external rotation of her hips. Her back incision site is clear is well-healed. There is no skin changes at the lower back. She has no neural tension signs. MRI of her lumbar spine is reviewed as well as x-rays of her lumbar spine--she has a solid fusion L4 5 from her prior surgery over 10 years ago. She has some adjacent level degeneration L3 4 with some facet hypertrophy and some moderate bilateral foraminal encroachment. There is no evidence of any infection. There is no abscess. There is no evidence of any discitis. Assessment and plan Low back pain and bilateral lumbosacral strain History of prior surgical fusion done at an outside institution over 10 years ago. With solid fusion L4 5 Adjacent level degeneration L3 4 with some bilateral foraminal encroachment No evidence of spinal infection or acute spinal change The patient does not appear to have any evidence of septic bursitis or discitis. I do not see any acute spinal changes on her new MRI. Her fusion at L4 5 appears stable. There is some adjacent level degeneration L3 4 which may be contributing to some of her pain across her lower back and towards her bilateral hips. She does not have apparent acute hip joint issues. She is making some progress with conservative treatment management I would recommend she continue with her steroid medication with an oral tapering dose when she goes home. She has been on a number of medicines over the years with her primary care physician and I would defer for continued pain control with them. We do not have any acute plans for any surgical intervention and the patient does not seem to have specific surgical and indications in regard to her spine at this point. It is okay for her to mobilize as she is able tolerate. She should continue with conservative care with oral medications and physical therapy and core strengthening. It is okay from a spine standpoint for her to be discharged when she is cleared medically. We can follow her up on outpatient basis as needed in approximately 3 weeks.
[2019-07-25 12:03] LABS: Glucose,Whole Blood 123 mg/dL (75-99)
--- NOTE | 2019-07-25 15:06 | P.PN ---
Subjective Progress Note Date: 07/25/19 Principal diagnosis: 07/25/2019 This is a 59-year-old female who was recently admitted with a history of back pain with suspected radiculopathy or possible epidural abscess and is being closely monitored. Patient underwent lumbar MRI yesterday showing no signs of discitis, bursitis, or epidural infection. Orthopedic surgery following recommending conservative management with no surgical intervention at this time. Patient was seen and evaluated by Dr. Miranda. Infectious disease is also following. IV vancomycin was discontinued and patient was initiated on ceftriaxone. Patient has been afebrile. Patient was able to work with physical therapy today and has been up and walking with a walker to the bathroom and back and continues to have some bilateral hip discomfort with gait. Patient states that she is passing gas but has not had a bowel movement since Wednesday and is having some mild lower left abdominal discomfort that is radiating to her lower back. Review of systems: Constitutional: No reports of fatigue or fevers Cardiovascular: No reports of chest pain or palpitations Respiratory: No reports of shortness of breath or cough GI: No reports of nausea, vomiting, or diarrhea. Reports constipation : No reports of dysuria or retention Musculoskeletal: Reports mild bilateral hip pain that is slightly improved from yesterday Nervous system: No reports of weakness or numbness Active Medications Acetaminophen (Tylenol Tab) 650 mg PO Q6HR PRN PRN Reason: Mild Pain or Fever > 100.5 Last Admin: 07/24/19 04:28 Dose: 650 mg Documented by: Acetaminophen/Codeine Phosphate (Tylenol #3) 1 each PO Q4H PRN PRN Reason: Pain Hydrocodone Bitart/Acetaminophen ([place] 5-325) 1 each PO Q6HR PRN PRN Reason: Pain Last Admin: 07/25/19 08:54 Dose: 1 each Documented by: Albuterol Sulfate (Ventolin Nebulized) 2.5 mg INHALATION RT-Q4H PRN PRN Reason: Shortness Of Breath Atorvastatin Calcium (Lipitor) 10 mg PO HS [place] Last Admin: 07/24/19 21:17 Dose: 10 mg Documented by: Bisacodyl (Dulcolax) 10 mg PO DAILY PRN PRN Reason: Constipation Last Admin: 07/24/19 12:08 Dose: 10 mg Documented by: Budesonide/Formoterol Fumarate (Symbicort 160-4.5 Mcg Inhaler) 2 puff INHALATION RT-BID [facility] Last Admin: 07/25/19 07:44 Dose: 2 puff Documented by: Citalopram Hydrobromide (Celexa) 20 mg PO DAILY [facility] Last Admin: 07/25/19 08:28 Dose: 20 mg Documented by: Cyclobenzaprine HCl (Flexeril) 10 mg PO TID PRN PRN Reason: Muscle Spasm Diazepam (Valium) 2 mg PO TID PRN PRN Reason: Spasms Fluticasone Propionate (Flonase Nasal [place]) 1 spray EA NOSTRIL DAILY PRN PRN Reason: Nasal Congestion Gabapentin (Neurontin) 300 mg PO BID [facility] Last Admin: 07/25/19 08:28 Dose: 300 mg Documented by: Gabapentin (Neurontin) 300 mg PO [facility] Last Admin: 07/24/19 21:18 Dose: Not Given Documented by: Hydrochlorothiazide (Hydrodiuril) 25 mg PO DAILY [facility] Last Admin: 07/25/19 08:28 Dose: 25 mg Documented by: Sodium Chloride (Saline 0.9%) 1,000 mls @ 100 mls/hr IV .Q10H [facility] Last Admin: 07/25/19 05:05 Dose: 100 mls/hr Documented by: Ceftriaxone Sodium 1 gm/ (Sodium Chloride) 50 mls @ 100 mls/hr IVPB Q24HR [facility] Ibuprofen (Motrin) 800 mg PO Q6H PRN PRN Reason: Pain Loratadine (Claritin) 10 mg PO [facility] Last Admin: 07/24/19 21:17 Dose: 10 mg Documented by: Metformin HCl (Glucophage) 500 mg PO DAILY [facility] Last Admin: 07/25/19 08:28 Dose: 500 mg Documented by: Methylprednisolone (Medrol Dose Pack) 20 mg PO DAILY [facility]; Taper Stop: 07/30/19 08:59 Last Admin: 07/25/19 08:29 Dose: 20 mg Documented by: Montelukast Sodium (Singulair) 10 mg PO [facility] Last Admin: 07/24/19 21:17 Dose: 10 mg Documented by: Morphine Sulfate (Morphine Sulfate (Inj)) 4 mg IV Q2HR PRN PRN Reason: Severe Pain Last Admin: 07/25/19 04:44 Dose: 4 mg Documented by: Multivitamins (Theragran) 1 each PO DAILY [facility] Last Admin: 07/25/19 08:28 Dose: 1 each Documented by: Naloxone HCl (Narcan) 0.2 mg IV Q2M PRN PRN Reason: Opioid Reversal Nebivolol (Bystolic) 10 mg PO DAILY [facility] Last Admin: 07/25/19 08:29 Dose: 10 mg Documented by: Pantoprazole Sodium (Protonix) 40 mg PO DAILY [facility] Last Admin: 07/25/19 08:28 Dose: 40 mg Documented by: Polyethylene Glycol (Miralax) 17 gm PO DAILY [facility] Last Admin: 07/25/19 08:30 Dose: 17 gm Documented by: Potassium Chloride (K-Dur 10) 10 meq PO HS [facility] Last Admin: 07/24/19 21:17 Dose: 10 meq Documented by: Temazepam (Restoril) 30 mg PO [facility] Last Admin: 07/24/19 21:17 Dose: 30 mg Documented by: Tramadol HCl (Ultram) 50 mg PO Q6HR PRN PRN Reason: Pain Objective - Vital Signs Vital signs: Vital Signs Temp 98.2 F 07/25/19 06:00 Pulse 70 07/25/19 08:34 Resp 18 07/25/19 06:00 BP 148/78 07/25/19 06:00 Pulse Ox 99 07/25/19 06:00 Intake & Output 07/24/19 07/25/19 07/25/19 18:59 06:59 18:59 Intake Total 950 700 480 Balance 950 700 480 Intake: Oral 950 700 480 Other: Voiding Method Bedside Commode # Voids 3 3 2 - Exam Gen: This is a 59-year-old female sitting up at the side of the bed, awake, alert and oriented 3. Temp is 98.2F, pulse is 56, respirations are 18, blood pressure is 148/78, oxygen saturation is 99% on room air. HEENT: Head is atraumatic, normocephalic. Pupils equal, round. Sclerae is anicteric. NECK: Supple. No JVD. No lymphadenopathy. No thyromegaly. LUNGS: Breath sounds diminished at the bases with no wheezing or rhonchi noted. No intercostal retractions. HEART: S1, S2 are muffled ABDOMEN: Soft. Bowel sounds are present. No masses. Mild tenderness noted of the left lower quadrant that radiates to the lower back. EXTREMITIES: No pedal edema. No calf tenderness. NEUROLOGICAL: Patient is awake, alert and oriented x3. Cranial nerves 2 through 12 are grossly intact. - Labs CBC & Chem 7: 07/24/19 06:24 07/24/19 06:24 Labs: Abnormal Lab Results - Last 24 Hours (Table) 07/24/19 07/24/19 07/25/19 Range/Units 16:47 20:03 07:21 POC Glucose (mg/dL) 171 H 163 H 100 H (75-99) mg/dL 07/25/19 Range/Units 12:02 POC Glucose (mg/dL) 123 H (75-99) mg/dL Microbiology - Last 24 Hours (Table) 07/23/19 02:34 Blood Culture - Preliminary Blood No Growth after 48 hours Assessment and Plan Assessment: Acute back pain, radiculopathy, fever, ruled out epidural abscess per MRI re sults Severe gait dysfunction failure of outpatient treatment Possible severe degenerative joint disease as noted on MRI Gait dysfunction Hyponatremia Increased white blood count Anemia of chronic disease, normocytic History of asthma, chronic, intermittent History of coronary artery disease Diabetes mellitus type 2 Gastroesophageal reflux disease hypertension Hyperlipidemia History of pneumonia history of rheumatoid arthritis Hypothyroidism History of bilateral glaucoma Irritable bowel syndrome Bilateral carpal tunnel syndrome History of degenerative joint disease and back surgery, as mentioned earlier History of bilateral breast reduction Anxiety Full code Recommendations and discussion: Recommend to continue with current medications, management, and symptomatic treatment. PT/OT following. Patient was seen and evaluated by orthopedic surgery along with pain management recommending to continue with pain management with her primary care provider in no surgical intervention is needed at this time. Patient underwent lumbar MRI yesterday showing no suggestion of discitis or epidural infection, very tiny sequestered disc may be posterior to the L3-4 disc level paracentral region with some spinal canal narrowing due to the facet hypertrophy with posterior lateral thecal sac compression along with previous fusion of the L4-5 noted. Broad-spectrum IV antibiotics have been discontinued. Infectious disease is following. Patient continues to have some lower left abdominal discomfort that radiates to the back and states she has not had a bowel movement in 5 days. Patient does have a history of IBS but is known to take a number of narcotics and has episodes of constipation at times. Dulcolax and MiraLAX ordered. Patient states she will be going home with family once stabilized and discharged. Further recommendations to follow. Possible discharge in 24-48 hours.
[2019-07-25 17:11] LABS: Glucose,Whole Blood 156 mg/dL (75-99)
[2019-07-25] MEDS: MONTELUKAST 10 MG TAB PO SCH (20:52)
[2019-07-25] MEDS: LORATADINE 10 MG TAB PO SCH (20:52)
[2019-07-25] MEDS: ATORVASTATIN 10 MG TAB PO SCH (20:52)
[2019-07-25] MEDS: POTASSIUM CHLORIDE ER 10 MEQ TAB.ER.PRT PO SCH (20:52)
[2019-07-25] MEDS: TEMAZEPAM 15 MG CAP PO SCH (20:54)
[2019-07-25 21:14] LABS: Glucose,Whole Blood 170 mg/dL (75-99)
--- NOTE | 2019-07-25 21:48 | PN ---
PROGRESS NOTE DATE OF SERVICE: 07/25/2019 REASON FOR FOLLOWUP: Fever and back pain. INTERVAL HISTORY: The patient is currently afebrile. She has been breathing comfortably. The patient denies having any chest pain, shortness of breath or cough. She is complaining of some lower abdominal pain. No nausea, no vomiting and no diarrhea. PHYSICAL EXAMINATION: Blood pressure 106/58 with a pulse of 67, temperature 97.9. She is 99% on room air. General description is a middle-aged female lying in bed in no distress. RESPIRATORY SYSTEM: Unlabored breathing. Clear to auscultation anteriorly. HEART: S1, S2. Regular rate and rhythm. ABDOMEN: Soft. Mildly tender . EXTREMITIES: No edema of the feet. LABS: White count of 7.3. Blood culture has been negative. DIAGNOSTIC IMPRESSION AND PLAN: 1. Patient admitted to hospital with intractable low back pain, more likely due to herniated disc. Diskitis was ruled out by MRI. 2. Patient with low-grade fever, mild positive UA and some lower abdominal pain, concern for possible urinary tract infection. UA culture has been requested. Abdominal ultrasound requested. Rocephin will be started and we will adjust antibiotic further on the basis of clinical response and culture. MMODL / IJN: [id number] /
[2019-07-26 00:56] LABS: Appearance,Urine Clear (Clear); Bilirubin,Urine Negative (Negative); Blood,Urine Negative (Negative); Color,Urine Light Yellow; Glucose,Urine (UA) Negative (Negative); Ketones,Urine Negative (Negative); Leukocyte Esterase,Urine Moderate (Negative); Mucus,Urine Rare /hpf; Nitrite,Urine Negative (Negative); PH, Urine 6.5 (5.0-8.0); Protein,Urine Negative (Negative); RBC,Urine 1 /hpf (0-5); Specific Gravity,Urine 1.011 (1.001-1.035); Squamous Epithelial Cell,Urine 1 /hpf (0-4); Urobilinogen,Urine <2.0 mg/dL (<2.0); WBC,Urine 4 /hpf (0-5)
[2019-07-26] MEDS: MORPHINE SULFATE 4 MG/ML SYRINGE IV PRN ×4 (05:53→23:11)
[2019-07-26 06:54] LABS: Glucose,Whole Blood 96 mg/dL (75-99)
[2019-07-26] MEDS: POLYETHYLENE GLYCOL 3350 17 GM POWD.PACK PO SCH (07:37)
[2019-07-26 08:13] LABS: African American GFR (CKD) >90 (>60 ml/min/1.73 sqM); Non-African American GFR(CKD) >90 (>60 ml/min/1.73 sqM)
[2019-07-26] MEDS: SYMBICORT 160-4.5 MCG INHALER INHALATION SCH ×2 (08:30→19:32)
[2019-07-26] MEDS: metFORMIN 500 MG TAB PO SCH (08:43)
[2019-07-26] MEDS: methylPREDNISolone 4 MG TAB TAPER PO SCH (08:43)
[2019-07-26] MEDS: MULTIVITAMINS, THERA 1 EACH TAB PO SCH (08:43)
[2019-07-26] MEDS: CITALOPRAM HYDROBROMIDE 20 MG TAB PO SCH (08:44)
[2019-07-26] MEDS: PANTOPRAZOLE 40 MG TABLET PO SCH (08:44)
[2019-07-26] MEDS: NEBIVOLOL 5 MG TAB PO SCH (08:44)
[2019-07-26] MEDS: HYDROCHLOROTHIAZIDE 25 MG TAB PO SCH (08:44)
--- NOTE | 2019-07-26 09:12 | US ---
EXAMINATION TYPE: US abdomen complete DATE OF EXAM: 07/26/2019 COMPARISON: NONE CLINICAL HISTORY: fever and abd pain. EXAM MEASUREMENTS: Liver Length: 15.7 cm Gallbladder Wall: Surgically absent cm CBD: 0.7 cm Spleen: 7.7 cm Right Kidney: 12.0 x 4.2 x 4.9 cm Left Kidney: 10.8 x 4.9 x 4.9 cm Pancreas: hypoechoic focus either anterior to pancreatic head or within measuring 0.9 x 0.6 x 1.0cm Liver: Slightly heterogenous compatible some mild fatty infiltration of the liver. Gallbladder: wnl CBD: intrahepatic duct dilatation with echogenic foci with some ringdown artifact anterior wall, clarence ent states no recent ERCP. Pancreatic duct measuring 0.66 cm is slightly prominent greater than 0.6 c m typically identified at this age. Spleen: wnl Right Kidney: No hydronephrosis or masses seen Left Kidney: No hydronephrosis or masses seen Upper IVC: wnl Abd Aorta: distal and bifurcation obscured IMPRESSION: There may be a small hypoechoic area at the head of the pancreas or adjacent to the head of the pancreas. Correlation with the duodenum is not clearly identified on the exam. Consider CT abd omen with pancreas protocol for better evaluation of this region.
[2019-07-26 11:31] LABS: Glucose,Whole Blood 112 mg/dL (75-99)
--- NOTE | 2019-07-26 13:35 | XR ---
EXAMINATION TYPE: XR abdomen 2V DATE OF EXAM: 07/26/2019 COMPARISON: NONE HISTORY: Pain TECHNIQUE: Single supine KUB image of the abdomen is obtained FINDINGS: Small bowel demonstrates no evidence for dilatation or air fluid levels. There is at least moderate fecal stasis noted. Gas and fecal material is seen in non-distended colon. No convincing evidence for pneumoperitoneum. No unusual calcifications. The lung bases are clear. The osseous structures are intact. Postoperative changes lower lumbar spine. IMPRESSION: 1. There is at least moderate fecal stasis noted.
[2019-07-26] MEDS ORDERED: NA PHOS,M-B/NA PHOS,DI-BA 133 ML ENEMA RECTAL ONE (14:03)
--- NOTE | 2019-07-26 14:16 | P.PN ---
Subjective Progress Note Date: 07/26/19 Principal diagnosis: 07/25/2019 This is a 59-year-old female who was recently admitted with a history of back pain with suspected radiculopathy or possible epidural abscess and is being closely monitored. Patient underwent lumbar MRI yesterday showing no signs of discitis, bursitis, or epidural infection. Orthopedic surgery following recommending conservative management with no surgical intervention at this time. Patient was seen and evaluated by Dr. Miranda. Infectious disease is also following. IV vancomycin was discontinued and patient was initiated on ceftriaxone. Patient has been afebrile. Patient was able to work with physical therapy today and has been up and walking with a walker to the bathroom and back and continues to have some bilateral hip discomfort with gait. Patient states that she is passing gas but has not had a bowel movement since Wednesday and is having some mild lower left abdominal discomfort that is radiating to her lower back. Review of systems: Constitutional: No reports of fatigue or fevers Cardiovascular: No reports of chest pain or palpitations Respiratory: No reports of shortness of breath or cough GI: No reports of nausea, vomiting, or diarrhea. Reports constipation : No reports of dysuria or retention Musculoskeletal: Reports mild bilateral hip pain that is slightly improved from yesterday Nervous system: No reports of weakness or numbness 07/26/2019 Patient is seen in follow-up today and continues to have left-sided abdominal pain and states she did have a bowel movement yesterday. She does have history of IBS and takes multiple narcotic medications that cause constipation at times. Patient states that her hip pain remains although is slightly improved and has been able to get up and move around the room slowly but without assistance. Patient states that she is not passing much gas. Abdominal x-ray was done showing moderate fecal stasis noted with no evidence of dilatation or air-fluid levels. An enema was ordered. Currently no reports of chest pain, shortness of breath, or palpitations. Patient remains afebrile. No reports of nausea or vomiting and patient is tolerating diet. Objective - Vital Signs Vital signs: Vital Signs Temp 98.5 F 07/26/19 07:00 Pulse 52 L 07/26/19 08:45 Resp 17 07/26/19 08:45 BP 135/52 07/26/19 07:00 Pulse Ox 99 07/26/19 07:00 Intake & Output 07/25/19 07/26/19 07/26/19 18:59 06:59 18:59 Intake Total 480 480 Output Total 900 Balance 480 -420 Intake: Oral 480 480 Output: Urine 900 Other: Voiding Method Bedside Commode Bedside Commode # Voids 2 - Exam Gen: This is a 59-year-old female sitting up at the side of the bed, awake, alert and oriented 3. HEENT: Head is atraumatic, normocephalic. Pupils equal, round. Sclerae is anicteric. NECK: Supple. No JVD. No lymphadenopathy. No thyromegaly. LUNGS: Breath sounds diminished at the bases with no wheezing or rhonchi noted. No intercostal retractions. HEART: S1, S2 are muffled ABDOMEN: Soft. Bowel sounds are present. No masses. Mild tenderness noted of the left lower quadrant that radiates to the lower back. EXTREMITIES: No pedal edema. No calf tenderness. NEUROLOGICAL: Patient is awake, alert and oriented x3. Cranial nerves 2 through 12 are grossly intact. - Labs CBC & Chem 7: 07/24/19 06:24 07/26/19 07:12 Labs: Abnormal Lab Results - Last 24 Hours (Table) 07/25/19 07/25/19 07/26/19 Range/Units 17:08 21:13 00:15 POC Glucose (mg/dL) 156 H 170 H (75-99) mg/dL Ur Leukocyte Esterase Moderate H (Negative) Urine Mucus Rare H (None) /hpf 07/26/19 Range/Units 11:29 POC Glucose (mg/dL) 112 H (75-99) mg/dL Ur Leukocyte Esterase (Negative) Urine Mucus (None) /hpf Microbiology - Last 24 Hours (Table) 07/23/19 02:34 Blood Culture - Preliminary Blood No Growth after 72 hours Assessment and Plan Assessment: Acute back pain, radiculopathy, fever, ruled out epidural abscess per MRI results Severe gait dysfunction failure of outpatient treatment Possible severe degenerative joint disease as noted on MRI Gait dysfunction Hyponatremia Increased white blood count Anemia of chronic disease, normocytic History of asthma, chronic, intermittent History of coronary artery disease Diabetes mellitus type 2 Gastroesophageal reflux disease hypertension Hyperlipidemia History of pneumonia history of rheumatoid arthritis Hypothyroidism History of bilateral glaucoma Irritable bowel syndrome Bilateral carpal tunnel syndrome History of degenerative joint disease and back surgery, as mentioned earlier History of bilateral breast reduction Anxiety Full code Recommendations and discussion: Recommend to continue with current medications, management, and symptomatic treatment. Abdominal x-ray done today showing moderate fecal stasis noted and enema was ordered. Patient is on IV ceftriaxone as patient states she was having some burning and discomfort with urination although states this is resolved now. Urinalysis only showed a moderate amount of leukocytes esterase otherwise negative with no culture done. Infectious disease following. Further recommendations to follow. Possible discharge in 24-48 hours.
[2019-07-26 16:24] LABS: Glucose,Whole Blood 118 mg/dL (75-99)
--- NOTE | 2019-07-26 16:41 | PN ---
PROGRESS NOTE DATE OF SERVICE: 07/26/2019 REASON FOR FOLLOWUP: Fever and a question of UTI. INTERVAL HISTORY: The patient is currently afebrile. She has been breathing comfortably. The patient's back pain is currently responding to steroids the patient has been started on. The patient's abdominal pain has improved. Denies having nausea. No vomiting. No chest pain, shortness of breath or cough. PHYSICAL EXAMINATION: Blood pressure 135/52 with a pulse of 52, temperature of 98.5. She is 99% on room air. General description is a middle-aged female up in the bed in no distress. RESPIRATORY SYSTEM: Unlabored breathing. Clear to auscultation anteriorly. HEART: S1, S2. Regular rate and rhythm. ABDOMEN: Soft. No tenderness. LABS: Urine shows moderate leukocyte esterase but no significant pyuria. Creatinine 0.60. DIAGNOSTIC IMPRESSION AND PLAN: 1. Patient admitted to hospital with intractable back pain, more likely secondary to herniated disc, with no evidence of any diskitis, currently being treated with steroids. 2. Patient with a fever with concern for possible urinary tract infection, as the patient did have urinary symptoms and lower abdominal pain. Ultrasound did show some abnormality of the pancreas which can be evaluated with a CT. She is on Rocephin. May consider short course of oral Ceftin on discharge. Continue with supportive care. MMODL / IJN: [id number] /
[2019-07-26] MEDS: SODIUM CHLORIDE 0.9% 1,000 ML IV SCH ×2 (19:27→22:01)
[2019-07-26 20:22] LABS: Glucose,Whole Blood 133 mg/dL (75-99)
[2019-07-26] MEDS: MONTELUKAST 10 MG TAB PO SCH (20:45)
[2019-07-26] MEDS: GABAPENTIN 300 MG CAP PO SCH (20:45)
[2019-07-26] MEDS: ATORVASTATIN 10 MG TAB PO SCH (20:45)
[2019-07-26] MEDS: LORATADINE 10 MG TAB PO SCH (20:45)
[2019-07-26] MEDS: POTASSIUM CHLORIDE ER 10 MEQ TAB.ER.PRT PO SCH (20:45)
[2019-07-26] MEDS: ACETAMINOPHEN TAB 325 MG TAB PO PRN (20:45)
[2019-07-26] MEDS: TEMAZEPAM 15 MG CAP PO SCH (20:45)
[2019-07-27] MEDS: SODIUM CHLORIDE 0.9% 1,000 ML IV SCH (05:12)
[2019-07-27 06:57] LABS: Glucose,Whole Blood 96 mg/dL (75-99)
[2019-07-27] MEDS: SYMBICORT 160-4.5 MCG INHALER INHALATION SCH (07:46)
[2019-07-27 08:07] LABS: African American GFR (CKD) >90 (>60 ml/min/1.73 sqM); Non-African American GFR(CKD) >90 (>60 ml/min/1.73 sqM)
[2019-07-27 08:21] VITALS: BP 137/77; PULSE 54; RESP 16; TEMP 98.1
[2019-07-27] MEDS: CITALOPRAM HYDROBROMIDE 20 MG TAB PO SCH (08:34)
[2019-07-27] MEDS: metFORMIN 500 MG TAB PO SCH (08:34)
[2019-07-27] MEDS: POLYETHYLENE GLYCOL 3350 17 GM POWD.PACK PO SCH (08:34)
[2019-07-27] MEDS: methylPREDNISolone 4 MG TAB TAPER PO SCH (08:34)
[2019-07-27] MEDS: MULTIVITAMINS, THERA 1 EACH TAB PO SCH (08:34)
[2019-07-27] MEDS: PANTOPRAZOLE 40 MG TABLET PO SCH (08:34)
[2019-07-27] MEDS: HYDROCHLOROTHIAZIDE 25 MG TAB PO SCH (08:34)
[2019-07-27] MEDS: NEBIVOLOL 5 MG TAB PO SCH (08:34)
[2019-07-27 11:21] LABS: Glucose,Whole Blood 112 mg/dL (75-99)
[2019-07-27] MEDS: HYDROcodone/APAP 5-325MG 1 EACH TAB PO PRN (11:24)
--- NOTE | 2019-07-27 14:08 | PN ---
PROGRESS NOTE DATE OF SERVICE: 07/27/2019 REASON FOR FOLLOWUP: Possible UTI. INTERVAL HISTORY: The patient is currently afebrile. Patient overall is feeling better. The back pain has improved. Denies having any chest pain, shortness of breath or cough. No nausea, no vomiting. No abdominal pain, no diarrhea. PHYSICAL EXAMINATION: Blood pressure 137/77, pulse of 54, temperature 98.1, she is 99% on room air. General description is a middle-aged female, up in the bed in no distress. RESPIRATORY SYSTEM: Unlabored breathing, clear to auscultation anteriorly. HEART: S1, S2. Regular rate and rhythm. ABDOMEN: Soft, no tenderness. LABS: Blood culture negative. DIAGNOSTIC IMPRESSION AND PLAN: 1. Patient admitted to the hospital with back pain more likely related to herniated disk with no evidence of any diskitis. Blood culture negative. 2. Patient with positive urine culture for possible urinary tract infection. The patient to finish a short course of oral Ceftin. Continue supportive care. MMODL / IJN: [id number] /
--- NOTE | 2019-07-27 14:57 | P.DS ---
Providers Date of admission: 07/26/19 11:31 Expected date of discharge: 07/27/19 Attending physician: Dieudonne Mcclain Consults: 07/23/19 02:34 Consult Physician Stat Consulting Provider: Hugo Cano Consult Reason/Comments: septic bursitis Do you want consulting provider notified?: Yes 07/23/19 11:18 Consult Physician Stat Consulting Provider: Prince Francisco Consult Reason/Comments: fever, sacrospinal ulcer Do you want consulting provider notified?: Yes Primary care physician: Keila Mahmood [facility] Course: Final diagnosis Acute back pain, radiculopathy, fever, ruled out epidural abscess per MRI results Severe gait dysfunction failure of outpatient treatment Possible severe degenerative joint disease as noted on MRI Gait dysfunction Hyponatremia Increased white blood count Anemia of chronic disease, normocytic History of asthma, chronic, intermittent History of coronary artery disease Diabetes mellitus type 2 Gastroesophageal reflux disease hypertension Hyperlipidemia History of pneumonia history of rheumatoid arthritis Hypothyroidism History of bilateral glaucoma Irritable bowel syndrome Bilateral carpal tunnel syndrome History of degenerative joint disease and back surgery, as mentioned earlier History of bilateral breast reduction Anxiety Full code Discharge disposition Patient is being discharged in a stable condition with guarded prognosis to home and will follow-up with primary care provider Dr. Keila Mahmood upon discharge. Patient will also need to follow-up with pain management in the outpatient setting. She will continue a short course of oral antibiotics in the form of Ceftin twice daily for the next 3 days. Total time taken is 35 minutes. History of present illness This is a 59-year-old female was recently admitted with possible right-sided septic bursitis or discitis chronic lower back pain and was being closely monitored. Medical consultations following. Infectious disease was following also and patient was initiated on broad-spectrum IV antibiotics and also was found to have an acute urinary tract infection and was treated with ceftriaxone and will continue with Ceftin in the outpatient setting for the next 3 days to complete a course. Patient is on multiple narcotic medications and will need to continue following up with her primary care provider as well as pain management in the outpatient setting. Patient underwent MRI showing no signs of epidural abscess, bursitis, or discitis. Patient had some left-sided abdominal discomfort and underwent an ultrasound of the abdomen which was nondiagnostic recommending CT and patient was given a prescription for this to be done in the outpatient setting. Patient states her abdominal pain has subsided at this time. Patient does have a history of IBS and takes multiple narcotics and often has constipation issues. An abdominal x-ray was done yesterday showing fecal stasis and was given an enema. Patient will be home with Sennatalieot and KelX and instructed to cut down on her narcotic medication use. Currently no reports of chest pain, shortness of breath, or palpitations. Patient is afebrile. No reports of nausea or vomiting and patient is tolerating diet. On exam vital signs are stable. Temp is 98.1 F, pulse is 54, respirations are 16, blood pressure is 137/77, oxygen saturation is 99% on room air. Cardio S1, S2 are present. Respiratory shows clear to auscultation. Abdomen is soft and nontender. Nervous system shows no focal deficits. Please refer to medication reconciliation sheet for a list of medications. Patient Condition at Discharge: Stable Plan - Discharge Summary Discharge Rx Participant: No New Discharge Prescriptions: New Cefuroxime Axetil [Ceftin] 500 mg PO BID 3 Days #6 tab Bisacodyl [Dulcolax] 10 mg PO DAILY PRN #30 tablet.dr PRN Reason: Constipation Cyclobenzaprine [Flexeril] 10 mg PO TID PRN #12 tab PRN Reason: Muscle Spasm methylPREDNISolone Dose Pack [Medrol Dose Pack] 12 mg PO DAILY 3 Days #3 tab Polyethylene Glycol 3350 [Miralax] 17 gm PO DAILY #30 powd.pack Acetaminophen Tab [Tylenol] 650 mg PO Q6HR PRN tab PRN Reason: Mild Pain Or Fever > 100.5 Continue Montelukast [Singulair] 10 mg PO HS Esomeprazole Magnesium [NexIUM] 40 mg PO DAILY Budesonide/Formoterol Fumarate [Symbicort 160-4.5 Mcg Inhaler] 2 puff INHALATION RT-BID Albuterol Sulfate [Proair Hfa] 2 puff INHALATION RT-Q4H PRN PRN Reason: Shortness Of Breath Hydrochlorothiazide [Hydrodiuril] 25 mg PO DAILY Eszopiclone [Lunesta] 3 mg PO HS metFORMIN HCL [Glucophage] 500 mg PO DAILY Citalopram Hydrobromide [Citalopram HBr] 20 mg PO DAILY Fluticasone Nasal [place] [Flonase Nasal [place]] 1 spray EA NOSTRIL DAILY PRN PRN Reason: Nasal Congestion Albuterol Nebulized [Ventolin Nebulized] 2.5 mg INHALATION RT-QID PRN PRN Reason: Shortness Of Breath Atorvastatin [Lipitor] 10 mg PO HS Nebivolol HCl [Bystolic] 10 mg PO DAILY Cetirizine HCl [Zyrtec] 10 mg PO HS Gabapentin [Neurontin] 300 mg PO HS Acetaminophen-Codeine 300-30mg [Tylenol w/codeine #3] 1 - 2 tab PO Q4-6H PRN PRN Reason: Pain Multivitamins, Thera [Multivitamin (formulary)] 1 tab PO DAILY Potassium Chloride ER [K-Dur 10] 10 meq PO HS Discontinued Ibuprofen [Motrin] 800 mg PO Q6H PRN PRN Reason: Pain traMADol HCL 50 mg PO Q6HR PRN PRN Reason: Pain Discharge Medication List Albuterol Sulfate [Proair Hfa] 2 puff INHALATION RT-Q4H PRN 08/21/14 [History] Budesonide/Formoterol Fumarate [Symbicort 160-4.5 Mcg Inhaler] 2 puff INHALATION RT-BID 08/21/14 [History] Esomeprazole Magnesium [NexIUM] 40 mg PO DAILY 08/21/14 [History] Montelukast [Singulair] 10 mg PO HS 08/21/14 [History] Hydrochlorothiazide [Hydrodiuril] 25 mg PO DAILY 09/09/14 [History] Eszopiclone [Lunesta] 3 mg PO HS 04/20/16 [History] Albuterol Nebulized [Ventolin Nebulized] 2.5 mg INHALATION RT-QID PRN 11/10/17 [History] Atorvastatin [Lipitor] 10 mg PO HS 11/10/17 [History] Citalopram Hydrobromide [Citalopram HBr] 20 mg PO DAILY 11/10/17 [History] Fluticasone Nasal [place] [Flonase Nasal [place]] 1 spray EA NOSTRIL DAILY PRN 11/10/17 [History] metFORMIN HCL [Glucophage] 500 mg PO DAILY 11/10/17 [History] Cetirizine HCl [Zyrtec] 10 mg PO HS 03/28/18 [History] Nebivolol HCl [Bystolic] 10 mg PO DAILY 12/17/18 [History] Gabapentin [Neurontin] 300 mg PO HS 05/15/19 [History] Acetaminophen-Codeine 300-30mg [Tylenol w/codeine #3] 1 - 2 tab PO Q4-6H PRN 07/22/19 [History] Multivitamins, Thera [Multivitamin (formulary)] 1 tab PO DAILY 07/22/19 [History] Potassium Chloride ER [K-Dur 10] 10 meq PO HS 07/22/19 [History] Acetaminophen Tab [Tylenol] 650 mg PO Q6HR PRN tab 07/27/19 [Rx] Bisacodyl [Dulcolax] 10 mg PO DAILY PRN #30 tablet. 07/27/19 [Rx] Cefuroxime Axetil [Ceftin] 500 mg PO BID 3 Days #6 tab 07/27/19 [Rx] Cyclobenzaprine [Flexeril] 10 mg PO TID PRN #12 tab 07/27/19 [Rx] Polyethylene Glycol 3350 [Miralax] 17 gm PO DAILY #30 powd.pack 07/27/19 [Rx] methylPREDNISolone Dose Pack [Medrol Dose Pack] 12 mg PO DAILY 3 Days #3 tab 07/27/19 [Rx] Follow up Appointment(s)/Referral(s): Alex Miranda DO [Doctor of Osteopathic Medicine] - 08/18/19 9:30 am (Follow-up may be done via telehealth if in person visits are not available) [facility], [NON-STAFF] - Keila Mahmood MD [Primary Care Provider] - 1-2 days (Office closed. Please call office in AM to schedule your appointment. Thank you.) Ambulatory/Diagnostic Orders: Miscellaneous Radiology Order [RAD.AMB] Time Frame: 2 Weeks, Facility: [facility], Location: [facility] Patient Instructions/Handouts: Back Pain (ED) Activity/Diet/Wound Care/Special Instructions: Activity Limited until follow-up Follow up with primary care provider upon discharge Continue current diet Continue antibiotics until finished Follow-up with painter helper sign in the outpatient setting CAT scan in 2-3 weeks Discharge Disposition: HOME WITH HOME HEALTH SERVICES
== END 2019-07-27 17:10 | disposition home health service (06) | DRG 552 ==
LOC: EC 01:33 → 6NMEDSUR 04:42 → 4SSUR 07-25 16:45 → OBSVTOIN 07-26 11:31
PROVIDERS: ADMIT Hospitalist; ATTEND Hospitalist
DX: M54.16 Radiculopathy, lumbar region (principal); E87.1 Hypo-osmolality and hyponatremia; N39.0 Urinary tract infection, site not specified; D63.8 Anemia in other chronic diseases classified elsewhere; Z20.828 Contact with and (suspected) exposure to other viral communicable diseases; R26.9 Unspecified abnormalities of gait and mobility; E03.9 Hypothyroidism, unspecified; E78.5 Hyperlipidemia, unspecified; E11.39 Type 2 diabetes mellitus with other diabetic ophthalmic complication; G89.29 Other chronic pain; I25.10 Atherosclerotic heart disease of native coronary artery without angina pectoris; I10 Essential (primary) hypertension; K21.9 Gastro-esophageal reflux disease without esophagitis; M06.9 Rheumatoid arthritis, unspecified; H40.9 Unspecified glaucoma; H42 Glaucoma in diseases classified elsewhere; K58.1 Irritable bowel syndrome with constipation; J45.20 Mild intermittent asthma, uncomplicated; G56.03 Carpal tunnel syndrome, bilateral upper limbs; L30.9 Dermatitis, unspecified; G47.00 Insomnia, unspecified; F41.9 Anxiety disorder, unspecified; K44.9 Diaphragmatic hernia without obstruction or gangrene; Z79.51 Long term (current) use of inhaled steroids; Z79.84 Long term (current) use of oral hypoglycemic drugs; Z79.899 Other long term (current) drug therapy; Z90.49 Acquired absence of other specified parts of digestive tract; Z90.710 Acquired absence of both cervix and uterus; Z87.01 Personal history of pneumonia (recurrent); Z86.010 Personal history of colon polyps; Z98.1 Arthrodesis status; Z87.440 Personal history of urinary (tract) infections; Z98.890 Other specified postprocedural states; Z86.69 Personal history of other diseases of the nervous system and sense organs; Z98.42 Cataract extraction status, left eye; Z98.41 Cataract extraction status, right eye; Z88.5 Allergy status to narcotic agent; Z88.8 Allergy status to other drugs, medicaments and biological substances; J30.2 Other seasonal allergic rhinitis; Z82.49 Family history of ischemic heart disease and other diseases of the circulatory system; Z80.42 Family history of malignant neoplasm of prostate; Z83.511 Family history of glaucoma
CPT/HCPCS: 36415; 72114; 72158; 74019; 76700; 80048; 80053; 80202; 81001; 82565; 83605; 84484; 85025; 85652; 86140; 87040; 87635; 94640; 96365; 96366; 96367; 96375; 96376; 99285

== ENCOUNTER → 2019-11-16 | Outpatient (CLI) | payer BC ==
--- NOTE | 2019-11-20 14:00 | MM ---
Reason for exam: screening (asymptomatic). Last mammogram was performed 1 year and 6 months ago. History: Patient is postmenopausal. Family history of breast cancer in maternal aunt at age 50. Benign US breast needle core RT of the right breast, September 21, 2016. Reductions of both breasts, November 2008. Took hormonal contraceptives for 12 years 8 months beginning at age 37. Physical Findings: A clinical breast exam by your physician is recommended on an annual basis and results should be correlated with mammographic findings. MG Screening Mammo w CAD Bilateral CC and MLO view(s) were taken. Prior study comparison: May 05, 2018, bilateral MG screening mammo w CAD. September 21, 2016, right breast MG diagnostic mammo RT wo CAD. There are scattered fibroglandular densities. There are benign appearing round calcifications bilaterally, greater in the right breast. There is chronic nodularity in the left axilla. There is no discrete abnormality. ASSESSMENT: Benign, BI-RAD 2 RECOMMENDATION: Routine screening mammogram of both breasts in 1 year.
== END | disposition home or self-care (01) ==
LOC: RADMAMWWP 07:46
PROVIDERS: ATTEND Obstetrics & Gynecology
DX: Z12.31 Encounter for screening mammogram for malignant neoplasm of breast (principal)
CPT/HCPCS: 77067

== ENCOUNTER → 2019-12-29 | Outpatient (CLI) | payer BC ==
[2019-12-29 13:40] LABS: Basophils % (A) 0 %; Eosinophils # (A) 0.3 k/uL (0-0.7); Eosinophils % (A) 3 %; HCT 39.5 % (34.0-46.0); Hypochromasia Slight; Lymphocytes # (A) 3.3 k/uL (1.0-4.8); Lymphocytes % (A) 41 %; MCHC 30.5 g/dL (31.0-37.0); MCV 82.1 fL (80.0-100.0); Mean Platelet Volume 6.7; Monocytes # (A) 0.4 k/uL (0-1.0); Monocytes % (A) 5 %; Neutrophils # (A) 3.9 k/uL (1.3-7.7); Neutrophils % (A) 48 %; Platelet Count 356 k/uL (150-450); RBC 4.81 m/uL (3.80-5.40); RDW 15.2 % (11.5-15.5)
[2019-12-29 19:21] LABS: African American GFR (CKD) 94.9 (60.0-200.0); Albumin 4.3 g/dL (3.80-4.90); Albumin/Globulin Ratio 2.26 (1.60-3.17); Anion Gap 8.7 mmol/L (4.00-12.00); BUN/Creat Ratio 23.75 Ratio (12.00-20.00); Calcium 9.3 mg/dL (8.7-10.3); Carbon Dioxide 31.3 mmol/L (21.6-31.8); Globulin 1.9 g/dL (1.6-3.3); Non-African American GFR(CKD) 81.8 (60.0-200.0); Potassium 4.2 mmol/L (3.5-5.5); Total Bilirubin 0.4 mg/dL (0.2-1.2); Total Protein 6.2 g/dL (6.2-8.2)
== END | disposition home or self-care (01) ==
LOC: LABWHC1 12:52
PROVIDERS: ATTEND Internal Medicine
DX: R11.2 Nausea with vomiting, unspecified (principal); R10.9 Unspecified abdominal pain; R19.7 Diarrhea, unspecified
CPT/HCPCS: 36415; 80053; 82150; 83690; 85025

== ENCOUNTER → 2020-05-01 | Outpatient (CLI) | payer BC ==
--- NOTE | 2020-05-02 01:26 | MR ---
EXAMINATION TYPE: MR brain wo con DATE OF EXAM: 05/01/2020 COMPARISON: None HISTORY: Headaches and left side neck pain. Multiplanar multiecho imaging of the brain was performed without contrast. Ventricles and sulci appear fairly normal. There is no mass effect nor midline shift. There is no sig n of intracranial hemorrhage. Diffusion images show no evidence of cortical infarct. Corpus callosum is intact. Sella turcica is normal. Brainstem is intact. White matter appears normal without evidence of edema. There is no evidence of posterior fossa mass. IMPRESSION: Normal MR scan of the brain.
== END | disposition home or self-care (01) ==
LOC: RADMRIMAIN 19:56
PROVIDERS: ATTEND Internal Medicine
DX: G44.221 Chronic tension-type headache, intractable (principal)
CPT/HCPCS: 70551

== ENCOUNTER → 2020-05-31 | Outpatient (CLI) | payer BC ==
--- NOTE | 2020-06-01 13:03 | MR ---
MRI CERVICAL SPINE: CLINICAL HISTORY: Headache and neck pain. Radiculopathy. TECHNIQUE: Multiplanar, multisequence imaging of the cervical spine is performed without IV contrast. COMPARISON: MRI cervical spine June 06, 2010. FINDINGS: Sagittal images of the cervical spine show the craniocervical junction to remain within nor mal limits. The cervical and upper thoracic spinal cord redemonstrates generalized canal AP diameter narrowing at C7 level without abnormal signal. Generalized AP diameter canal narrowing C3-C6 levels redemonstrated. Stable reversal of normal cervical curvature with grade 1 retrolisthesis C4 on C5, C5 on C6, and C6 on C7. Subtle grade 1 retrolisthesis C3 and C4 is redemonstrated. The vertebral body heights remain normal. Moderate disc space narrowing and anterior spurring C4-C5 and C5-C6 levels mor e prominent from prior. The bone marrow signal intensity remains within normal limits. Axial images at C2-C3 level showed no uncovertebral facet degenerative changes bilaterally causing mi ld right and moderate left-sided neural foraminal narrowing. At C3-C4 level there is subtle spondylolisthesis and broad-based left paracentral protrusion and unco vertebral facet degenerative changes. There is effacement anterior thecal sac. There is qtll-ly-cidoh ate bilateral neural foraminal narrowing. Interval progression from prior MRI. At C4-C5 is spondylolisthesis with more prominent left paracentral disc protrusion and uncovertebral facet degenerative changes, there is a prominent effacement of the anterior thecal sac and moderate t o advanced left and moderate right-sided neural foraminal narrowing. Some flattening of the ventral s urface spinal cord seen left aspect. Interval degenerative progression from prior MRI noted. At C5-C6 there is Slight flattening of the ventral surface cord noted axial image 19. Interval degene rative progression from prior MRI noted. At C6-C7 there is spondylosis and posterior spur disc complex with effacement of the anterior thecal sac and moderate bilateral neural foraminal narrowing. Interval degenerative progression from prior M RI noted. At C7-T1 level there is right foraminal disc protrusion causing asymmetric mild to moderate right-jazmin ed neural foraminal narrowing on image 17. IMPRESSION: Multilevel spondylolisthesis and degenerative changes in the cervical spine as detailed a sid. Interval progression from 2011 MRI noted
== END | disposition home or self-care (01) ==
LOC: RADMRIMAIN 14:45
PROVIDERS: ATTEND Hospitalist
DX: M43.12 Spondylolisthesis, cervical region (principal); M47.22 Other spondylosis with radiculopathy, cervical region
CPT/HCPCS: 72141

== ENCOUNTER 2020-06-25 10:44 | Emergency (ER) | payer BC ==
[2020-06-25 11:03] VITALS: RESP 18
[2020-06-25] MEDS ORDERED: PANTOPRAZOLE 40 MG/10 ML VIAL IVP STA (11:31)
[2020-06-25] MEDS ORDERED: SODIUM CHLORIDE 0.9% 500 ML 500 ML IV STA (11:31)
[2020-06-25] MEDS ORDERED: SODIUM CHLORIDE 0.9% 1,000 ML IV STA (11:31)
[2020-06-25] MEDS ORDERED: MAG HYDROX/AL HYDROX/SIMETH 30 ML, HYOSCYAMINE ELIXIR 10 ML PO STA ×2 (11:31)
[2020-06-25] MEDS ORDERED: ONDANSETRON 4 MG/2 ML VIAL IVP STA (11:31)
--- NOTE | 2020-06-25 11:34 | ED ---
General Adult HPI - General Chief complaint: Nausea/Vomiting/Diarrhea Stated complaint: NVD Time Seen by Provider: 06/25/20 11:10 Source: patient, RN notes reviewed Mode of arrival: wheelchair Limitations: no limitations - History of Present Illness Initial comments: This a 60-year-old female presents emergency Department chief complaint of upper abdominal pain. Patient is has been bothersome or last few days states that she's had associated nausea vomiting diarrhea. Denies any melena hematochezia and no hematemesis no coffee-ground emesis. Patient states that she has burning in her upper stomach has no rating upper chest states that this been on and off for last few days the chest pain is not new. 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 Patient is a diabetic which she takes metformin. Patient also has been on chronic steroids from asthma. No complaints dysuria no fever or chills. - Related Data Home Medications Medication Instructions Recorded Confirmed Albuterol Sulfate [Proair Hfa] 2 puff INHALATION RT-Q4H PRN 08/21/14 07/23/19 Budesonide/Formoterol Fumarate 2 puff INHALATION RT-BID 08/21/14 07/23/19 [Symbicort 160-4.5 Mcg Inhaler] Esomeprazole Magnesium [NexIUM] 40 mg PO DAILY 08/21/14 07/23/19 Montelukast [Singulair] 10 mg PO HS 08/21/14 07/23/19 hydroCHLOROthiazide [Hydrodiuril] 25 mg PO DAILY 09/09/14 07/23/19 Eszopiclone [Lunesta] 3 mg PO HS 04/20/16 07/23/19 Albuterol Nebulized [Ventolin 2.5 mg INHALATION RT-QID PRN 11/10/17 07/23/19 Nebulized] Atorvastatin [Lipitor] 10 mg PO HS 11/10/17 07/23/19 Citalopram Hydrobromide 20 mg PO DAILY 11/10/17 07/23/19 [Citalopram HBr] Fluticasone Nasal [place] [Flonase 1 spray EA NOSTRIL DAILY PRN 11/10/17 07/23/19 Nasal [place]] metFORMIN HCL [Glucophage] 500 mg PO DAILY 11/10/17 07/23/19 Cetirizine HCl [Zyrtec] 10 mg PO HS 03/28/18 07/23/19 Nebivolol HCl [Bystolic] 10 mg PO DAILY 03/28/18 07/23/19 Gabapentin [Neurontin] 300 mg PO HS 05/15/19 07/23/19 Acetaminophen-Codeine 300-30mg 1 - 2 tab PO Q4-6H PRN 07/22/19 07/23/19 [Tylenol w/codeine #3] Multivitamins, Thera [Multivitamin 1 tab PO DAILY 07/22/19 07/23/19 (formulary)] Potassium Chloride ER [K-Dur 10] 10 meq PO HS 07/22/19 07/23/19 Previous Rx's Medication Instructions Recorded Acetaminophen Tab [Tylenol] 650 mg PO Q6HR PRN tab 07/27/19 Cefuroxime Axetil [Ceftin] 500 mg PO BID 3 Days #6 tab 07/27/19 Cyclobenzaprine [Flexeril] 10 mg PO TID PRN #12 tab 07/27/19 bisacodyL [Dulcolax] 10 mg PO DAILY PRN #30 tablet.dr 07/27/19 methylPREDNISolone Dose Pack 12 mg PO DAILY 3 Days #3 tab 07/27/19 [Medrol Dose Pack] polyethylene glycoL 3350 [Miralax] 17 gm PO DAILY #30 powd.pack 07/27/19 Ondansetron Odt [Zofran Odt] 4 mg PO Q8HR PRN #10 tab 06/25/20 Sucralfate [Carafate] 1 gm PO BID #14 tablet 06/25/20 Allergies Allergy/AdvReac Type Severity Reaction Status Date / Time DESTINY Inhibitors Allergy Rash/Hives Verified 06/25/20 11:03 hydromorphone HCl Allergy Anaphylaxis Verified 06/25/20 11:03 [From Dilaudid] latex Allergy Rash/Hives Verified 06/25/20 11:03 propoxyphene napsylate Allergy Swelling Verified 06/25/20 11:03 [From Darvocet-N] Review of Systems ROS Statement: Those systems with pertinent positive or pertinent negative responses have been documented in the HPI. ROS Other: All systems not noted in ROS Statement are negative. Past Medical History Past Medical History: Asthma, Coronary Artery Disease (CAD), Diabetes Mellitus, Eye Disorder, GERD/Reflux, Hyperlipidemia, Hypertension, Pneumonia, Respiratory Disorder, Rheumatoid Arthritis (RA), Skin Disorder, Thyroid Disorder Additional Past Medical History / Comment(s): NIDDM type II, bronchitis, murmur, bilateral eye glaucoma, hiatal hernia, IBS, eczema, hypothyroid, migraines, bilateral carpal tunnel syndrome, lumbar back pain which has lessened since back surgery, insomnia, normocytic anemia, UTIs, seasonal allergies/sinus problems History of Any Multi-Drug Resistant Organisms: None Reported Date of last positivie culture/infection: 2014 Past Surgical History: Back Surgery, Breast Surgery, Cholecystectomy, Heart Catheterization, Hysterectomy, Orthopedic Surgery Additional Past Surgical History / Comment(s): Bilateral breast reduction, R breast bx-benign, L knee arthroscopy, lumbar back surgery, bilateral cataract removals, colonoscopy/benign polypectomy, vocal cord poylpectomies, D&C Past Anesthesia/Blood Transfusion Reactions: Motion Sickness Past Psychological History: Anxiety Smoking Status: Never smoker Past Alcohol Use History: None Reported Past Drug Use History: None Reported - Past Family History Father Family Medical History: Cancer, Hypertension Additional Family Medical History / Comment(s): Prostate cancer Mother Family Medical History: Eye Disorder, Hypertension, Vascular Disorder Additional Family Medical History / Comment(s): Mother had glaucoma. She of a brain aneurysm rupture at the age of 57yrs. General Exam Limitations: no limitations General appearance: alert, in no apparent distress Head exam: Present: atraumatic, normocephalic, normal inspection Eye exam: Present: normal appearance, PERRL, EOMI. Absent: scleral icterus, conjunctival injection, periorbital swelling ENT exam: Present: normal exam, normal oropharynx, mucous membranes moist Neck exam: Present: normal inspection, full ROM. Absent: tenderness, meningismus, lymphadenopathy Respiratory exam: Present: normal lung sounds bilaterally. Absent: respiratory distress, wheezes, rales, rhonchi, stridor Cardiovascular Exam: Present: regular rate, normal rhythm, normal heart sounds. Absent: systolic murmur, diastolic murmur, rubs, gallop, clicks GI/Abdominal exam: Present: soft, tenderness (Moderate epigastric), normal bowel sounds. Absent: distended, guarding, rebound, rigid Back exam: Absent: CVA tenderness (R), CVA tenderness (L) Neurological exam: Present: alert, oriented X3 Skin exam: Present: warm, dry, intact, normal color. Absent: rash Course Vital Signs 06/25/20 06/25/20 06/25/20 11:00 11:16 12:05 Temperature 98.8 F Pulse Rate 62 62 54 L Respiratory 18 18 18 Rate Blood Pressure 130/94 149/91 148/87 O2 Sat by Pulse 100 100 100 Oximetry Medical Decision Making - Medical Decision Making 60-year-old male presented for nausea vomiting diarrhea over the last 3 days. She is had issues with her reflux she was given GI cocktail Carafate and Protonix which has improved her symptoms. She states that her nausea has resolved. She has not went to chest pain. Patient's symptoms have been present for 3 days. - Lab Data Result diagrams: 06/25/20 11:49 06/25/20 11:49 Lab Results 06/25/20 06/25/20 06/25/20 Range/Units 11:49 11:49 11:49 WBC 12.0 H (3.8-10.6) k/uL RBC 4.43 (3.80-5.40) m/uL Hgb 11.6 (11.4-16.0) gm/dL Hct 36.4 (34.0-46.0) % MCV 82.1 (80.0-100.0) fL MCH 26.1 (25.0-35.0) pg MCHC 31.8 (31.0-37.0) g/dL RDW 14.8 (11.5-15.5) % Plt Count 429 (150-450) k/uL MPV 7.0 Neutrophils % 75 % Lymphocytes % 18 % Monocytes % 4 % Eosinophils % 2 % Basophils % 0 % Neutrophils # 9.1 H (1.3-7.7) k/uL Lymphocytes # 2.1 (1.0-4.8) k/uL Monocytes # 0.5 (0-1.0) k/uL Eosinophils # 0.2 (0-0.7) k/uL Basophils # 0.0 (0-0.2) k/uL Sodium 136 L (137-145) mmol/L Potassium 4.1 (3.5-5.1) mmol/L Chloride 101 (98-107) mmol/L Carbon Dioxide 30 (22-30) mmol/L Anion Gap 5 mmol/L BUN 21 H (7-17) mg/dL Creatinine 0.72 (0.52-1.04) mg/dL Est GFR (CKD-EPI)AfAm >90 (>60 ml/min/1.73 sqM) Est GFR (CKD-EPI)NonAf >90 (>60 ml/min/1.73 sqM) Glucose 99 (74-99) mg/dL Plasma Lactic Acid [place] 1.3 (0.7-2.0) mmol/L Calcium 9.5 (8.4-10.2) mg/dL Total Bilirubin 0.4 (0.2-1.3) mg/dL AST 19 (14-36) U/L ALT 18 (4-34) U/L Alkaline Phosphatase 98 (38-126) U/L Troponin I (0.000-0.034) ng/mL Total Protein 6.5 (6.3-8.2) g/dL Albumin 3.9 (3.5-5.0) g/dL Amylase 88 (30-110) U/L Lipase 95 (23-300) U/L Urine Color Urine Appearance (Clear) Urine pH (5.0-8.0) Ur Specific [place] (1.001-1.035) Urine Protein (Negative) Urine Glucose (UA) (Negative) Urine Ketones (Negative) Urine Blood (Negative) Urine Nitrite (Negative) Urine Bilirubin (Negative) Urine Urobilinogen (<2.0) mg/dL Ur Leukocyte Esterase (Negative) Urine RBC (0-5) /hpf Urine WBC (0-5) /hpf Ur Squamous Epith Cells (0-4) /hpf 06/25/20 06/25/20 Range/Units 11:49 11:51 WBC (3.8-10.6) k/uL RBC (3.80-5.40) m/uL Hgb (11.4-16.0) gm/dL Hct (34.0-46.0) % MCV (80.0-100.0) fL MCH (25.0-35.0) pg MCHC (31.0-37.0) g/dL RDW (11.5-15.5) % Plt Count (150-450) k/uL MPV Neutrophils % % Lymphocytes % % Monocytes % % Eosinophils % % Basophils % % Neutrophils # (1.3-7.7) k/uL Lymphocytes # (1.0-4.8) k/uL Monocytes # (0-1.0) k/uL Eosinophils # (0-0.7) k/uL Basophils # (0-0.2) k/uL Sodium (137-145) mmol/L Potassium (3.5-5.1) mmol/L Chloride (98-107) mmol/L Carbon Dioxide (22-30) mmol/L Anion Gap mmol/L BUN (7-17) mg/dL Creatinine (0.52-1.04) mg/dL Est GFR (CKD-EPI)AfAm (>60 ml/min/1.73 sqM) Est GFR (CKD-EPI)NonAf (>60 ml/min/1.73 sqM) Glucose (74-99) mg/dL Plasma Lactic Acid [place] (0.7-2.0) mmol/L Calcium (8.4-10.2) mg/dL Total Bilirubin (0.2-1.3) mg/dL AST (14-36) U/L ALT (4-34) U/L Alkaline Phosphatase (38-126) U/L Troponin I <0.012 (0.000-0.034) ng/mL Total Protein (6.3-8.2) g/dL Albumin (3.5-5.0) g/dL Amylase (30-110) U/L Lipase (23-300) U/L Urine Color Light Yellow Urine Appearance Clear (Clear) Urine pH 7.0 (5.0-8.0) Ur Specific [place] 1.011 (1.001-1.035) Urine Protein Negative (Negative) Urine Glucose (UA) Negative (Negative) Urine Ketones Negative (Negative) Urine Blood Negative (Negative) Urine Nitrite Negative (Negative) Urine Bilirubin Negative (Negative) Urine Urobilinogen <2.0 (<2.0) mg/dL Ur Leukocyte Esterase Moderate H (Negative) Urine RBC <1 (0-5) /hpf Urine WBC 7 H (0-5) /hpf Ur Squamous Epith Cells 1 (0-4) /hpf Disposition Clinical Impression: GERD (gastroesophageal reflux disease), Nausea vomiting and diarrhea Disposition: HOME SELF-CARE Condition: Stable Instructions (If sedation given, give patient instructions): Acute Nausea and Vomiting (ED) Additional Instructions: Please return to the Emergency Department if symptoms worsen or any other woody rns. Prescriptions: Sucralfate [Carafate] 1 gm PO BID #14 tablet Ondansetron Odt [Zofran Odt] 4 mg PO Q8HR PRN #10 tab PRN Reason: Nausea Is patient prescribed a controlled substance at d/c from ED?: No Referrals: Keila Mahmood MD [Primary Care Provider] - 1-2 days Time of Disposition: 13:12
[2020-06-25 12:13] LABS: Basophils % (A) 0 %; Eosinophils # (A) 0.2 k/uL (0-0.7); Eosinophils % (A) 2 %; HCT 36.4 % (34.0-46.0); HGB 11.6 gm/dL (11.4-16.0); Lymphocytes # (A) 2.1 k/uL (1.0-4.8); Lymphocytes % (A) 18 %; MCH 26.1 pg (25.0-35.0); MCHC 31.8 g/dL (31.0-37.0); MCV 82.1 fL (80.0-100.0); Monocytes # (A) 0.5 k/uL (0-1.0); Monocytes % (A) 4 %; Neutrophils # (A) 9.1 k/uL (1.3-7.7); Neutrophils % (A) 75 %; Platelet Count 429 k/uL (150-450); RBC 4.43 m/uL (3.80-5.40); RDW 14.8 % (11.5-15.5)
[2020-06-25 12:21] LABS: Appearance,Urine Clear (Clear); Bilirubin,Urine Negative (Negative); Blood,Urine Negative (Negative); Color,Urine Light Yellow; Glucose,Urine (UA) Negative (Negative); Ketones,Urine Negative (Negative); Leukocyte Esterase,Urine Moderate (Negative); Nitrite,Urine Negative (Negative); Protein,Urine Negative (Negative); RBC,Urine <1 /hpf (0-5); Specific Gravity,Urine 1.011 (1.001-1.035); Squamous Epithelial Cell,Urine 1 /hpf (0-4); Urobilinogen,Urine <2.0 mg/dL (<2.0); WBC,Urine 7 /hpf (0-5)
[2020-06-25 12:31] LABS: Potassium 4.1 mmol/L (3.5-5.1)
[2020-06-25 12:32] LABS: ALT 18 U/L (4-34); AST 19 U/L (14-36); African American GFR (CKD) >90 (>60 ml/min/1.73 sqM); Albumin 3.9 g/dL (3.5-5.0); Alkaline Phosphatase 98 U/L (38-126); Amylase 88 U/L (30-110); Anion Gap 5 mmol/L; Blood Urea Nitrogen 21 mg/dL (7-17); Calcium 9.5 mg/dL (8.4-10.2); Carbon Dioxide 30 mmol/L (22-30); Chloride 101 mmol/L (98-107); Glucose 99 mg/dL (74-99); Lipase 95 U/L (23-300); Non-African American GFR(CKD) >90 (>60 ml/min/1.73 sqM); Sodium 136 mmol/L (137-145); Total Bilirubin 0.4 mg/dL (0.2-1.3); Total Protein 6.5 g/dL (6.3-8.2)
--- NOTE | 2020-06-25 12:39 | XR ---
EXAMINATION TYPE: XR chest 2V DATE OF EXAM: 06/25/2020 COMPARISON: 07/22/2019 TECHNIQUE: PA and lateral views submitted. HISTORY: Pain FINDINGS: The lungs are clear and there is no pneumothorax, pleural effusion, or focal pneumonia. No overt fa ilure. Biapical pleural thickening. Surgical clips in the right upper quadrant. IMPRESSION: 1. No acute process.
[2020-06-25] MEDS ORDERED: SUCRALFATE 1 GM TAB PO STA (13:10)
[2020-06-25 13:25] VITALS: BP 148/84; PULSE 57; TEMP 98.6
== END 2020-06-25 13:30 | disposition home or self-care (01) ==
LOC: EC 10:44
DX: K21.9 Gastro-esophageal reflux disease without esophagitis (principal); R19.7 Diarrhea, unspecified; I10 Essential (primary) hypertension; E11.36 Type 2 diabetes mellitus with diabetic cataract; E11.39 Type 2 diabetes mellitus with other diabetic ophthalmic complication; H42 Glaucoma in diseases classified elsewhere; E78.5 Hyperlipidemia, unspecified; J45.909 Unspecified asthma, uncomplicated; F41.9 Anxiety disorder, unspecified; Z79.899 Other long term (current) drug therapy; Z79.84 Long term (current) use of oral hypoglycemic drugs; Z79.51 Long term (current) use of inhaled steroids; Z88.5 Allergy status to narcotic agent; Z91.040 Latex allergy status; Z88.8 Allergy status to other drugs, medicaments and biological substances; Z90.710 Acquired absence of both cervix and uterus; Z90.49 Acquired absence of other specified parts of digestive tract
CPT/HCPCS: 36415; 93005; 80053; 82150; 83605; 83690; 84484; 85025; 81001; 71046; 99284; 96374; 96375; 96361; J2405; C9113

== ENCOUNTER → 2020-07-23 | Outpatient (CLI) | payer BC ==
[2020-07-24 11:39] LABS: Codfish IgE <0.10 kU/L; Egg White IgE <0.10 kU/L; Peanut IgE <0.10 kU/L; Soybean IgE <0.10 kU/L
[2020-07-24 11:40] LABS: Clam IgE <0.10 kU/L; Scallop IgE <0.10 kU/L; Shrimp IgE <0.10 kU/L; Walnut IgE (Food) <0.10 kU/L
[2020-07-24 11:41] LABS: Dermato. farinae IgE <0.10 kU/L
[2020-07-24 11:42] LABS: Cat Epith & Dander IgE <0.10 kU/L; Dog Dander IgE <0.10 kU/L
[2020-07-24 11:43] LABS: Aspergillus fumagatus IgE <0.10 kU/L; Cladosporian herbarum IgE <0.10 kU/L; Cockroach IgE <0.10 kU/L
[2020-07-24 11:44] LABS: Alternaria alternata IgE <0.10 kU/L; Birch IgE <0.10 kU/L; Maple (Box Elder) IgE <0.10 kU/L; Oak IgE <0.10 kU/L
[2020-07-24 11:45] LABS: Elm IgE <0.10 kU/L; Ragweed,Common IgE <0.10 kU/L
[2020-07-24 11:46] LABS: Red Top (Bentgrass) IgE <0.10 kU/L
== END | disposition home or self-care (01) ==
LOC: LABWHC1 15:25
PROVIDERS: ATTEND Internal Medicine Critical Care Medicine
DX: J45.901 Unspecified asthma with (acute) exacerbation (principal)
CPT/HCPCS: 36415; 82785; 86003

== ENCOUNTER 2020-09-06 16:08 | Emergency (ER) | payer BC ==
[2020-09-06 16:17] VITALS: RESP 18
[2020-09-06] MEDS ORDERED: SODIUM CHLORIDE 0.9% 500 ML 500 ML IV STA (16:47)
[2020-09-06 17:14] LABS: Basophils % (A) 1 %; Eosinophils # (A) 0.3 k/uL (0-0.7); Eosinophils % (A) 3 %; HCT 31.4 % (34.0-46.0); HGB 10.4 gm/dL (11.4-16.0); Lymphocytes # (A) 3.1 k/uL (1.0-4.8); Lymphocytes % (A) 39 %; MCH 26.7 pg (25.0-35.0); MCHC 33.2 g/dL (31.0-37.0); MCV 80.3 fL (80.0-100.0); Mean Platelet Volume 6.9; Monocytes # (A) 0.4 k/uL (0-1.0); Monocytes % (A) 5 %; Neutrophils # (A) 4.1 k/uL (1.3-7.7); Neutrophils % (A) 51 %; Platelet Count 373 k/uL (150-450); RBC 3.91 m/uL (3.80-5.40); RDW 14.8 % (11.5-15.5)
[2020-09-06 17:23] LABS: ALT 23 U/L (4-34); AST 26 U/L (14-36); African American GFR (CKD) >90 (>60 ml/min/1.73 sqM); Albumin 3.6 g/dL (3.5-5.0); Alkaline Phosphatase 93 U/L (38-126); Anion Gap 1 mmol/L; Blood Urea Nitrogen 19 mg/dL (7-17); Carbon Dioxide 37 mmol/L (22-30); Chloride 102 mmol/L (98-107); Glucose 100 mg/dL (74-99); Non-African American GFR(CKD) 87 (>60 ml/min/1.73 sqM); Potassium 3.2 mmol/L (3.5-5.1); Sodium 140 mmol/L (137-145); Total Bilirubin 0.1 mg/dL (0.2-1.3)
[2020-09-06] MEDS ORDERED: POTASSIUM CHLORIDE ER 20 MEQ TAB.ER PO STA (17:27)
[2020-09-06 17:35] LABS: INR 0.9 (<1.2); Partial Thromboplastin Time 23.3 sec (22.0-30.0); Prothrombin Time 9.6 sec (9.0-12.0)
--- NOTE | 2020-09-06 17:46 | ED ---
General Adult HPI - General Chief complaint: Headache Stated complaint: Numb and Tingling on face and back of head. Time Seen by Provider: 09/06/20 16:33 Source: patient Mode of arrival: ambulatory Limitations: no limitations - History of Present Illness Initial comments: 60-year-old female presents to the emergency room for a chief complaint of left-sided headache and facial numbness. Patient reports she sees pain management for neck pain and left-sided head pain. Patient states yesterday around noon she started to have some tingling in the left side of the face which was new for her. Patient denies any difficulty speaking or swallowing. Denies noticing any facial droop. Denies any weakness of the arms or legs. Patient has no other complaints at this time including shortness of breath, chest pain, abdominal pain, nausea or vomiting, headache, or visual changes. - Related Data Home Medications Medication Instructions Recorded Confirmed Albuterol Sulfate [Proair Hfa] 2 puff INHALATION RT-QID PRN 08/21/14 09/06/20 Budesonide/Formoterol Fumarate 2 puff INHALATION RT-BID 08/21/14 09/06/20 [Symbicort 160-4.5 Mcg Inhaler] Esomeprazole Magnesium [NexIUM] 40 mg PO DAILY 08/21/14 09/06/20 Montelukast [Singulair] 10 mg PO HS 08/21/14 09/06/20 hydroCHLOROthiazide [Hydrodiuril] 25 mg PO DAILY 09/09/14 09/06/20 Eszopiclone [Lunesta] 3 mg PO HS 04/20/16 09/06/20 Albuterol Nebulized [Ventolin 2.5 mg INHALATION RT-QID PRN 11/10/17 09/06/20 Nebulized] metFORMIN HCL [Glucophage] 500 mg PO DAILY 11/10/17 09/06/20 Cetirizine HCl [Zyrtec] 10 mg PO HS 03/28/18 09/06/20 Nebivolol HCl [Bystolic] 10 mg PO DAILY 03/28/18 09/06/20 Gabapentin [Neurontin] 300 mg PO TID PRN 05/15/19 09/06/20 Potassium Chloride ER [K-Dur 10] 10 meq PO HS 07/22/19 09/06/20 Amitriptyline HCl [Elavil] 25 mg PO HS 09/06/20 09/06/20 Ergocalciferol (Vitamin D2) 1,250 mcg PO WU 09/06/20 09/06/20 [Drisdol (50,000 Iu)] HYDROcodone/APAP 7.5-325MG [[place] 1 tab PO Q8H PRN 09/06/20 09/06/20 7.5-325] Ibuprofen [Motrin] 800 mg PO QID PRN 09/06/20 09/06/20 Linaclotide [Linzess] 145 mcg PO DAILY 09/06/20 09/06/20 Allergies Allergy/AdvReac Type Severity Reaction Status Date / Time DESTINY Inhibitors Allergy Rash/Hives Verified 09/06/20 17:09 hydromorphone HCl Allergy Anaphylaxis Verified 09/06/20 17:09 [From Dilaudid] latex Allergy Rash/Hives Verified 09/06/20 17:09 propoxyphene napsylate Allergy Swelling Verified 09/06/20 17:09 [From Darvocet-N] Review of Systems ROS Statement: Those systems with pertinent positive or pertinent negative responses have been documented in the HPI. ROS Other: All systems not noted in ROS Statement are negative. Past Medical History Past Medical History: Asthma, Coronary Artery Disease (CAD), Diabetes Mellitus, Eye Disorder, GERD/Reflux, Hyperlipidemia, Hypertension, Pneumonia, Respiratory Disorder, Rheumatoid Arthritis (RA), Skin Disorder, Thyroid Disorder Additional Past Medical History / Comment(s): NIDDM type II, bronchitis, murmur, bilateral eye glaucoma, hiatal hernia, IBS, eczema, hypothyroid, migraines, bilateral carpal tunnel syndrome, lumbar back pain which has lessened since back surgery, insomnia, normocytic anemia, UTIs, seasonal allergies/sinus problems History of Any Multi-Drug Resistant Organisms: None Reported Date of last positivie culture/infection: 2014 Past Surgical History: Back Surgery, Breast Surgery, Cholecystectomy, Heart Catheterization, Hysterectomy, Orthopedic Surgery Additional Past Surgical History / Comment(s): Bilateral breast reduction, R breast bx-benign, L knee arthroscopy, lumbar back surgery, bilateral cataract removals, colonoscopy/benign polypectomy, vocal cord poylpectomies, D&C Past Anesthesia/Blood Transfusion Reactions: Motion Sickness Past Psychological History: Anxiety Smoking Status: Never smoker Past Alcohol Use History: None Reported Past Drug Use History: None Reported - Past Family History Father Family Medical History: Cancer, Hypertension Additional Family Medical History / Comment(s): Prostate cancer Mother Family Medical History: Eye Disorder, Hypertension, Vascular Disorder Additional Family Medical History / Comment(s): Mother had glaucoma. She of a brain aneurysm rupture at the age of 57yrs. General Exam Limitations: no limitations General appearance: alert, in no apparent distress Head exam: Present: atraumatic, normocephalic, normal inspection Eye exam: Present: normal appearance, PERRL, EOMI. Absent: scleral icterus, conjunctival injection, periorbital swelling ENT exam: Present: normal exam, normal oropharynx, mucous membranes moist, TM's normal bilaterally, normal external ear exam Neck exam: Present: normal inspection, tenderness (c-spine tenderness). Absent: meningismus, lymphadenopathy Respiratory exam: Present: normal lung sounds bilaterally. Absent: respiratory distress, wheezes, rales, rhonchi, stridor Cardiovascular Exam: Present: regular rate, normal rhythm, normal heart sounds. Absent: systolic murmur, diastolic murmur, rubs, gallop, clicks Neurological exam: Present: alert, oriented X3, CN II-XII intact, normal gait Expanded Patient oriented to: Present: person, place, time Speech: Present: fluid speech Cranial nerves: EOM's Intact: Normal, Tongue Deviation: Normal, Nystagmus: Normal, Facial Sensation: Normal, Facial Palsy with Forehead Movement: Normal (no facial palsy) Upper motor neuron: Pronator Drift: Normal Sensory exam: Upper Extremity Light Touch: Normal, Upper Extremity Pin Prick: Normal, Lower Extremity Light Touch: Normal, Lower Extremity Pin Prick: Normal Motor strength exam: RUE: 5, LUE: 5, RLE: 5, LLE: 5 Eye Response: (4) open spontaneously Motor Response: (6) obeys commands Verbal Response: (5) oriented Marlena Total: 15 Course Vital Signs 09/06/20 09/06/20 16:13 17:00 Temperature 98.0 F Pulse Rate 79 71 Respiratory 18 18 Rate Blood Pressure 128/83 139/82 O2 Sat by Pulse 99 96 Oximetry EKG Findings - EKG Comments: EKG Findings:: Sinus bradycardia, ventricular rate 59, ME interval 214, QTc 449 Medical Decision Making - Medical Decision Making Vitals are stable. Patient is well appearing. She has no focal neurologic deficits. Facial sensation is intact. No facial droop. CBC is unremarkable. CMP does show mild hypokalemia at 3.2, magnesium added which is normal. CT brain shows no acute abnormality of the brain. No change. CT angiogram of the head and neck were both negative as well. Chest x-ray revealed no active cardiopulmonary disease. I suspect symptoms are secondary to paresthesia given she is having pain in her left side of her neck and head which is her main complaint which she has had several has had several times on a chronic basis. Sensation is intact bilaterally on the face. There is no decreased sensation. Neck pain is reproducible. Cervical spine MRI from May did show multilevel spondylolisthesis and degenerative changes. At this time patient will be discharged home to follow-up with pain management and primary care. She will return here for any worsening symptoms. - Lab Data Result diagrams: 09/06/20 17:05 09/06/20 17:05 Lab Results 09/06/20 09/06/20 09/06/20 Range/Units 17:05 17:05 17:05 WBC 8.0 (3.8-10.6) k/uL RBC 3.91 (3.80-5.40) m/uL Hgb 10.4 L (11.4-16.0) gm/dL Hct 31.4 L (34.0-46.0) % MCV 80.3 (80.0-100.0) fL MCH 26.7 (25.0-35.0) pg MCHC 33.2 (31.0-37.0) g/dL RDW 14.8 (11.5-15.5) % Plt Count 373 (150-450) k/uL MPV 6.9 Neutrophils % 51 % Lymphocytes % 39 % Monocytes % 5 % Eosinophils % 3 % Basophils % 1 % Neutrophils # 4.1 (1.3-7.7) k/uL Lymphocytes # 3.1 (1.0-4.8) k/uL Monocytes # 0.4 (0-1.0) k/uL Eosinophils # 0.3 (0-0.7) k/uL Basophils # 0.0 (0-0.2) k/uL PT 9.6 (9.0-12.0) sec INR 0.9 (<1.2) APTT 23.3 (22.0-30.0) sec Sodium 140 (137-145) mmol/L Potassium 3.2 L (3.5-5.1) mmol/L Chloride 102 (98-107) mmol/L Carbon Dioxide 37 H (22-30) mmol/L Anion Gap 1 mmol/L BUN 19 H (7-17) mg/dL Creatinine 0.76 (0.52-1.04) mg/dL Est GFR (CKD-EPI)AfAm >90 (>60 ml/min/1.73 sqM) Est GFR (CKD-EPI)NonAf 87 (>60 ml/min/1.73 sqM) Glucose 100 H (74-99) mg/dL Calcium 9.0 (8.4-10.2) mg/dL Magnesium (1.6-2.3) mg/dL Total Bilirubin 0.1 L (0.2-1.3) mg/dL AST 26 (14-36) U/L ALT 23 (4-34) U/L Alkaline Phosphatase 93 (38-126) U/L Troponin I (0.000-0.034) ng/mL Total Protein 6.0 L (6.3-8.2) g/dL Albumin 3.6 (3.5-5.0) g/dL 09/06/20 09/06/20 Range/Units 17:05 17:05 WBC (3.8-10.6) k/uL RBC (3.80-5.40) m/uL Hgb (11.4-16.0) gm/dL Hct (34.0-46.0) % MCV (80.0-100.0) fL MCH (25.0-35.0) pg MCHC (31.0-37.0) g/dL RDW (11.5-15.5) % Plt Count (150-450) k/uL MPV Neutrophils % % Lymphocytes % % Monocytes % % Eosinophils % % Basophils % % Neutrophils # (1.3-7.7) k/uL Lymphocytes # (1.0-4.8) k/uL Monocytes # (0-1.0) k/uL Eosinophils # (0-0.7) k/uL Basophils # (0-0.2) k/uL PT (9.0-12.0) sec INR (<1.2) APTT (22.0-30.0) sec Sodium (137-145) mmol/L Potassium (3.5-5.1) mmol/L Chloride (98-107) mmol/L Carbon Dioxide (22-30) mmol/L Anion Gap mmol/L BUN (7-17) mg/dL Creatinine (0.52-1.04) mg/dL Est GFR (CKD-EPI)AfAm (>60 ml/min/1.73 sqM) Est GFR (CKD-EPI)NonAf (>60 ml/min/1.73 sqM) Glucose (74-99) mg/dL Calcium (8.4-10.2) mg/dL Magnesium 2.0 (1.6-2.3) mg/dL Total Bilirubin (0.2-1.3) mg/dL AST (14-36) U/L ALT (4-34) U/L Alkaline Phosphatase (38-126) U/L Troponin I <0.012 (0.000-0.034) ng/mL Total Protein (6.3-8.2) g/dL Albumin (3.5-5.0) g/dL Disposition Clinical Impression: Hypokalemia, Neck pain, Headache, Paresthesia Disposition: HOME SELF-CARE Condition: Good Instructions (If sedation given, give patient instructions): Paresthesia (ED), Cervical Radiculopathy (ED) Additional Instructions: Take Motrin and Tylenol for pain. Follow up with primary care and pain management. Return to the emergency room for any worsening symptoms. Is patient prescribed a controlled substance at d/c from ED?: No Referrals: Keila Mahmood MD [Primary Care Provider] - 1-2 days Time of Disposition: 18:41
--- NOTE | 2020-09-06 18:12 | CT ---
EXAMINATION TYPE: CT brain wo con DATE OF EXAM: 09/06/2020 COMPARISON: 03/26/2017 HISTORY: Left sided head and neck numbness/tingling. CT DLP: 1087.8 mGycm Automated exposure control for dose reduction was used. Ventricles and sulci appear normal. There is no mass effect nor midline shift. There is no sign of in tracranial hemorrhage. The calvarium is intact. There is limited pneumatization of the mastoid sinuse s. IMPRESSION: No acute abnormality of the brain. No change.
--- NOTE | 2020-09-06 18:14 | XR ---
EXAMINATION TYPE: XR chest 2V DATE OF EXAM: 09/06/2020 COMPARISON: 06/25/2020 HISTORY: Altered mental status. Numbness TECHNIQUE: 2 views FINDINGS: Heart and mediastinum are normal. Lungs are clear of infiltrate. There is no heart failure. There are no hilar masses. There are chest leads. IMPRESSION: No active cardiopulmonary disease. No change.
--- NOTE | 2020-09-06 18:28 | CT ---
EXAMINATION TYPE: CT angio head neck DATE OF EXAM: 09/06/2020 COMPARISON: None HISTORY: Left sided head and neck numbness/tingling. CT DLP: 551.9 mGycm Automated exposure control for dose reduction was used. CONTRAST: Performed with IV Contrast, patient injected with 65 mL of Isovue 370. There are 3-D post processed images. Images obtained from the aortic arch to the vertex of the brain with IV contrast. There is normal branching pattern of the great vessels on the aortic arch. Heart size is normal. Ther e is no mediastinal adenopathy. There is arterial flow in both subclavian arteries. There is arterial flow in the common internal and external carotid arteries bilaterally. There is wide patency of the carotid artery bifurcations. There is bilateral arterial flow in the vertebral arteries which appear normal. There is arterial flow in the vertebrobasilar artery system. There is no evidence of carotid or vertebral artery aneurysm or dissection. There is arterial flow in the anterior middle and posterior cerebral arteries. There is no mass effec t. There is no evidence of intracranial aneurysm or neovascularity. There is no evidence of hemodynam ic stenosis. There is normal enhancement of the venous sinuses. IMPRESSION: Negative CT angiogram of the neck. Negative CT angiogram of the brain.
[2020-09-06] MEDS ORDERED: KETOROLAC 15 MG/ML 1 ML VIAL IVP STA (18:41)
[2020-09-06 19:45] VITALS: BP 135/84; PULSE 62; TEMP 97.7
== END 2020-09-06 19:40 | disposition home or self-care (01) ==
LOC: EC 16:08
DX: E87.6 Hypokalemia (principal); M54.2 Cervicalgia; R51.9 Headache, unspecified; R20.2 Paresthesia of skin; E03.9 Hypothyroidism, unspecified; E11.36 Type 2 diabetes mellitus with diabetic cataract; E78.5 Hyperlipidemia, unspecified; I10 Essential (primary) hypertension; I25.10 Atherosclerotic heart disease of native coronary artery without angina pectoris; J45.909 Unspecified asthma, uncomplicated; K21.9 Gastro-esophageal reflux disease without esophagitis; K58.9 Irritable bowel syndrome, unspecified; M06.9 Rheumatoid arthritis, unspecified; Z79.1 Long term (current) use of non-steroidal anti-inflammatories (NSAID); Z79.51 Long term (current) use of inhaled steroids; Z79.84 Long term (current) use of oral hypoglycemic drugs; Z79.899 Other long term (current) drug therapy; Z82.49 Family history of ischemic heart disease and other diseases of the circulatory system; Z88.5 Allergy status to narcotic agent; Z91.040 Latex allergy status
CPT/HCPCS: 99284; 96374; 96361; 36415; 93005; 80053; 83735; 84484; 85025; 85610; 85730; 71046; 70496; 70450; 70498; J1885; Q9967

== ENCOUNTER → 2021-02-24 | Outpatient (CLI) | payer OTHER ==
--- NOTE | 2021-02-24 14:04 | XR ---
EXAMINATION TYPE: XR knee complete LT DATE OF EXAM: 02/24/2021 COMPARISON: NONE HISTORY: Pain TECHNIQUE: Three views are submitted. FINDINGS: Hypertrophic change and narrowing of the medial compartment of the knee joint. Small suprapatellar bu rsal fluid collection.. Osseous structures are intact. No acute fracture seen. IMPRESSION: 1. No acute fracture or dislocation. 2. Mild arthropathy with small suprapatellar bursal fluid collection
== END | disposition home or self-care (01) ==
LOC: RADXRMAIN 13:32
PROVIDERS: ATTEND Emergency Medicine
DX: M17.12 Unilateral primary osteoarthritis, left knee (principal)

== ENCOUNTER → 2021-02-24 | Outpatient (CLI) | payer BC | END | disposition home or self-care (01) | LOC: LABWHC1 14:03 | PROVIDERS: ATTEND Internal Medicine | DX: E87.6 Hypokalemia (principal) | CPT/HCPCS: 36415; 84132 ==

== ENCOUNTER → 2021-02-27 | Outpatient (CLI) | payer BC ==
--- NOTE | 2021-02-28 09:15 | US ---
EXAMINATION TYPE: US thyroid st tissue head/neck DATE OF EXAM: 02/27/2021 COMPARISON: 10/14/2018 CLINICAL HISTORY: 60-year-old female E04.1 THYROID NODULE,R22.1 SWELLING, MASS, LUMP IN NECK. Followu p thyroid nodules and new upper left neck palpable. FINDINGS: GLAND SIZE: Right Lobe: 4.9 x 1.7 x 1.5 cm Overall Parenchyma: homogenous Left Lobe: 3.9 x 1.3 x 1.0 cm Overall Parenchyma: homogeneous Isthmus Thickness: 0.5 cm NODULES RIGHT: # of nodules measured on right: 1 1. 0.6 X 0.6 x 0.4 cm, small hypoechoic nodule at the mid pole which is wider than tall, with sligh tly irregular margins, without echogenic foci. Prior size: 0.4 x 0.5 x 0.3 cm LEFT: # of nodules measured on left: 1 1. 0.6 X 0.3 x 0.3 cm, oval hypoechoic nodule at the medial lower pole which is wide as is tall, wi th slightly lobulated or irregular margins, without echogenic foci. Prior size: 0.4 x 0.4 x 0.3 cm ISTHMUS: # of nodules measured in the isthmus: 0 Bilateral neck scanned: superior to right thyroid a prominent but nonenlarged lymph node is seen = 0 .9 x 0.8 x 0.5cm. IMPRESSION: 1. A solid oval nodule on either side measuring up to 6 mm (previously measuring 4 mm on either side back in 2019). 2. Prominent but nonenlarged 8 mm short axis lymph node above the right lobe of the thyroid gland pro bably reactive/post inflammatory. This can be followed clinically.
== END ==
LOC: RADUSWWP 16:13
PROVIDERS: ATTEND Otolaryngology
DX: E04.2 Nontoxic multinodular goiter (principal)
CPT/HCPCS: 76536

== ENCOUNTER → 2021-06-19 | Outpatient (CLI) | payer BC ==
--- NOTE | 2021-06-19 22:00 | CT ---
EXAMINATION TYPE: CT sinus wo con DATE OF EXAM: 06/19/2021 COMPARISON: CT dated 08/29/2020 HISTORY: sinus pressure CT DLP: 482 mGycm. Automated Exposure Control for Dose Reduction was Utilized. TECHNIQUE: CT scan of the sinuses is performed without contrast, axial images are obtained, coronal r eformatted images are also reviewed. FINDINGS: Rather central bony nasal septum. Unremarkable middle turbinates and inferior turbinates. No signific ant mucosal thickening of the nasal fossa bilaterally. Patent infundibulum bilaterally and ostiomeatal complexes. Unremarkable maxillary sinuses with no sig nificant mucosal thickening identified. Unremarkable frontal sinus, ethmoid air cells and sphenoid si nus. Clear sphenoethmoidal recesses and frontoethmoidal recesses. Hypopneumatized mastoid air cells, more on the right side. Prominent nasopharyngeal soft tissue, plea se correlate clinically. Unremarkable visualized portion of the brain and orbits. IMPRESSION: No evidence of acute or chronic sinusitis. No definite paranasal sinus lesion identified. Incidental findings as described above.
== END | disposition home or self-care (01) ==
LOC: RADCTMAIN 17:06
PROVIDERS: ATTEND Otolaryngology
DX: J32.9 Chronic sinusitis, unspecified (principal)
CPT/HCPCS: 70486

== ENCOUNTER → 2021-07-09 | Outpatient (CLI) | payer BC ==
--- NOTE | 2021-07-11 08:43 | MM ---
Reason for exam: screening (asymptomatic). Last mammogram was performed 1 year and 8 months ago. History: Patient is postmenopausal. Family history of breast cancer in maternal aunt at age 50. Benign US breast needle core RT of the right breast, September 21, 2016. Reductions of both breasts, November 2008. Took hormonal contraceptives for 12 years 8 months beginning at age 37. Physical Findings: A clinical breast exam by your physician is recommended on an annual basis and results should be correlated with mammographic findings. MG Screening Mammo w CAD Bilateral CC and MLO view(s) were taken. Prior study comparison: November 16, 2019, bilateral MG screening mammo w CAD. There are scattered fibroglandular densities. Finding: There is an intermediate concern, suspicious high density, spiculated irregular mass located 7 cm from the nipple in the lower inner quadrant, middle position of the right breast contais central calcification. New finding since November 16, 2019. ASSESSMENT: Incomplete: need additional imaging evaluation, BI-RAD 0 RECOMMENDATION: Special view mammogram of the right breast. If lesion persists on supplemental views, image directed ultrasound is recommended. [facility] will attempt to contact patient to return for supplemental views and ultrasound if indicated.
== END | disposition home or self-care (01) ==
LOC: RADMAMWWP 08:51
PROVIDERS: ATTEND Obstetrics & Gynecology
DX: Z12.31 Encounter for screening mammogram for malignant neoplasm of breast (principal); Z78.0 Asymptomatic menopausal state; Z80.3 Family history of malignant neoplasm of breast
CPT/HCPCS: 77067

== ENCOUNTER → 2021-07-14 | Outpatient (CLI) | payer BC ==
--- NOTE | 2021-07-14 09:59 | MM ---
Reason for exam: additional evaluation requested from abnormal screening. Last mammogram was performed less than 1 month ago. History: Patient is postmenopausal. Family history of breast cancer in paternal aunt and breast cancer in maternal aunt at age 50. Benign US breast needle core RT of the right breast, September 21, 2016. Reductions of both breasts, November 2008. Took hormonal contraceptives for 12 years 8 months beginning at age 37. Physical Findings: A clinical breast exam by your physician is recommended on an annual basis and results should be correlated with mammographic findings. MG Work Up Mamm w CAD RT CC with magnification, LM with magnification, and LM view(s) were taken of the right breast. Prior study comparison: July 09, 2021, bilateral MG screening mammo w CAD. November 16, 2019, bilateral MG screening mammo w CAD. There are scattered fibroglandular densities. Central inner small focal asymmetry. There is an associated course calcification and same faint punctate calcifications. 6 month follow up recommended. ASSESSMENT: Probably benign, BI-RAD 3 RECOMMENDATION: Follow-up diagnostic mammogram of the right breast in 6 months.
== END | disposition home or self-care (01) ==
LOC: RADMAMWWP 07:02
PROVIDERS: ATTEND Obstetrics & Gynecology
DX: R92.1 Mammographic calcification found on diagnostic imaging of breast (principal); Z78.0 Asymptomatic menopausal state; Z80.3 Family history of malignant neoplasm of breast
CPT/HCPCS: 77065

== ENCOUNTER → 2021-08-15 | Outpatient (CLI) | payer BC ==
--- NOTE | 2021-08-15 16:03 | US ---
EXAMINATION TYPE: US venous doppler duplex LE LT DATE OF EXAM: 08/15/2021 3:46 PM COMPARISON: US 2012 CLINICAL HISTORY: R60.0 LOCALIZED EDEMA. Left leg pain and swelling x couple weeks SIDE PERFORMED: Left TECHNIQUE: The lower extremity deep venous system is examined utilizing real time linear array sonog wu with graded compression, doppler sonography and color-flow sonography. VESSELS IMAGED: Common Femoral Vein Deep Femoral Vein Greater Saphenous Vein * Femoral Vein Popliteal Vein Small Saphenous Vein * Proximal Calf Veins (* superficial vessels) Left Leg: Appears negative for DVT IMPRESSION: 1. Left lower extremity ultrasound negative for deep venous thrombosis.
== END | disposition home or self-care (01) ==
LOC: RADUSWWP 15:20
PROVIDERS: ATTEND Internal Medicine
DX: R60.0 Localized edema (principal)

== ENCOUNTER 2021-09-08 13:11 | Observation (INO) | payer BC ==
[2021-09-08] MEDS ORDERED: ACETAMINOPHEN TAB 500 MG TAB PO STA (13:38)
[2021-09-08] MEDS ORDERED: NITROGLYCERIN SL TABS 0.4 MG TAB SUBLINGUAL STA (13:38)
--- NOTE | 2021-09-08 13:38 | ED ---
Chest Pain HPI - General Chief Complaint: Chest Pain Stated Complaint: Chest pain Time Seen by Provider: 09/08/21 13:26 Source: patient Mode of arrival: wheelchair - History of Present Illness Initial Comments: 61-year-old female past medical history of asthma, diabetes, hypertension presents to the emergency department with chest pain. She reports that her pain started yesterday. It started in her right arm and is now moved into the right side of her chest. States that it stabbing in nature and has been constant. She took 4 aspirins at home with little relief in her symptoms. Has associated nausea without vomiting. Admits to chills with no fever. No cough. She denies previous history of cardiac disease however it is listed in the patient's history that she has coronary artery disease. She denies stents in her heart or history of PR. She follows with Dr. Wall from cardiology. Denies any lower extremity edema. No history of DVT or PE. No pain to the back. No other alleviating, precipitating modifying factors - Related Data Home Medications Medication Instructions Recorded Confirmed Budesonide/Formoterol Fumarate 2 puff INHALATION RT-BID 08/21/14 09/08/21 [Symbicort 160-4.5 Mcg Inhaler] Esomeprazole Magnesium [NexIUM] 40 mg PO DAILY 08/21/14 09/08/21 Montelukast [Singulair] 10 mg PO HS 08/21/14 09/08/21 hydroCHLOROthiazide [Hydrodiuril] 25 mg PO DAILY 09/09/14 09/08/21 Eszopiclone [Lunesta] 3 mg PO HS 04/20/16 09/08/21 Albuterol Nebulized [Ventolin 2.5 mg INHALATION RT-QID 11/10/17 09/08/21 Nebulized] Nebivolol HCl [Bystolic] 10 mg PO DAILY 03/28/18 09/08/21 Amitriptyline HCl [Elavil] 25 mg PO HS 09/06/20 09/08/21 HYDROcodone/APAP 7.5-325MG [[place] 1 tab PO Q8H PRN 09/06/20 09/08/21 7.5-325] Atorvastatin [Lipitor] 10 mg PO DAILY 09/08/21 09/08/21 Cholecalciferol [Vitamin D3 (125 125 mcg PO DAILY 09/08/21 09/08/21 Mcg = 5000 Iu)] Citalopram Hydrobromide [CeleXA] 20 mg PO DAILY 09/08/21 09/08/21 Fexofenadine HCl 180 mg PO DAILY PRN 09/08/21 09/08/21 Fluticasone Nasal [place] [Flonase 1 - 2 spray EA NOSTRIL HS PRN 09/08/21 09/08/21 Nasal [place]] Gabapentin [Neurontin] 400 mg PO BID 09/08/21 09/08/21 Ospemifene [Osphena] 60 mg PO DAILY 09/08/21 09/08/21 Allergies Allergy/AdvReac Type Severity Reaction Status Date / Time DESTINY Inhibitors Allergy Rash/Hives Verified 09/08/21 14:16 hydromorphone HCl Allergy Anaphylaxis Verified 09/08/21 14:16 [From Dilaudid] latex Allergy Rash/Hives Verified 09/08/21 14:16 propoxyphene napsylate Allergy Swelling Verified 09/08/21 14:16 [From Darvocet-N] Review of Systems ROS Statement: Those systems with pertinent positive or pertinent negative responses have been documented in the HPI. ROS Other: All systems not noted in ROS Statement are negative. EKG Findings - EKG Comments: EKG Findings:: EKG demonstrates sinus rhythm with a rate of 69. GA interval 208. QRS 81. QTC of 443. Inverted T waves with ST depression in 2, 3, aVF. No ST segment elevation Past Medical History Past Medical History: Asthma, Coronary Artery Disease (CAD), Diabetes Mellitus, Eye Disorder, GERD/Reflux, Hyperlipidemia, Hypertension, Pneumonia, Respiratory Disorder, Rheumatoid Arthritis (RA), Skin Disorder, Thyroid Disorder Additional Past Medical History / Comment(s): NIDDM type II, bronchitis, murmur, bilateral eye glaucoma, hiatal hernia, IBS, eczema, hypothyroid, migraines, bilateral carpal tunnel syndrome, lumbar back pain which has lessened since back surgery, insomnia, normocytic anemia, UTIs, seasonal allergies/sinus problems History of Any Multi-Drug Resistant Organisms: None Reported Date of last positivie culture/infection: 2014 Past Surgical History: Back Surgery, Breast Surgery, Cholecystectomy, Heart Catheterization, Hysterectomy, Orthopedic Surgery Additional Past Surgical History / Comment(s): Bilateral breast reduction, R breast bx-benign, L knee arthroscopy, lumbar back surgery, bilateral cataract removals, colonoscopy/benign polypectomy, vocal cord poylpectomies, D&C Past Anesthesia/Blood Transfusion Reactions: Motion Sickness Past Psychological History: Anxiety Smoking Status: Never smoker Past Alcohol Use History: None Reported Past Drug Use History: None Reported - Past Family History Father Family Medical History: Cancer, Hypertension Additional Family Medical History / Comment(s): Prostate cancer Mother Family Medical History: Eye Disorder, Hypertension, Vascular Disorder Additional Family Medical History / Comment(s): Mother had glaucoma. She of a brain aneurysm rupture at the age of 57yrs. General Exam General appearance: alert, in no apparent distress Head exam: Present: atraumatic, normocephalic, normal inspection Eye exam: Present: normal appearance, PERRL, EOMI. Absent: scleral icterus, conjunctival injection, periorbital swelling ENT exam: Present: normal exam, mucous membranes moist Neck exam: Present: normal inspection. Absent: tenderness, meningismus, lymphadenopathy Respiratory exam: Present: normal lung sounds bilaterally. Absent: respiratory distress, wheezes, rales, rhonchi, stridor Cardiovascular Exam: Present: regular rate, normal rhythm, normal heart sounds. Absent: systolic murmur, diastolic murmur, rubs, gallop, clicks GI/Abdominal exam: Present: soft, normal bowel sounds. Absent: distended, tenderness, guarding, rebound, rigid Extremities exam: Present: normal inspection, full ROM, normal capillary refill. Absent: tenderness, pedal edema, joint swelling, calf tenderness Back exam: Present: normal inspection Neurological exam: Present: alert, oriented X3, CN II-XII intact Psychiatric exam: Present: normal affect, normal mood Skin exam: Present: warm, dry, intact, normal color. Absent: rash Course Vital Signs 09/08/21 09/08/21 09/08/21 13:15 13:36 19:07 Temperature 98.5 F Pulse Rate 84 77 64 Respiratory 18 14 14 Rate Blood Pressure 118/80 128/84 109/76 O2 Sat by Pulse 98 100 Oximetry 09/08/21 09/08/21 19:17 19:26 Temperature Pulse Rate 61 65 Respiratory Rate Blood Pressure O2 Sat by Pulse Oximetry Chest Pain MDM - MDM Upon arrival patient is placed into room 10. A thorough history and physical exam was performed. IV access is established laboratory studies are conducted. Laboratory studies are reviewed and demonstrated a potassium of 6.4. This is not a hemolyzed specimen. Because of this she is given an amp of dextrose, 10 units of IV insulin and an amp of bicarbonate. Kidney function is normal. She does take supplemental potassium and denies taking any access. Troponin is negative. Chest x-ray demonstrates no acute process. Recommended admission order to repeat her potassium level as well as have a cardiology consultation. Patient will be admitted to [facility] [place] Critical [facility] Time Critical Care Time: Yes Critical Care Time: 35 minutes for treatment of hyperkalemia Disposition Clinical Impression: Chest pain, Hyperkalemia Disposition: ADMITTED IP TO THIS [facility] Condition: Stable Is patient prescribed a controlled substance at d/c from ED?: No Time of Disposition: 15:40 Decision to Admit Reason: Admit from EC Decision Date: 09/08/21 Decision Time: 15:39
[2021-09-08 13:54] LABS: Basophils # (A) 0.1 k/uL (0-0.2); Basophils % (A) 1 %; Eosinophils # (A) 0.4 k/uL (0-0.7); Eosinophils % (A) 5 %; HCT 35.3 % (34.0-46.0); Lymphocytes # (A) 2.3 k/uL (1.0-4.8); Lymphocytes % (A) 33 %; MCH 25.8 pg (25.0-35.0); MCHC 31.3 g/dL (31.0-37.0); MCV 82.6 fL (80.0-100.0); Mean Platelet Volume 7.1; Monocytes # (A) 0.3 k/uL (0-1.0); Monocytes % (A) 5 %; Neutrophils # (A) 3.8 k/uL (1.3-7.7); Neutrophils % (A) 55 %; Platelet Count 363 k/uL (150-450); RBC 4.27 m/uL (3.80-5.40); RDW 14.7 % (11.5-15.5); WBC 6.9 k/uL (3.8-10.6)
[2021-09-08 14:03] LABS: ALT 23 U/L (4-34); AST 47 U/L (14-36); African American GFR (CKD) >90 (>60 ml/min/1.73 sqM); Albumin 4.4 g/dL (3.5-5.0); Alkaline Phosphatase 56 U/L (38-126); Anion Gap 7 mmol/L; Blood Urea Nitrogen 12 mg/dL (7-17); Calcium 9.1 mg/dL (8.4-10.2); Carbon Dioxide 25 mmol/L (22-30); Chloride 106 mmol/L (98-107); Glucose 130 mg/dL (74-99); Lipase 41 U/L (23-300); Magnesium 2.1 mg/dL (1.6-2.3); Non-African American GFR(CKD) >90 (>60 ml/min/1.73 sqM); Sodium 138 mmol/L (137-145); Total Bilirubin 1.5 mg/dL (0.2-1.3); Total Protein 7.4 g/dL (6.3-8.2)
[2021-09-08 14:06] LABS: Potassium 6.4 mmol/L (3.5-5.1)
[2021-09-08] MEDS ORDERED: DEXTROSE 50% SYRINGE 50 ML IVP STA (14:09)
[2021-09-08] MEDS ORDERED: INSULIN REGULAR 100 UNIT/ML VIAL (IV) IV ONE (14:10)
[2021-09-08] MEDS ORDERED: SODIUM BICARB 8.4% 50 ML SYR (1 MEQ/ML) IV STA (14:15)
[2021-09-08 14:24] LABS: INR 0.9 (<1.2); Partial Thromboplastin Time 21.3 sec (22.0-30.0); Prothrombin Time 9.6 sec (9.0-12.0)
--- NOTE | 2021-09-08 14:35 | XR ---
EXAMINATION TYPE: XR chest 2V DATE OF EXAM: 09/08/2021 COMPARISON: Chest radiograph 05/29/2021 HISTORY: Right arm pain radiating to the chest TECHNIQUE: Frontal and lateral views of the chest are obtained. FINDINGS: There is no focal air space opacity, pleural effusion, or pneumothorax seen. The cardiac silhouette size is within normal limits. The osseous structures are intact. IMPRESSION: No acute cardiopulmonary process.
[2021-09-08] MEDS ORDERED: MORPHINE SULFATE 4 MG/ML SYRINGE IVP STA (15:01)
[2021-09-08] MEDS ORDERED: ASPIRIN 81 MG PO STA (15:39)
[2021-09-08] MEDS ORDERED: NALOXONE 0.4 MG/ML 1 ML VIAL IV PRN (15:40)
[2021-09-08] MEDS ORDERED: FEXOFENADINE HCL 180 MG PO PRN (18:46)
[2021-09-08] MEDS ORDERED: FLUTICASONE 50MCG/SPRAY NASAL 16GM EA NOSTRIL PRN (18:46)
--- NOTE | 2021-09-08 18:49 | P.HPIM ---
History of Present Illness H&P Date: 09/08/21 Chief Complaint: chest pain 61 year old woman with history of HTN, HLD, Asthma, CAD, DM, GERD, Rheumatoid Arthritis presented for chest pain. Pt says her pain started yesterday, is sharp in nature, in the right upper aspect of her chest. It gets worse with movement and certain positions, but no relationship to exertion, PO intake. Associated symptoms include: chills, nausea, diarrhea, palpitations. She denies fevers, vomiting, cough, dyspnea, syncope, presyncope, abdominal pain, dysuria, dyschezia, constipation, numbness/weakness of extremities. In the emergency room, patient was afebrile, 118/80, heart rate 84, 98% on room air. CBC is markable for mild anemia down to 11. Chemistries are remarkable for potassium of 6.4. LFTs are remarkable for elevated bilirubin to 1.5, elevated AST of 47. Initial troponin is negative. Coags were unremarkable. D- dimer is 0.23. Chest x-ray shows no acute pulmonary process. EKG shows normal sinus rhythm with borderline low voltage, T wave inversions in lead 3, aVF. All Systems reviewed and pertinent positives and negatives noted in HPI, all other symptoms are negative Gen: awake, alert HEENT: normocephalic, atraumatic, good hearing acuity, moist mucous membranes Resp: good air exchange, breathing comfortably with no accessory muscle use, clear to auscultation bilaterally CVS: good distal perfusion x 4, regular rate and rhythm, no murmurs GI: soft, NTTP, ND : no SPT, no CVAT, marcelino catheter not present MSK: pitting edema of the left leg, no clubbing, reproducible sharp chest pain upon palpation of the chest Neuro: non-focal, moving all extremities Psych: cooperative, euthymic mood Labs and imaging reviewed as above Assessment/plan: Atypical chest pain History of CAD -Admit to inpatient, telemetry -Cardiology consult -Trend troponins -Aspirin, statin, beta rashid -Lipid panel, A1c, TSH -Echo Hyperkalemia -hold home potassium supplement -recheck BMP tonight. -Pt rec'd D50/insulin, bicarb in the ER Lower Extremity Edema -US LE doppler of left leg, pending -Echo as above Hypertension Hyperlipidemia Asthma Diabetes GERD Rheumatoid arthritis -Home medications reviewed and reconciled Patient is full code DVT prophylaxis with heparin 3 times a day Past Medical History Past Medical History: Asthma, Coronary Artery Disease (CAD), Diabetes Mellitus, Eye Disorder, GERD/Reflux, Hyperlipidemia, Hypertension, Pneumonia, Respiratory Disorder, Rheumatoid Arthritis (RA), Skin Disorder, Thyroid Disorder Additional Past Medical History / Comment(s): NIDDM type II, bronchitis, murmur, bilateral eye glaucoma, hiatal hernia, IBS, eczema, hypothyroid, migraines, bilateral carpal tunnel syndrome, lumbar back pain which has lessened since back surgery, insomnia, normocytic anemia, UTIs, seasonal allergies/sinus problems History of Any Multi-Drug Resistant Organisms: None Reported Date of last positivie culture/infection: 2014 Past Surgical History: Back Surgery, Breast Surgery, Cholecystectomy, Heart Catheterization, Hysterectomy, Orthopedic Surgery Additional Past Surgical History / Comment(s): Bilateral breast reduction, R breast bx-benign, L knee arthroscopy, lumbar back surgery, bilateral cataract removals, colonoscopy/benign polypectomy, vocal cord poylpectomies, D&C Past Anesthesia/Blood Transfusion Reactions: Motion Sickness Past Psychological History: Anxiety Smoking Status: Never smoker Past Alcohol Use History: None Reported Past Drug Use History: None Reported - Past Family History Father Family Medical History: Cancer, Hypertension Additional Family Medical History / Comment(s): Prostate cancer Mother Family Medical History: Eye Disorder, Hypertension, Vascular Disorder Additional Family Medical History / Comment(s): Mother had glaucoma. She of a brain aneurysm rupture at the age of 57yrs. Medications and Allergies Home Medications Medication Instructions Recorded Confirmed Type Budesonide/Formoterol Fumarate 2 puff INHALATION RT-BID 08/21/14 09/08/21 History [Symbicort 160-4.5 Mcg Inhaler] Esomeprazole Magnesium [NexIUM] 40 mg PO DAILY 08/21/14 09/08/21 History Montelukast [Singulair] 10 mg PO HS 08/21/14 09/08/21 History hydroCHLOROthiazide [Hydrodiuril] 25 mg PO DAILY 09/09/14 09/08/21 History Eszopiclone [Lunesta] 3 mg PO HS 04/20/16 09/08/21 History Albuterol Nebulized [Ventolin 2.5 mg INHALATION RT-QID 11/10/17 09/08/21 History Nebulized] Cetirizine HCl [Zyrtec] 10 mg PO DAILY 03/28/18 09/08/21 History Nebivolol HCl [Bystolic] 10 mg PO DAILY 03/28/18 09/08/21 History Potassium Chloride ER [K-Dur 10] 10 meq PO DAILY 07/22/19 09/08/21 History Amitriptyline HCl [Elavil] 25 mg PO HS 09/06/20 09/08/21 History HYDROcodone/APAP 7.5-325MG [[place] 1 tab PO Q8H PRN 09/06/20 09/08/21 History 7.5-325] Atorvastatin [Lipitor] 10 mg PO DAILY 09/08/21 09/08/21 History Cholecalciferol [Vitamin D3 (125 125 mcg PO DAILY 09/08/21 09/08/21 History Mcg = 5000 Iu)] Citalopram Hydrobromide [CeleXA] 20 mg PO DAILY 09/08/21 09/08/21 History Fexofenadine HCl 180 mg PO DAILY PRN 09/08/21 09/08/21 History Fluticasone Nasal [place] [Flonase 1 - 2 spray EA NOSTRIL HS PRN 09/08/21 09/08/21 History Nasal [place]] Gabapentin [Neurontin] 400 mg PO BID 09/08/21 09/08/21 History Ospemifene [Osphena] 60 mg PO DAILY 09/08/21 09/08/21 History Allergies Allergy/AdvReac Type Severity Reaction Status Date / Time DESTINY Inhibitors Allergy Rash/Hives Verified 09/08/21 14:16 hydromorphone HCl Allergy Anaphylaxis Verified 09/08/21 14:16 [From Dilaudid] latex Allergy Rash/Hives Verified 09/08/21 14:16 propoxyphene napsylate Allergy Swelling Verified 09/08/21 14:16 [From Darvocet-N] Physical Exam Osteopathic Statement: *. No significant issues noted on an osteopathic structural exam other than those noted in the History and Physical/Consult. Vitals: Vital Signs Temp Pulse Resp BP Pulse Ox 09/08/21 13:36 77 14 128/84 100 09/08/21 13:15 98.5 F 84 18 118/80 98 Intake and Output 09/08/21 09/08/21 09/08/21 06:59 14:59 22:59 Other: Weight 85.275 kg Results CBC & Chem 7: 09/08/21 13:41 09/08/21 13:41 Labs: Abnormal Lab Results - Last 24 Hours (Table) 09/08/21 09/08/21 09/08/21 Range/Units 13:41 13:41 13:41 Hgb 11.0 L (11.4-16.0) gm/dL APTT 21.3 L (22.0-30.0) sec Potassium 6.4 H* (3.5-5.1) mmol/L Glucose 130 H (74-99) mg/dL Total Bilirubin 1.5 H (0.2-1.3) mg/dL AST 47 H (14-36) U/L
[2021-09-08] MEDS: MORPHINE SULFATE 4 MG/ML SYRINGE IV PRN (19:13)
[2021-09-08] MEDS: SYMBICORT 160-4.5 MCG INHALER INHALATION SCH (19:17)
[2021-09-08] MEDS: ALBUTEROL NEBULIZED 2.5 MG/3 ML INHALATION SCH (19:17)
[2021-09-08] MEDS ORDERED: AMITRIPTYLINE HCL 25 MG TAB PO SCH (21:00)
[2021-09-08] MEDS ORDERED: ZOLPIDEM 5 MG TAB PO SCH (21:00)
[2021-09-08] MEDS ORDERED: MONTELUKAST 10 MG TAB PO SCH (21:00)
[2021-09-08] MEDS: HYDROcodone/APAP 7.5-325MG 1 EACH TAB PO PRN (22:11)
[2021-09-08] MEDS: GABAPENTIN 400 MG CAP PO SCH (22:11)
[2021-09-08 23:40] LABS: African American GFR (CKD) >90 (>60 ml/min/1.73 sqM); Anion Gap 5 mmol/L; Blood Urea Nitrogen 16 mg/dL (7-17); Calcium 8.6 mg/dL (8.4-10.2); Carbon Dioxide 29 mmol/L (22-30); Chloride 104 mmol/L (98-107); Glucose 149 mg/dL (74-99); Non-African American GFR(CKD) >90 (>60 ml/min/1.73 sqM); Potassium 3.3 mmol/L (3.5-5.1); Sodium 138 mmol/L (137-145)
[2021-09-09] MEDS: MORPHINE SULFATE 4 MG/ML SYRINGE IV PRN (03:36)
[2021-09-09 06:05] LABS: Glucose,Whole Blood 128 mg/dL (75-99)
[2021-09-09] MEDS: ALBUTEROL NEBULIZED 2.5 MG/3 ML INHALATION SCH ×3 (07:39→16:16)
[2021-09-09] MEDS: SYMBICORT 160-4.5 MCG INHALER INHALATION SCH (07:39)
--- NOTE | 2021-09-09 07:40 | US ---
EXAMINATION TYPE: US venous doppler duplex LE LT DATE OF EXAM: 09/09/2021 7:18 AM COMPARISON: 08/15/2021 CLINICAL HISTORY: 61-year-old female LE swelling. Swelling but states it has gone down. No pain. Not on blood thinners. SIDE PERFORMED: Left TECHNIQUE: The lower extremity deep venous system is examined utilizing real time linear array sonog wu with graded compression, doppler sonography and color-flow sonography. FINDINGS: VESSELS IMAGED: Common Femoral Vein Deep Femoral Vein Greater Saphenous Vein * Femoral Vein Popliteal Vein Small Saphenous Vein * Proximal Calf Veins (* superficial vessels) Left Leg: Negative for DVT IMPRESSION: No evidence for DVT within the left lower extremity imaged from the groin to the upper calf.
[2021-09-09 07:48] LABS: Basophils % (A) 1 %; Eosinophils # (A) 0.3 k/uL (0-0.7); Eosinophils % (A) 6 %; HCT 33.6 % (34.0-46.0); HGB 10.2 gm/dL (11.4-16.0); Hypochromasia Moderate; Lymphocytes # (A) 2.5 k/uL (1.0-4.8); Lymphocytes % (A) 45 %; MCH 25.8 pg (25.0-35.0); MCHC 30.2 g/dL (31.0-37.0); MCV 85.3 fL (80.0-100.0); Mean Platelet Volume 7.1; Monocytes # (A) 0.4 k/uL (0-1.0); Monocytes % (A) 7 %; Neutrophils # (A) 2.2 k/uL (1.3-7.7); Neutrophils % (A) 39 %; Platelet Count 318 k/uL (150-450); RBC 3.94 m/uL (3.80-5.40); RDW 14.7 % (11.5-15.5); WBC 5.6 k/uL (3.8-10.6)
[2021-09-09 08:18] LABS: African American GFR (CKD) >90 (>60 ml/min/1.73 sqM); Anion Gap 8 mmol/L; Blood Urea Nitrogen 12 mg/dL (7-17); Calcium 8.5 mg/dL (8.4-10.2); Carbon Dioxide 28 mmol/L (22-30); Chloride 105 mmol/L (98-107); Glucose 92 mg/dL (74-99); Non-African American GFR(CKD) >90 (>60 ml/min/1.73 sqM); Potassium 3.7 mmol/L (3.5-5.1); Sodium 141 mmol/L (137-145)
[2021-09-09] MEDS ORDERED: PANTOPRAZOLE 40 MG TABLET PO SCH (09:00)
[2021-09-09] MEDS ORDERED: CHOLECALCIFEROL 125 MCG (5000 IU) TABLET PO SCH (09:00)
[2021-09-09] MEDS ORDERED: ATORVASTATIN 40 MG TAB PO SCH (09:00)
[2021-09-09] MEDS ORDERED: NEBIVOLOL 5 MG TAB PO SCH (09:00)
[2021-09-09] MEDS ORDERED: hydroCHLOROthiazide 25 MG TAB PO SCH (09:00)
[2021-09-09] MEDS ORDERED: LORATADINE 10 MG TAB PO SCH (09:00)
[2021-09-09] MEDS ORDERED: OSPEMIFENE 60 MG PO SCH (09:00)
[2021-09-09] MEDS ORDERED: CITALOPRAM HYDROBROMIDE 20 MG TAB PO SCH (09:00)
[2021-09-09] MEDS ORDERED: ACETAMINOPHEN TAB 325 MG TAB PO PRN (09:26)
[2021-09-09] MEDS: HYDROcodone/APAP 7.5-325MG 1 EACH TAB PO PRN (09:35)
[2021-09-09] MEDS: GABAPENTIN 400 MG CAP PO SCH (09:37)
--- NOTE | 2021-09-09 11:51 | P.CRDCN ---
History of Present Illness History of present illness: HISTORY OF PRESENTING ILLNESS This is a pleasant 61-year-old -Italian female past medical history significant for asthma, dyslipidemia, gastroesophageal reflux disease, hypertension and diabetes mellitus. She follows in the office with Dr. Spence. We have been asked to see in consultation for chest pain. Patient presents with right sided chest pain, right neck pain, right shoulder pain, diarrhea, cough, right sided abdominal pain and some left lower extremity edema. Patient states starting Wednesday, she developed right sided neck pain, it radiated to her right upper chest, right shoulder and arm, it was exacerbated by movement and is also tender to palpation. Non-exertional. She did have associated shortness of breath and some diaphoresis. She then began to have right lower abdominal pain, cough and diarrhea started yesterday. She does also endorse chills. She denies any sick contacts. Denies fevers, nausea or vomiting. She does not have a history of CAD, CA or stroke. She denies tobacco use. DIAGNOSTICS -EKG reveals sinus rhythm, heart rate 69, T wave inversions in leads III and aVF. Prior EKG with similar findings, no acute changes noted. -Telemetry tracings unremarkable. -Chest x-ray is negative for an acute cardiopulmonary process. -Laboratory data reviewed, troponin negative 3, hemoglobin 11, sodium 138, potassium 6.4-->3.3, BUN 12, serum creatinine 0.7, total bilirubin 1.5, magnesium 2.1, lipase within normal limits -She underwent a cardiac catheterization in 08/2006 revealing normal coronary arteries with no obstructive disease. -Most recent stress test performed in October 2018 Stress Echo was negative for stress-induced ischemia. -Current daily cardiac medications include hydrochlorothiazide 25 mg daily, atorvastatin 10 mg daily, Bystolic 10 mg daily -Most recent echocardiogram obtained 05/2019- EF 5560 percent, PFO present with right to left shunt, mild MR mild TR. REVIEW OF SYSTEMS At the time of my exam: CONSTITUTIONAL: Denies fever. +Reports chills. CARDIOVASCULAR: Denies chest pain, orthopnea, PND or palpitations. RESPIRATORY: +cough. GASTROINTESTINAL: +Reports abdominal pain and diarrhea. Denies constipation, nausea or vomiting. MUSCULOSKELETAL: +Right shoulder, neck and upper right chest pain with movement and palpitation NEUROLOGIC: Denies numbness, tingling or weakness. ENDOCRINE: Denies fatigue, weight change, polydipsia or polyurina. GENITOURINARY: Denies burning, hematuria or urgency with micturation. HEMATOLOGIC: Denies history of anemia or bleeding. PHYSICAL EXAMINATION Blood pressure 104/69, heart rate 70, afebrile, oxygen saturations 97% on room air CONSTITUTIONAL: No apparent distress. HEENT: Head is normocephalic. Pupils are equal, round. Sclerae anicteric. Mucous membranes of the mouth are moist. No JVD. No carotid bruit. CHEST EXAMINATION: Lungs are clear to auscultation. There is chest wall tenderness is noted on palpation HEART EXAMINATION: Regular rate and rhythm. S1, S2 heard. Faint systolic ejection murmur at the left sternal border, no gallops or rub. ABDOMEN: Soft, nontender. Positive bowel sounds. EXTREMITIES: 2+ peripheral pulses, no pitting lower extremity edema and no calf tenderness. NEUROLOGIC EXAMINATION: Patient is awake, alert and oriented x3. ASSESSMENT Chest pain, appears non-cardiac in nature. Likely musculoskeletal. Reproducible on exam. An acute coronary event has been ruled out. Baseline EKG abnormalities chronic and ongoing with no acute changes noted. Symptoms of Abdominal pain, chills, Diarrhea, and cough Hyperkalemia Hypertension Dyslipidemia Diabetes mellitus Asthma Gastroesophageal reflux disease PLAN No further inpatient workup from a cardiology perspective for chest pain. Follow up outpatient with Dr. Spence. Please call with questions. Thank you kindly for this consultation. Nurse Practitioner note has been reviewed, I agree with a documented findings and plan of care. Patient was seen and examined. Past Medical History Past Medical History: Asthma, Coronary Artery Disease (CAD), Diabetes Mellitus, Eye Disorder, GERD/Reflux, Hyperlipidemia, Hypertension, Pneumonia, Respiratory Disorder, Rheumatoid Arthritis (RA), Skin Disorder, Thyroid Disorder Additional Past Medical History / Comment(s): NIDDM type II, bronchitis, murmur, bilateral eye glaucoma, hiatal hernia, IBS, eczema, hypothyroid, migraines, bilateral carpal tunnel syndrome, lumbar back pain which has lessened since back surgery, insomnia, normocytic anemia, UTIs, seasonal allergies/sinus problems History of Any Multi-Drug Resistant Organisms: None Reported Date of last positivie culture/infection: 2014 Past Surgical History: Back Surgery, Breast Surgery, Cholecystectomy, Heart Catheterization, Hysterectomy, Orthopedic Surgery Additional Past Surgical History / Comment(s): Bilateral breast reduction, R breast bx-benign, L knee arthroscopy, lumbar back surgery, bilateral cataract r emovals, colonoscopy/benign polypectomy, vocal cord poylpectomies, D&C Past Anesthesia/Blood Transfusion Reactions: Motion Sickness Past Psychological History: Anxiety Smoking Status: Never smoker Past Alcohol Use History: None Reported Past Drug Use History: None Reported - Past Family History Father Family Medical History: Cancer, Hypertension Additional Family Medical History / Comment(s): Prostate cancer Mother Family Medical History: Eye Disorder, Hypertension, Vascular Disorder Additional Family Medical History / Comment(s): Mother had glaucoma. She of a brain aneurysm rupture at the age of 57yrs. Medications and Allergies Home Medications Medication Instructions Recorded Confirmed Type Budesonide/Formoterol Fumarate 2 puff INHALATION RT-BID 08/21/14 09/08/21 Histo ry [Symbicort 160-4.5 Mcg Inhaler] Esomeprazole Magnesium [NexIUM] 40 mg PO DAILY 08/21/14 09/08/21 History Montelukast [Singulair] 10 mg PO HS 08/21/14 09/08/21 History hydroCHLOROthiazide [Hydrodiuril] 25 mg PO DAILY 09/09/14 09/08/21 History Eszopiclone [Lunesta] 3 mg PO HS 04/20/16 09/08/21 History Albuterol Nebulized [Ventolin 2.5 mg INHALATION RT-QID 11/10/17 09/08/21 History Nebulized] Cetirizine HCl [Zyrtec] 10 mg PO DAILY 03/28/18 09/08/21 History Nebivolol HCl [Bystolic] 10 mg PO DAILY 03/28/18 09/08/21 History Potassium Chloride ER [K-Dur 10] 10 meq PO DAILY 07/22/19 09/08/21 History Amitriptyline HCl [Elavil] 25 mg PO HS 09/06/20 09/08/21 History HYDROcodone/APAP 7.5-325MG [[place] 1 tab PO Q8H PRN 09/06/20 09/08/21 History 7.5-325] Atorvastatin [Lipitor] 10 mg PO DAILY 09/08/21 09/08/21 History Cholecalciferol [Vitamin D3 (125 125 mcg PO DAILY 09/08/21 09/08/21 History Mcg = 5000 Iu)] Citalopram Hydrobromide [CeleXA] 20 mg PO DAILY 09/08/21 09/08/21 History Fexofenadine HCl 180 mg PO DAILY PRN 09/08/21 09/08/21 History Fluticasone Nasal Royal [Flonase 1 - 2 spray EA NOSTRIL HS PRN 09/08/21 09/08/21 History Nasal Royal] Gabapentin [Neurontin] 400 mg PO BID 09/08/21 09/08/21 History Ospemifene [Osphena] 60 mg PO DAILY 09/08/21 09/08/21 History Allergies Allergy/AdvReac Type Severity Reaction Status Date / Time DESTINY Inhibitors Allergy Rash/Hives Verified 09/08/21 14:16 hydromorphone HCl Allergy Anaphylaxis Verified 09/08/21 14:16 [From Dilaudid] latex Allergy Rash/Hives Verified 09/08/21 14:16 propoxyphene napsylate Allergy Swelling Verified 09/08/21 14:16 [From Darvocet-N] Physical Exam Vitals: Vital Signs Temp Pulse Resp BP Pulse Ox 09/08/21 13:36 77 14 128/84 100 09/08/21 13:15 98.5 F 84 18 118/80 98 Intake and Output 09/08/21 09/08/21 09/08/21 06:59 14:59 22:59 Other: Weight 85.275 kg Results 09/09/21 06:32 09/09/21 06:32 Cardiac Enzymes 09/08/21 09/08/21 09/08/21 Range/Units 13:41 13:41 18:13 AST 47 H (14-36) U/L Troponin I <0.012 <0.012 (0.000-0.034) ng/mL Coagulation 09/08/21 Range/Units 13:41 PT 9.6 (9.0-12.0) sec APTT 21.3 L (22.0-30.0) sec CBC 09/08/21 Range/Units 13:41 WBC 6.9 (3.8-10.6) k/uL RBC 4.27 (3.80-5.40) m/uL Hgb 11.0 L (11.4-16.0) gm/dL Hct 35.3 (34.0-46.0) % Plt Count 363 (150-450) k/uL Comprehensive Metabolic Panel 09/08/21 Range/Units 13:41 Sodium 138 (137-145) mmol/L Potassium 6.4 H* (3.5-5.1) mmol/L Chloride 106 (98-107) mmol/L Carbon Dioxide 25 (22-30) mmol/L BUN 12 (7-17) mg/dL Creatinine 0.70 (0.52-1.04) mg/dL Glucose 130 H (74-99) mg/dL Calcium 9.1 (8.4-10.2) mg/dL AST 47 H (14-36) U/L ALT 23 (4-34) U/L Alkaline Phosphatase 56 (38-126) U/L Total Protein 7.4 (6.3-8.2) g/dL Albumin 4.4 (3.5-5.0) g/dL Current Medications Generic Name Dose Route Start Last Admin Trade Name Freq PRN Reason Stop Dose Admin Hydrocodone Bitart/Acetaminophen 1 each 09/08/21 18:46 Hydrocodone/Apap 7.5-325mg 1 Each Tab PO Q8H PRN Pain Albuterol Sulfate 2.5 mg 09/08/21 20:00 Albuterol Nebulized 2.5 Mg/3 Ml INHALATION RT-QID [facility] Amitriptyline HCl 25 mg 09/08/21 21:00 Amitriptyline Hcl 25 Mg Tab PO HS [facility] Atorvastatin Calcium 40 mg 09/09/21 09:00 Atorvastatin 10 Mg Tab PO DAILY [facility] Budesonide/Formoterol Fumarate 2 puff 09/08/21 20:00 Symbicort 160-4.5 Mcg Inhaler INHALATION RT-BID [facility] Cholecalciferol 125 mcg 09/09/21 09:00 Cholecalciferol 125 Mcg (5000 Iu) Tablet PO DAILY [facility] Citalopram Hydrobromide 20 mg 09/09/21 09:00 Citalopram Hydrobromide 20 Mg Tab PO DAILY [facility] Fluticasone Propionate 2 spray 09/08/21 18:46 Fluticasone 50mcg/Royal Nasal 16gm EA NOSTRIL HS PRN Allergy Symptoms Gabapentin 400 mg 09/08/21 21:00 Gabapentin 400 Mg Cap PO BID [facility] Hydrochlorothiazide 25 mg 09/09/21 09:00 Hydrochlorothiazide 25 Mg Tab PO DAILY [facility] Montelukast Sodium 10 mg 09/08/21 21:00 Montelukast 10 Mg Tab PO HS [facility] Morphine Sulfate 4 mg 09/08/21 15:40 Morphine Sulfate 4 Mg/Ml Syringe IV Q4HR PRN Severe Pain Naloxone HCl 0.2 mg 09/08/21 15:40 Naloxone 0.4 Mg/Ml 1 Ml Vial IV Q2M PRN Opioid Reversal Non-Formulary Medication 10 mg 09/09/21 09:00 Cetirizine Hcl [Zyrtec] PO DAILY [facility] Non-Formulary Medication 40 mg 09/09/21 09:00 Esomeprazole Magnesium [Nexium] PO DAILY [facility] Non-Formulary Medication 3 mg 09/08/21 21:00 Eszopiclone [Lunesta] PO HS [facility] Non-Formulary Medication 180 mg 09/08/21 18:46 Fexofenadine Hcl [Fexofenadine Hcl] PO DAILY PRN Allergy Symptoms Non-Formulary Medication 10 mg 09/09/21 09:00 Nebivolol Hcl [Bystolic] PO DAILY [facility] Non-Formulary Medication 60 mg 09/09/21 09:00 Ospemifene [Osphena] PO DAILY [facility] Intake and Output 09/08/21 09/08/21 09/08/21 06:59 14:59 22:59 Other: Weight 85.275 kg Patient Weight 09/09/21 06:59 Weight 85.275 kg 09/08/21 13:41 09/08/21 13:41
[2021-09-09 11:53] LABS: Glucose,Whole Blood 148 mg/dL (75-99)
[2021-09-09 12:20] VITALS: BP 134/76; PULSE 85; RESP 13; TEMP 98
[2021-09-09] MEDS ORDERED: OXYMETAZOLINE 0.05% NASL SPRAY 1 SPRAY BOTTLE NASAL STA (14:15)
[2021-09-09 16:43] LABS: Glucose,Whole Blood 111 mg/dL (75-99)
--- NOTE | 2021-09-09 19:00 | P.DS ---
Providers Date of admission: 09/08/21 15:51 Expected date of discharge: 09/09/21 Attending physician: Alfredo Nagy MD Consults: 09/08/21 15:40 Consult Physician Urgent Consulting Provider: [facility] Consult Reason/Comments: acute chest pain, hyperkalemia Do you want consulting provider notified?: Yes Primary care physician: Keila Mahmood Assessment: Discharge Diagnosis: Atypical chest pain Hyperkalemia Hypertension Dyslipidemia Asthma GERD Rheumatoid arthritis Hospital Course: Patient is a very pleasant 61-year-old female with a history of coronary artery disease, diabetes, GERD, rheumatoid arthritis, asthma, hypertension, and dyslipidemia who initially presented for chest pain. She underwent an extensive evaluation. Vital signs remained within normal limits. She was found to have a potassium of 6.4 was given 1 dose of Kayexalate with potassium normalized to 3.7. Initial troponins were negative. She was seen by cardiology who recommended outpatient evaluation. He to have some chest discomfort. She was tested for influenza, RSV, and COVID as she was complaining of some chest congestion these all came back negative. She had a left lower extremity venous Doppler which was negative for DVT, She did have a slightly elevated bilirubin at 1.5 with AST 47 and ALT 23. She is not complaining of abdominal pain was therefore determined stable for discharge home. Follow-up: Primary care physician in 1-2 days for further outpatient evaluation of chest pain and cough. Patient to stay off potassium until she is seen by her primary care physician. She should have repeat labs done. I do suspect that her hyperkalemia may have been factitious as a corrected so quickly. She should return if symptoms worsen. Patient seen and examined at bedside. Mild chest discomfort that is worse when she cough, she has a mild headache which is unusual for her but has not ate or had any caffeine Morning. Vital signs reviewed and stable. General: non toxic, no distress, appears at stated age Derm: warm, dry Head: atraumatic, normocephalic, symmetric Eyes: EOMI, no lid lag, anicteric sclera Mouth: no lip lesion, mucus membranes moist Cardiovascular: S1S2 reg, no murmur, positive posterior tibial pulse bilateral, Lungs: CTA bilateral, no rhonchi, no rales , no accessory muscle use Abdominal: soft, nontender to palpation, no guarding, no appreciable organomegaly Ext: no gross muscle atrophy, no edema, no contractures Psych: Alert, oriented, appropriate affect A total of 25 minutes of time were spent preparing this complex discharge summary . Patient Condition at Discharge: Stable Plan - Discharge Summary Discharge Rx Participant: No New Discharge Prescriptions: Continue Montelukast [Singulair] 10 mg PO HS Esomeprazole Magnesium [NexIUM] 40 mg PO DAILY Budesonide/Formoterol Fumarate [Symbicort 160-4.5 Mcg Inhaler] 2 puff INHALATION RT-BID hydroCHLOROthiazide [Hydrodiuril] 25 mg PO DAILY Eszopiclone [Lunesta] 3 mg PO HS Albuterol Nebulized [Ventolin Nebulized] 2.5 mg INHALATION RT-QID Nebivolol HCl [Bystolic] 10 mg PO DAILY HYDROcodone/APAP 7.5-325MG [[place] 7.5-325] 1 tab PO Q8H PRN PRN Reason: Pain Amitriptyline HCl [Elavil] 25 mg PO HS Cholecalciferol [Vitamin D3 (125 Mcg = 5000 Iu)] 125 mcg PO DAILY Ospemifene [Osphena] 60 mg PO DAILY Gabapentin [Neurontin] 400 mg PO BID Citalopram Hydrobromide [CeleXA] 20 mg PO DAILY Atorvastatin [Lipitor] 10 mg PO DAILY Fluticasone Nasal [place] [Flonase Nasal [place]] 1 - 2 spray EA NOSTRIL HS PRN PRN Reason: Allergy Symptoms Fexofenadine HCl 180 mg PO DAILY PRN PRN Reason: Allergy Symptoms Discontinued Cetirizine HCl [Zyrtec] 10 mg PO DAILY Potassium Chloride ER [K-Dur 10] 10 meq PO DAILY Discharge Medication List Budesonide/Formoterol Fumarate [Symbicort 160-4.5 Mcg Inhaler] 2 puff INHALATION RT-BID 08/21/14 [History] Esomeprazole Magnesium [NexIUM] 40 mg PO DAILY 08/21/14 [History] Montelukast [Singulair] 10 mg PO HS 08/21/14 [History] hydroCHLOROthiazide [Hydrodiuril] 25 mg PO DAILY 09/09/14 [History] Eszopiclone [Lunesta] 3 mg PO HS 04/20/16 [History] Albuterol Nebulized [Ventolin Nebulized] 2.5 mg INHALATION RT-QID 11/10/17 [History] Nebivolol HCl [Bystolic] 10 mg PO DAILY 03/28/18 [History] Amitriptyline HCl [Elavil] 25 mg PO HS 09/06/20 [History] HYDROcodone/APAP 7.5-325MG [[place] 7.5-325] 1 tab PO Q8H PRN 09/06/20 [History] Atorvastatin [Lipitor] 10 mg PO DAILY 09/08/21 [History] Cholecalciferol [Vitamin D3 (125 Mcg = 5000 Iu)] 125 mcg PO DAILY 09/08/21 [History] Citalopram Hydrobromide [CeleXA] 20 mg PO DAILY 09/08/21 [History] Fexofenadine HCl 180 mg PO DAILY PRN 09/08/21 [History] Fluticasone Nasal [place] [Flonase Nasal [place]] 1 - 2 spray EA NOSTRIL HS PRN 09/08/21 [History] Gabapentin [Neurontin] 400 mg PO BID 09/08/21 [History] Ospemifene [Osphena] 60 mg PO DAILY 09/08/21 [History] Follow up Appointment(s)/Referral(s): Keila Mahmood MD [Primary Care Provider] - 1-2 days Nikita Spence MD [STAFF PHYSICIAN] - 2 Weeks Activity/Diet/Wound Care/Special Instructions: Activity: as tolerated Diet: regular Special Instructions: Return if your symptoms worsen or follow with PCP Discharge Disposition: HOME SELF-CARE
== END 2021-09-09 16:50 | disposition home or self-care (01) ==
LOC: EC 13:11 → 3SCARD 15:51 → INTOOBSV 15:51 → 3SCARD 18:00 → UNDODISIN 09-09 16:50
PROVIDERS: ADMIT Internal Medicine; ATTEND Internal Medicine
DX: R07.89 Other chest pain (principal); Q21.1 Atrial septal defect; E87.5 Hyperkalemia; I25.10 Atherosclerotic heart disease of native coronary artery without angina pectoris; I10 Essential (primary) hypertension; I08.1 Rheumatic disorders of both mitral and tricuspid valves; E78.5 Hyperlipidemia, unspecified; J45.909 Unspecified asthma, uncomplicated; K21.9 Gastro-esophageal reflux disease without esophagitis; M06.9 Rheumatoid arthritis, unspecified; E11.9 Type 2 diabetes mellitus without complications; H40.9 Unspecified glaucoma; R74.01 Elevation of levels of liver transaminase levels; R17 Unspecified jaundice; G43.909 Migraine, unspecified, not intractable, without status migrainosus; R60.0 Localized edema; K44.9 Diaphragmatic hernia without obstruction or gangrene; L30.9 Dermatitis, unspecified; M54.50 Low back pain, unspecified; E03.9 Hypothyroidism, unspecified; D64.9 Anemia, unspecified; K58.9 Irritable bowel syndrome, unspecified; G56.03 Carpal tunnel syndrome, bilateral upper limbs; F41.9 Anxiety disorder, unspecified; G47.00 Insomnia, unspecified; Z20.822 Contact with and (suspected) exposure to COVID-19; Z79.51 Long term (current) use of inhaled steroids; Z79.899 Other long term (current) drug therapy; Z91.040 Latex allergy status; Z88.5 Allergy status to narcotic agent; Z88.8 Allergy status to other drugs, medicaments and biological substances; Z87.01 Personal history of pneumonia (recurrent); Z98.41 Cataract extraction status, right eye; Z98.42 Cataract extraction status, left eye; Z87.440 Personal history of urinary (tract) infections; Z90.49 Acquired absence of other specified parts of digestive tract; Z90.710 Acquired absence of both cervix and uterus; Z86.010 Personal history of colon polyps; Z98.890 Other specified postprocedural states; Z80.42 Family history of malignant neoplasm of prostate; Z82.49 Family history of ischemic heart disease and other diseases of the circulatory system; Z83.511 Family history of glaucoma
CPT/HCPCS: 96376 ×2; 96374; 96375; 99291; 36415; 94640 ×3; 93005; 85379; 80053; 80048 ×2; 83690; 83735; 84484; 85025 ×2; 85610; 85730; 87636; 71046; 93971; G0378 ×2; J2270 ×2; 99285

== ENCOUNTER → 2021-10-24 | Outpatient (CLI) | payer BC | END | disposition home or self-care (01) | LOC: LABWHC1 09:40 | PROVIDERS: ATTEND Internal Medicine Critical Care Medicine | DX: J45.50 Severe persistent asthma, uncomplicated (principal) | CPT/HCPCS: 36415; 82784 ==

== ENCOUNTER → 2022-01-23 | Outpatient (CLI) | payer BC ==
[2022-01-23 10:59] LABS: ALT 30 U/L (8-44); AST 20 U/L (13-35); Chol/HDL Ratio 2.23 Ratio; LDL Cholesterol,Calculated 74.6 mg/dL (0.0-131.0); VLDL Calculation 12.08 mg/dL (5.00-40.00)
== END | disposition home or self-care (01) ==
LOC: LABWHC1 07:25
PROVIDERS: ATTEND Internal Medicine Cardiovascular Disease
DX: E78.2 Mixed hyperlipidemia (principal)
CPT/HCPCS: 36415; 80061; 84450; 84460

== ENCOUNTER → 2022-04-15 | Outpatient (CLI) | payer BC | END | disposition home or self-care (01) | LOC: LABWHC1 12:58 | PROVIDERS: ATTEND Internal Medicine Critical Care Medicine | DX: J45.40 Moderate persistent asthma, uncomplicated (principal) | CPT/HCPCS: 36415; 85008 ==

== ENCOUNTER → 2022-07-08 | Outpatient (CLI) | payer BC ==
--- NOTE | 2022-07-08 09:12 | MM ---
Reason for Exam: Additional evaluation requested from prior study. Last screening mammogram was performed 12 month(s) ago. Patient History: Menarche at age 16. First Full-Term at age 21. Postmenopausal. Hormonal Contraceptives for 12 years, 8 months, from age 37 until age 54. 11/2008, Bilateral Reduction. 09/21/2016, Benign Core Biopsy on the right side. Paternal aunt had breast cancer. Maternal aunt had breast cancer, age 50. Risk Values: [place]elita 5 year model risk: 1.1%. NCI Lifetime model risk: 5.7%. Prior Study Comparison: 05/06/2015 Bilateral Screening Mammogram, [facility]. 09/10/2016 Bilateral Diagnostic Mammogram, [facility]. 09/21/2016 Right Diagnostic Mammogram, [facility]. 05/05/2018 Bilateral Screening Mammogram, [facility]. 11/16/2019 Bilateral Screening Mammogram, [facility]. 07/09/2021 Bilateral Screening Mammogram, [facility]. 07/14/2021 Right Diagnostic Mammogram, [facility]. Tissue Density: There are scattered fibroglandular densities. Findings: Analyzed By CAD. Pattern appears stable. Benign calcifications are present bilaterally. A marker over a small palpable area in the periareolar region on the right is placed. No underlying mammographic abnormality is evident. Ultrasound is recommended for additional evaluation of this palpable region. No suspicious groups of microcalcifications, spiculated or lobular masses, architectural distortion or other secondary signs of malignancy are mammographically apparent. Overall Assessment: Incomplete: need additional imaging evaluation, BI-RAD 0 Management: Diagnostic Breast Ultrasound of the right breast. A negative mammogram report should not preclude additional follow up of suspicious palpable abnormalities. Patient should continue monthly self breast exam. A clinical breast exam by your physician is recommended on an annual basis and results should be correlated with mammographic findings. Electronically signed and approved by: Aaron Chao D.O. Radiologis
--- NOTE | 2022-07-08 09:31 | USB ---
Reason for Exam: Clinical finding. Patient History: Menarche at age 16. First Full-Term at age 21. Postmenopausal. Hormonal Contraceptives for 12 years, 8 months, from age 37 until age 54. 11/2008, Bilateral Reduction. 09/21/2016, Benign Core Biopsy on the right side. Paternal aunt had breast cancer. Maternal aunt had breast cancer, age 50. Risk Values: [place] 5 year model risk: 1.1%. NCI Lifetime model risk: 5.7%. Technique: Method: Targeted. Patient Position: Supine. Prior Study Comparison: 11/16/2019 Bilateral Screening Mammogram, [facility]. 07/09/2021 Bilateral Screening Mammogram, [facility]. 07/14/2021 Right Diagnostic Mammogram, [facility]. Findings: The upper outer quadrant of the right breast, the axilla of the right breast and the retroareolar of the right breast were scanned. No solid or cystic masses are identified. No abnormality of the periareolar region is evident. Prior hypodense area within the right breast not identified on the current exam. Overall Assessment: Negative, BI-RAD 1 Management: Screening Mammogram of both breasts in 1 year. A clinical breast exam by your physician is recommended on an annual basis and results should be correlated with mammographic findings. This exam should not preclude additional follow-up of suspicious palpable abnormalities. Results were given to the patient verbally at the time of exam. Electronically signed and approved by: Aaron Chao D.O. Radiologis
== END | disposition home or self-care (01) ==
LOC: RADMAMWWP 08:26
PROVIDERS: ATTEND Obstetrics & Gynecology
DX: R92.1 Mammographic calcification found on diagnostic imaging of breast (principal); N63.10 Unspecified lump in the right breast, unspecified quadrant; Z78.0 Asymptomatic menopausal state; Z80.3 Family history of malignant neoplasm of breast
CPT/HCPCS: 77062; 77066

== ENCOUNTER 2022-08-25 06:49 | Emergency (ER) | payer BC ==
[2022-08-25 06:57] VITALS: RESP 18; TEMP 98.8
--- NOTE | 2022-08-25 06:58 | ED ---
General Adult HPI - General Stated complaint: ABD PAIN Time Seen by Provider: 08/25/22 06:52 Source: patient, RN notes reviewed Mode of arrival: ambulatory Limitations: no limitations - History of Present Illness Initial comments: 62-year-old female presents emergency Department with chief complaint of mid abdominal pain. Patient states it was sudden onset early this morning on 4:30. Patient states she does have associated nausea vomiting diarrhea. Patient had prior cholecystectomy. Nothing makes the pain feel better or worse at this time. Patient has no complaints of chest pain shortness of breath flank pain or any back pain. - Related Data Home Medications Medication Instructions Recorded Confirmed Budesonide/Formoterol Fumarate 2 puff INHALATION RT-BID 08/21/14 09/08/21 [Symbicort 160-4.5 Mcg Inhaler] Esomeprazole Magnesium [NexIUM] 40 mg PO DAILY 08/21/14 09/08/21 Montelukast [Singulair] 10 mg PO HS 08/21/14 09/08/21 hydroCHLOROthiazide [Hydrodiuril] 25 mg PO DAILY 09/09/14 09/08/21 Eszopiclone [Lunesta] 3 mg PO HS 04/20/16 09/08/21 Albuterol Nebulized [Ventolin 2.5 mg INHALATION RT-QID 11/10/17 09/08/21 Nebulized] Nebivolol HCl [Bystolic] 10 mg PO DAILY 03/28/18 09/08/21 Amitriptyline HCl [Elavil] 25 mg PO HS 09/06/20 09/08/21 HYDROcodone/APAP 7.5-325MG [[place] 1 tab PO Q8H PRN 09/06/20 09/08/21 7.5-325] Atorvastatin [Lipitor] 10 mg PO DAILY 09/08/21 09/08/21 Cholecalciferol [Vitamin D3 (125 125 mcg PO DAILY 09/08/21 09/08/21 Mcg = 5000 Iu)] Citalopram Hydrobromide [CeleXA] 20 mg PO DAILY 09/08/21 09/08/21 Fexofenadine HCl 180 mg PO DAILY PRN 09/08/21 09/08/21 Fluticasone Nasal [place] [Flonase 1 - 2 spray EA NOSTRIL HS PRN 09/08/21 09/08/21 Nasal [place]] Gabapentin [Neurontin] 400 mg PO BID 09/08/21 09/08/21 Ospemifene [Osphena] 60 mg PO DAILY 09/08/21 09/08/21 Previous Rx's Medication Instructions Recorded Dicyclomine [Bentyl] 20 mg PO TID #30 tablet 08/25/22 Ondansetron Odt [Zofran Odt] 4 mg PO Q8HR PRN #10 tab 08/25/22 Allergies Allergy/AdvReac Type Severity Reaction Status Date / Time DESTINY Inhibitors Allergy Rash/Hives Verified 09/08/21 14:16 hydromorphone HCl Allergy Anaphylaxis Verified 09/08/21 14:16 [From Dilaudid] latex Allergy Rash/Hives Verified 09/08/21 14:16 propoxyphene napsylate Allergy Swelling Verified 09/08/21 14:16 [From Darvocet-N] Review of Systems ROS Statement: Those systems with pertinent positive or pertinent negative responses have been documented in the HPI. ROS Other: All systems not noted in ROS Statement are negative. Past Medical History Past Medical History: Asthma, Coronary Artery Disease (CAD), Diabetes Mellitus, Eye Disorder, GERD/Reflux, Hyperlipidemia, Hypertension, Pneumonia, Respiratory Disorder, Rheumatoid Arthritis (RA), Skin Disorder, Thyroid Disorder Additional Past Medical History / Comment(s): NIDDM type II, bronchitis, murmur, bilateral eye glaucoma, hiatal hernia, IBS, eczema, hypothyroid, migraines, bilateral carpal tunnel syndrome, lumbar back pain which has lessened since back surgery, insomnia, normocytic anemia, UTIs, seasonal allergies/sinus problems History of Any Multi-Drug Resistant Organisms: None Reported Date of last positivie culture/infection: 2014 Past Surgical History: Back Surgery, Breast Surgery, Cholecystectomy, Heart Catheterization, Hysterectomy, Orthopedic Surgery Additional Past Surgical History / Comment(s): Bilateral breast reduction, R breast bx-benign, L knee arthroscopy, lumbar back surgery, bilateral cataract removals, colonoscopy/benign polypectomy, vocal cord poylpectomies, D&C Past Anesthesia/Blood Transfusion Reactions: Motion Sickness Past Psychological History: Anxiety Smoking Status: Never smoker Past Alcohol Use History: None Reported Past Drug Use History: None Reported - Past Family History Father Family Medical History: Cancer, Hypertension Additional Family Medical History / Comment(s): Prostate cancer Mother Family Medical History: Eye Disorder, Hypertension, Vascular Disorder Additional Family Medical History / Comment(s): Mother had glaucoma. She of a brain aneurysm rupture at the age of 57yrs. General Exam Limitations: no limitations General appearance: alert, in no apparent distress Head exam: Present: atraumatic, normocephalic, normal inspection Eye exam: Present: normal appearance, PERRL, EOMI. Absent: scleral icterus, conjunctival injection, periorbital swelling Respiratory exam: Present: normal lung sounds bilaterally. Absent: respiratory distress, wheezes, rales, rhonchi, stridor Cardiovascular Exam: Present: regular rate, normal rhythm, normal heart sounds. Absent: systolic murmur, diastolic murmur, rubs, gallop, clicks GI/Abdominal exam: Present: soft, tenderness, normal bowel sounds. Absent: distended, guarding, rebound, rigid Back exam: Absent: CVA tenderness (R), CVA tenderness (L) Neurological exam: Present: alert, oriented X3 Skin exam: Present: warm, dry, intact, normal color. Absent: rash Course Vital Signs 08/25/22 08/25/22 08/25/22 06:54 07:57 09:57 Temperature 98.8 F Pulse Rate 78 90 65 Respiratory 18 18 18 Rate Blood Pressure 124/85 122/76 113/76 O2 Sat by Pulse 98 100 94 L Oximetry 08/25/22 10:01 Temperature Pulse Rate 64 Respiratory 18 Rate Blood Pressure 112/64 O2 Sat by Pulse 100 Oximetry Medical Decision Making - Medical Decision Making Was pt. sent in by a medical professional or institution (, PA, LIGHTING SPECIALIST, urgent care, hospital, or fdc...) When possible be specific @ -No Did you speak to anyone other than the patient for history (EMS, parent, family, police, friend...)? What history was obtained from this source @ -No Did you review nursing and triage notes (agree or disagree)? Why? @ -I reviewed and agree with nursing and triage notes Were old charts reviewed (outside hosp., previous admission, EMS record, old EKG, old radiological studies, urgent care reports/EKG's, fdc records)? Report findings @ -No old charts were reviewed Differential Diagnosis (chest pain, altered mental status, abdominal pain women, abdominal pain men, vaginal bleeding, weakness, fever, dyspnea, syncope, headache, dizziness, GI bleed, back pain, seizure, CVA, palpatations, mental health, musculoskeletal)? @ -Differential Abdominal Pain Women: Appendicitis, Cholecystitis, diverticulosis, ischemic bowel, pancreatitis, hepatitis, UTI, gastroenteritis, AAA, incarcerated hernia, bowel obstruction, constipation, inflammatory bowel, hepatitis, peptic ulcer disease, splenic infarction, perforated viscus, vulvitis, ovarian torsion, PID, kidney stone, placenta abruption, this is not meant to be an all-inclusive list EKG interpreted by me (3pts min.). @ -As above X-rays interpreted by me (1pt min.). @ -None done CT interpreted by me (1pt min.). @ -CT and pelvis shows evidence of gastroenteritis type changes U/S interpreted by me (1pt. min.). @ -None done What testing was considered but not performed or refused? (CT, X-rays, U/S, labs)? Why? @ -None What meds were considered but not given or refused? Why? @ -None Did you discuss the management of the patient with other professionals (professionals i.e. , PA, LIGHTING SPECIALIST, lab, RT, psych nurse, social media marketer, computer security specialist, teacher, structural engineering drafting officer, caseworker protective services)? Give summary @ -No Was smoking cessation discussed for >3mins.? @ -No Was critical care preformed (if so, how long)? @ -No Were there social determinants of health that impacted care today? How? (Homel essness, low income, unemployed, alcoholism, drug addiction, transportation, low edu. Level, literacy, decrease access to med. care, [place] [facility], rehab)? @ -No Was there de-escalation of care discussed even if they declined (Discuss DNR or withdrawal of care, Hospice)? DNR status @ -No What co-morbidities impacted this encounter? (DM, HTN, Smoking, COPD, CAD, Cancer, CVA, ARF, Chemo, Hep., AIDS, mental health diagnosis, sleep apnea, morbid obesity)? @ -None Was patient admitted / discharged? Hospital course, mention meds given and route, prescriptions, significant lab abnormalities, going to OR and other pertinent info. @ -[Discharge patient was given antiemetics, pain control patient has evidence of gastroenteritis left wrist there is essentially unremarkable. Undiagnosed new problem with uncertain prognosis? @ -No Drug Therapy requiring intensive monitoring for toxicity (Heparin, Nitro, Insulin, Cardizem)? @ -No Were any procedures done? @ -No Diagnosis/symptom? @ -Gastroenteritis Acute, or Chronic, or Acute on Chronic? @ -Acute Uncomplicated (without systemic symptoms) or Complicated (systemic symptoms)? @ -Uncomplicated Side effects of treatment? @ -No Exacerbation, Progression, or Severe Exacerbation? @ -No Poses a threat to life or bodily function? How? (Chest pain, USA, MS, pneumonia, PE, COPD, DKA, ARF, appy, cholecystitis, CVA, Diverticulitis, Homicidal, Suicidal, threat to staff... and all critical care pts) @ -No - Lab Data Result diagrams: 08/25/22 07:04 08/25/22 07:04 Lab Results 08/25/22 08/25/22 08/25/22 Range/Units 07:04 07:04 07:04 WBC 7.9 (3.8-10.6) k/uL RBC 4.22 (3.80-5.40) m/uL Hgb 11.1 L (11.4-16.0) gm/dL Hct 35.4 (34.0-46.0) % MCV 83.9 (80.0-100.0) fL MCH 26.2 (25.0-35.0) pg MCHC 31.3 (31.0-37.0) g/dL RDW 15.0 (11.5-15.5) % Plt Count 423 (150-450) k/uL MPV 7.1 Neutrophils % 64 % Lymphocytes % 29 % Monocytes % 5 % Eosinophils % 1 % Basophils % 0 % Neutrophils # 5.0 (1.3-7.7) k/uL Lymphocytes # 2.3 (1.0-4.8) k/uL Monocytes # 0.4 (0-1.0) k/uL Eosinophils # 0.1 (0-0.7) k/uL Basophils # 0.0 (0-0.2) k/uL Sodium 139 (137-145) mmol/L Potassium 4.3 (3.5-5.1) mmol/L Chloride 103 (98-107) mmol/L Carbon Dioxide 29 (22-30) mmol/L Anion Gap 7 mmol/L BUN 23 H (7-17) mg/dL Creatinine 0.59 (0.52-1.04) mg/dL Est GFR (CKD-EPI)AfAm >90 (>60 ml/min/1.73 sqM) Est GFR (CKD-EPI)NonAf >90 (>60 ml/min/1.73 sqM) Glucose 160 H (74-99) mg/dL Plasma Lactic Acid Juan Jose 1.8 (0.7-2.0) mmol/L Calcium 9.3 (8.4-10.2) mg/dL Total Bilirubin 0.5 (0.2-1.3) mg/dL AST 25 (14-36) U/L ALT 21 (4-34) U/L Alkaline Phosphatase 62 (38-126) U/L Total Protein 6.8 (6.3-8.2) g/dL Albumin 4.0 (3.5-5.0) g/dL Lipase 86 (23-300) U/L Urine Color Urine Appearance (Clear) Urine pH (5.0-8.0) Ur Specific Basile (1.001-1.035) Urine Protein (Negative) Urine Glucose (UA) (Negative) Urine Ketones (Negative) Urine Blood (Negative) Urine Nitrite (Negative) Urine Bilirubin (Negative) Urine Urobilinogen (<2.0) mg/dL Ur Leukocyte Esterase (Negative) 08/25/22 Range/Units 08:51 WBC (3.8-10.6) k/uL RBC (3.80-5.40) m/uL Hgb (11.4-16.0) gm/dL Hct (34.0-46.0) % MCV (80.0-100.0) fL MCH (25.0-35.0) pg MCHC (31.0-37.0) g/dL RDW (11.5-15.5) % Plt Count (150-450) k/uL MPV Neutrophils % % Lymphocytes % % Monocytes % % Eosinophils % % Basophils % % Neutrophils # (1.3-7.7) k/uL Lymphocytes # (1.0-4.8) k/uL Monocytes # (0-1.0) k/uL Eosinophils # (0-0.7) k/uL Basophils # (0-0.2) k/uL Sodium (137-145) mmol/L Potassium (3.5-5.1) mmol/L Chloride (98-107) mmol/L Carbon Dioxide (22-30) mmol/L Anion Gap mmol/L BUN (7-17) mg/dL Creatinine (0.52-1.04) mg/dL Est GFR (CKD-EPI)AfAm (>60 ml/min/1.73 sqM) Est GFR (CKD-EPI)NonAf (>60 ml/min/1.73 sqM) Glucose (74-99) mg/dL Plasma Lactic Acid Juan Jose (0.7-2.0) mmol/L Calcium (8.4-10.2) mg/dL Total Bilirubin (0.2-1.3) mg/dL AST (14-36) U/L ALT (4-34) U/L Alkaline Phosphatase (38-126) U/L Total Protein (6.3-8.2) g/dL Albumin (3.5-5.0) g/dL Lipase (23-300) U/L Urine Color Yellow Urine Appearance Clear (Clear) Urine pH 5.5 (5.0-8.0) Ur Specific Basile 1.024 (1.001-1.035) Urine Protein Trace H (Negative) Urine Glucose (UA) Negative (Negative) Urine Ketones Negative (Negative) Urine Blood Negative (Negative) Urine Nitrite Negative (Negative) Urine Bilirubin Negative (Negative) Urine Urobilinogen <2.0 (<2.0) mg/dL Ur Leukocyte Esterase Negative (Negative) Disposition Clinical Impression: Gastroenteritis Disposition: HOME SELF-CARE Condition: Stable Instructions (If sedation given, give patient instructions): Gastroenteritis (ED) Additional Instructions: Please return to the Emergency Department if symptoms worsen or any other concerns. Prescriptions: Dicyclomine [Bentyl] 20 mg PO TID #30 tablet Ondansetron Odt [Zofran Odt] 4 mg PO Q8HR PRN #10 tab PRN Reason: Nausea Is patient prescribed a controlled substance at d/c from ED?: No Referrals: Keila Mahmood MD [Primary Care Provider] - 1-2 days Time of Disposition: 09:40
[2022-08-25] MEDS ORDERED: ONDANSETRON 4 MG/2 ML VIAL IVP STA (07:24)
[2022-08-25] MEDS ORDERED: MORPHINE SULFATE 4 MG/ML SYRINGE IVP STA ×2 (07:24→08:37)
[2022-08-25] MEDS ORDERED: SODIUM CHLORIDE 0.9% 1,000 ML IV ONE (07:27)
[2022-08-25 07:41] LABS: Basophils % (A) 0 %; Eosinophils # (A) 0.1 k/uL (0-0.7); Eosinophils % (A) 1 %; HCT 35.4 % (34.0-46.0); HGB 11.1 gm/dL (11.4-16.0); Lymphocytes # (A) 2.3 k/uL (1.0-4.8); Lymphocytes % (A) 29 %; MCH 26.2 pg (25.0-35.0); MCHC 31.3 g/dL (31.0-37.0); MCV 83.9 fL (80.0-100.0); Mean Platelet Volume 7.1; Monocytes # (A) 0.4 k/uL (0-1.0); Monocytes % (A) 5 %; Neutrophils % (A) 64 %; Platelet Count 423 k/uL (150-450); RBC 4.22 m/uL (3.80-5.40); WBC 7.9 k/uL (3.8-10.6)
[2022-08-25 08:07] LABS: ALT 21 U/L (4-34); AST 25 U/L (14-36); African American GFR (CKD) >90 (>60 ml/min/1.73 sqM); Alkaline Phosphatase 62 U/L (38-126); Anion Gap 7 mmol/L; Blood Urea Nitrogen 23 mg/dL (7-17); Calcium 9.3 mg/dL (8.4-10.2); Carbon Dioxide 29 mmol/L (22-30); Chloride 103 mmol/L (98-107); Glucose 160 mg/dL (74-99); Lipase 86 U/L (23-300); Non-African American GFR(CKD) >90 (>60 ml/min/1.73 sqM); Sodium 139 mmol/L (137-145); Total Bilirubin 0.5 mg/dL (0.2-1.3); Total Protein 6.8 g/dL (6.3-8.2)
[2022-08-25 08:16] LABS: Potassium 4.3 mmol/L (3.5-5.1)
[2022-08-25] MEDS ORDERED: KETOROLAC 15 MG/ML 1 ML VIAL IVP STA (08:37)
[2022-08-25 09:02] LABS: Appearance,Urine Clear (Clear); Bilirubin,Urine Negative (Negative); Blood,Urine Negative (Negative); Color,Urine Yellow; Glucose,Urine (UA) Negative (Negative); Ketones,Urine Negative (Negative); Leukocyte Esterase,Urine Negative (Negative); Nitrite,Urine Negative (Negative); PH, Urine 5.5 (5.0-8.0); Protein,Urine Trace (Negative); Specific Gravity,Urine 1.024 (1.001-1.035); Urobilinogen,Urine <2.0 mg/dL (<2.0)
--- NOTE | 2022-08-25 09:16 | CT ---
EXAMINATION TYPE: CT abdomen pelvis w con DATE OF EXAM: 08/25/2022 COMPARISON: Ultrasound 07/26/2019 INDICATION: Umbilical area pain DLP: 809.7 mGycm, Automated exposure control for dose reduction was used. CONTRAST: 100 ml mL of Isovue 300. Study performed without Oral Contrast TECHNIQUE: Axial images were obtained from above the diaphragm to the pubic rami in the axial plane a t 5 mm thick sections. Reconstructed images are reviewed on the computer in the coronal plane. FINDINGS: Limited CT sections are obtained the lung bases. The lung bases are clear. CT ABDOMEN: Liver: There is some hypodensity near the ligamentum teres of uncertain etiology. No corresponding ab normality on ultrasound is evident. Focal fatty infiltration could be considered. This is approximate ly 3.9 cm transverse by 2.7 cm AP. Short-term follow-up is recommended. Other etiologies are not exc luded. Spleen: Normal Pancreas: Normal Adrenal glands: The adrenal glands are normal. Gallbladder: Surgically absent Kidneys: No masses are evident. No hydronephrosis is present. No cysts are present. Aorta: Normal Inferior vena cava: Normal. CT PELVIS: There is a small periumbilical hernia with an opening of 2.3 cm containing mesenteric fat. No bowel are involved. There are some fluid-filled small bowel loops within the midabdomen. Consider ileus within the differ ential. No obstruction is evident. Fluid and air is present within the ascending colon. Gastroenterit is could be considered. Remainder the colon appears normal. There are loops of bowel which are incomp letely distended or lack oral contrast limiting their evaluation. Appendix: Normal as visualized. Urinary bladder: Decompressed Limited evaluation Genitourinary structures: Uterus is normal. Adnexa are normal. Osseous structures: No suspicious lytic or sclerotic lesions. IMPRESSIONS: 1. Distal small bowel with fluid some fluid in the ascending colon. Consider gastroenteritis or ileu s. 2. Hypodensity within the liver near the ligamentum teres measuring approximately 4 cm. Short-term fo llow-up can be performed with ultrasound. Differential does include focal fatty infiltration among ot her etiologies..
[2022-08-25] MEDS ORDERED: DICYCLOMINE 10 MG/ML 2 ML AMP IM STA (09:37)
[2022-08-25] MEDS ORDERED: LORazepam 2 MG/ML INJ IV PRN (09:38)
[2022-08-25] MEDS ORDERED: LORazepam 2 MG/ML INJ IV STA (09:38)
[2022-08-25 10:02] VITALS: BP 112/64; PULSE 64
== END 2022-08-25 10:01 | disposition home or self-care (01) ==
LOC: EC 06:49
DX: K52.9 Noninfective gastroenteritis and colitis, unspecified (principal); J45.909 Unspecified asthma, uncomplicated; I25.10 Atherosclerotic heart disease of native coronary artery without angina pectoris; E11.9 Type 2 diabetes mellitus without complications; K21.9 Gastro-esophageal reflux disease without esophagitis; E78.5 Hyperlipidemia, unspecified; I10 Essential (primary) hypertension; M06.9 Rheumatoid arthritis, unspecified; E07.9 Disorder of thyroid, unspecified; F41.9 Anxiety disorder, unspecified; Z91.040 Latex allergy status; Z88.5 Allergy status to narcotic agent; Z91.048 Other nonmedicinal substance allergy status; Z88.8 Allergy status to other drugs, medicaments and biological substances; Z79.51 Long term (current) use of inhaled steroids; Z79.899 Other long term (current) drug therapy
CPT/HCPCS: 36415; 80053; 83605; 83690; 85025; 81003; 74177; 99284; 96374; 96375 ×3; 96376; 96361; 96372; J2060; J2270; J0500; J2405; J1885; Q9967

== ENCOUNTER → 2022-08-28 | Outpatient (CLI) | payer BC ==
--- NOTE | 2022-08-29 06:11 | XR ---
EXAMINATION TYPE: XR abdomen 2V DATE OF EXAM: 08/28/2022 CLINICAL HISTORY: Abdominal pain all over. Ileus. TECHNIQUE: Supine and upright views of the abdomen are obtained. COMPARISON: CT abdomen and pelvis 3 days ago. FINDINGS: Gas is seen in nondistended stomach. Scattered gas is seen in non-distended small and larg e bowel loops. Cholecystectomy clips are redemonstrated. Surgical change L4-L5 level again seen. Lung bases remain clear. No free air. Single left-sided pelvic phlebolith IMPRESSION: Overall nonobstructive bowel gas pattern redemonstrated.
== END | disposition home or self-care (01) ==
LOC: LABWHC1 15:15
PROVIDERS: ATTEND Internal Medicine
DX: K56.7 Ileus, unspecified (principal)
CPT/HCPCS: 74019

== ENCOUNTER → 2022-10-19 | Outpatient (CLI) | payer BC ==
--- NOTE | 2022-10-19 13:21 | US ---
EXAMINATION TYPE: US thyroid st tissue head/neck DATE OF EXAM: 10/19/2022 COMPARISON: NONE CLINICAL INDICATION: Female, 62 years old with history of E04.1 NONTOXIC THYROID NODULE; GLAND SIZE: Right Lobe: 4.5 x 1.2 x 1.7 cm Overall Parenchyma: homogenous Left Lobe: 3.8 x 1.0 x 1.4 cm Overall Parenchyma: homogeneous Isthmus Thickness: 0.5 cm NODULES RIGHT: # of nodules measured on right: 1 1. 0.4 X 0.4 x 0.6 cm, mid, solid or almost completely solid, hypoechoic nodule, which is wider kaleb n tall, with smooth margins, without echogenic foci. Prior size: 0.6 x 0.4 x 0.6 cm LEFT: # of nodules measured on left: 1 1. 0.5 X 0.3 x 0.4 cm, mid medial, solid or almost completely solid, hypoechoic nodule, which is wi jennifer than tall, with smooth margins, without echogenic foci. Prior size: 0.6 x 0.3 x 0.3 cm ISTHMUS: # of nodules measured in the isthmus: 0 Bilateral neck scanned, no evidence of lymphadenopathy. Stable sub-centimeter nodules bilaterally. IMPRESSION: Nonspecific bilateral nodularity.
== END | disposition home or self-care (01) ==
LOC: RADUSWWP 12:14
PROVIDERS: ATTEND Otolaryngology
DX: E04.2 Nontoxic multinodular goiter (principal)
CPT/HCPCS: 76536

== ENCOUNTER → 2023-02-20 | Outpatient (CLI) | payer OTHER ==
--- NOTE | 2023-02-20 12:08 | XR ---
EXAMINATION TYPE: XR knee complete LT DATE OF EXAM: 02/20/2023 11:40 AM CLINICAL INDICATION:Female, 62 years old with history of WORK COMP ...S83.92XA PAIN IN LEFT KNEE; [facility] COMPARISON: 02/24/2021 TECHNIQUE: XR knee complete LT; examined in Frontal, lateral and oblique projections. FINDINGS: No evidence of any acute osseous pathology, soft tissue swelling, or joint effusion is no mimi. Mild osteophyte formation involving the tibial plateau and patella. Mild joint space narrowing. IMPRESSION: 1. No acute osseous pathology. 2. Mild tricompartmental osteoarthritic changes.
== END | disposition home or self-care (01) ==
LOC: RADXRMAIN 11:17
PROVIDERS: ATTEND Emergency Medicine
DX: M17.12 Unilateral primary osteoarthritis, left knee (principal)

== ENCOUNTER → 2023-02-25 | Outpatient (CLI) | payer BC, OTHER ==
--- NOTE | 2023-03-03 08:36 | MR ---
EXAMINATION TYPE: MR knee LT wo con DATE OF EXAM: 02/25/2023 COMPARISON: Radiograph 02/20/2023 HISTORY: 62-year-old female Lt knee pain TECHNIQUE: Multiplanar, multisequence imaging of the left knee is performed without IV contrast. FINDINGS: The ACL, PCL, MCL are intact. Some increased signal at the femoral attachment of the LCL proper and also within the popliteus tendo n. Small multilocular cyst noted on the posterior root of the medial meniscus measuring 1.2 x 0.4 cm. Ho wever, no discrete meniscal tear is seen here. There is mild degenerative spurring in the medial comp artment with mild diffuse cartilage thinning with a more focal area of moderate to severe cartilage l oss posterior peripheral aspect of the medial femoral condyle measuring 1.0 cm AP and 1.0 cm wide. The lateral meniscus is intact and overall lateral compartment articular cartilage volume is maintain ed. There is moderate irregular cartilage thinning throughout the patellofemoral compartment. Some reacti ve subchondral cystic change noted at the medial patellar facet. Extensor mechanism is intact. There is focal edema within Hoffa's fat inferior and lateral to the pa tella, sagittal series 401 image 11. There is trace fluid along pes anserinus bursa and trace leaking Bell's cyst noted. Small knee joint effusion. Normal popliteal artery anatomy and muscle bulk. No suspicious bone marrow replacement. IMPRESSION: 1. Focal intense edema in Hoffa's fat inferior and lateral to the patella. Finding can be seen in the setting of fat pad impingement syndrome. 2. Low-grade versus chronic sprain at the femoral attachment of the LCL proper. Clinically correlate. Accompanying mild to moderate popliteus tendinosis. 3. A 1.2 x 0.4 cm multiloculated cyst (possible parameniscal cyst) at the posterior root of the media l meniscus though without discrete meniscal tear seen at this time. Short interval follow-up can be p erformed. 4. Mild overall patellofemoral compartmental OA, though there is a small 1 cm focal area of more mode rate to severe cartilage injury along the posterior peripheral aspect of the medial femoral condyle. 5. Mild to moderate overall patellofemoral compartmental OA. 6. Trace leaking Bell's cyst and trace pes anserinus bursitis.
== END | disposition home or self-care (01) ==
LOC: RADMRIMAIN 07:32
PROVIDERS: ATTEND Emergency Medicine
DX: S83.92XD Sprain of unspecified site of left knee, subsequent encounter (principal); M17.12 Unilateral primary osteoarthritis, left knee; M66.0 Rupture of popliteal cyst; M70.52 Other bursitis of knee, left knee; X58.XXXD Exposure to other specified factors, subsequent encounter

== ENCOUNTER → 2023-03-08 | Outpatient (CLI) | payer OTHER ==
--- NOTE | 2023-03-08 16:24 | XR ---
EXAMINATION TYPE: XR hand complete RT, XR wrist complete RT DATE OF EXAM: 03/08/2023 4:10 PM CLINICAL INDICATION:Female, 62 years old with history of S63.659A,S63.501A; [facility] COMPARISON: None TECHNIQUE: XR hand complete RT, XR wrist complete RT Frontal, lateral and oblique views were obtained . FINDINGS: Normal alignment of the visualized joints. No acute osseous pathology is identified. No e vidence of soft tissue swelling. Multifocal joint space narrowing osteophyte formation worse at the f irst digit carpometacarpal joint IMPRESSION: No acute osseous pathology.
== END | disposition home or self-care (01) ==
LOC: RADXRMAIN 15:57
PROVIDERS: ATTEND Emergency Medicine
DX: S63.651A Sprain of metacarpophalangeal joint of left index finger, initial encounter (principal); S63.501A Unspecified sprain of right wrist, initial encounter

== ENCOUNTER → 2023-03-17 | Outpatient (CLI) | payer OTHER ==
--- NOTE | 2023-03-17 15:28 | XR ---
EXAMINATION TYPE: XR hand complete RT DATE OF EXAM: 03/17/2023 COMPARISON: NONE HISTORY: Pain TECHNIQUE: Three views are submitted. FINDINGS: The osseous structures are intact. There is moderate first carpal metacarpal joint arthropathy. Diffu se osteopenia. Mild DIP joint arthropathy of all digits. Mild MCP joint arthropathy digits 1 through 3. There is no acute fracture or dislocation. IMPRESSION: 1. No definite acute fracture or dislocation if symptoms persist, follow-up study in 7 to 10 days wo uld be suggested
--- NOTE | 2023-03-17 15:29 | XR ---
EXAMINATION TYPE: XR wrist complete RT DATE OF EXAM: 03/17/2023 COMPARISON: NONE HISTORY: Pain TECHNIQUE: Four views submitted. FINDINGS: The osseous structures are intact. There is moderate first carpal metacarpal joint arthropathy. Mild demineralization mild arthropathy MCP joints first 3 digits. No erosive changes. There is no acute fr acture or dislocation. IMPRESSION: 1. No definite acute fracture or dislocation if symptoms persist, follow-up study in 7 to 10 days wo uld be suggested 2. Moderate first carpal metacarpal joint arthropathy.
== END | disposition home or self-care (01) ==
LOC: RADXRMAIN 14:46
PROVIDERS: ATTEND Emergency Medicine
DX: M18.11 Unilateral primary osteoarthritis of first carpometacarpal joint, right hand (principal); S63.501D Unspecified sprain of right wrist, subsequent encounter; S63.659D Sprain of metacarpophalangeal joint of unspecified finger, subsequent encounter; X58.XXXD Exposure to other specified factors, subsequent encounter

== ENCOUNTER → 2023-04-07 | Outpatient (CLI) | payer OTHER ==
--- NOTE | 2023-04-11 18:51 | MR ---
EXAM: MR wrist RT wo con DATE OF EXAM: 04/07/2023 COMPARISON: Several prior right wrist/hand radiographs, most recently 03/17/2023. HISTORY: Right wrist pain and swelling x1 month TECHNIQUE: Multiplanar, multisequence images of the right wrist were acquired without contrast. FINDINGS: BONES/JOINTS: Degenerative subchondral cystic changes within the scaphoid, lunate, capitate, and trap ezium. Benign chondroid-like lesion within the first metacarpal, possibly enchondroma.. Normal alignm ent. No ulnar variance. Distal radioulnar joint is normal. No joint effusion. LIGAMENTS: Scapholunate and lunotriquetral ligaments are normal. Extrinsic carpal ligaments are evelin l. Focal tear within the triangular fibrocartilaginous complex, given the partial evaluation with a n onarthrographic exam. TENDONS: Flexor tendons are normal. Trace amount of increased/abnormal fluid within the second extens or compartment, may relate to tenosynovitis. The remainder of the extensor tendons are normal. SOFT TISSUES: Carpal tunnel is normal. 7 x 7 x 3 mm ganglion cyst projecting from the volar aspect of the ulnocarpal joint. No bursal distention. No fluid collection. NEUROVASCULAR: The median nerve is normal in size, signal, and location. The ulnar nerve is normal in size, signal, and location. Vascular structures are normal OTHER: Normal. IMPRESSION: 1. Second extensor compartment tenosynovitis. 2. Suspected central tear in the TFCC, limited evaluation without arthrographic technique 3. Degenerative changes throughout the carpal bones. 4. Tiny ganglion cyst volar aspect overlying the ulnocarpal joint.
== END | disposition home or self-care (01) ==
LOC: RADMRIMAIN 18:24
PROVIDERS: ATTEND Emergency Medicine
DX: S63.501D Unspecified sprain of right wrist, subsequent encounter (principal); M19.031 Primary osteoarthritis, right wrist; M65.9 Synovitis and tenosynovitis, unspecified; M67.431 Ganglion, right wrist

== ENCOUNTER → 2023-04-09 | Outpatient (CLI) | payer BC ==
[2023-04-09 15:35] LABS: Chol/HDL Ratio 1.93 Ratio; LDL Cholesterol,Calculated 72.5 mg/dL (0.0-131.0)
== END | disposition home or self-care (01) ==
LOC: LABWHC1 10:20
PROVIDERS: ATTEND Internal Medicine
DX: E78.2 Mixed hyperlipidemia (principal)
CPT/HCPCS: 36415; 80061

== ENCOUNTER → 2023-09-09 | Outpatient (CLI) | payer BC | END | disposition home or self-care (01) | LOC: LABWHC1 15:15 | PROVIDERS: ATTEND Internal Medicine Critical Care Medicine | DX: J45.50 Severe persistent asthma, uncomplicated (principal) | CPT/HCPCS: 36415; 82784 ==

== ENCOUNTER 2024-01-04 19:28 | Inpatient (IN) | payer BC, OTHER ==
--- NOTE | 2024-01-04 19:53 | ED ---
URI HPI - General Source: patient, RN notes reviewed Mode of arrival: wheelchair Limitations: no limitations <Dariela Lilly - Last Filed: 01/04/24 19:52> <Tc Melendez - Last Filed: 01/04/24 23:29> - General Chief Complaint: Upper Respiratory Infection Stated Complaint: SOB Time Seen by Provider: 01/04/24 19:45 - History of Present Illness Initial Comments: [id number] female with history of asthma presents emergency department chief complaint of cough chills. Patient was evaluated on Wednesday and was diagnosed with bronchitis and discharged home with steroids, albuterol, and antibiotic. (Dariela Lilly) 63-year-old female history of asthma presents with persistent cough, dyspnea, sore throat. Patient was treated at outside hospital for asthma exacerbation. She was started on steroids, albuterol and antibiotic. She states she has not improved significantly. She reports chills without measured fever. No central chest pain. (Tc Melendez) - Related Data Home Medications Medication Instructions Recorded Confirmed Budesonide/Formoterol Fumarate 2 puff INHALATION RT-BID 08/21/14 09/08/21 [Symbicort 160-4.5 Mcg Inhaler] Esomeprazole Magnesium [NexIUM] 40 mg PO DAILY 08/21/14 09/08/21 Montelukast [Singulair] 10 mg PO HS 08/21/14 09/08/21 hydroCHLOROthiazide [Hydrodiuril] 25 mg PO DAILY 09/09/14 09/08/21 Eszopiclone [Lunesta] 3 mg PO HS 04/20/16 09/08/21 Albuterol Nebulized [Ventolin 2.5 mg INHALATION RT-QID 11/10/17 09/08/21 Nebulized] Nebivolol HCl [Bystolic] 10 mg PO DAILY 03/28/18 09/08/21 Amitriptyline HCl [Elavil] 25 mg PO HS 09/06/20 09/08/21 HYDROcodone/APAP 7.5-325MG [[place] 1 tab PO Q8H PRN 09/06/20 09/08/21 7.5-325] Atorvastatin [Lipitor] 10 mg PO DAILY 09/08/21 09/08/21 Cholecalciferol [Vitamin D3 (125 125 mcg PO DAILY 09/08/21 09/08/21 Mcg = 5000 Iu)] Citalopram Hydrobromide [CeleXA] 20 mg PO DAILY 09/08/21 09/08/21 Fexofenadine HCl 180 mg PO DAILY PRN 09/08/21 09/08/21 Fluticasone Nasal [place] [Flonase 1 - 2 spray EA NOSTRIL HS PRN 09/08/21 09/08/21 Nasal [place]] Gabapentin [Neurontin] 400 mg PO BID 09/08/21 09/08/21 Ospemifene [Osphena] 60 mg PO DAILY 09/08/21 09/08/21 Previous Rx's Medication Instructions Recorded Dicyclomine [Bentyl] 20 mg PO TID #30 tablet 08/25/22 Ondansetron Odt [Zofran Odt] 4 mg PO Q8HR PRN #10 tab 08/25/22 Allergies Allergy/AdvReac Type Severity Reaction Status Date / Time DESTINY Inhibitors Allergy Rash/Hives Verified 01/04/24 19:44 hydromorphone HCl Allergy Anaphylaxis Verified 01/04/24 19:44 [From Dilaudid] latex Allergy Rash/Hives Verified 01/04/24 19:44 propoxyphene napsylate Allergy Swelling Verified 01/04/24 19:44 [From Darvocet-N] Review of Systems ROS Other: All systems not noted in ROS Statement are negative. <Dariela Lilly - Last Filed: 01/04/24 19:52> ROS Other: All systems not noted in ROS Statement are negative. <Tc Melendez - Last Filed: 01/04/24 23:29> ROS Statement: Those systems with pertinent positive or pertinent negative responses have been documented in the HPI. Past Medical History Past Medical History: Asthma, Coronary Artery Disease (CAD), Diabetes Mellitus, Eye Disorder, GERD/Reflux, Hyperlipidemia, Hypertension, Pneumonia, Respiratory Disorder, Rheumatoid Arthritis (RA), Skin Disorder, Thyroid Disorder Additional Past Medical History / Comment(s): NIDDM type II, bronchitis, murmur, bilateral eye glaucoma, hiatal hernia, IBS, eczema, hypothyroid, migraines, bilateral carpal tunnel syndrome, lumbar back pain which has lessened since back surgery, insomnia, normocytic anemia, UTIs, seasonal allergies/sinus problems History of Any Multi-Drug Resistant Organisms: None Reported Date of last positivie culture/infection: 2014 Past Surgical History: Back Surgery, Breast Surgery, Cholecystectomy, Heart Catheterization, Hysterectomy, Orthopedic Surgery Additional Past Surgical History / Comment(s): Bilateral breast reduction, R breast bx-benign, L knee arthroscopy, lumbar back surgery, bilateral cataract removals, colonoscopy/benign polypectomy, vocal cord poylpectomies, D&C Past Anesthesia/Blood Transfusion Reactions: Motion Sickness Past Psychological History: Anxiety Smoking Status: Never smoker Past Alcohol Use History: None Reported Past Drug Use History: None Reported - Past Family History Father Family Medical History: Cancer, Hypertension Additional Family Medical History / Comment(s): Prostate cancer Mother Family Medical History: Eye Disorder, Hypertension, Vascular Disorder Additional Family Medical History / Comment(s): Mother had glaucoma. She of a brain aneurysm rupture at the age of 57yrs. <Dariela Lilly - Last Filed: 01/04/24 19:52> General Exam Limitations: no limitations <Dariela Lilly - Last Filed: 01/04/24 19:52> General appearance: alert, in no apparent distress Head exam: Present: atraumatic, normocephalic Eye exam: Present: normal appearance, PERRL ENT exam: Present: normal exam Neck exam: Present: normal inspection. Absent: tenderness, meningismus Respiratory exam: Present: other (Bronchospastic cough). Absent: respiratory distress Cardiovascular Exam: Present: regular rate, normal rhythm GI/Abdominal exam: Present: soft. Absent: distended, tenderness Neurological exam: Present: alert, oriented X3 Psychiatric exam: Present: normal affect, normal mood Skin exam: Present: warm, dry, intact <StarlaneshaTc malave - Last Filed: 01/04/24 23:29> - General Exam Comments Initial Comments: Visual Physical Exam Vital signs reviewed General: Well-appearing, nontoxic, no acute distress. Head: Normocephalic, atraumatic Eyes: PERRLA, EOMI ENT: Airway patent Chest: Nonlabored breathing Skin: No visual rash, normal skin tone Neuro: Alert and oriented 3 Musculoskeletal: No gross abnormalities (Dariela Lilly) Course Vital Signs 09/24/24 09/24/24 09/24/24 19:44 21:54 22:09 Temperature 97.8 F Pulse Rate 85 61 57 L Respiratory 18 Rate Blood Pressure 144/90 O2 Sat by Pulse 100 Oximetry Medical Decision Making <Dariela Lilly - Last Filed: 01/04/24 19:52> - Lab Data Result diagrams: 01/04/24 20:41 01/04/24 20:41 <Tc Melendez - Last Filed: 01/04/24 23:29> - Medical Decision Making I completed the quick note portion of this chart signed Dariela Lilly PA-C (Dariela Lilly) Was pt. sent in by a medical professional or institution (ADAN Sanchez, SECURITY REP, urgent care, hospital, or prison...) When possible be specific @ -No Did you speak to anyone other than the patient for history (EMS, parent, family, police, friend...)? What history was obtained from this source @ -No Did you review nursing and triage notes (agree or disagree)? Why? @ -I reviewed and agree with nursing and triage notes Were old charts reviewed (outside hosp., previous admission, EMS record, old EKG, old radiological studies, urgent care reports/EKG's, prison records)? Report findings @ -No old charts were reviewed Differential Dyspnea: Coronary syndrome, arrhythmia, tamponade, asthma, COPD, pulmonary embolism, pneumonia, pneumothorax, pulmonary effusion, anaphylaxis, diabetic ketoacidosis, flailed chest, pulmonary contusion, diaphragmatic rupture, anemia, neuromuscular, this is not meant to be an all-inclusive list. EKG interpreted by me (3pts min.). @ -Sinus rhythm rate of 65, FL interval 197, QRS duration 86, T wave inversion in the precordial leads and inferior leads. No ST segment elevation. X-rays interpreted by me (1pt min.). @ -Chest x-ray negative for acute cardiopulmonary findings CT interpreted by me (1pt min.). @ -None done U/S interpreted by me (1pt. min.). @ -None done What testing was considered but not performed or refused? (CT, X-rays, U/S, labs)? Why? @ -None What meds were considered but not given or refused? Why? @ -None Did you discuss the management of the patient with other professionals (professionals i.e. , PA, SECURITY REP, lab, RT, psych nurse, case management social worker, knockout machine operator, teacher, placement officer, corrections caseworker)? Give summary @ -EMH Was smoking cessation discussed for >3mins.? @ -No Was critical care preformed (if so, how long)? @ -No Were there social determinants of health that impacted care today? How? (Homele ssness, low income, unemployed, alcoholism, drug addiction, transportation, low edu. Level, literacy, decrease access to med. care, shelter, rehab)? @ -No Was there de-escalation of care discussed even if they declined (Discuss DNR or withdrawal of care, Hospice)? DNR status @ -No What co-morbidities impacted this encounter? (DM, HTN, Smoking, COPD, CAD, Cancer, CVA, ARF, Chemo, Hep., AIDS, mental health diagnosis, sleep apnea, morbid obesity)? @ -Asthma Was patient admitted / discharged? Hospital course, mention meds given and route, prescriptions, significant lab abnormalities, going to OR and other pertinent info. @ -63-year-old female with persistent cough, dyspnea, upper respiratory in fectious symptoms. Viral panel is negative. Chest x-ray is negative for focal pneumonia. Patient has normal CBC, normal CMP. Troponin is negative. Patient has persistent dyspnea and bronchospastic cough. She is admitted for asthma exacerbation for continued treatment with IV steroids, albuterol, Atrovent. She will be admitted to internal medicine with pulmonology on consult. Undiagnosed new problem with uncertain prognosis? @ -No Drug Therapy requiring intensive monitoring for toxicity (Heparin, Nitro, Insulin, Cardizem)? @ -No Were any procedures done? @ -No Diagnosis/symptom? @ -[Asthma exacerbation Acute, or Chronic, or Acute on Chronic? @ -Acute on chronic Uncomplicated (without systemic symptoms) or Complicated (systemic symptoms)? @ -Default Side effects of treatment? @ -No Exacerbation, Progression, or Severe Exacerbation? @ -No Poses a threat to life or bodily function? How? (Chest pain, [place], [place], pneumonia, PE, COPD, DKA, ARF, appy, cholecystitis, CVA, Diverticulitis, Homicidal, Suicidal, threat to staff... and all critical care pts) @ -Yes, respiratory failure, hypoxia (Tc Melendez) - Lab Data Lab Results 01/04/24 01/04/24 01/04/24 Range/Units 20:41 20:41 20:41 WBC 8.2 (3.8-10.6) k/uL RBC 4.27 (3.80-5.40) m/uL Hgb 11.4 (11.4-16.0) gm/dL Hct 35.6 (34.0-46.0) % MCV 83.5 (80.0-100.0) fL MCH 26.7 (25.0-35.0) pg MCHC 32.0 (31.0-37.0) g/dL RDW 14.3 (11.5-15.5) % Plt Count 455 H (150-450) k/uL MPV 6.8 Neutrophils % 60 % Lymphocytes % 31 % Monocytes % 6 % Eosinophils % 1 % Basophils % 1 % Neutrophils # 4.9 (1.3-7.7) k/uL Lymphocytes # 2.6 (1.0-4.8) k/uL Monocytes # 0.5 (0-1.0) k/uL Eosinophils # 0.1 (0-0.7) k/uL Basophils # 0.1 (0-0.2) k/uL Hypochromasia Slight Sodium 139 (137-145) mmol/L Potassium 3.9 (3.5-5.1) mmol/L Chloride 105 (98-107) mmol/L Carbon Dioxide 29 (22-30) mmol/L Anion Gap 5 mmol/L BUN 19 H (7-17) mg/dL Creatinine 0.72 (0.52-1.04) mg/dL Est GFR (CKD-EPI)AfAm >90 (>60 ml/min/1.73 sqM) Est GFR (CKD-EPI)NonAf >90 (>60 ml/min/1.73 sqM) Glucose 115 H (74-99) mg/dL Calcium 10.0 (8.4-10.2) mg/dL Total Bilirubin 0.4 (0.2-1.3) mg/dL AST 32 (14-36) U/L ALT 26 (4-34) U/L Alkaline Phosphatase 67 (38-126) U/L Troponin I (0.000-0.034) ng/mL Total Protein 6.9 (6.3-8.2) g/dL Albumin 4.3 (3.5-5.0) g/dL Influenza Type A (PCR) Not Detected (Not Detectd) Influenza Type B (PCR) Not Detected (Not Detectd) RSV (PCR) Not Detected (Not Detectd) SARS-CoV-2 (PCR) Not Detected (Not Detectd) 01/04/24 Range/Units 22:32 WBC (3.8-10.6) k/uL RBC (3.80-5.40) m/uL Hgb (11.4-16.0) gm/dL Hct (34.0-46.0) % MCV (80.0-100.0) fL MCH (25.0-35.0) pg MCHC (31.0-37.0) g/dL RDW (11.5-15.5) % Plt Count (150-450) k/uL MPV Neutrophils % % Lymphocytes % % Monocytes % % Eosinophils % % Basophils % % Neutrophils # (1.3-7.7) k/uL Lymphocytes # (1.0-4.8) k/uL Monocytes # (0-1.0) k/uL Eosinophils # (0-0.7) k/uL Basophils # (0-0.2) k/uL Hypochromasia Sodium (137-145) mmol/L Potassium (3.5-5.1) mmol/L Chloride (98-107) mmol/L Carbon Dioxide (22-30) mmol/L Anion Gap mmol/L BUN (7-17) mg/dL Creatinine (0.52-1.04) mg/dL Est GFR (CKD-EPI)AfAm (>60 ml/min/1.73 sqM) Est GFR (CKD-EPI)NonAf (>60 ml/min/1.73 sqM) Glucose (74-99) mg/dL Calcium (8.4-10.2) mg/dL Total Bilirubin (0.2-1.3) mg/dL AST (14-36) U/L ALT (4-34) U/L Alkaline Phosphatase (38-126) U/L Troponin I <0.012 (0.000-0.034) ng/mL Total Protein (6.3-8.2) g/dL Albumin (3.5-5.0) g/dL Influenza Type A (PCR) (Not Detectd) Influenza Type B (PCR) (Not Detectd) RSV (PCR) (Not Detectd) SARS-CoV-2 (PCR) (Not Detectd) Disposition <Dariela Lilly - Last Filed: 01/04/24 19:52> Is patient prescribed a controlled substance at d/c from ED?: No Time of Disposition: 23:29 <Tc Melendez - Last Filed: 01/04/24 23:29> Clinical Impression: Asthma exacerbation Disposition: ADMITTED IP TO THIS HOSP Condition: Stable Referrals: Keila Mahmood MD [Primary Care Provider] - 1-2 days
[2024-01-04 21:03] LABS: Basophils # (A) 0.1 k/uL (0-0.2); Basophils % (A) 1 %; Eosinophils # (A) 0.1 k/uL (0-0.7); Eosinophils % (A) 1 %; HCT 35.6 % (34.0-46.0); HGB 11.4 gm/dL (11.4-16.0); Hypochromasia Slight; Lymphocytes # (A) 2.6 k/uL (1.0-4.8); Lymphocytes % (A) 31 %; MCH 26.7 pg (25.0-35.0); MCV 83.5 fL (80.0-100.0); Mean Platelet Volume 6.8; Monocytes # (A) 0.5 k/uL (0-1.0); Monocytes % (A) 6 %; Neutrophils # (A) 4.9 k/uL (1.3-7.7); Neutrophils % (A) 60 %; Platelet Count 455 k/uL (150-450); RBC 4.27 m/uL (3.80-5.40); RDW 14.3 % (11.5-15.5); WBC 8.2 k/uL (3.8-10.6)
--- NOTE | 2024-01-04 21:09 | XR ---
EXAMINATION TYPE: XR chest 2V DATE OF EXAM: 01/04/2024 COMPARISON: 06/10/2023 INDICATION: Cough, chest pain TECHNIQUE: Frontal and lateral views of the chest are obtained. FINDINGS: The heart size is normal. The pulmonary vasculature is normal. The lungs are clear. IMPRESSION: 1. No acute pulmonary process. [facility] Colin Villa, , 01/04/2024 9:06 PM
[2024-01-04 21:10] LABS: ALT 26 U/L (4-34); African American GFR (CKD) >90 (>60 ml/min/1.73 sqM); Albumin 4.3 g/dL (3.5-5.0); Anion Gap 5 mmol/L; Blood Urea Nitrogen 19 mg/dL (7-17); Carbon Dioxide 29 mmol/L (22-30); Chloride 105 mmol/L (98-107); Glucose 115 mg/dL (74-99); Non-African American GFR(CKD) >90 (>60 ml/min/1.73 sqM); Sodium 139 mmol/L (137-145); Total Bilirubin 0.4 mg/dL (0.2-1.3); Total Protein 6.9 g/dL (6.3-8.2)
[2024-01-04 21:27] LABS: AST 32 U/L (14-36); Alkaline Phosphatase 67 U/L (38-126); Potassium 3.9 mmol/L (3.5-5.1)
[2024-01-04] MEDS: DEXAMETHASONE SOD PHOSPHATE 10 MG/ML 1 ML VIAL IV STA (21:50)
[2024-01-04] MEDS: ALBUTEROL NEBULIZED 2.5 MG/3 ML INHALATION STA (21:54)
[2024-01-04] MEDS: IPRATROPIUM-ALBUTEROL 3 ML NEB INHALATION STA (21:54)
[2024-01-04] MEDS: SODIUM CHLORIDE 0.9% 500 ML 500 ML IV ONE (21:57)
[2024-01-04] MEDS ORDERED: NALOXONE 0.4 MG/ML 1 ML VIAL IVP PRN (23:25)
[2024-01-05] MEDS: methylPREDNISolone SOD SUCCI 125 MG/2 ML VIAL IV SCH (00:23)
[2024-01-05] MEDS ORDERED: DEXTROSE 50% SYRINGE 50 ML IVP PRN ×4 (00:50→08:34)
[2024-01-05] MEDS: ACETAMINOPHEN TAB 325 MG TAB PO PRN (02:23)
[2024-01-05] MEDS: IPRATROPIUM-ALBUTEROL 3 ML NEB INHALATION PRN (05:25)
[2024-01-05 08:29] LABS: Glucose,Whole Blood 156 mg/dL (70-110)
--- NOTE | 2024-01-05 08:35 | P.HPIM ---
History of Present Illness This is a pleasant 63 years old -Burm[place] female with past medical history of asthma and she follow-up with Dr. de los santos from pulmonary service Patient presents because of breathing difficulty and coughing since last Wednesday about 5 to 6 days ago. She does not make a lot of phlegm This is associated with central chest pain about 7/10 in severity, radiates to the left side felt like sharp and something sitting on the chest increased by deep breathing and with talking associated with headache She denies vomiting or diarrhea, actually she complains from constipation and requires stool softeners. She complains from mild epigastric pain and tenderness She denies urinary complaint Low dizziness but she complains from headache. No weakness or tingling or numbness She denies smoking alcohol or illicit drugs She is hemodynamically stable, afebrile She has unremarkable CBC, BMP, liver enzymes. Troponin less than 0.012. Influenza A and type B, RSV, SARS (coronavirus) are undetected EKG showing sinus rhythm at [address]-T change in blood she has T wave inversion in inferior leads Chest x-ray showing hyperinflated with no acute process Review of Systems Review of systems CONSTITUTIONAL: No fever, no malaise, no fatigue. HEENT: No recent visual problems or hearing problems. Denied any sore throat. CARDIOVASCULAR: No orthopnea, PND, no palpitations, no syncope. PULMONARY: Nosneezing, no hemoptysis. GASTROINTESTINAL: No diarrhea, no nausea, no vomiting, no abdominal pain. Normoactive bowel sounds. NEUROLOGICAL: No headaches, no weakness, no numbness. HEMATOLOGICAL: Denies any bleeding or petechiae. GENITOURINARY: Denies any burning micturition, frequency, or urgency. MUSCULOSKELETAL/RHEUMATOLOGICAL: Denies any joint pain, swelling, or any muscle pain. ENDOCRINE: Denies any polyuria or polydipsia. Past Medical History Past Medical History: Asthma, Coronary Artery Disease (CAD), Diabetes Mellitus, Eye Disorder, GERD/Reflux, Hyperlipidemia, Hypertension, Pneumonia, Respiratory Disorder, Rheumatoid Arthritis (RA), Skin Disorder, Thyroid Disorder Additional Past Medical History / Comment(s): NIDDM type II, bronchitis, murmur, bilateral eye glaucoma, hiatal hernia, IBS, eczema, hypothyroid, migraines, bilateral carpal tunnel syndrome, lumbar back pain which has lessened since back surgery, insomnia, normocytic anemia, UTIs, seasonal allergies/sinus problems History of Any Multi-Drug Resistant Organisms: None Reported Date of last positivie culture/infection: 2014 Past Surgical History: Back Surgery, Breast Surgery, Cholecystectomy, Heart Catheterization, Hysterectomy, Orthopedic Surgery Additional Past Surgical History / Comment(s): Bilateral breast reduction, R breast bx-benign, L knee arthroscopy, lumbar back surgery, bilateral cataract removals, colonoscopy/benign polypectomy, vocal cord poylpectomies, D&C Past Anesthesia/Blood Transfusion Reactions: Motion Sickness Past Psychological History: Anxiety Smoking Status: Never smoker Past Alcohol Use History: None Reported Past Drug Use History: None Reported - Past Family History Father Family Medical History: Cancer, Hypertension Additional Family Medical History / Comment(s): Prostate cancer Mother Family Medical History: Eye Disorder, Hypertension, Vascular Disorder Additional Family Medical History / Comment(s): Mother had glaucoma. She of a brain aneurysm rupture at the age of 57yrs. Medications and Allergies Home Medications Medication Instructions Recorded Confirmed Type Esomeprazole Magnesium [NexIUM] 40 mg PO DAILY 08/21/14 01/05/24 History Montelukast [Singulair] 10 mg PO HS 08/21/14 01/05/24 History hydroCHLOROthiazide [Hydrodiuril] 25 mg PO DAILY 09/09/14 01/05/24 History Eszopiclone [Lunesta] 3 mg PO HS 04/20/16 01/05/24 History Albuterol Nebulized [Ventolin 2.5 mg INHALATION RT-QID PRN 11/10/17 01/05/24 History Nebulized] Nebivolol HCl [Bystolic] 10 mg PO DAILY 03/28/18 01/05/24 History HYDROcodone/APAP 7.5-325MG [[place] 1 tab PO BID PRN 09/06/20 01/05/24 History 7.5-325] Atorvastatin [Lipitor] 10 mg PO DAILY 09/08/21 01/05/24 History Cholecalciferol [Vitamin D3 (125 125 mcg PO Q7D 09/08/21 01/05/24 History Mcg = 5000 Iu)] Albuterol Sulfate [Albuterol 1 - 2 puff PO RT-Q6H PRN 01/05/24 01/05/24 History Sulfate Hfa] Amoxic-Pot Clav 875-125Mg 1 tab PO BID 01/05/24 01/05/24 History [Augmentin 875-125] Benralizumab [Fasenra Pen] 30 mg SQ Q56D 01/05/24 01/05/24 History Benzonatate [Tessalon [place]] 200 mg PO Q8H PRN 01/05/24 01/05/24 History Cetirizine HCl [Zyrtec] 10 mg PO DAILY 01/05/24 01/05/24 History Cyclobenzaprine [Flexeril] 10 mg PO DAILY 01/05/24 01/05/24 History Dulaglutide [Trulicity] 0.75 mg SQ SA 01/05/24 01/05/24 History Fluticasone/Umeclidin/[place] 1 puff INHALATION RT-DAILY 01/05/24 01/05/24 History [Trelegy Ellipta 200-62.5-25] Ibuprofen [Motrin] 800 mg PO TID PRN 01/05/24 01/05/24 History Naloxone HCl [Narcan] 4 mg NASAL ONCE PRN 01/05/24 01/05/24 History Nystatin 100,000 Unit/ml Susp 5 ml PO QID 01/05/24 01/05/24 History [Mycostatin Oral Susp] Potassium Chloride ER [K-Dur 10] 10 meq PO DAILY 01/05/24 01/05/24 History Triamcinolone Acetonide 2 spray EA NOSTRIL DAILY 01/05/24 01/05/24 History [Triamcinolone Acetonide 0.055MG Nasal] predniSONE [Deltasone] 20 mg PO BID 01/05/24 01/05/24 History Allergies Allergy/AdvReac Type Severity Reaction Status Date / Time DESTINY Inhibitors Allergy Rash/Hives Verified 01/05/24 07:43 hydromorphone HCl Allergy Anaphylaxis Verified 01/05/24 07:43 [From Dilaudid] latex Allergy Rash/Hives Verified 01/05/24 07:43 propoxyphene napsylate Allergy Swelling Verified 01/05/24 07:43 [From Darvocet-N] Physical Exam Vitals: Vital Signs Temp Pulse Resp BP Pulse Ox 01/05/24 05:37 58 L 01/05/24 05:26 62 01/05/24 03:49 63 18 156/79 94 L 01/05/24 00:53 57 L 18 145/80 96 01/05/24 00:25 61 18 145/80 98 01/04/24 22:09 57 L 01/04/24 21:54 61 01/04/24 19:44 97.8 F 85 18 144/90 100 Intake and Output 01/04/24 01/05/24 01/05/24 22:59 06:59 14:59 Other: Weight 67.132 kg GENERAL: The patient is alert and oriented x3, not in any acute distress. Well developed, well nourished. HEENT: Pupils are round and equally reacting to light. EOMI. No scleral icterus. No conjunctival pallor. Normocephalic, atraumatic. No pharyngeal erythema. No thyromegaly. CARDIOVASCULAR: S1 and S2 present. No murmurs, rubs, or gallops. -PULMONARY: Chest is clear to auscultation, no significant wheezing but there is prolonged expiration, no crackles. Patient is tachypneic and coughing frequently ABDOMEN: Soft, nontender, nondistended, normoactive bowel sounds. No palpable organomegaly. MUSCULOSKELETAL: No joint swelling or deformity. EXTREMITIES: No cyanosis, clubbing, or pedal edema. NEUROLOGICAL: Gross neurological examination did not reveal any focal deficits. SKIN: No rashes. no petechiae. Results CBC & Chem 7: 01/04/24 20:41 01/04/24 20:41 Labs: Abnormal Lab Results - Last 24 Hours (Table) 01/04/24 01/04/24 Range/Units 20:41 20:41 Plt Count 455 H (150-450) k/uL BUN 19 H (7-17) mg/dL Glucose 115 H (74-99) mg/dL Assessment and Plan Assessment: Acute asthma exacerbation with possible elements of acute bronchitis Chest pain, most likely secondary to her asthma disease. the suspicion of cardiac causes low patient was evaluated by electronic intelligence officer Dr. Armendariz(on 09/08/2021 for similar complaint and it was musculoskeletal) Diabetes mellitus Hypertension Hyperlipidemia History of rheumatoid arthritis Hypothyroidism History of coronary artery disease Plan: Continue with IV Solu-Medrol Continue with breathing treatment Bronchodilator Pulmonary team consult Patient was on benralizumab for severe asthma as an outpatient Labs and medication were reviewed.. Continue same treatment. Continue with symptomatic treatment. Resume home medication. Monitor labs and vitals. DVT and GI prophylaxis. Further recommendations as per clinical course of the patient DVT prophylaxis: Subcutaneous heparin GI Prophylaxis: Pepcid Prognosis is guarded
[2024-01-05] MEDS: INSULIN ASPART (NovoLOG) 100 UNIT/ML VIAL SQ SCH (08:38)
[2024-01-05] MEDS: IPRATROPIUM-ALBUTEROL 3 ML NEB INHALATION SCH (08:43)
[2024-01-05] MEDS ORDERED: BENRALIZUMAB 30 MG/ML SQ SCH (08:45)
[2024-01-05] MEDS ORDERED: AUTO INJCT SQ SCH (08:45)
[2024-01-05] MEDS ORDERED: PROMETHAZINE 25 MG TAB PO PRN (10:32)
[2024-01-05] MEDS: guaiFENesin-DM 100-10MG/5ML 10 ML CUP PO SCH (10:41)
[2024-01-05] MEDS: CYCLOBENZAPRINE 10 MG TAB PO SCH (10:41)
[2024-01-05] MEDS: NYSTATIN 100,000 UNIT/ML SUSP 500,000 UNIT/5 ML CUP PO SCH (10:41)
[2024-01-05] MEDS: LORATADINE 10 MG TAB PO SCH (10:42)
[2024-01-05] MEDS: hydroCHLOROthiazide 25 MG TAB PO SCH (10:42)
[2024-01-05] MEDS: ATORVASTATIN 10 MG TAB PO SCH (10:42)
[2024-01-05] MEDS: FAMOTIDINE 20 MG/2 ML VIAL IV SCH (10:43)
[2024-01-05] MEDS: HEPARIN SODIUM,PORCINE 5,000 UNIT/ML 1 ML VIAL SQ SCH (10:45)
[2024-01-05] MEDS: NEBIVOLOL 5 MG TAB PO SCH (10:55)
[2024-01-05 13:58] LABS: Glucose,Whole Blood 128 mg/dL (70-110)
[2024-01-05] MEDS: IBUPROFEN 800 MG TAB PO PRN (14:16)
[2024-01-05 16:37] LABS: Glucose,Whole Blood 140 mg/dL (70-110)
--- NOTE | 2024-01-05 18:40 | P.CNPUL ---
History of Present Illness Consult date: 01/05/24 Reason for consult: dyspnea, asthma History of present illness: Saba is a pleasant 63-year-old female patient with known history of severe persistent bronchial asthma maintained on a combination of Trelegy Ellipta and Singulair and she has been also started on Fasenra shots which she receives every 2 months. The patient was getting progressively more short of breath. She had ongoing issues with asthma exacerbation. She tried to get into our office and she was unable to do so. Ultimately, she came into the emergency because of increased dyspnea chest tightness and wheezing. Exact trigger or asthma activity is not known. She has had multiple hospitalizations in the past for the same. Viral screen was negative. Chest x-ray showed hyperinflation without any acute cardiopulmonary process. Rest of the labs showed a WBC count of 8.2 with a hemoglobin of 11.4 and platelet count of 455. Troponins are negative. Electrolytes are all within normal limits. She has a persistent relentless cough for which she is taking Mucinex. Promethazine was also added. Hemodynamically stable. Pulse ox 98% room air oxygen. She is actively bronchospastic and wheezy. Noted the patient was seen in urgent care where she was given Augmentin and prednisone burst taper. Nevertheless, her breathing decompensated and the patient ended up coming into the hospital. No mental status change. No pleurisy. No hemoptysis. No swelling lower extremities. No angina. EKG showing normal sinus rhythm. Chest x-ray is negative. Review of Systems Constitutional: Reports fatigue, Reports fever Eyes: denies as per HPI, denies blurred vision, denies bulging eye, denies decreased vision, denies diplopia, denies discharge, denies dry eye, denies irritation, denies itching, denies pain, denies photophobia, denies loss of peripheral vision, denies loss of vision, denies tunnel vision/blind spots Ears: deny: decreased hearing, ear discharge, earache, tinnitus Ears, nose, mouth and throat: Reports as per HPI Breasts: absent: as per HPI, change in shape, gynecomastia, masses, nipple discharge, pain, skin changes, swelling Cardiovascular: Reports decreased exercise tolerance, Reports dyspnea on exertion Respiratory: Reports cough, Reports cough with sputum, Reports dyspnea, Reports wheezing Gastrointestinal: Reports as per HPI Genitourinary: Reports as per HPI Menstruation: Reports as per HPI Musculoskeletal: Reports as per HPI Musculoskeletal: absent: ankle pain, ankle stiffness, ankle swelling, as per HPI, elbow pain, elbow stiffness, elbow swelling, foot pain, foot stiffness, foot swelling, hand pain, hand stiffness, hand swelling, hip pain, hip stiffness, hip swelling, knee pain, knee stiffness, knee swelling, shoulder pain, shoulder stiffness, shoulder swelling, wrist pain, wrist stiffness, wrist swelling Integumentary: Reports as per HPI Neurological: Reports as per HPI Psychiatric: Reports as per HPI Endocrine: Reports as per HPI Hematologic/Lymphatic: Reports as per HPI Allergic/Immunologic: Reports as per HPI Past Medical History Past Medical History: Asthma, Coronary Artery Disease (CAD), Diabetes Mellitus, Eye Disorder, GERD/Reflux, Hyperlipidemia, Hypertension, Pneumonia, Respiratory Disorder, Rheumatoid Arthritis (RA), Skin Disorder, Thyroid Disorder Additional Past Medical History / Comment(s): NIDDM type II, bronchitis, murmur, bilateral eye glaucoma, hiatal hernia, IBS, eczema, hypothyroid, migraines, bilateral carpal tunnel syndrome, lumbar back pain which has lessened since back surgery, insomnia, normocytic anemia, UTIs, seasonal allergies/sinus problems History of Any Multi-Drug Resistant Organisms: None Reported Date of last positivie culture/infection: 2014 Past Surgical History: Back Surgery, Breast Surgery, Cholecystectomy, Heart Catheterization, Hysterectomy, Orthopedic Surgery Additional Past Surgical History / Comment(s): Bilateral breast reduction, R suleiman ast bx-benign, L knee arthroscopy, lumbar back surgery, bilateral cataract removals, colonoscopy/benign polypectomy, vocal cord poylpectomies, D&C Past Anesthesia/Blood Transfusion Reactions: Motion Sickness Past Psychological History: Anxiety Smoking Status: Never smoker Past Alcohol Use History: None Reported Past Drug Use History: None Reported - Past Family History Father Family Medical History: Cancer, Hypertension Additional Family Medical History / Comment(s): Prostate cancer Mother Family Medical History: Eye Disorder, Hypertension, Vascular Disorder Additional Family Medical History / Comment(s): Mother had glaucoma. She of a brain aneurysm rupture at the age of 57yrs. Medications and Allergies Home Medications Medication Instructions Recorded Confirmed Type Esomeprazole Magnesium [NexIUM] 40 mg PO DAILY 08/21/14 01/05/24 History Montelukast [Singulair] 10 mg PO HS 08/21/14 01/05/24 History hydroCHLOROthiazide [Hydrodiuril] 25 mg PO DAILY 09/09/14 01/05/24 History Eszopiclone [Lunesta] 3 mg PO HS 04/20/16 01/05/24 History Albuterol Nebulized [Ventolin 2.5 mg INHALATION RT-QID PRN 11/10/17 01/05/24 History Nebulized] Nebivolol HCl [Bystolic] 10 mg PO DAILY 03/28/18 01/05/24 History HYDROcodone/APAP 7.5-325MG [[place] 1 tab PO BID PRN 09/06/20 01/05/24 History 7.5-325] Atorvastatin [Lipitor] 10 mg PO DAILY 09/08/21 01/05/24 History Cholecalciferol [Vitamin D3 (125 125 mcg PO Q7D 09/08/21 01/05/24 History Mcg = 5000 Iu)] Albuterol Sulfate [Albuterol 1 - 2 puff PO RT-Q6H PRN 01/05/24 01/05/24 History Sulfate Hfa] Amoxic-Pot Clav 875-125Mg 1 tab PO BID 01/05/24 01/05/24 History [Augmentin 875-125] Benralizumab [Fasenra Pen] 30 mg SQ Q56D 01/05/24 01/05/24 History Benzonatate [Tessalon Perle] 200 mg PO Q8H PRN 01/05/24 01/05/24 History Cetirizine HCl [Zyrtec] 10 mg PO DAILY 01/05/24 01/05/24 History Cyclobenzaprine [Flexeril] 10 mg PO DAILY 01/05/24 01/05/24 History Dulaglutide [Trulicity] 0.75 mg SQ SA 01/05/24 01/05/24 History Fluticasone/Umeclidin/Vilanter 1 puff INHALATION RT-DAILY 01/05/24 01/05/24 History [Trelegy Ellipta 200-62.5-25] Ibuprofen [Motrin] 800 mg PO TID PRN 01/05/24 01/05/24 History Naloxone HCl [Narcan] 4 mg NASAL ONCE PRN 01/05/24 01/05/24 History Nystatin 100,000 Unit/ml Susp 5 ml PO QID 01/05/24 01/05/24 History [Mycostatin Oral Susp] Potassium Chloride ER [K-Dur 10] 10 meq PO DAILY 01/05/24 01/05/24 History Triamcinolone Acetonide 2 spray EA NOSTRIL DAILY 01/05/24 01/05/24 History [Triamcinolone Acetonide 0.055MG Nasal] predniSONE [Deltasone] 20 mg PO BID 01/05/24 01/05/24 History Allergies Allergy/AdvReac Type Severity Reaction Status Date / Time DESTINY Inhibitors Allergy Rash/Hives Verified 01/05/24 07:43 hydromorphone HCl Allergy Anaphylaxis Verified 01/05/24 07:43 [From Dilaudid] latex Allergy Rash/Hives Verified 01/05/24 07:43 propoxyphene napsylate Allergy Swelling Verified 01/05/24 07:43 [From Darvocet-N] Physical Exam Vitals: Vital Signs Temp Pulse Resp BP Pulse Ox 01/05/24 08:51 74 18 01/05/24 08:43 72 18 01/05/24 05:37 58 L 01/05/24 05:26 62 01/05/24 03:49 63 18 156/79 94 L 01/05/24 00:53 57 L 18 145/80 96 01/05/24 00:25 61 18 145/80 98 01/04/24 22:09 57 L 01/04/24 21:54 61 01/04/24 19:44 97.8 F 85 18 144/90 100 Intake and Output 01/04/24 01/05/24 01/05/24 22:59 06:59 14:59 Other: Weight 67.132 kg General Appearance the patient is in mild degree of respiratory distress and the patient is having persistent cough Head exam was generally normal. There was no scleral icterus or corneal arcus. Mucous membranes were moist. Neck was supple and without jugular venous distension, thyromegaly, or carotid bruits. Carotids were easily palpable bilaterally. There was no adenopathy. Lung sounds are diminished and the patient has good expiratory wheezes throughout the lung base bilaterally Cardiac exam revealed the PMI to be normally situated and sized. The rhythm was regular and no extrasystoles were noted during several minutes of auscultation. The first and second heart sounds were normal and physiologic splitting of the second heart sound was noted. There were no murmurs, rubs, clicks, or gallops. Abdominal exam revealed normal bowel sounds. The abdomen was soft, non-tender, and without masses, organomegaly, or appreciable enlargement of the abdominal aorta. Examination of the extremities revealed easily palpable radial, femoral and pedal pulses. There was no cyanosis, clubbing or edema. Examination of the skin revealed no evidence of significant rashes, suspicious appearing nevi or other concerning lesions. Neurologically, the patient is awake and alert and the patient does not have any focal neurological deficit. Cranial nerves are essentially intact. Results - Laboratory Findings CBC and BMP: 01/04/24 20:41 01/04/24 20:41 Abnormal lab findings: Abnormal Labs 01/04/24 01/04/24 01/05/24 20:41 20:41 08:27 Plt Count 455 H BUN 19 H Glucose 115 H POC Glucose (mg/dL) 156 H - Diagnostic Findings Chest x-ray: image reviewed Assessment and Plan Plan: Acute asthma exacerbation with secondary shortness of breath. No clear indication for pneumonia. Exact trigger or cause for asthma exacerbation is not clear Severe persistent bronchial asthma maintained on a combination of Trelegy Ellipta , Singulair, and Fasenra injections every 2 months Acute cough secondary to above Shortness of breath secondary to above Diabetes mellitus type 2 Hypertension Hyperlipidemia Hypothyroidism History of coronary artery disease History of rheumatoid arthritis Plan Will optimize asthma with combination of DuoNeb nebulized treatments around-the- clock and IV Solu-Medrol 60 mg every 6 hours Continue Singulair 10 mg p.o. daily Mucinex DM for cough Promethazine as needed for cough Resume home medications Monitor the blood sugar and cover the patient with insulin/scale coverage for now Will continue to follow
[2024-01-05 21:25] LABS: Glucose,Whole Blood 175 mg/dL (70-110)
[2024-01-05] MEDS: MONTELUKAST 10 MG TAB PO SCH (21:58)
[2024-01-05] MEDS: MELATONIN 5 MG TABLET PO PRN (21:58)
[2024-01-06] MEDS: HYDROcodone/APAP 7.5-325MG 1 EACH TAB PO PRN (01:05)
[2024-01-06 06:01] LABS: Glucose,Whole Blood 150 mg/dL (70-110)
--- NOTE | 2024-01-06 11:43 | P.PN ---
Subjective This is a pleasant 63 years old -[place] female with past medical history of asthma and she follow-up with Dr. de los santos from pulmonary service Patient presents because of breathing difficulty and coughing since last Wednesday about 5 to 6 days ago. She does not make a lot of phlegm This is associated with central chest pain about 7/10 in severity, radiates to the left side felt like sharp and something sitting on the chest increased by de ep breathing and with talking associated with headache She denies vomiting or diarrhea, actually she complains from constipation and requires stool softeners. She complains from mild epigastric pain and tenderness She denies urinary complaint Low dizziness but she complains from headache. No weakness or tingling or numbness She denies smoking alcohol or illicit drugs She is hemodynamically stable, afebrile She has unremarkable CBC, BMP, liver enzymes. Troponin less than 0.012. Influenza A and type B, RSV, SARS (coronavirus) are undetected EKG showing sinus rhythm at [address]-T change in blood she has T wave inversion in inferior leads Chest x-ray showing hyperinflated with no acute process 01/06/24 Patient reports some improvement in her wheezing but she still complaining from shortness of breath and exertional dyspnea. Also she is still complaining from coughing although she reports some improvement Her chest pain is more like tightness in the middle of her chest that is brought up by coughing or deep breath, it looks pleuritic chest pain No other new complaint Hemoglobin A1c 6.2 She remains on IV Solu-Medrol 60 mg Objective - Vital Signs Vital signs: Vital Signs Temp 98.6 F 01/06/24 07:00 Pulse 75 01/06/24 09:34 Resp 17 01/06/24 07:00 BP 174/80 01/06/24 07:00 Pulse Ox 99 01/06/24 07:00 FiO2 Intake & Output 01/05/24 01/06/24 01/06/24 18:59 06:59 18:59 Intake Total 118 Balance 118 Weight 67.132 kg Intake: Oral 118 Other: # Voids 1 # Bowel Movements 0 - Exam GENERAL: The patient is alert and oriented x3, not in any acute distress. Well developed, well nourished. HEENT: Pupils are round and equally reacting to light. EOMI. No scleral icterus. No conjunctival pallor. Normocephalic, atraumatic. No pharyngeal erythema. No thyromegaly. CARDIOVASCULAR: S1 and S2 present. No murmurs, rubs, or gallops. -PULMONARY: Chest is clear to auscultation, bilateral scattered wheezing , no crackles. ABDOMEN: Soft, nontender, nondistended, normoactive bowel sounds. No palpable organomegaly. MUSCULOSKELETAL: No joint swelling or deformity. EXTREMITIES: No cyanosis, clubbing, or pedal edema. NEUROLOGICAL: Gross neurological examination did not reveal any focal deficits. SKIN: No rashes. no petechiae. - Labs CBC & Chem 7: 01/04/24 20:41 01/04/24 20:41 Labs: Abnormal Lab Results - Last 24 Hours (Table) 01/05/24 01/05/24 01/05/24 Range/Units 13:56 16:35 21:24 POC Glucose (mg/dL) 128 H 140 H 175 H (70-110) mg/dL Hemoglobin A1c (<=6.0) % 01/06/24 01/06/24 Range/Units 05:59 06:07 POC Glucose (mg/dL) 150 H (70-110) mg/dL Hemoglobin A1c 6.2 H (<=6.0) % Assessment and Plan Assessment: Acute asthma exacerbation with possible elements of acute bronchitis Chest pain, most likely secondary to her asthma disease. the suspicion of cardiac causes low patient was evaluated by [employer] Dr. Armendariz(on 09/08/2021 for similar complaint and it was musculoskeletal) Diabetes mellitus Hypertension Hyperlipidemia History of rheumatoid arthritis Hypothyroidism History of coronary artery disease Plan: Continue with IV Solu-Medrol Continue with breathing treatment Bronchodilator Pulmonary team consult Patient was on benralizumab for severe asthma as an outpatient Labs and medication were reviewed.. Continue same treatment. Continue with symptomatic treatment. Resume home medication. Monitor labs and vitals. DVT and GI prophylaxis. Further recommendations as per clinical course of the patient DVT prophylaxis: Subcutaneous heparin GI Prophylaxis: Pepcid Prognosis is guarded
[2024-01-06 12:00] LABS: Glucose,Whole Blood 196 mg/dL (70-110)
[2024-01-06 17:02] LABS: Glucose,Whole Blood 193 mg/dL (70-110)
[2024-01-06] MEDS: diphenhydrAMINE 25 MG CAP PO PRN (18:11)
--- NOTE | 2024-01-06 20:23 | P.PN ---
Subjective Progress Note Date: 01/06/24 Saba is a pleasant 63-year-old female patient with known history of severe persistent bronchial asthma maintained on a combination of Trelegy Ellipta and Singulair and she has been also started on Fasenra shots which she receives every 2 months. The patient was getting progressively more short of breath. She had ongoing issues with asthma exacerbation. She tried to get into our office and she was unable to do so. Ultimately, she came into the emergency because of increased dyspnea chest tightness and wheezing. Exact trigger or asthma activity is not known. She has had multiple hospitalizations in the past for the same. Viral screen was negative. Chest x-ray showed hyperinflation without any acute cardiopulmonary process. Rest of the labs showed a WBC count of 8.2 with a hemoglobin of 11.4 and platelet count of 455. Troponins are negative. Electrolytes are all within normal limits. She has a persistent relentless cough for which she is taking Mucinex. Promethazine was also added. Hemodynamically stable. Pulse ox 98% room air oxygen. She is actively bronchospastic and wheezy. Noted the patient was seen in urgent care where she was given Augmentin and prednisone burst taper. Nevertheless, her breathing decompensated and the patient ended up coming into the hospital. No mental status change. No pleurisy. No hemoptysis. No swelling lower extremities. No angina. EKG showing normal sinus rhythm. Chest x-ray is negative. On 01/06/2024, the patient is being seen for a follow-up. Slightly improved compared to yesterday. No new complaints. Remains on bronchodilators. Remains on steroids. She is also on cough medication. Slight hyperglycemia due to systemic steroids. Afebrile. Hemodynamically stable. Pulse ox is 99 to 100% room air oxygen. No other significant events over the past 24 hours. Occasional hoarseness. Chest remains tight. Remains on IV Solu-Medrol. Objective - Vital Signs Vital signs: Vital Signs Temp 98.6 F 01/06/24 07:00 Pulse 75 01/06/24 09:34 Resp 17 01/06/24 07:00 BP 174/80 01/06/24 07:00 Pulse Ox 99 01/06/24 07:00 FiO2 Intake & Output 01/05/24 01/06/24 01/06/24 18:59 06:59 18:59 Intake Total 118 Balance 118 Weight 67.132 kg Intake: Oral 118 Other: # Voids 1 # Bowel Movements 0 - Exam General Appearance the patient is in mild degree of respiratory distress and the patient is having persistent cough Head exam was generally normal. There was no scleral icterus or corneal arcus. Mucous membranes were moist. Neck was supple and without jugular venous distension, thyromegaly, or carotid bruits. Carotids were easily palpable bilaterally. There was no adenopathy. Lung sounds are diminished and the patient has good expiratory wheezes throu ghout the lung base bilaterally Cardiac exam revealed the PMI to be normally situated and sized. The rhythm was regular and no extrasystoles were noted during several minutes of auscultation. The first and second heart sounds were normal and physiologic splitting of the second heart sound was noted. There were no murmurs, rubs, clicks, or gallops. Abdominal exam revealed normal bowel sounds. The abdomen was soft, non-tender, and without masses, organomegaly, or appreciable enlargement of the abdominal aorta. Examination of the extremities revealed easily palpable radial, femoral and pedal pulses. There was no cyanosis, clubbing or edema. Examination of the skin revealed no evidence of significant rashes, suspicious appearing nevi or other concerning lesions. Neurologically, the patient is awake and alert and the patient does not have any focal neurological deficit. Cranial nerves are essentially intact. - Labs CBC & Chem 7: 01/04/24 20:41 01/04/24 20:41 Labs: Abnormal Lab Results - Last 24 Hours (Table) 01/05/24 01/05/24 01/05/24 Range/Units 13:56 16:35 21:24 POC Glucose (mg/dL) 128 H 140 H 175 H (70-110) mg/dL Hemoglobin A1c (<=6.0) % 01/06/24 01/06/24 Range/Units 05:59 06:07 POC Glucose (mg/dL) 150 H (70-110) mg/dL Hemoglobin A1c 6.2 H (<=6.0) % Assessment and Plan Plan: Acute asthma exacerbation with secondary shortness of breath. No clear indication for pneumonia. Exact trigger or cause for asthma exacerbation is not clear Severe persistent bronchial asthma maintained on a combination of Trelegy Ellipta , Singulair, and Fasenra injections every 2 months Acute cough secondary to above Shortness of breath secondary to above Diabetes mellitus type 2 Hypertension Hyperlipidemia Hypothyroidism History of coronary artery disease History of rheumatoid arthritis Plan Will continue the same treatment for now Continue DuoNeb nebulized treatments [id number] and IV Solu-Medrol 60 mg every 6 hours Continue Singulair 10 mg p.o. daily Mucinex DM for cough Promethazine as needed for cough Monitor blood sugars insulin/scale coverage for now Will continue to follow
[2024-01-06] MEDS: FAMOTIDINE 20 MG TAB PO SCH (20:38)
[2024-01-06 21:07] LABS: Glucose,Whole Blood 142 mg/dL (70-110)
[2024-01-07 05:44] LABS: Glucose,Whole Blood 210 mg/dL (70-110)
[2024-01-07] MEDS ORDERED: TEMAZEPAM 7.5 MG CAP PO PRN (11:02)
--- NOTE | 2024-01-07 11:09 | P.PN ---
Subjective This is a pleasant 63 years old -[place] female with past medical history of asthma and she follow-up with Dr. de los santos from pulmonary service Patient presents because of breathing difficulty and coughing since last Wednesday about 5 to 6 days ago. She does not make a lot of phlegm This is associated with central chest pain about 7/10 in severity, radiates to the left side felt like sharp and something sitting on the chest increased by de ep breathing and with talking associated with headache She denies vomiting or diarrhea, actually she complains from constipation and requires stool softeners. She complains from mild epigastric pain and tenderness She denies urinary complaint Low dizziness but she complains from headache. No weakness or tingling or numbness She denies smoking alcohol or illicit drugs She is hemodynamically stable, afebrile She has unremarkable CBC, BMP, liver enzymes. Troponin less than 0.012. Influenza A and type B, RSV, SARS (coronavirus) are undetected EKG showing sinus rhythm at [address]-T change in blood she has T wave inversion in inferior leads Chest x-ray showing hyperinflated with no acute process 01/06/24 Patient reports some improvement in her wheezing but she still complaining from shortness of breath and exertional dyspnea. Also she is still complaining from coughing although she reports some improvement Her chest pain is more like tightness in the middle of her chest that is brought up by coughing or deep breath, it looks pleuritic chest pain No other new complaint Hemoglobin A1c 6.2 She remains on IV Solu-Medrol 60 mg 01/07/24 Patient still complain shortness of breath, she is more up in bed but still has difficulty talking because of her dyspnea. She is not very tachypneic at rest. no other diarrhea. No vomiting. And abdomen looks soft She still complaining from abdominal pain related to coughing. She is on Kramer 7.5 twice daily as needed, states that is not enough we will going to increase it to 10 mg every 6 hours as needed. Also she want something to help her sleep and she is ordered. Patient on IV Solu-Medrol 60 mg review of systems CONSTITUTIONAL: No fever, no malaise, no fatigue. HEENT: No recent visual problems or hearing problems. Denied any sore throat. GASTROINTESTINAL: No diarrhea, no nausea, no vomiting, no abdominal pain. Norm oactive bowel sounds. NEUROLOGICAL: No headaches, no weakness, no numbness. HEMATOLOGICAL: Denies any bleeding or petechiae. GENITOURINARY: Denies any burning micturition, frequency, or urgency. MUSCULOSKELETAL/RHEUMATOLOGICAL: Denies any joint pain, swelling, or any muscle pain. ENDOCRINE: Denies any polyuria or polydipsia. Active Medications Generic Name Dose Route Start Last Admin Trade Name Freq PRN Reason Stop Dose Admin Acetaminophen 650 mg 01/04/24 23:25 01/05/24 08:36 Acetaminophen Tab 325 Mg Tab PO 650 mg Q4HR PRN Administration Mild Pain or Fever > 100.5 Hydrocodone Bitart/Acetaminophen 1 each 01/07/24 11:02 Hydrocodone/Apap 10-325mg 1 Each Tab PO Q6HR PRN Pain Albuterol/Ipratropium 3 ml 01/04/24 23:25 01/05/24 05:25 Ipratropium-Albuterol 3 Ml Neb INHALATION 3 ml RT-Q2H PRN Administration Shortness Of Breath Or Wheezing Albuterol/Ipratropium 3 ml 01/05/24 08:00 01/07/24 07:49 Ipratropium-Albuterol 3 Ml Neb INHALATION 3 ml RT-QID CALEB Administration Atorvastatin Calcium 10 mg 01/05/24 09:00 01/07/24 07:54 Atorvastatin 10 Mg Tab PO 10 mg DAILY CALEB Administration Cyclobenzaprine HCl 10 mg 01/05/24 09:00 01/07/24 07:54 Cyclobenzaprine 10 Mg Tab PO 10 mg DAILY CALEB Administration Dextrose/Water 25 ml 01/05/24 00:50 Dextrose 50% Syringe 50 Ml IVP PER PROTOCOL PRN Hypoglycemia Protocol Dextrose/Water 50 ml 01/05/24 00:50 Dextrose 50% Syringe 50 Ml IVP PER PROTOCOL PRN Hypoglycemia Protocol Dextrose/Water 25 ml 01/05/24 08:34 Dextrose 50% Syringe 50 Ml IVP PER PROTOCOL PRN Hypoglycemia Protocol Dextrose/Water 50 ml 01/05/24 08:34 Dextrose 50% Syringe 50 Ml IVP PER PROTOCOL PRN Hypoglycemia Protocol Diphenhydramine HCl 25 mg 01/06/24 17:36 01/06/24 18:11 Diphenhydramine 25 Mg Cap PO 25 mg QID PRN Administration Itching Famotidine 20 mg 01/06/24 21:00 01/07/24 07:54 Famotidine 20 Mg Tab PO 20 mg BID CALEB Administration Guaifenesin/Dextromethorphan 10 ml 01/05/24 08:30 01/07/24 06:06 Guaifenesin-Dm 100-10mg/5ml 10 Ml Cup PO 01/08/24 08:29 10 ml Q6HR CALEB Administration Heparin Sodium (Porcine) 5,000 unit 01/05/24 09:00 01/07/24 07:54 Heparin Sodium,Porcine 5,000 Unit/Ml 1 Ml Vial SQ 5,000 unit Q12HR CALEB Administration Hydralazine HCl 50 mg 01/07/24 11:15 Hydralazine Hcl 50 Mg Tab PO BID CALEB Hydrochlorothiazide 25 mg 01/05/24 09:00 01/07/24 07:55 Hydrochlorothiazide 25 Mg Tab PO 25 mg DAILY CALEB Administration Ibuprofen 800 mg 01/05/24 08:32 01/07/24 01:37 Ibuprofen 800 Mg Tab PO 800 mg TID PRN Administration Pain Insulin Aspart 0 unit 01/05/24 07:30 01/07/24 06:06 Insulin Aspart (Novolog) 100 Unit/Ml Vial SQ 2 unit ACHS CALEB Administration Protocol Loratadine 10 mg 01/05/24 09:00 01/07/24 07:55 Loratadine 10 Mg Tab PO 10 mg DAILY CALEB Administration Melatonin 5 mg 01/05/24 21:27 01/06/24 21:18 Melatonin 5 Mg Tablet PO 5 mg HS PRN Administration Insomnia Methylprednisolone Sodium Succinate 60 mg 01/05/24 00:00 01/07/24 06:06 Methylprednisolone Sod Succi 125 Mg/2 Ml Vial IV 60 mg Q6HR CALEB Administration Montelukast Sodium 10 mg 01/05/24 21:00 01/06/24 20:38 Montelukast 10 Mg Tab PO 10 mg HS CALEB Administration Naloxone HCl 0.2 mg 01/04/24 23:25 Naloxone 0.4 Mg/Ml 1 Ml Vial IVP Q2M PRN Opioid Reversal Nebivolol 10 mg 01/05/24 09:00 01/07/24 10:48 Nebivolol 5 Mg Tab PO 10 mg DAILY CALEB Administration Nystatin 500,000 unit 01/05/24 09:00 01/07/24 07:56 Nystatin 100,000 Unit/Ml Susp 500,000 Unit/5 Ml Cup PO 500,000 unit QID CALEB Administration Protocol Promethazine HCl 25 mg 01/05/24 10:32 Promethazine 25 Mg Tab PO Q6HR PRN Cough Temazepam 7.5 mg 01/07/24 11:02 Temazepam 7.5 Mg Cap PO HS PRN Insomnia Objective - Vital Signs Vital signs: Vital Signs Temp 98.0 F 01/07/24 07:00 Pulse 55 L 01/07/24 08:05 Resp 16 01/07/24 08:00 BP 194/90 01/07/24 07:00 Pulse Ox 96 01/07/24 07:00 FiO2 Intake & Output 01/06/24 01/07/24 01/07/24 18:59 06:59 18:59 Intake Total 118 Balance 118 Intake: Oral 118 Other: # Voids 3 2 - Exam GENERAL: The patient is alert and oriented x3, not in any acute distress. Well developed, well nourished. HEENT: Pupils are round and equally reacting to light. EOMI. No scleral icterus. No conjunctival pallor. Normocephalic, atraumatic. No pharyngeal erythema. No thyromegaly. CARDIOVASCULAR: S1 and S2 present. No murmurs, rubs, or gallops. -PULMONARY: Chest is clear to auscultation, bilateral scattered wheezing , no crackles. ABDOMEN: Soft, nontender, nondistended, normoactive bowel sounds. No palpable organomegaly. MUSCULOSKELETAL: No joint swelling or deformity. EXTREMITIES: No cyanosis, clubbing, or pedal edema. NEUROLOGICAL: Gross neurological examination did not reveal any focal deficits. SKIN: No rashes. no petechiae. - Labs CBC & Chem 7: 01/04/24 20:41 01/04/24 20:41 Labs: Abnormal Lab Results - Last 24 Hours (Table) 01/06/24 01/06/24 01/06/24 Range/Units 06:07 11:59 17:01 POC Glucose (mg/dL) 196 H 193 H (70-110) mg/dL Hemoglobin A1c 6.2 H (<=6.0) % 01/06/24 01/07/24 Range/Units 21:05 05:39 POC Glucose (mg/dL) 142 H 210 H (70-110) mg/dL Hemoglobin A1c (<=6.0) % Assessment and Plan Assessment: Acute asthma exacerbation with possible elements of acute bronchitis Hypertension with urgency, related to steroid effect Chest pain, most likely secondary to her asthma disease. On abdominal pain related to coughing Diabetes mellitus Hypertension Hyperlipidemia History of rheumatoid arthritis Hypothyroidism History of coronary artery disease Plan: Add hydralazine 50 mg and monitor blood pressure Continue with IV Solu-Medrol Continue with breathing treatment Bronchodilator Pulmonary team consult Patient was on benralizumab for severe asthma as an outpatient Labs and medication were reviewed.. Continue same treatment. Continue with symptomatic treatment. Resume home medication. Monitor labs and vitals. DVT and GI prophylaxis. Further recommendations as per clinical course of the patient DVT prophylaxis: Subcutaneous heparin GI Prophylaxis: Pepcid Prognosis is guarded
[2024-01-07 12:04] LABS: Glucose,Whole Blood 167 mg/dL (70-110)
[2024-01-07] MEDS: hydrALAZINE HCL 50 MG TAB PO SCH (12:25)
--- NOTE | 2024-01-07 15:18 | P.PN ---
Subjective Progress Note Date: 01/07/24 Saba is a pleasant 63-year-old female patient with known history of severe persistent bronchial asthma maintained on a combination of Trelegy Ellipta and Singulair and she has been also started on Fasenra shots which she receives every 2 months. The patient was getting progressively more short of breath. She had ongoing issues with asthma exacerbation. She tried to get into our office and she was unable to do so. Ultimately, she came into the emergency because of increased dyspnea chest tightness and wheezing. Exact trigger or asthma activity is not known. She has had multiple hospitalizations in the past for the same. Viral screen was negative. Chest x-ray showed hyperinflation without any acute cardiopulmonary process. Rest of the labs showed a WBC count of 8.2 with a hemoglobin of 11.4 and platelet count of 455. Troponins are negative. Electrolytes are all within normal limits. She has a persistent relentless cough for which she is taking Mucinex. Promethazine was also added. Hemodynamically stable. Pulse ox 98% room air oxygen. She is actively bronchospastic and wheezy. Noted the patient was seen in urgent care where she was given Augmentin and prednisone burst taper. Nevertheless, her breathing decompensated and the patient ended up coming into the hospital. No mental status change. No pleurisy. No hemoptysis. No swelling lower extremities. No angina. EKG showing normal sinus rhythm. Chest x-ray is negative. On 01/06/2024, the patient is being seen for a follow-up. Slightly improved compared to yesterday. No new complaints. Remains on bronchodilators. Remains on steroids. She is also on cough medication. Slight hyperglycemia due to systemic steroids. Afebrile. Hemodynamically stable. Pulse ox is 99 to 100% room air oxygen. No other significant events over the past 24 hours. Occasional hoarseness. Chest remains tight. Remains on IV Solu-Medrol. 01/07/2024, the patient is still having some vigorous cough. Less bronchospastic and wheezy. Less short of breath. No new complaints. Continues to be on bronchodilators and steroids. The patient is also on nystatin swish and swallow. The patient is on IV Solu-Medrol 60 mg every 6 hours. No significant oropharyngeal candidiasis. No other new complaints otherwise for now. No altered mentation. No hemoptysis or pleurisy. Objective - Vital Signs Vital signs: Vital Signs Temp 98.5 F 01/07/24 14:11 Pulse 70 01/07/24 14:11 Resp 16 01/07/24 14:11 BP 136/76 01/07/24 14:11 Pulse Ox 98 01/07/24 14:11 FiO2 Intake & Output 01/06/24 01/07/24 01/07/24 18:59 06:59 18:59 Intake Total 118 Balance 118 Intake: Oral 118 Other: # Voids 3 2 2 - Exam General Appearance the patient is in mild degree of respiratory distress and the patient is having persistent cough Head exam was generally normal. There was no scleral icterus or corneal arcus. Mucous membranes were moist. Neck was supple and without jugular venous distension, thyromegaly, or carotid bruits. Carotids were easily palpable bilaterally. There was no adenopathy. Lung sounds are diminished and the patient has good expiratory wheezes throughout the lung base bilaterally Cardiac exam revealed the PMI to be normally situated and sized. The rhythm was regular and no extrasystoles were noted during several minutes of auscultation. The first and second heart sounds were normal and physiologic splitting of the second heart sound was noted. There were no murmurs, rubs, clicks, or gallops. Abdominal exam revealed normal bowel sounds. The abdomen was soft, non-tender, and without masses, organomegaly, or appreciable enlargement of the abdominal aorta. Examination of the extremities revealed easily palpable radial, femoral and pedal pulses. There was no cyanosis, clubbing or edema. Examination of the skin revealed no evidence of significant rashes, suspicious appearing nevi or other concerning lesions. Neurologically, the patient is awake and alert and the patient does not have any focal neurological deficit. Cranial nerves are essentially intact. - Labs CBC & Chem 7: 01/04/24 20:41 01/04/24 20:41 Labs: Abnormal Lab Results - Last 24 Hours (Table) 01/06/24 01/06/24 01/07/24 Range/Units 17:01 21:05 05:39 POC Glucose (mg/dL) 193 H 142 H 210 H (70-110) mg/dL 01/07/24 Range/Units 12:03 POC Glucose (mg/dL) 167 H (70-110) mg/dL Assessment and Plan Plan: Acute asthma exacerbation with secondary shortness of breath. No clear indication for pneumonia. Exact trigger or cause for asthma exacerbation is not clear, clinically improving Severe persistent bronchial asthma maintained on a combination of Trelegy Ellipta , Singulair, and Fasenra injections every 2 months Acute cough secondary to above Shortness of breath secondary to above Diabetes mellitus type 2 Hypertension Hyperlipidemia Hypothyroidism History of coronary artery disease History of rheumatoid arthritis Plan Clinically improving and will continue same treatment Will continue the same treatment for now Continue DuoNeb nebulized treatments [id number] and IV Solu-Medrol 60 mg every 6 hours Continue Singulair 10 mg p.o. daily Mucinex DM for cough Promethazine as needed for cough Nystatin swish and swallow Monitor blood sugars insulin/scale coverage for now Will continue to follow
[2024-01-07 17:29] LABS: Glucose,Whole Blood 203 mg/dL (70-110)
[2024-01-07] MEDS: HYDROcodone/APAP 10-325MG 1 EACH TAB PO PRN (17:43)
[2024-01-07 20:02] LABS: Glucose,Whole Blood 161 mg/dL (70-110)
[2024-01-07] MEDS: ZOLPIDEM 5 MG TAB PO PRN (21:43)
[2024-01-08 05:43] LABS: Glucose,Whole Blood 163 mg/dL (70-110)
[2024-01-08 11:33] LABS: BUN/Creat Ratio 23.25 Ratio (12.00-20.00); Blood Urea Nitrogen 18.6 mg/dL (9.0-27.0); Calcium 8.9 mg/dL (8.7-10.3); Carbon Dioxide 26.3 mmol/L (21.6-31.8); Chloride 101 mmol/L (96-109); Glucose 176 mg/dL (70-110); Potassium 3.9 mmol/L (3.5-5.5); Sodium 141 mmol/L (135-145)
[2024-01-08 12:06] LABS: Glucose,Whole Blood 185 mg/dL (70-110)
[2024-01-08] MEDS: DOCUSATE 100 MG CAP PO SCH (14:01)
[2024-01-08] MEDS: LACTULOSE 20 GM/30 ML CUP PO ONE (14:01)
--- NOTE | 2024-01-08 15:18 | P.PN ---
Subjective Progress Note Date: 01/08/24 Saba is a pleasant 63-year-old female patient with known history of severe persistent bronchial asthma maintained on a combination of Trelegy Ellipta and Singulair and she has been also started on Fasenra shots which she receives every 2 months. The patient was getting progressively more short of breath. She had ongoing issues with asthma exacerbation. She tried to get into our office and she was unable to do so. Ultimately, she came into the emergency because of increased dyspnea chest tightness and wheezing. Exact trigger or asthma activity is not known. She has had multiple hospitalizations in the past for the same. Viral screen was negative. Chest x-ray showed hyperinflation without any acute cardiopulmonary process. Rest of the labs showed a WBC count of 8.2 with a hemoglobin of 11.4 and platelet count of 455. Troponins are negative. Electrolytes are all within normal limits. She has a persistent relentless cough for which she is taking Mucinex. Promethazine was also added. Hemodynamically stable. Pulse ox 98% room air oxygen. She is actively bronchospastic and wheezy. Noted the patient was seen in urgent care where she was given Augmentin and prednisone burst taper. Nevertheless, her breathing decompensated and the patient ended up coming into the hospital. No mental status change. No pleurisy. No hemoptysis. No swelling lower extremities. No angina. EKG showing normal sinus rhythm. Chest x-ray is negative. On 01/06/2024, the patient is being seen for a follow-up. Slightly improved compared to yesterday. No new complaints. Remains on bronchodilators. Remains on steroids. She is also on cough medication. Slight hyperglycemia due to systemic steroids. Afebrile. Hemodynamically stable. Pulse ox is 99 to 100% room air oxygen. No other significant events over the past 24 hours. Occasional hoarseness. Chest remains tight. Remains on IV Solu-Medrol. 01/07/2024, the patient is still having some vigorous cough. Less bronchospastic and wheezy. Less short of breath. No new complaints. Continues to be on bronchodilators and steroids. The patient is also on nystatin swish and swallow. The patient is on IV Solu-Medrol 60 mg every 6 hours. No significant oropharyngeal candidiasis. No other new complaints otherwise for now. No altered mentation. No hemoptysis or pleurisy. On 01/08/2024, the patient is feeling well. No significant shortness of breath. Cough is subsided. Some irritation in her throat. Nevertheless, this is manageable at this point in time. No altered mentation. No hemoptysis. No pleurisy. No other issues otherwise. BUN 18 with a creatinine of 0.8 and sodium is at 141 and a potassium level is at 3.9. She is afebrile. She is also hemodynamically stable. Remains on bronchodilators [id number]. Remains on systemic steroids and the patient is receiving IV Solu-Medrol 60 mg every 6 hours in addition to DuoNeb nebulized treatments [id number] and antitussive medication including Robitussin DM and promethazine. Objective - Vital Signs Vital signs: Vital Signs Temp 98.3 F 01/08/24 13:49 Pulse 73 01/08/24 14:00 Resp 15 01/08/24 14:00 BP 113/66 01/08/24 13:49 Pulse Ox 99 01/08/24 13:49 FiO2 Intake & Output 01/07/24 01/08/24 01/08/24 18:59 06:59 18:59 Intake Total 360 Balance 360 Intake: Oral 360 Other: # Voids 2 2 2 - Exam General Appearance the patient is in mild degree of respiratory distress and the patient is having persistent cough Head exam was generally normal. There was no scleral icterus or corneal arcus. Mucous membranes were moist. Neck was supple and without jugular venous distension, thyromegaly, or carotid bruits. Carotids were easily palpable bilaterally. There was no adenopathy. Lung sounds are diminished and the patient has good expiratory wheezes throughout the lung base bilaterally Cardiac exam revealed the PMI to be normally situated and sized. The rhythm was regular and no extrasystoles were noted during several minutes of auscultation. The first and second heart sounds were normal and physiologic splitting of the second heart sound was noted. There were no murmurs, rubs, clicks, or gallops. Abdominal exam revealed normal bowel sounds. The abdomen was soft, non-tender, and without masses, organomegaly, or appreciable enlargement of the abdominal aorta. Examination of the extremities revealed easily palpable radial, femoral and pedal pulses. There was no cyanosis, clubbing or edema. Examination of the skin revealed no evidence of significant rashes, suspicious appearing nevi or other concerning lesions. Neurologically, the patient is awake and alert and the patient does not have any focal neurological deficit. Cranial nerves are essentially intact. - Labs CBC & Chem 7: 01/04/24 20:41 01/08/24 05:00 Labs: Abnormal Lab Results - Last 24 Hours (Table) 01/07/24 01/07/24 01/08/24 Range/Units 17:28 20:01 05:00 Anion Gap 13.70 H (4.00-12.00) mmol/L BUN/Creatinine Ratio 23.25 H (12.00-20.00) Ratio Glucose 176 H (70-110) mg/dL POC Glucose (mg/dL) 203 H 161 H (70-110) mg/dL 01/08/24 01/08/24 Range/Units 05:42 12:04 Anion Gap (4.00-12.00) mmol/L BUN/Creatinine Ratio (12.00-20.00) Ratio Glucose (70-110) mg/dL POC Glucose (mg/dL) 163 H 185 H (70-110) mg/dL Assessment and Plan Plan: Acute asthma exacerbation with secondary shortness of breath. No clear indication for pneumonia. Exact trigger or cause for asthma exacerbation is not clear, clinically improving Severe persistent bronchial asthma maintained on a combination of Trelegy Ellipta , Singulair, and Fasenra injections every 2 months Acute cough secondary to above Shortness of breath secondary to above Diabetes mellitus type 2 Hypertension Hyperlipidemia Hypothyroidism History of coronary artery disease History of rheumatoid arthritis Plan Will continue same treatment Continue DuoNeb nebulized treatments [id number] and IV Solu-Medrol 60 mg every 6 hours Continue Singulair 10 mg p.o. daily Mucinex DM for cough Promethazine as needed for cough Nystatin swish and swallow Monitor blood sugar and provide insulin/scale coverage for now Will continue to follow
[2024-01-08 17:16] LABS: Glucose,Whole Blood 227 mg/dL (70-110)
[2024-01-08 20:23] LABS: Glucose,Whole Blood 238 mg/dL (70-110)
--- NOTE | 2024-01-09 00:27 | P.PN ---
Subjective This is a pleasant 63 years old -[place] female with past medical history of asthma and she follow-up with Dr. de los santos from pulmonary service Patient presents because of breathing difficulty and coughing since last Wednesday about 5 to 6 days ago. She does not make a lot of phlegm This is associated with central chest pain about 7/10 in severity, radiates to the left side felt like sharp and something sitting on the chest increased by de ep breathing and with talking associated with headache She denies vomiting or diarrhea, actually she complains from constipation and requires stool softeners. She complains from mild epigastric pain and tenderness She denies urinary complaint Low dizziness but she complains from headache. No weakness or tingling or numbness She denies smoking alcohol or illicit drugs She is hemodynamically stable, afebrile She has unremarkable CBC, BMP, liver enzymes. Troponin less than 0.012. Influenza A and type B, RSV, SARS (coronavirus) are undetected EKG showing sinus rhythm at [address]-T change in blood she has T wave inversion in inferior leads Chest x-ray showing hyperinflated with no acute process 01/06/24 Patient reports some improvement in her wheezing but she still complaining from shortness of breath and exertional dyspnea. Also she is still complaining from coughing although she reports some improvement Her chest pain is more like tightness in the middle of her chest that is brought up by coughing or deep breath, it looks pleuritic chest pain No other new complaint Hemoglobin A1c 6.2 She remains on IV Solu-Medrol 60 mg 01/07/24 Patient still complain shortness of breath, she is more up in bed but still has difficulty talking because of her dyspnea. She is not very tachypneic at rest. no other diarrhea. No vomiting. And abdomen looks soft She still complaining from abdominal pain related to coughing. She is on Cherry 7.5 twice daily as needed, states that is not enough we will going to increase it to 10 mg every 6 hours as needed. Also she want something to help her sleep and she is ordered. Patient on IV Solu-Medrol 60 mg 01/07 Dyspnea and difficulty breathing is improving slowly and gradually, not quite back to baseline. Oxygen saturation is acceptable Constipation treated with laxative Objective - Vital Signs Vital signs: Vital Signs Temp 98.5 F 01/08/24 07:00 Pulse 92 01/08/24 11:53 Resp 16 01/08/24 07:00 BP 142/70 01/08/24 08:53 Pulse Ox 99 01/08/24 07:00 FiO2 Intake & Output 01/07/24 01/08/24 01/08/24 18:59 06:59 18:59 Intake Total 360 Balance 360 Intake: Oral 360 Other: # Voids 2 2 - Exam GENERAL: The patient is alert and oriented x3, not in any acute distress. Well developed, well nourished. HEENT: Pupils are round and equally reacting to light. EOMI. No scleral icterus. No conjunctival pallor. Normocephalic, atraumatic. No pharyngeal erythema. No thyromegaly. CARDIOVASCULAR: S1 and S2 present. No murmurs, rubs, or gallops. -PULMONARY: Chest is clear to auscultation, bilateral scattered wheezing , no crackles. ABDOMEN: Soft, nontender, nondistended, normoactive bowel sounds. No palpable organomegaly. MUSCULOSKELETAL: No joint swelling or deformity. EXTREMITIES: No cyanosis, clubbing, or pedal edema. NEUROLOGICAL: Gross neurological examination did not reveal any focal deficits. SKIN: No rashes. no petechiae. - Labs CBC & Chem 7: 01/04/24 20:41 01/08/24 05:00 Labs: Abnormal Lab Results - Last 24 Hours (Table) 01/07/24 01/07/24 01/08/24 Range/Units 17:28 20:01 05:00 Anion Gap 13.70 H (4.00-12.00) mmol/L BUN/Creatinine Ratio 23.25 H (12.00-20.00) Ratio Glucose 176 H (70-110) mg/dL POC Glucose (mg/dL) 203 H 161 H (70-110) mg/dL 01/08/24 01/08/24 Range/Units 05:42 12:04 Anion Gap (4.00-12.00) mmol/L BUN/Creatinine Ratio (12.00-20.00) Ratio Glucose (70-110) mg/dL POC Glucose (mg/dL) 163 H 185 H (70-110) mg/dL Assessment and Plan Assessment: Acute asthma exacerbation with possible elements of acute bronchitis Hypertension with urgency, related to steroid effect Chest pain, most likely secondary to her asthma disease. On abdominal pain related to coughing Diabetes mellitus Hypertension Hyperlipidemia History of rheumatoid arthritis Hypothyroidism History of coronary artery disease Plan: Add hydralazine 50 mg and monitor blood pressure Continue with IV Solu-Medrol Continue with breathing treatment Bronchodilator Pulmonary team consult Patient was on benralizumab for severe asthma as an outpatient Labs and medication were reviewed.. Continue same treatment. Continue with symptomatic treatment. Resume home medication. Monitor labs and vitals. DVT and GI prophylaxis. Further recommendations as per clinical course of the patient DVT prophylaxis: Subcutaneous heparin GI Prophylaxis: Pepcid Prognosis is guarded
[2024-01-09 06:03] LABS: Glucose,Whole Blood 185 mg/dL (70-110)
[2024-01-09 07:41] VITALS: RESP 16; TEMP 98.6
[2024-01-09 10:31] VITALS: BP 188/85
[2024-01-09 11:57] VITALS: PULSE 60
[2024-01-09 12:19] LABS: Glucose,Whole Blood 130 mg/dL (70-110)
--- NOTE | 2024-01-09 14:52 | P.PN ---
Subjective Progress Note Date: 01/09/24 Saba is a pleasant 63-year-old female patient with known history of severe persistent bronchial asthma maintained on a combination of Trelegy Ellipta and Singulair and she has been also started on Fasenra shots which she receives every 2 months. The patient was getting progressively more short of breath. She had ongoing issues with asthma exacerbation. She tried to get into our office and she was unable to do so. Ultimately, she came into the emergency because of increased dyspnea chest tightness and wheezing. Exact trigger or asthma activity is not known. She has had multiple hospitalizations in the past for the same. Viral screen was negative. Chest x-ray showed hyperinflation without any acute cardiopulmonary process. Rest of the labs showed a WBC count of 8.2 with a hemoglobin of 11.4 and platelet count of 455. Troponins are negative. Electrolytes are all within normal limits. She has a persistent relentless cough for which she is taking Mucinex. Promethazine was also added. Hemodynamically stable. Pulse ox 98% room air oxygen. She is actively bronchospastic and wheezy. Noted the patient was seen in urgent care where she was given Augmentin and prednisone burst taper. Nevertheless, her breathing decompensated and the patient ended up coming into the hospital. No mental status change. No pleurisy. No hemoptysis. No swelling lower extremities. No angina. EKG showing normal sinus rhythm. Chest x-ray is negative. On 01/06/2024, the patient is being seen for a follow-up. Slightly improved compared to yesterday. No new complaints. Remains on bronchodilators. Remains on steroids. She is also on cough medication. Slight hyperglycemia due to systemic steroids. Afebrile. Hemodynamically stable. Pulse ox is 99 to 100% room air oxygen. No other significant events over the past 24 hours. Occasional hoarseness. Chest remains tight. Remains on IV Solu-Medrol. 01/07/2024, the patient is still having some vigorous cough. Less bronchospastic and wheezy. Less short of breath. No new complaints. Continues to be on bronchodilators and steroids. The patient is also on nystatin swish and swallow. The patient is on IV Solu-Medrol 60 mg every 6 hours. No significant oropharyngeal candidiasis. No other new complaints otherwise for now. No altered mentation. No hemoptysis or pleurisy. On 01/08/2024, the patient is feeling well. No significant shortness of breath. Cough is subsided. Some irritation in her throat. Nevertheless, this is manageable at this point in time. No altered mentation. No hemoptysis. No pleurisy. No other issues otherwise. BUN 18 with a creatinine of 0.8 and sodium is at 141 and a potassium level is at 3.9. She is afebrile. She is also hemodynamically stable. Remains on bronchodilators [id number]. Remains on systemic steroids and the patient is receiving IV Solu-Medrol 60 mg every 6 hours in addition to DuoNeb nebulized treatments [id number] and antitussive medication including Robitussin DM and promethazine. On 01/09/2024, seen the patient for a follow-up. The patient is doing well. No specific complaints. She feels that her breathing status is back to her baseline. No new labs are available from today. No other complaints otherwise. Objective - Vital Signs Vital signs: Vital Signs Temp 98.6 F 01/09/24 07:00 Pulse 60 01/09/24 11:50 Resp 16 01/09/24 07:00 BP 188/85 01/09/24 10:29 Pulse Ox 100 01/09/24 07:00 FiO2 Intake & Output 01/08/24 01/09/24 01/09/24 18:59 06:59 18:59 Intake Total 358 Balance 358 Intake: Oral 358 Other: # Voids 2 1 # Bowel Movements 0 - Exam General Appearance the patient is in mild degree of respiratory distress and the patient is having persistent cough Head exam was generally normal. There was no scleral icterus or corneal arcus. Mucous membranes were moist. Neck was supple and without jugular venous distension, thyromegaly, or carotid bruits. Carotids were easily palpable bilaterally. There was no adenopathy. Lung sounds are diminished and the patient has good expiratory wheezes throughout the lung base bilaterally Cardiac exam revealed the PMI to be normally situated and sized. The rhythm was regular and no extrasystoles were noted during several minutes of auscultation. The first and second heart sounds were normal and physiologic splitting of the second heart sound was noted. There were no murmurs, rubs, clicks, or gallops. Abdominal exam revealed normal bowel sounds. The abdomen was soft, non-tender, and without masses, organomegaly, or appreciable enlargement of the abdominal aorta. Examination of the extremities revealed easily palpable radial, femoral and pedal pulses. There was no cyanosis, clubbing or edema. Examination of the skin revealed no evidence of significant rashes, suspicious appearing nevi or other concerning lesions. Neurologically, the patient is awake and alert and the patient does not have any focal neurological deficit. Cranial nerves are essentially intact. - Labs CBC & Chem 7: 01/04/24 20:41 01/08/24 05:00 Labs: Abnormal Lab Results - Last 24 Hours (Table) 01/08/24 01/08/24 01/08/24 Range/Units 12:04 17:04 20:19 POC Glucose (mg/dL) 185 H 227 H 238 H (70-110) mg/dL 01/09/24 Range/Units 06:02 POC Glucose (mg/dL) 185 H (70-110) mg/dL Assessment and Plan Plan: Acute asthma exacerbation with secondary shortness of breath. No clear indication for pneumonia. Exact trigger or cause for asthma exacerbation is not clear, clinically improving Severe persistent bronchial asthma maintained on a combination of Trelegy Ellipta , Singulair, and Fasenra injections every 2 months Acute cough secondary to above Shortness of breath secondary to above Diabetes mellitus type 2 Hypertension Hyperlipidemia Hypothyroidism History of coronary artery disease History of rheumatoid arthritis Plan The patient can be discharged home on a prednisone burst taper in addition to her routine respiratory medications. Continue DuoNeb nebulized treatments [id number] Continue Singulair 10 mg p.o. daily Mucinex DM for cough Promethazine as needed for cough Nystatin swish and swallow Trelegy Ellipta 1 puff a day and she needs to continue Fasenra injections every 2 weeks. Continue Singulair Will continue to follow up on an outpatient basis
--- NOTE | 2024-01-09 23:42 | P.DS ---
Providers Date of admission: 01/07/24 06:30 Attending physician: Dieudonne Mcclain Consults: 01/04/24 23:25 Consult Physician Routine Consulting Provider: Osmar Palmer Consult Reason/Comments: Asthma Do you want consulting provider notified?: Yes Primary care physician: Keila Mahmood Hospital Course: Diagnoses: Acute asthma exacerbation with possible elements of acute bronchitis Hypertension with urgency, related to steroid effect Chest pain, most likely secondary to her asthma disease. On abdominal pain related to coughing. Improved upon discharge normal pain Diabetes mellitus Hypertension Hyperlipidemia History of rheumatoid arthritis Hypothyroidism History of coronary artery disease Hospital course: This is a pleasant 63 years old -[place] female with past medical history of asthma and she follow-up with Dr. de los santos from pulmonary service Patient presents because of breathing difficulty and coughing since last Wednesday about 5 to 6 days ago. Patient was found to have asthma exacerbation and she was treated with IV Solu-Medrol, pulmonary team are following closely Patient showed interval improvement today her breathing is improved significantly although she has some scattered minimal wheezing here and there, patient is on room air with minimal dyspnea with exertion, no other respiratory symptoms no significant coughing or chest pain or abdominal pain which are impr sherwin significantly Patient asked me and pulmonary service to be discharged home today Patient was cleared for discharge by pulmonary service Patient will be treated with tapered prednisone upon discharge with instructions Problems and management plan were discussed with the patient and he verbalized understanding and acceptance Patient was found stable and can be discharged home in guarded prognosis however he needs follow-up as an outpatient. Patient was instructed to follow up with PCP Dr. Crocker within one week and patient agrees Patient was instructed to follow-up with Dr. Allen in 2 weeks after discharge and she agrees Physical exam Gen: patient is a AAOx3, no distress CVS: S1-S2, RRR, no murmur Lungs: B/L CTA, no wheezing Abdomen: soft, no distention, no tenderness, positive bowel sounds Extremity: no leg edema or induration Time spent more than 35 minutes Patient Condition at Discharge: Stable Plan - Discharge Summary Discharge Rx Participant: No New Discharge Prescriptions: New hydrALAZINE HCL [Apresoline] 50 mg PO BID 10 Days #20 tab predniSONE 10 mg PO DIRECTED #40 tab Continue Montelukast [Singulair] 10 mg PO HS Esomeprazole Magnesium [NexIUM] 40 mg PO DAILY hydroCHLOROthiazide [Hydrodiuril] 25 mg PO DAILY Eszopiclone [Lunesta] 3 mg PO HS Albuterol Nebulized [Ventolin Nebulized] 2.5 mg INHALATION RT-QID PRN PRN Reason: Shortness Of Breath Nebivolol HCl [Bystolic] 10 mg PO DAILY HYDROcodone/APAP 7.5-325MG [[place] 7.5-325] 1 tab PO BID PRN PRN Reason: Pain Cholecalciferol [Vitamin D3 (125 Mcg = 5000 Iu)] 125 mcg PO Q7D Atorvastatin [Lipitor] 10 mg PO DAILY Potassium Chloride ER [K-Dur 10] 10 meq PO DAILY Triamcinolone Acetonide [Triamcinolone Acetonide 0.055MG Nasal] 2 spray EA NOSTRIL DAILY Naloxone HCl [Narcan] 4 mg NASAL ONCE PRN PRN Reason: OVERDOSE Dulaglutide [Trulicity] 0.75 mg SQ SA Nystatin 100,000 Unit/ml Susp [Mycostatin Oral Susp] 5 ml PO QID Benzonatate [Tessalon Perle] 200 mg PO Q8H PRN PRN Reason: Cough Albuterol Sulfate [Albuterol Sulfate Hfa] 1 - 2 puff PO RT-Q6H PRN PRN Reason: Shortness Of Breath Benralizumab [Fasenra Pen] 30 mg SQ Q56D Cyclobenzaprine [Flexeril] 10 mg PO DAILY Cetirizine HCl [Zyrtec] 10 mg PO DAILY predniSONE [Deltasone] 20 mg PO BID Fluticasone/Umeclidin/Vilanter [Trelegy Ellipta 200-62.5-25] 1 puff INHALATION RT-DAILY Discontinued Ibuprofen [Motrin] 800 mg PO TID PRN PRN Reason: Pain Amoxic-Pot Clav 875-125Mg [Augmentin 875-125] 1 tab PO BID Discharge Medication List Esomeprazole Magnesium [NexIUM] 40 mg PO DAILY 08/21/14 [History] Montelukast [Singulair] 10 mg PO HS 08/21/14 [History] hydroCHLOROthiazide [Hydrodiuril] 25 mg PO DAILY 09/09/14 [History] Eszopiclone [Lunesta] 3 mg PO HS 04/20/16 [History] Albuterol Nebulized [Ventolin Nebulized] 2.5 mg INHALATION RT-QID PRN 11/10/17 [History] Nebivolol HCl [Bystolic] 10 mg PO DAILY 03/28/18 [History] HYDROcodone/APAP 7.5-325MG [[place] 7.5-325] 1 tab PO BID PRN 09/06/20 [History] Atorvastatin [Lipitor] 10 mg PO DAILY 09/08/21 [History] Cholecalciferol [Vitamin D3 (125 Mcg = 5000 Iu)] 125 mcg PO Q7D 09/08/21 [History] Albuterol Sulfate [Albuterol Sulfate Hfa] 1 - 2 puff PO RT-Q6H PRN 01/05/24 [History] Benralizumab [Fasenra Pen] 30 mg SQ Q56D 01/05/24 [History] Benzonatate [Tessalon Perle] 200 mg PO Q8H PRN 01/05/24 [History] Cetirizine HCl [Zyrtec] 10 mg PO DAILY 01/05/24 [History] Cyclobenzaprine [Flexeril] 10 mg PO DAILY 01/05/24 [History] Dulaglutide [Trulicity] 0.75 mg SQ SA 01/05/24 [History] Fluticasone/Umeclidin/Vilanter [Trelegy Ellipta 200-62.5-25] 1 puff INHALATION RT-DAILY 01/05/24 [History] Naloxone HCl [Narcan] 4 mg NASAL ONCE PRN 01/05/24 [History] Nystatin 100,000 Unit/ml Susp [Mycostatin Oral Susp] 5 ml PO QID 01/05/24 [History] Potassium Chloride ER [K-Dur 10] 10 meq PO DAILY 01/05/24 [History] Triamcinolone Acetonide [Triamcinolone Acetonide 0.055MG Nasal] 2 spray EA NOSTRIL DAILY 01/05/24 [History] predniSONE [Deltasone] 20 mg PO BID 01/05/24 [History] hydrALAZINE HCL [Apresoline] 50 mg PO BID 10 Days #20 tab 01/09/24 [Rx] predniSONE 10 mg PO DIRECTED #40 tab 01/09/24 [Rx] Follow up Appointment(s)/Referral(s): Keila Mahmood MD [Primary Care Provider] - 1-2 days (Please call office to make appointment when open) Osmar Palmer MD [STAFF PHYSICIAN] - 2 Weeks (Please call office to make appointment when open) Patient Instructions/Handouts: Asthma (DC) Activity/Diet/Wound Care/Special Instructions: heart healthy diet activity is restricted till you see your doctor please monitor your blood pressure with your doctor, you are prescribed new blood pressure medication upon discharge (hydralazine) , as you taper off the prednisone you might need less dose or to stop the medication. please call and make appointment with your doctor in one week for this purpose Discharge Disposition: HOME SELF-CARE
== END 2024-01-09 14:18 | disposition home or self-care (01) | DRG 203 ==
LOC: SUPCPDRO 19:28 → EC 19:28 → 6NMEDSUR 23:25 → OBSVTOIN 01-07 06:30
PROVIDERS: ADMIT Hospitalist; ATTEND Hospitalist
DX: J45.901 Unspecified asthma with (acute) exacerbation (principal); F41.9 Anxiety disorder, unspecified; E78.5 Hyperlipidemia, unspecified; J20.9 Acute bronchitis, unspecified; E11.9 Type 2 diabetes mellitus without complications; E03.9 Hypothyroidism, unspecified; I10 Essential (primary) hypertension; K59.00 Constipation, unspecified; I25.10 Atherosclerotic heart disease of native coronary artery without angina pectoris; M06.9 Rheumatoid arthritis, unspecified; Z79.899 Other long term (current) drug therapy; Z79.85 Long-term (current) use of injectable non-insulin antidiabetic drugs; Z79.52 Long term (current) use of systemic steroids; Z79.51 Long term (current) use of inhaled steroids; Z79.84 Long term (current) use of oral hypoglycemic drugs; Z11.52 Encounter for screening for COVID-19
CPT/HCPCS: 36415; 71046; 80048; 80053; 83036; 84484; 85025; 87636; 93005; 94640; 96361; 96372; 96374; 96375; 96376; 99285